=== PATIENT | male | born 1950 | race Caucasian/White ===

== ENCOUNTER → 2016-10-15 | Outpatient (CLI) | payer OTHER ==
[~2016-10-15] MED LIST: ASPEC325 PO; ATV/1 PO; CETI10TA84 PO; CHOL100010 PO; IBUP600T44 PO; MELA1TAB5 PO; MULT-506 PO; PANT40TA PO
== END | disposition home or self-care (01) ==
LOC: C.LAB 09:32
PROVIDERS: ATTEND Internal Medicine Critical Care Medicine
DX: J15.1 Pneumonia due to Pseudomonas (principal); R91.8 Other nonspecific abnormal finding of lung field

== ENCOUNTER → 2017-04-08 | Outpatient (CLI) | payer OTHER ==
--- NOTE | 2017-04-08 09:15 | DIAGNOSTIC IMAGING REPORT ---
CT OF THE CHEST WITHOUT IV CONTRAST CLINICAL HISTORY: Bacterial pneumonia. Pseudomonas pneumonia. COMPARISON STUDY: PET/CT July 04, 2015, chest CT March 21, 2016 and chest radiograph June 04, 2016. CT DOSE: 539.18 mGycm TECHNIQUE: Axial images of the chest were obtained without IV contrast. Images were reviewed in the axial, sagittal, and coronal planes. IV contrast was not administered for this examination. A dose lowering technique was utilized adhering to the principles of ALARA. FINDINGS: No enlarged axillary, mediastinal or hilar lymph nodes are present. The size of the heart is normal. There is no pericardial effusion. Central airways are patent. Right lower lobe airspace opacity has essentially resolved when compared to exam of March 21, 2016. There is residual bronchiectasis and scarring at this site. There is no consolidation to suggest pneumonia. Minimal subpleural opacities favor atelectasis. No pneumothorax or pleural effusion is present. Bony thorax and upper abdomen are on remarkable. There are few small calcified antoni hepatis lymph nodes. IMPRESSION: 1. No acute intrathoracic findings. 2. Resolution of right lower lobe airspace opacity with residual bronchiectasis and scarring at this site. Electronically signed by: Casimiro Rivas M.D. 04/08/2017 9:14 AM Dictated Date/Time: 04/08/2017 9:03 AM
== END | disposition home or self-care (01) ==
LOC: C.CTS 08:52
PROVIDERS: ATTEND Internal Medicine Critical Care Medicine
DX: J15.1 Pneumonia due to Pseudomonas (principal)

== ENCOUNTER 2024-03-08 10:23 | Inpatient (IN) ==
--- OUTSIDE RECORDS SUMMARY | 2024-03-08 10:27 | External Medical Summary | Summary of Care ---
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) 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) Procedures MS LEUCOVORIN CALCIUM INJECTION MS FLUOROURACIL INJECTION MS INJ., ZIRABEV, 10 MG Vu Navarrete MD [address] [place] [address] Anc Hem/Onc [address] [address] Referral ID Status Reason Start Date Expiration Date V isits Requested Visits Authorized [id number] Authorized 12/25/2023 06/30/2099 [id number] Encounter Details Date Type Department Care Team (Latest Contact Info) Description 02/07/2024 8:30 AM EDT Immunization/ Injection Hematology/Oncology Treatment, [address] [phone] Lina, Chair 11 Hem Onc [address] [place] [address] Encounter for antineoplastic chemotherapy*; 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); 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); 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 100 Tab 09/18/2018 Active Ibuprofen 200 MG Capsule Take 1 Capsule by mouth every 4 hours as needed for Pain. Active amoxicillin (AMOXIL) 500 MG Capsule Prior to dental procedures 12/14/2019 Active B-12 1000 MCG Oral Tablet Take by mouth 1 Tablet daily . 11/08/2021 Active Cetirizine HCl 10 MG Oral Tablet (ZyrTEC) Take 1 Tablet by mouth in the morning. Active home oxygen/equipment IN GAS .MEDSUPPLY 03/29/2022 Active Ventolin HFA 108 (90 Base) MCG/ACT Inhalation Aerosol SolutionIndicati ons:Idiopathic pulmonary fibrosis (HCC),LATIF (dyspnea on exertion) Inhale 2 Puffs by mouth every 4 hours as needed for Wheezing. 18 g 05/22/2023 Active Azelastine HCl 0.1 % Nasal Solution (Astelin) Administer 1 Stevinson into nostril in the morning and 1 Stevinson before bedtime. 30 mL 12 07/08/2023 Active Budesonide 0.5 MG/2ML Inhalation Suspension (Pulmicort) As directed in nasal saline rinse twice a day 120 mL 12 07/08/2023 Active Ondansetron HCl 8 MG Oral TabletIndication s:Malignant neoplasm of splenic flexure (HCC) Take 1 Tablet by mouth every 8 hours as needed for Nausea. 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 Start 02/26/2023 and stop flonase. 17 mL 02/26/2023 02/12/2024 Discontinued (Medication List Clean Up) [place] Saline Nasal Nasal GelIndications:N keo congestion,Dry nose Administer into nostril 3 times a day. 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 10/31 Interstitial pulmonary disease 11/10/2021 Idiopathic pulmonary fibrosis 05/08/2021 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) 05/08/2021 Aortic root enlargement 12/04/2020 Mild aortic stenosis 11/09/2020 Recurrent dislocation of hip joint prosthesis History of colon cancer 08/25/2019 Malignant neoplasm of splenic flexure of colon 0 12/01/2018 Cancer Staging:Clinical: Unsigned Pathologic stage from 12/31/2018:Stage IIIC(pT3, pN2b, cM0) - Signed by Vu Navarrete MD on 12/31/2018 Mild diastolic dysfunction 10/27/2018 Gastroesophageal reflux disease without esophagi tis 10/24/2018 DAILEY (nonalcoholic steatohepatitis) 03/14/2017 Bronchiectasis, uncomplicated 03/14/2017 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 Overview: path shows short segment Barretts , bxs from stomach neg for H Pylori and neg for gastritis repeat EGD in 1 year Hip joint replacement status 04/11/2009 Hereditary and idiopathic peripheral neuropathy 04/11/2009 documented as of this encounter (statuses as of 03/08/2024) Resolved Problems Problem Noted Date Diagnosed Date Resolved Date Trapezius muscle spasm 04/05/202305/22 Dislocation of hip, right, c losed, subsequent encounter 04/05/2023 02/12/2024 Dehydration 06/06/2022 02/12/2024 Chemotherapy-induced neutropenia 04/29/2019 05/08/2021 Achilles tendinitis of left lower extremity 03/18/2018 10/24/2018 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 02/14/2010 03/14/2017 Reflux esophagitis 04/11/2009 9 History of colonic polyps 05/20/2008 Overview: 3 mm adenoma at 50 cm, repeat years ICD-10 update of inactive term Special screening for malign ant neoplasms, colon 02/18/2003 09/08/2008 Overview: Resolved per Screening Diagnosis Protocol #6 BENIGN NEOPLASM LG BOWEL 02/18/2003 Elevated LFTs 09/12/2017 Overview: fatty infiltration documented as of this encounter (statuses as of 03/08/2024) Immunizations Name Administration Dates Next Due COVID-19 mRNA, LNP-s, No Pre serve, 2-Dose Series (Moderna) 02/22/2021,08/15/2020,07/18/2020 HepA Inact/HepB Recomb>=18yrs old 09/18/2018,,05/15/2017 Pneumococcal Conjugate Vacc, 13 Valent (Prevnar) 08/12/2015 Pneumococcal Polysaccharide PPV23 (Pneumovax) 09/10/2016,04/07/2008 Season Influenza, Quad, PF, Adjuvanted, 65+ Yrs, IM (FLUAD) 03/21/2020 Seasonal Influenza, PF, 6 M & above, IM , (FluLaval or Fluzone) 03/18/2018 Seasonal Influenza, Quadriva lent Hd (Fluzone Hd) 04/16/2023,03/13/2022,03/23/2021 Seasonal Influenza, Quadriva lent, No Preserve, IM 03/14/2017 Seasonal Influenza, Trivalen t, (IIV3), with Preserv, (Fluzone) 03/23/2021,03/23/2015,06/16/2013 Seasonal Influenza, Trivalen t, Adjuvanted, 65+ YRS, PF, (Fluad) 04/29/2019 TD - Tetanus/Diptheria (ADULT) 12/01/2018 TD, Preservative Free 12/01/2018 TDAP, Age 7 and older, IM (Adacel) 04/07/2008 Varicella Zoster Vaccine (Adult) 06/16/2013 Zoster Vaccine Recombinant (Shingrix) 06/13/2018 ,03/18/2018 05/18/2018 documented as of this encounter Social History Tobacco Use Types Packs/Day Years Used Date Smoking Tobacco: Never Smokeless Tobacco: Never Alcohol Use Standard Drinks/Week Comments Yes 1.7 (1 standard drink = 0.6 oz p ure alcohol) occasional PHQ-2 Answer Date Recorded PHQ Adult Total Score 0 05/22/2023 Hunger Vital Sign Answer Date Recorded Worried About Running Out of Food in the Last Ye ar Never true 01/04/2020 Ran Out of Food in the Last Year Never true 01/04/2020 Utilities Answer Date Recorded Do you have trouble paying y our heating, water, or electric bill? (Adult - for ages 18 years and over) Not on file 12/17/2023 Is your family able to pay t he heat, water, or electric bill? (Household - for ages 0-17 years) Not on file 12/17/2023 Does your family have access to good internet? (Household - for ages 0-17 years) Not on file 12/17/2023 Social Connections Answer Date Recorded How often do you feel lonely or isolated from those around you? (Adult - for ages 18 years and over) Not on file 12/17/2023 Sex and Gender Information Value Date Recorded Sex Assigned at Male 09/18/2018 7:58 AM EDT Gender Identity Male 09/18/2018 7:58 AM EDT Sexual Orientation Straight 09/18/2018 7: 58 AM EDT Job Start Date Occupation Industry Not on file Not on file Not on file documented as of this encounter Functional Status Functional Status Response Date of Assess ment Are you deaf or do you have serious difficulty h earing? No 11/20/2018 Are you blind or do you have serious difficulty seeing, even when wearing glasses? No 11/20/2018 Do you have serious difficul ty walking or climbing stairs? (5 years old or older) No 11/20/2018 Do you have difficulty dress ing or bathing? (5 years old or older) No 11/20/2018 Because of a physical, menta l, or emotional condition, do you have difficulty doing errands alone such as visiting a doctor s office or shopping? (15 years old or older) No 11/21/19 19 Cognitive Status Response Date of Assessm ent Because of a physical, menta l, or emotional condition, do you have serious difficulty concentrating, remembering, or making decisions? (5 years old or older) No 11/20/2018 documented as of this encounter Nursing Notes * Agnieszka Vinson RN - 02/07/2024 9:24 AM EDT Patient ambulatory to chair 7 Patient states mild nausea and mild fatigue with treatment, no other symptoms. Safety and Risk for Injury Patient will remain free from injury. Ensure appropriate safety devices are available. Provide and maintain safe environment. Patient instructed on use of heat and massage functions where applicable. Patient shown how to operate the heat function of the chair and to alert nursing staff if the chair feels too warm. Patient instructed on the risk of potential best while using the heat function. Presents for VAD flush. Tolerated procedure without difficulty. Advised pt to call if redness, swelling, tenderness, or drainage occurs at VAD site, verbalized understanding and has contact info. Goals: patient will remain free of injury Possible barriers to meeting goals: Stability of the patient: Moderately stable - low risk of patient condition declining or worsening Summary regarding today's goals: Met: patient remained free of injury Pt discharged in good condition, tolerated procedure well. documented in this encounter Plan of Treatment Upcoming Encounters Date Type Department Care Team (Late st Contact Info) Description 03/10/2024 11:50 AM EDT Laboratory Laboratory [facility] [place] [address] [place], [place] [address] Lina, Lab Scenery [address] [facility] [place], [place] [address] 03/11/2024 1:15 PM EDT Hem/Onc Treatment Hematology/Oncology Treatment, [place] [address] [facility], [place] [address] Lina, Chair 6 Hem Onc Scenery [address] [place] [address] 03/17/2024 12:00 PM EDT Laboratory Laboratory [facility] [place] [address] [place], [place] [address] Lina, Lab Scenery [address] [facility] [place], [place] [address] 03/18/2024 12:15 PM EDT Hem/Onc Treatment Hematology/Oncology Treatment, [place] [address] [facility], [place] [phone] Lina, Chair 8 Hem Onc Scenery [address] [place], [place] [address] 03/23/2024 8:45 AM EDT Imaging Radiology [address], [place] [address] [facility] [address] 03/31/2024 12:00 PM EDT Laboratory Laboratory [facility] L[place] [address] [place] [address] Lina, Lab Scenery [address] [facility] [place], [place] [address] 04/01/2024 11:15 AM EDT Office Visit Hematology/Oncology [facility] [place] [address] [place], [place] [phone] Vu Navarrete MD [address] [place], [place] [address] 04/01/2024 11:45 AM EDT Hem/Onc Treatment [facility]cology Treatment, [place] [address] [facility] [address] 10/13/2024 3:20 PM EDT Office Visit General Internal Medicine [facility] [address] [place] [address] Brayan Lopez MD [address] [facility] [place] [id number] Scheduled Procedures Name Priority Associated Diagnoses Date/Ti me COLONOSCOPY FLEXIBLE PROXIMAL DIAGNOSTIC Recall Personal history of colonic polyps ESOPHAGOGASTRODUODENOSCOPY ( EGD), FLEXIBLE, TRANSORAL, DIAGNOSTIC Recall Poe's esophagus with esophagitis Health Maintenance Due Date Last Done Comments Cologuard 1994 Sigmoidoscopy 1994 Fecal Occult Blood Test 02/02/2012 02/01/2011 Adult Wellness Visit 10/15/2017 10/15/2016 COVID-19 Vaccine ( season) 2024 02/22/2021, 08/15/2020, 07/18/2020 Influenza Vaccine (FLU shot) (#1) 2024 04/16/2023, 03/13/2022, 03/23/2021, Additional history exists Depression Screening 05/22/2024 05/22/2023 Poe's Esophagus Surveilance 04/04/2026 04/04/2023, 02/24/2020, 02/24/2020, Additional history exists Colonoscopy 07/11/2026 07/11/2023, 07/01, 11/10/2019, Additional history exists Colorectal Cancer Screening 07/11/2026 Lipid Panel 05/27/2028 05/27/2023, 05/0 03/2022, 03/24/2018, Additional history exists DTap/Tdap Vaccines (4 - Td or Tdap) 12/01/2028 12/01/2018, 12/01/2018, 04/07/2008 Pneumococcal Vaccine: 65+ Years Completed 09/10/2016, 08/12/2015, 04/07/2008 Zoster Vaccines Completed 06/13/2018, 03/01, 06/16/2013 Hepatitis B Vaccine Completed 09/18/2018, 09/12/2017, 05/15/2017 RETIRED - COLONOSCOPY-EVERY 5 YRS AGES 18-100 Discontinued 07/11/2023, 07/11/2023, 11/10/2019, Additional history exists HPV (Gardasil) Vaccine Aged Out No lo nger eligible based on patient's age to complete this topic MENINGOCOCCAL (MENACTRA/MENVEO) Aged Out No longer eligible based on patient's age to complete this topic documented as of this encounter Medical Devices Implanted Type Area Software Engineer Backend Device Identifier Shelf Expiration Date Model / Serial / Lot Port Implant W/8f Poly Cath - [id number] Implanted:Qty : 1 on 11/22/2021 by Prudencio Delarosa MD at OR [facility] BARD : PERIPHERAL VASCULAR [id number] 07/31/2022 [id number] / / [id number] Lens Li61ao 13.00mm 18.00 - [id number] - [id number] Implanted:Qty : 1 on 03/12/2023 by Champ Gonzalez MD at OR [facility] Left: Eye [employer] 11/29/2027 [id number] / [id number] / [id number] Lens Li61ao 13.00mm 17.00 - [id number] - [id number] Implanted:Qty : 1 on 03/26/2023 by Champ Gonzalez MD at OR [facility] Right: Eye [employer] 11/29/2027 [id number] / [id number] / [id number] documented as of this encounter Visit Diagnoses Diagnosis Encounter for antineoplastic chemotherapy- Primary 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) Secondary malignant neoplasm of liver 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 Given 02/07/2024 8:47 AM EDT 500 Units sodium chloride 0.9 % flush central line 10 mL 10 mL, IV Push, PRN Other, IV Flush, Starting on Sat02/07/24 at 0846, Until Sat02/07/24 at 1327, For 24 hours, Do not flush if lock, PICC, or central line not in place; IV infusing or unable to flush. Given 02/07/2024 8:47 AM EDT 10 mL documented in this encounter Advance Directives * Full Code (Latest Code Status on File) Date Activated Date Inactivated Comments 03/26/2023 8:37 AM 03/26/2023 2:51 PM This order r eflects the patients wishes and were consensually agreed upon. Question Answer Comments Discussion of Advance Directives occurred with: Patient Does the patient have a Living Will? No Does the patient have Health Care Power of Attor abdirizak? No * Full Code Date Activated Date Inactivated Comments 03/12/2023 2:01 PM 03/12/2023 8:16 PM This order r eflects the patients wishes and were consensually agreed upon. Question Answer Comments Discussion of Advance Directives occurred with: Patient Does the patient have a Living Will? No Does the patient have Health Care Power of Attor abdirizak? No * Full Code Date Activated Date Inactivated Comments 11/20/2018 10:18 AM 11/24/2018 4:53 PM Question Answer Comments Discussion of Advance Directives occurred with: Not Discussed Does the patient have a Living Will? No Does the patient have Health Care Power of Attor abdirizak? No * Full Code Date Activated Date Inactivated Comments 11/20/2018 5:37 AM 11/20/2018 10:18 AM Question Answer Comments Discussion of Advance Directives occurred with: Not Discussed Does the patient have a Living Will? No Does the patient have Health Care Power of Attor abdirizak? No Care Teams Preparatory Technician Relationship Specialty Start Date End Date Brayan Lopez MD [facility] [address] P[facility] - General Internal Medicine 11/06/12 documented as of this encounter
--- OUTSIDE RECORDS SUMMARY | 2024-03-08 10:28 | External Medical Summary | Summary of Care ---
Author Name Unknown Organization [facility] Address [address] [place] [address] Phone [phone] Care Team Providers Care Silk Blocker Name Role Phone Brayan Lopez MD Primary Care Provider + Reason for Visit * Reason Onset Date Comments Test Results 03/04/2024 Encounter Details Date Type Department Care Team (Late st Contact Info) Description 03/04/2024 Telephone General Internal Medicine [facility] [address] [place] [address] Brayan Lopez MD 200 [place] [address] Test Results Allergies Active Allergy Reactions Criticality Noted Date Comments Morphine Sulfate Itching 05/20/2008 documented as of this encounter (statuses as of 03/04/2024) Medications Medication Sig Dispensed Refills Start Date End Date Status VITAMIN D 1000 UNIT PO TABS 2 tablets daily Active hydrocortisone 2.5 % cream As needed 08/10/2016 Active acetaminophen (TYLENOL) 500 MG TabletIndications: Achilles tendinitis of left lower extremity Take 1 [...] HFA 108 (90 Base) MCG/ACT Inhalation Aerosol SolutionIndication s:Idiopathic pulmonary fibrosis (HCC),LATIF (dyspnea on exertion) Inhale 2 Puffs by mouth every 4 hours as needed for Wheezing. 18 g 05/22/2023 Active Azelastine HCl 0.1 % Nasal Solution (Astelin) Administer 1 [place] into nostril in the morning and 1 [place] before bedtime. 30 mL 12 07/08/2023 Active Budesonide 0.5 MG/2ML Inhalation Suspension (Pulmicort) As directed in nasal saline rinse twice a day 120 mL 12 07/08/2023 Active Ondansetron HCl 8 MG Oral TabletIndications: Malignant neoplasm of splenic flexure (HCC) Take 1 Tablet by mouth every 8 hours as needed for Nausea. 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 30 Tablet 02/07/2024 Active Melatonin 1 MG Oral Tablet ChewableIndication s:Chronic insomnia Take by mouth. 02/12/2024 Ac tive Benzonatate 100 MG Oral Capsule (Tessalon Perles)Indications :Acute cough Take 1 Capsule by mouth 3 times a day as needed for Cough. Do not cut, crush, or chew. 50 Capsule 1 03/04/2024 Active Amoxicillin-Pot Clavulanate 875-125 MG Oral Tablet (Augmentin)Indicat ions:Acute cough Take 1 Tablet by mouth in the morning and 1 Tablet before bedtime. Do all this for 7 days. 14 Tablet 03/04/2024 03/11/2024 Active Azithromycin 250 MG Oral Tablet (Zithromax)Indicat ions:Bacterial pneumonia Take 2 tabs by mouth on the first day, then 1 tab daily on days two through five 6 Tablet 03/04/2024 03/09/2024 Active Hospital, Clinic, or Other Facility Administered Medication Ordered Dose Route Frequency Start Date End Date Status Fluorouracil (5-Fu) 5,500 mg in NSS 230 mL infusion 5500 mg IV CONTINUOUS 03/03/2024 03/05/2024 Active documented as of this encounter (statuses as of 03/04/2024) Active Problems Problem Noted Date Diagnosed Date [...] as of this encounter (statuses as of 03/04/2024) Resolved Problems Problem Noted Date Diagnosed Date [...] as of this encounter (statuses as of 03/04/2024) Immunizations Name Administration Dates Next Due COVID-19 [...] No 11/20/2018 documented as of this encounter Miscellaneous Notes * Telephone Encounter - Stephanie Oneal LPN - 03/04/2024 12:10 PM EDT I called and made the patient aware of the message. He v/u and will comply. * Telephone Encounter - Stephanie Oneal LPN - 03/04/2024 12:10 PM EDT ----- Message from Brayan Lopez MD sent at 03/04/2024 11:43 AM EDT ----- Possible pneumonia. Add aizthromycin to current abx. Recheck cxr 4 weeks documented in this encounter Plan of Treatment Upcoming Encounters Date Type Department Care Team (Late st Contact Info) Description 03/10/2024 11:50 AM EDT Laboratory Laboratory [place] [address] [place] [phone] [place], Lab [facility] [address] [place] [address] 03/11/2024 1:15 PM EDT Hem/Onc Treatment Hematology/Oncology Treatment, [place] [address] [facility] [place] [address] Lina, Chair 6 Hem Onc [facility] [address] [place] [address] 03/17/2024 12:00 PM EDT Laboratory Laboratory [place] [address] [place] [phone] [place], Lab [place] [address] [place] [address] [place] [address] 03/18/2024 12:00 PM EDT Hem/Onc Treatment Hematology/Oncology Treatment, [place] 200 [facility] [place] [phone] Lina, Chair 1 Hem Onc [facility] [address] [place] [address] [place] [address] 03/23/2024 8:45 AM EDT Imaging Radiology [address], [place] [facility] [address] 03/31/2024 12:00 PM EDT Laboratory Laboratory [facility] [place] [address] [place] [address] [phone] Lina Lab [facility] [address] [place] [address] [address] 04/01/2024 11:15 AM EDT Office Visit Hematology/Oncology [facility] [place] [address] [place] [address] [phone] Vu Navarrete MD 200 [facility] [place] [address] 04/01/2024 11:45 AM EDT Hem/Onc Treatment Hematology/Oncology Treatment, [place] 200 [facility] [place] [phone] 10/13/2024 3:20 PM EDT Office Visit General Internal Medicine [facility] [place] [address] [place] [place] [address] Brayan Lopez MD 200 [facility] [place] [address] Scheduled Procedures Name Priority Associated Diagnoses Date/Ti me COLONOSCOPY FLEXIBLE PROXIMAL DIAGNOSTIC Recall Personal history of colonic polyps ESOPHAGOGASTRODUODENOSCOPY ( EGD), FLEXIBLE, TRANSORAL, DIAGNOSTIC Recall Poe's esophagus with esophagitis Health Maintenance Due Date Last Done Comments Cologuard 1994 Sigmoidoscopy 1994 Fecal Occult Blood Test 02/02/2012 02/01/2011 Adult Wellness Visit 10/15/2017 10/15/2016 COVID-19 Vaccine (4 - 2022- season) 2024 02/22/2021, 08/15/2020, 07/18/2020 Influenza Vaccine [...] this encounter Medical Devices Implanted Type Area Lead Sharepoint Developer Device Identifier Shelf Expiration Date Model / Serial / Lot Port Implant W/8f Poly Cath - [id number] Implanted:Qty : 1 on 11/22/2021 by Prudencio Delarosa MD at OR [facility] BARD : PERIPHERAL VASCULAR [id number] 07/31/2022 [id number] / / [id number] Lens Li61ao 13.00mm 18.00 - [id number] - [id number] Implanted:Qty : 1 on 03/12/2023 by Champ Gonzalez MD at OR [facility] Left: Eye [employer]OM[employer] 11/29/2027 [id number] / [id number] / [id number] Lens Li61ao 13.00mm 17.00 - [id number] - [id number] Implanted:Qty : 1 on 03/26/2023 by Champ Gonzalez MD at OR [facility] Right: Eye [employer]CH [employer] LOMB 11/29/2027 [id number] / [id number] / [id number] documented as of this encounter Additional Health Concerns Infection Onset Date Last Indicated Resolved Time Respiratory Rule-Out 03/04/2024 03/04/2024 documented as of this encounter Advance Directives * Full Code [...] Power of Attor abdirizak? No Care Teams Silk Blocker Relationship Specialty Start Date End Date Brayan Lopez MD 200 [place] [address] PCP - General Internal Medicine 11/06/12 documented as of this encounter
--- OUTSIDE RECORDS SUMMARY | 2024-03-08 10:28 | External Medical Summary | Summary of Care ---
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) Procedures ME LEUCOVORIN CALCIUM INJECTION ME FLUOROURACIL INJECTION ME INJ., ZIRABEV, 10 MG Vu Navarrete MD 200 [place] [address] Anc Hem/Onc [address] [address] Referral ID Status Reason Start Date Expiration Date V isits Requested Visits Authorized [id number] Authorized 12/25/2023 06/30/2099 [id number] Encounter Details Date Type Department Care Team (Latest Contact Info) Description 02/21/2024 11:30 AM EDT Immunization/ Injection Hematology/Oncology Treatment, [address] [address] Lina Chair 7 Hem On[address] [place] [address] Encounter for antineoplastic chemotherapy*; 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); 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); 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); 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); Encounter for adjustment and management of vascular access device Allergies Active Allergy Reactions Criticality Noted Date Comments Morphine Sulfate Itching 05/20/2008 documented as of this encounter (statuses as of 03/05/2024) Medications Medication Sig Dispensed Refills Start Date End Date Status VITAMIN D 1000 UNIT PO TABS 2 tablets daily Active hydrocortisone 2.5 % cream As needed 08/10/2016 Active acetaminophen (TYLENOL) 500 MG TabletIndications:A chilles tendinitis of left lower extremity Take 1 [...] HFA 108 (90 Base) MCG/ACT Inhalation Aerosol SolutionIndications :Idiopathic pulmonary fibrosis (HCC),LATIF (dyspnea on exertion) Inhale 2 Puffs by mouth every 4 hours as needed for Wheezing. 18 g 05/22/2023 Active Azelastine HCl 0.1 % Nasal Solution (Astelin) Administer 1 [place] into nostril in the morning and 1 [place] before bedtime. 30 mL 12 07/08/2023 Active Budesonide 0.5 MG/2ML Inhalation Suspension (Pulmicort) As directed in nasal saline rinse twice a day 120 mL 12 07/08/2023 Active Ondansetron HCl 8 MG Oral TabletIndications:M alignant neoplasm of splenic flexure (HCC) Take 1 Tablet by mouth every 8 hours as needed for Nausea. 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 30 Tablet 02/07/2024 Active Melatonin 1 MG Oral Tablet ChewableIndications :Chronic insomnia Take by mouth. 02/12/2024 Act carrie documented as of this encounter (statuses as of 03/05/2024) Active Problems Problem Noted Date Diagnosed Date [...] as of this encounter (statuses as of 03/05/2024) Resolved Problems Problem Noted Date Diagnosed Date [...] as of this encounter (statuses as of 03/05/2024) Immunizations Name Administration Dates Next Due COVID-19 [...] as of this encounter Nursing Notes * Nadine Dan RN - 02/21/2024 2:56 PM EDT Chair 9, pump disconnect. 5FU elastomeric pump is visibly deflated/empty;clamped/disconnected from VAD. VAD flushed with 10 ml NSS and Heparin 5 ml (100 units/ml). Loza needle removed intact. documented in this encounter Plan of Treatment Upcoming Encounters Date Type Department Care Team (Late st Contact Info) Description 03/10/2024 11:50 AM EDT Laboratory Laboratory [place] [address] [place] [address] [phone] [place] 200 [address]y [address] [facility] [place] [address] 03/11/2024 1:15 PM EDT Hem/Onc Treatment Hematology/Oncology Treatment, [place] [address] [place] [phone] Lina, Chair 6 Hem Onc [place] [address] [place] [address] [address] 03/17/2024 12:00 PM EDT Laboratory Laboratory [place] [address] [place] [address] [place] [phone] Lina Lab [place] [address] [place] [address] [address] 03/18/2024 12:15 PM EDT Hem/Onc Treatment Hematology/Oncology Treatment, [place] 200 [facility], [place] [phone] [place], Chair 8 Hem Onc [place] [address] [place] [place] [address] 03/23/2024 8:45 AM EDT Imaging Radiology [address], [place] [address] [place] [address] 03/31/2024 12:00 PM EDT Laboratory Laboratory [facility] [address] [place] [phone] [place], Lab [place] [address] [place] [address] 04/01/2024 11:15 AM EDT Office Visit Hematology/Oncology [facility] [place] [address] [place] [address] [place] [phone] Vu Navarrete MD 200 [facility] [place] [address] 04/01/2024 11:45 AM EDT [facility] [address] [facility] [place] [phone] 10/13/2024 3:20 PM EDT Office Visit General Internal Medicine [facility] [address] [place] [address] Brayan Lopez MD 200 [facility] [place] [address] Scheduled Procedures Name Priority Associated Diagnoses Date/Ti [...] Cancer Screening 07/11/2026 Lipid Panel 05/27/2028 05/27/2023, 03/2022, 03/24/2018, Additional history exists DTap/Tdap Vaccines [...] this encounter Medical Devices Implanted Type Area Forestry Hunter Device Identifier Shelf Expiration Date Model / Serial / Lot Port Implant W/8f Poly Cath - [id number] Implanted:Qty : 1 on 11/22/2021 by Prudencio Delarosa MD at OR [facility] BARD : PERIPHERAL VASCULAR [id number] 07/31/2022 [id number] / / [id number] Lens Li61ao 13.00mm 18.00 - [id number] - [id number] Implanted:Qty : 1 on 03/12/2023 by Champ Gonzalez MD at OR [facility] Left: Eye [employer]USCH [employer] LOMB 11/29/2027 [id number] / [id number] / [id number] Lens Li61ao 13.00mm 17.00 - [id number] - [id number] Implanted:Qty : 1 on 03/26/2023 by Champ Gonzalez MD at OR [facility] Right: Eye BAUSCH [employer] LOMB 11/29/2027 [id number] / [id number] / [id number] documented as of this encounter Visit Diagnoses Diagnosis Encounter for antineoplastic chemotherapy- Primary 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) Secondary malignant neoplasm of liver 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 Given 02/21/2024 11:33 AM EDT 500 Units sodium chloride 0.9 % flush central line 10 mL 10 mL, IV Push, PRN Other, IV Flush, Starting on Sat02/21/24 at 1128, Until Sat02/21/24 at 1858, For 24 hours, Do not flush if lock, PICC, or central line not in place; IV infusing or unable to flush. Given 02/21/2024 11:32 AM EDT 20 mL documented in this encounter Advance Directives [...] Power of Attor abdirizak? No Care Teams Stone Setter Relationship Specialty Start Date End Date Brayan Lopez MD 200 [place] [address] PCP - General Internal Medicine 11/06/12 documented as of this encounter
--- OUTSIDE RECORDS SUMMARY | 2024-03-08 10:28 | External Medical Summary | Summary of Care ---
Author Name Unknown Organization [facility] Address [address] [place] [address] Phone [phone] Care Team Providers Care Experimental Rocketsled Mechanic Name Role Phone Brayan Lopez MD Primary Care Provider + Reason for Visit * Reason Onset Date Comments Advice 03/06/2024 Encounter Details Date Type Department Care Team (Late st Contact Info) Description 03/06/2024 Telephone General Internal Medicine [facility] [address] [place] [address] Brayan Lopez MD 200 [place] [address] Advice Allergies Active Allergy Reactions Criticality Noted Date Comments Morphine Sulfate Itching 05/20/2008 documented as of this encounter (statuses as of 03/06/2024) Medications Medication Sig Dispensed Refills Start Date [...] 0.1 % Nasal Solution (Astelin) Administer 1 [place] into nostril in the morning and 1 [place] before bedtime. 30 mL 12 07/08/2023 Active Budesonide 0.5 MG/2ML Inhalation Suspension (Pulmicort) As directed in nasal saline rinse twice a day 120 mL 07/08/2023 Active Ondansetron HCl 8 MG Oral [...] through five 6 Tablet 03/04/2024 03/09/2024 Active documented as of this encounter (statuses as of 03/06/2024) Active Problems Problem Noted Date Diagnosed Date [...] as of this encounter (statuses as of 03/06/2024) Resolved Problems Problem Noted Date Diagnosed Date [...] as of this encounter (statuses as of 03/06/2024) Immunizations Name Administration Dates Next Due COVID-19 [...] encounter Miscellaneous Notes * Telephone Encounter - Gracy España LPN - 03/06/2024 4:39 PM EDT Spoke with patient making him aware of below. Patient verbalized understanding. * Telephone Encounter - Ashley Hardy CRNP - 03/06/2024 3:12 PM EDT If he is not improving by tomorrow I would recommend ER -- there is not much else I could add in anadditional office visit * Telephone Encounter - Salome Zamudio LPN - 03/06/2024 12:38 PM EDT Patient's calling in with concerns that patient isn't improving despite the Zpak and Augmentin. Fever last night - doesn't recall the reading Productive cough of yellow/white sputum hasn't improved or worsened. SOB at rest and with exertion. SP O2 96% on 2lpm via nasal canula. Patient did say to his that he feels better overall when he wears his O2. Color in his face has improved since wearing his O2 on. Chest discomfort when he coughs hard. Using the Albuterol PRN inhaler, no improvement after using. Denies palpitations, tachycardia, dizziness, syncope, lightheadedness, blood in sputum, wheezing, resp distress. Advised patient wear his O2 continuous if needed and seek medical care sooner than appt scheduled if his symptoms are worsening. Appt scheduled tomorrow at with Ashley Hardy at 1040am. documented in this encounter Plan of Treatment Upcoming Encounters Date Type Department Care Team (Late st Contact Info) Description 03/07/2024 10:40 AM EDT Office Visit Family Practice [facility] [address] [place] [address] Ashley Hardy CRNP [address] [place] [address] 03/10/2024 11:50 AM EDT Laboratory Laboratory [facility] [place] [address] [place] [phone] L[place], Lab [place] [address] [facility] [place] [address] 03/11/2024 1:15 PM EDT Hem/Onc Treatment [facility] [place] [facility] [phone] [place], Chair 6 Hem Onc [place] [address] [place] [address] 03/17/2024 12:00 PM EDT Laboratory Laboratory [facility] [place] [address] [place] [address] [place], Lab [place] [address] [facility] [place] [address] 03/18/2024 12:15 PM EDT Hem/Onc Treatment Hematology[facility]Oncology Treatment, [place] [facility] [address] Lina, Chair 8 Hem Onc [place] [address] [place] [address] 03/23/2024 8:45 AM EDT Imaging Radiology [facility] [address] [place] [address] 03/31/2024 12:00 PM EDT Laboratory Laboratory [facility] [place] [address] [place] [address] L[place], Lab [place] [address] [facility] [place] [address] 04/01/2024 11:15 AM EDT Office Visit Hematology/Oncology [facility] 200 [facility] [place] [phone] Vu Navarrete MD 200 [facility] [place] [address] 04/01/2024 11:45 AM EDT Hem/Onc Treatment Hematology/Oncology Treatment, [place] [facility] [phone] 10/13/2024 3:20 PM EDT Office Visit General Internal Medicine [address] [place] [address] Brayan Lopez MD 200 [facility] [place] [address] Scheduled Procedures Name Priority Associated Diagnoses Date/Ti [...] this encounter Medical Devices Implanted Type Area Boatbuilder Apprentice Wood Device Identifier Shelf Expiration Date Model / Serial / Lot Port Implant W/8f Poly Cath - [id number] Implanted:Qty : 1 on 11/22/2021 by Prudencio Delarosa MD at OR [facility] BARD : PERIPHERAL VASCULAR [id number] 07/31/2022 [id number] / / [id number] Lens Li61ao 13.00mm 18.00 - [id number] - [id number] Implanted:Qty : 1 on 03/12/2023 by Champ Gonzalez MD at OR [facility] Left: Eye [employer]USCH [employer] LOMB 11/29/2027 [id number] / [id number] / [id number] Lens Li61ao 13.00mm 17.00 - [id number] - [id number] Implanted:Qty : 1 on 03/26/2023 by Champ Gonzalez MD at OR [facility] Right: Eye BAUSCH & LOMB 11/29/2027 [id number] / [id number] / [id number] documented as of this encounter Advance Directives [...] Power of Attor abdirizak? No Care Teams Experimental Rocketsled Mechanic Relationship Specialty Start Date End Date Brayan Lopez MD 200 [place] [address] PCP - General Internal Medicine 11/06/12 documented as of this encounter
--- OUTSIDE RECORDS SUMMARY | 2024-03-08 10:28 | External Medical Summary | Summary of Care ---
Author Name Unknown Organization [facility] Address [address] [place] [address] Phone [phone] Care Team Providers Care Harbor Pilot Name Role Phone Brayan Lopez MD Primary Care Provider + Reason for Visit * Reason Onset Date Comments Test Results 03/05/2024 Encounter Details Date Type Department Care Team (Late st Contact Info) Description 03/05/2024 Telephone General Internal Medicine [facility] [address] [place] [address] Brayan Lopez MD 200 [place] [address] Test Results Allergies Active Allergy Reactions Criticality [...] 0.1 % Nasal Solution (Astelin) Administer 1 [place] into nostril in the morning and 1 [place] before bedtime. 30 mL 12 07/08/2023 Active [...] encounter Miscellaneous Notes * Telephone Encounter - Estrellita Berry CMA - 03/05/2024 4:13 PM EDT MyG sent * Telephone Encounter - Estrellita Berry CMA - 03/05/2024 4:13 PM EDT ----- Message from Brayan Lopez MD sent at 03/04/2024 6:24 PM EDT ----- Swab negative for virus, how is he feeling? documented in this encounter Plan of Treatment Upcoming Encounters Date Type Department Care Team (Late st Contact Info) Description 03/10/2024 11:50 AM EDT Laboratory Laboratory [facility] [place] [address] [place] [phone] Lina Lab Marky [address] [place] [address] 03/11/2024 1:15 PM EDT Hem/Onc Treatment Hematology/Oncology Treatment, [place] [address] [place] [phone] Lina, Chair 6 Hem Onc Scenery [address] [place] [address] 03/17/2024 12:00 PM EDT Laboratory Laboratory [facility] Lina [place] [address] [place] [phone] Lina, Lab Scenery [address] [facility] [place] [address] 03/18/2024 12:15 PM EDT Hem/Onc Treatment Hematology/Oncology Treatment, [place] [address] [facility] [place] [phone] Lina, Chair 8 Hem Onc [place] [address] [place] [place] [address] 03/23/2024 8:45 AM EDT Imaging Radiology [address], [place] 132 [facility] [place] [address] 03/31/2024 12:00 PM EDT Laboratory Laboratory [facility] [place] [address] [address] [phone] [place], Lab [place] [address] [place] [address] 04/01/2024 11:15 AM EDT Office Visit Hematology/Oncology [facility] [place] [address] [phone] Vu Navarrete MD [address] [place] [address] [place] [address] 04/01/2024 11:45 AM EDT [facility] [phone] 10/13/2024 3:20 PM EDT Office Visit General Internal Medicine [facility] [place] [address] [place] [address] [address] Brayan Lopez MD 200 [facility] [place], [place] [address] Scheduled Procedures Name Priority Associated Diagnoses Date/Ti [...] this encounter Medical Devices Implanted Type Area Eviscerator Device Identifier Shelf Expiration Date Model / Serial / Lot Port Implant W/8f Poly Cath - [id number] Implanted:Qty : 1 on 11/22/2021 by Prudencio Delarosa MD at OR [facility] BARD : PERIPHERAL VASCULAR [id number] 07/31/2022 [id number] / / [id number] Lens Li61ao 13.00mm 18.00 - [id number] - [id number] Implanted:Qty : 1 on 03/12/2023 by Champ Gonzalez MD at OR [facility] Left: Eye [employer] 11/29/2027 [id number] / [id number] / [id number] Lens Li61ao 13.00mm 17.00 - [id number] - [id number] Implanted:Qty : 1 on 03/26/2023 by Champ Gonzalez MD at OR [facility] Right: Eye [employer]OMB 11/29/2027 [id number] / [id number] / [id number] documented as of this encounter Advance Directives [...] Power of Attor abdirizak? No Care Teams Harbor Pilot Relationship Specialty Start Date End Date Brayan Lopez MD 200 [facility] [place] [address] PCP - General Internal Medicine 11/06/12 documented as of this encounter
--- OUTSIDE RECORDS SUMMARY | 2024-03-08 10:28 | External Medical Summary | Summary of Care ---
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) Procedures PA LEUCOVORIN CALCIUM INJECTION PA FLUOROURACIL INJECTION PA INJ., ZIRABEV, 10 MG Vu Navarrete MD 200 [place] [address] Anc Hem/Onc [address] [address] Referral ID Status Reason Start Date Expiration Date V isits Requested Visits Authorized [id number] Authorized 12/25/2023 06/30/2099 999 999 Encounter Details Date Type Department Care Team (Latest Contact Info) Description 02/19/2024 11:45 AM EDT Hem/Onc Treatment Hematology/Oncolog y Treatment, [address] [phone] Lina, Chair 3 Hem On[address] [place] [address] (work) Encounter for antineoplastic chemotherapy*; Malignant neoplasm metastatic [...] 0.1 % Nasal Solution (Astelin) Administer 1 [place] into nostril in the morning and 1 [place] before bedtime. 30 mL 12 07/08/2023 Active [...] Nursing Notes * Nadine Dan RN - 02/19/2024 2:09 PM EDT Pt completed treatment without issues. VAD connected to 5FU home infusion pump. Goals: Pt will remain free from injury. Possible barriers to meeting goals: ambulation with IV pole Stability of the patient: Moderately stable - low risk of patient condition declining or worsening Summary regarding today's goals: Met: Pt remained free from injury during treatment today. Discharged in stable condition. * Nadine Dan RN - 02/19/2024 11:56 AM EDT Chair 11 Chemotherapy/Immunotherapy agents: 5FU, LEUCOVORIN, and ZIRABEV Consent for chemotherapy drug treatment complete, dated, and signed? yes, date - 12/23/23 Treatment lab parameters met? Yes Has treatment weight changed > than 10%? No Treatment preauthorized? Yes VITALS Filed Vitals: Urine protein: NEGATIVE Patient education completed for treatment? Yes Blood transfusion consent signed and complete? NA Return appointment scheduled? Yes Patient had provider visit today? Yes - Ok to release order and treat per provider VAD accessed; NSS infusing. Safety and Risk for Injury Patient will remain free from injury. Ensure appropriate safety devices are available. Provide and maintain safe environment. Functional Status: Functional status at today's visit: Restricted in physically strenuous activity but ambulatory and able to carry out work on a light orsedentary nature, e.g. light house work, office work The drug name, dose, infusion volume, rate and route of administration, expiration date and time, appearance and physical integrity of the drug and rate set on the pump and sequencing of drug administration (as applicable) were verified by me and second sign-in RN. Patient was assessed for symptoms or adverse side effects during treatment. Patient Education: Patient instructed on use of heat and massage functions where applicable. Patient shown how to operate the heat function of the chair and to alert nursing staff if the chair feels too warm. Patient instructed on the risk of potential best while using the heat function. documented in this encounter Plan of Treatment Upcoming Encounters Date Type Department Care Team (Late st Contact Info) Description 03/10/2024 11:50 AM EDT Laboratory Laboratory [facility] [place] [address] [place] [phone] Lina, Lab Scenery [address] [place] [address] 03/11/2024 1:15 PM EDT Hem/Onc Treatment Hematology/Oncology Treatment, [place] 200 [facility] [place] [address] Lina, Chair 6 Hem Onc Scenery [address] [address] 03/17/2024 12:00 PM EDT Laboratory Laboratory [facility] [place] [address] [place] [address] Lina, Lab Scenery [address] [place] [address] 03/18/2024 12:15 PM EDT Hem/Onc Treatment Hematology/Oncology Treatment, [place] 200 [facility] [place] [address] Lina, Chair 8 Hem Onc Scenery [address] [place] [address] 03/23/2024 8:45 AM EDT Imaging Radiology [facility] 1st [facility], [place] 132 [facility] [place] [address] 03/31/2024 12:00 PM EDT Laboratory Laboratory [facility] [place] 200 [facility] [place] [phone] [place] [facility] 200 [facility] [place] [address] 04/01/2024 11:15 AM EDT Office Visit Hematology/Oncology [facility] [place] [address] [place] [phone] Vu Navarrete MD 200 [facility] [place] [address] 04/01/2024 11:45 AM EDT Hem/Onc Treatment Hematology/Oncology Treatment, [place] [address] [facility] [address] [place] [phone] 10/13/2024 3:20 PM EDT Office Visit General Internal Medicine [facility] Lina [address] [place] [address] Brayan Lopez MD 200 [facility] [place] [address] Scheduled Procedures Name Priority Associated Diagnoses Date/Ti [...] this encounter Medical Devices Implanted Type Area Air Tool Operator Device Identifier Shelf Expiration Date Model / Serial / Lot Port Implant W/8f Poly Cath - [id number] Implanted:Qty : 1 on 11/22/2021 by Prudencio Delarosa MD at OR [facility] BARD : PERIPHERAL VASCULAR [id number] 07/31/2022 [id number] / / [id number] Lens Li61ao 13.00mm 18.00 - [id number] - [id number] Implanted:Qty : 1 on 03/12/2023 by Champ Gonzalez MD at OR [facility] Left: Eye [employer]CH [employer] LOMB 11/29/2027 [id number] / [id number] / [id number] Lens Li61ao 13.00mm 17.00 - [id number] - [id number] Implanted:Qty : 1 on 03/26/2023 by Champ Gonzalez MD at OR [facility] Right: Eye BAUSCH [employer] LOMB 11/29/2027 [id number] / [id number] / [id number] documented as of this encounter Visit Diagnoses [...] MAR Action Action Date Dose Rate Site bevaCIZumab-bvzr (Zirabev) 500 mg in NSS 100 mL infusion 500 mg (rounded from 512.5 mg = 5 mg/kg 102.5 kg Treatment plan Recorded weight), IV Piggyback, ONCE, 1 dose, On Sat02/19/24 at 1215, Administer over 30 Minutes Start Infusion 02/19/2024 12:16 PM EDT 500 mg 210 mL/hr Fluorouracil (5-Fu) 5,500 mg for Home Infusion 5,500 mg (rounded from 5,592 mg = 2,400 mg/m2 2.33 m2 Treatment Plan BSA from Recorded weight), Intravenous, Administer over 46 Hours, Home Infusion Pharmacy to specify base solution and volume., ONCE, 1 dose, On Sat02/19/24 at 1015 Start Infusion 02/19/2024 1:35 PM EDT 5,500 mg 5 mL/hr leucovorin calcium 950 mg in D5W 250 mL INFUSION 950 mg (rounded from 932 mg = 400 mg/m2 2.33 m2 Treatment Plan BSA from Recorded weight), IV Piggyback, ONCE, 1 dose, On Sat02/19/24 at 1215, Administer over 30 Minutes Start Infusion 02/19/2024 12:55 PM EDT 950 mg 510 mL/hr NSS infusion Intravenous, at 50 mL/hr, PRN, Starting on Sat02/19/24 at 0830, Until Sat02/19/24 at 1813, Maintenance line Start Infusion 02/19/2024 11:58 AM EDT 50 mL/hr ondansetron (Zofran) tab 8 mg 8 mg, Oral, ONCE, On Sat02/19/24 at 1215, For 1 dose, Give 30 minutes prior to chemotherapy. Given 02/19/2024 11:55 AM EDT 8 mg documented in this encounter Advance Directives * [...] Power of Attor abdirizak? No Care Teams Health Occupations Teacher Relationship Specialty Start Date End Date Brayan Lopez MD 200 [place] [address] PCP - General Internal Medicine 11/06/12 documented as of this encounter
--- OUTSIDE RECORDS SUMMARY | 2024-03-08 10:28 | External Medical Summary | Summary of Care ---
Author Name Unknown Organization [facility] Address [address] [place] [address] Phone [phone] Care Team Providers Care Fish Tender Name Role Phone Brayan Lopez MD Primary [...] ZIRABEV, 10 MG Vu Navarrete MD 200 [place] [address] Anc Hem/Onc [address] [address] Referral ID Status Reason Start Date Expiration Date V isits Requested Visits Authorized [id number] Authorized 12/25/2023 06/30/2099 999 999 Encounter Details Date Type Department Care Team (Latest Contact Info) Description 02/19/2024 11:45 AM EDT Hem/Onc Treatment Hematology/Oncolog y Treatment, [address] [address] Lina, Chair 3 Hem Onc [address] [place] [address] (work) Encounter for antineoplastic chemotherapy*; Malignant neoplasm [...] 0.1 % Nasal Solution (Astelin) Administer 1 [place] into nostril in the morning and 1 [place] before bedtime. 30 mL 12 07/08/2023 Active [...] Description 03/10/2024 11:50 AM EDT Laboratory Laboratory [facility] [place] [address] [place] [phone] Lina, Lab Scenery [address] [place] [address] 03/11/2024 1:15 PM EDT Hem/Onc Treatment Hematology/Oncology Treatment, [place] 200 [facility] [place] [phone] Lina, Chair 6 Hem Onc Scenery [address] [place] [address] 03/17/2024 12:00 PM EDT Laboratory Laboratory [facility] [place] [address] [place] [address] Lina, Lab Scenery [address] [place] [address] 03/18/2024 12:15 PM EDT Hem/Onc Treatment Hematology/Oncology Treatment, [place] 200 [facility] [place] [address] Lina, Chair 8 Hem Onc Scenery [address] [place] [address] 03/23/2024 8:45 AM EDT Imaging Radiology [facility] 1st [facility] [place] 132 [facility] [place] [address] 03/31/2024 12:00 PM EDT Laboratory Laboratory [facility] [place] 200 [facility] [place] [phone] [place] [facility] 200 [facility] [place] [address] 04/01/2024 11:15 AM EDT Office Visit [facility]ematology[facility]Oncology [facility] [place] [address] [place] [phone] Vu Navarrete MD 200 [facility] [place] [address] 04/01/2024 11:45 AM EDT Hem/Onc Treatment Hematology/Oncology Treatment, [place] [address] [facility] [address] [place] [phone] 10/13/2024 3:20 PM EDT Office Visit General Internal Medicine [facility] Lina [address] [place] [address] Brayan Lopez MD 200 [facility] [place] [address] Scheduled Procedures Name Priority Associated Diagnoses Date/Ti [...] this encounter Medical Devices Implanted Type Area Transit Bus Operator Device Identifier Shelf Expiration Date Model / Serial / Lot Port Implant W/8f Poly Cath - [id number] Implanted:Qty : 1 on 11/22/2021 by Prudencio Delarosa MD at OR [facility] BARD : PERIPHERAL VASCULAR [id number] 07/31/2022 [id number] / / [id number] Lens Li61ao 13.00mm 18.00 - [id number] - [id number] Implanted:Qty : 1 on 03/12/2023 by Champ Gonzalez MD at OR [facility] Left: Eye [employer]OM[employer] 11/29/2027 [id number] / [id number] / [id number] Lens Li61ao 13.00mm 17.00 - [id number] - [id number] Implanted:Qty : 1 on 03/26/2023 by Champ Gonzalez MD at OR [facility] Right: Eye BAUSCH & LOMB 11/29/2027 [id number] / [id number] / [id number] documented as of this encounter Visit Diagnoses [...] Power of Attor abdirizak? No Care Teams Fish Tender Relationship Specialty Start Date End Date Brayan Lopez MD 200 [place] [address] PCP - General Internal Medicine 11/06/12 documented as of this encounter
--- OUTSIDE RECORDS SUMMARY | 2024-03-08 10:28 | External Medical Summary | Summary of Care ---
Author Name Unknown Organization [facility] Address [address] [place] [address] Phone [phone] Care Team Providers Care Field Trainer Name Role Phone Brayan Lopez MD Primary Care Provider + Reason for Visit * Reason Comments Cough Fever Encounter Details Date Type Department Care Team (Late st Contact Info) Description 03/04/2024 11:00 AM EDT Office Visit General Internal Medicine [facility] [address] [facility] [place] [address] Brayan Lopez MD [address] [place] [address] Acute cough*; Lung infection; UIP (usual interstitial pneumonitis) ([facility]); Bacterial pneumonia Allergies Active Allergy Reactions Criticality Noted Date Comments Morphine Sulfate Itching 05/20/2008 documented as of this encounter (statuses as of 03/04/2024) Medications Medication Sig Dispensed Refills Start Date End Date Status VITAMIN D 1000 UNIT PO TABS 2 tablets daily Active hydrocortisone 2.5 % cream As needed 08/10/2016 Active acetaminophen (TYLENOL) 500 MG TabletIndications :Achilles tendinitis of left lower extremity Take 1 [...] HFA 108 (90 Base) MCG/ACT Inhalation Aerosol SolutionIndicatio ns:Idiopathic pulmonary fibrosis (HCC),ABRAMS (dyspnea on exertion) Inhale 2 Puffs by mouth every 4 hours as needed for Wheezing. 18 g 05/22/2023 Active Azelastine HCl 0.1 % Nasal Solution (Astelin) Administer 1 Ida into nostril in the morning and 1 Ida before bedtime. 30 mL 12 07/08/2023 Active Budesonide 0.5 MG/2ML Inhalation Suspension (Pulmicort) As directed in nasal saline rinse twice a day 120 mL 12 07/08/2023 Active Ondansetron HCl 8 MG Oral TabletIndications :Malignant neoplasm of splenic flexure (HCC) Take 1 Tablet by mouth every 8 hours as needed for Nausea. 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 30 Tablet 02/07/2024 Active Melatonin 1 MG Oral Tablet ChewableIndicatio ns:Chronic insomnia Take by mouth. 02/12/2024 Active Benzonatate 100 MG Oral Capsule (Tessalon Perlelsy)Indication s:Acute cough Take 1 Capsule by mouth 3 times a day as needed for Cough. Do not cut, crush, or chew. 50 Capsule 1 03/04/2024 Active Amoxicillin-Pot Clavulanate 875-125 MG Oral Tablet (Augmentin)Indica tions:Acute cough Take 1 Tablet by mouth in the morning and 1 Tablet before bedtime. Do all this for 7 days. 14 Tablet 03/04/2024 4 Active Azithromycin 250 MG Oral Tablet (Zithromax)Indica tions:Bacterial pneumonia Take 2 tabs by mouth on the first day, then 1 tab daily on days two through five 6 Tablet 03/04/2024 Active Nintedanib Esylate 150 MG Oral Capsule (Ofev) 1 Capsule. 07/09/2023 Discontinued Hospital, Clinic, or Other Facility Administered Medication [...] on file documented as of this encounter Last Filed Vital Signs Vital Sign Reading Time Taken Comments Blood Pressure 122/76 03/04/2024 10:57 AM EDT Pulse 77 03/04/2024 10:57 AM EDT Temperature 36.9 C (98.5 F) 03/04/2024 10:57 AM E DT Respiratory Rate 18 03/04/2024 10:57 AM EDT Oxygen Saturation 92% 03/04/2024 10:57 AM EDT Inhaled Oxygen Concentration - - Weight 98.6 kg (217 lb 6.4 oz) 03/04/2024 10:57 AM EDT Height 190.5 cm (6' 3") 03/04/2024 10:57 AM EDT Body Mass Index 27.17 03/04/2024 10:57 AM EDT documented in this encounter Functional Status Functional Status Response [...] No 11/20/2018 documented as of this encounter Progress Notes * Brayan Lopez MD - 03/04/2024 11:10 AM EDT Chief Complaint Patient presents with Cough Fever SUBJECTIVE: Luis Weaver is a 73 year old male with PMH as below who presents for acute. 2-3 days worsening cough. Sputum with yellow/white +abrams. Also fever in night >101. No sick contacts. No wheezing. Non/v/d. 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 100 Tab 0 Ibuprofen 200 MG Capsule Take 1 Capsule by mouth every 4 hours as needed for Pain. amoxicillin (AMOXIL) 500 MG Capsule Prior to dental procedures B-12 1000 MCG Oral Tablet Take by mouth 1 Tablet daily . Cetirizine HCl 10 MG Oral Tablet (ZyrTEC) Take 1 Tablet by mouth in the morning. home oxygen/equipment [employer] HFA 108 (90 Base) MCG/ACT Inhalation Aerosol Solution Inhale 2 Puffs by mouth every 4 hours as needed for Wheezing. 18 g 0 Azelastine HCl 0.1 % Nasal Solution (Astelin) Administer 1 Ida into nostril in the morning and 1 Ida before bedtime. 30 mL 12 Budesonide 0.5 MG/2ML Inhalation Suspension (Pulmicort) As directed in nasal saline rinse twice a day 120 mL 12 Ondansetron HCl 8 MG Oral Tablet Take 1 Tablet by mouth every 8 hours as needed for Nausea. 30 Tablet 3 Pantoprazole Sodium 40 MG Oral Tablet Delayed Release (Protonix) TAKE 1 TABLET BY MOUTH 1 HOUR BEFORE THE FIRST MEAL OF THE DAY 90 Tablet 1 Acyclovir 400 MG Oral Tablet (Zovirax) TAKE 1 TABLET BY MOUTH TWICE DAILY 60 Tablet 5 LORazepam 1 MG Oral Tablet (Ativan) Take 1 Tablet by mouth at bedtime as needed for Sleep. 30 Tablet 0 Melatonin 1 MG Oral Tablet Chewable Take by mouth. Benzonatate 100 MG Oral Capsule (Tessalon Perles) Take 1 Capsule by mouth 3 times a day as needed for Cough. Do not cut, crush, or chew. 50 Capsule 1 Amoxicillin-Pot Clavulanate 875-125 MG Oral Tablet (Augmentin) Take 1 Tablet by mouth in the morning and 1 Tablet before bedtime. Do all this for 7 days. 14 Tablet 0 Current Facility-Administered Medications Medication Dose Route Frequency Provider Last Rate Last Admin Fluorouracil (5-Fu) 5,500 mg in NSS 230 mL infusion 5,500 mg Intravenous Continuous Review of patient's allergies indicates: Allergen Reactions Morphine Sulfate Itching Health Maintenance Due Topic Date Due Adult Wellness Visit 10/15/2017 Influenza Vaccine (FLU shot) (1) 03/01/2024 COVID-19 Vaccine ( season) 2024 ROS: CONSTITUTIONAL: +fatigue, fever PULMONARY: No rales CARDIOVASCULAR: No chest pain, No orthopnea, No paroxysmal nocturnal dyspnea, No edema, No palpitations, and No syncope ALL OTHER SYSTEMS NEGATIVE I reviewed social, PMH, PSH, and family history and updated where needed. 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 Employer: [employer] Comment: [employer] Tobacco Use Smoking status: Never Smokeless tobacco: Never Vaping Use Vaping status: Never Used Substance and Sexual Activity Alcohol use: Yes Alcohol/week: 1.7 standard drinks of alcohol Types: 2 12 oz of beer per week Comment: occasional Drug use: No Sexual activity: Yes Partners: Female Other Topics Concern Service No Blood Transfusions No Caffeine Concern No Occupational Exposure No Hobby Hazards No Sleep Concern No Stress Concern No Weight Concern No Special Diet No Back Care Yes Exercise Yes Bike Helmet No Seat Belt Yes Self-Exams Yes Social History Narrative Born in [place], [place], worked in [place] for three years, 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 (Adult - for ages 18 years and over): Not on file Housing Stability: Not on file Past Medical History: Diagnosis Date Aortic root enlargement (HCC) 12/04/2020 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 path shows short segment Barretts , bxs from stomach neg for H Pylori and neg for gastritis repeat EGD in 1 year Angel's palsy Benign neoplasm of colon adenoma Elevated LFTs fatty infiltration GERD (gastroesophageal reflux disease) 10/24/2018 IDIO PERIPH NEURPTHY NOS 04/11/2009 Malignant neoplasm of splenic flexure (HCC) 12/01/2018 Mild aortic stenosis 11/09/2020 Mild diastolic dysfunction 10/27/2018 Personal history of colonic polyps 05/20/08 3 mm adenoma at 50 cm, repeat 5 years Reflux esophagitis 04/11/2009 Superficial phlebitis UIP (usual interstitial pneumonitis) (HCC) 05/08/2021 Varicella without complication child [facility] Past Surgical History: Procedure Laterality Date COLONOSCOPY W/ BIOPSY (RECTUM) 05/20/2008 adenomatous polyp--repeat 5 years COLONOSCOPY, DIAGNOSTIC (RECTUM) 07/03/2013 COLONOSCOPY FLEXIBLE PROXIMAL DIAGNOSTIC performed by Nataliya Chavez MD at ENDOSCOPY [facility] COLONOSCOPY, DIAGNOSTIC (RECTUM) 10/20/2018 adenocarcinoma, adenomatous polyps/COLONOSCOPY FLEXIBLE PROXIMAL DIAGNOSTIC performed by Nataliya Chavez MD at ENDOSCOPY [facility] COLONOSCOPY, DIAGNOSTIC (RECTUM) N/A 11/10/2019 COLONOSCOPY FLEXIBLE PROXIMAL DIAGNOSTIC performed by Jigar Blue MD at ENDOSCOPY [facility] COLONOSCOPY, DIAGNOSTIC (RECTUM) N/A 07/11/2023 hemorrhoids/patent end-to-side colo-colonic anastomosis/recall 3 years/Colonoscopy/[place] COLONOSCOPY, GI REFERRAL OP 08/29/2000 wnl, repeat 5 years COLONOSCOPY, REMOVE LESION 1996 adenoma EGD, FLEXIBLE, DIAGNOSTIC 11/19/2012 path shows short segment Barretts , bxs from stomach neg for H Pylori and neg for gastritis repeat EGD in 1 year EGD, FLEXIBLE, DIAGNOSTIC 12/10/2013 Barretts, mild gastritis, repeat 3 yrs/ESOPHAGOGASTRODUODENOSCOPY (EGD), FLEXIBLE, TRANSORAL, DIAGNOSTIC performed by Eric Siegel MD at ENDOSCOPY [facility] EGD, FLEXIBLE, DIAGNOSTIC 12/06/2016 Barretts, repeat 3 yrs/ESOPHAGOGASTRODUODENOSCOPY (EGD), FLEXIBLE, TRANSORAL, DIAGNOSTIC performed by Eric Siegel MD at ENDOSCOPY [facility] EGD, FLEXIBLE, DIAGNOSTIC 02/24/2020 Poe's esophagitis, repeat 3 yrs / ESOPHAGOGASTRODUODENOSCOPY (EGD), FLEXIBLE, TRANSORAL, DIAGNOSTIC performed by Chu Owen MD at ENDOSCOPY [facility] EGD, FLEXIBLE, DIAGNOSTIC N/A 04/04/2023 esophageal plaques/biopsies show Poe's esophagitis, nayla/repeat 3 years/EGD/[place] FLUORO GUIDED NEEDLE PLACEMENT Right 11/22/2021 FLUOROSCOPIC GUIDANCE FOR NEEDLE PLACEMENT performed by Prudencio Delarosa MD at OR [facility] INSER TUNN ACC DEV;5 YRS/OLDER Right 11/22/2021 INSERT TUNNELED CENTRAL VENOUS ACCESS WITH SUBQ PORT performed by Prudencio Delarosa MD at OR [facility] IR ABLATION RADIOFREQUENCY ENDOVENOUS FIRST VEIN 03/08/2010 s/p LEFT radiofrequency ablation of GSV and 10 LLE stab phlebectomies/Dr. Torrez KNEE ARTHROSCOPY, DIAGNOSTIC Right Knee Scope,Diagnostic LAPAROSCOPIC COLECTOMY PARTIAL WITH ANASTOMOSIS N/A 11/20/2018 LAPAROSCOPIC PARTIAL COLECTOMY WITH ANASTOMOSIS performed by Jigar Blue MD at [place] [facility] PROCEDURE - GENERAL PROCEDURE - GENERAL 12/26/2020 excision of venous access by Dr Marc Byrd PT HX TOTAL COLECTOMY OR COLON CA REMOVE CATARACT, INSERT LENS PROSTH Left 03/12/2023 LEFT EXTRACAPSULAR CATARACT REMOVAL WITH INTRAOCULAR LENS performed by Champ Gonzalez MD at OR [facility] REMOVE CATARACT, INSERT LENS PROSTH Right 03/26/2023 RIGHT EXTRACAPSULAR CATARACT REMOVAL WITH INTRAOCULAR LENS performed by Champ Gonzalez MD at OR [facility] REMOVE TONSILS & ADENOIDS, AGE 12+ Tonsillectomy/Adenoids,11+ Y/O TOTAL HIP REPLACEMENT & PROSTHESIS Right 05/2005 right, Sae Villarandria TOTAL HIP REPLACEMENT EDU. Left 08/30/2015 Adelso Family History Problem Relation Name Age of Onset Heart Disorder Mother CAD, dementia ,RA age 82 Other (varicose veins) Mother Cancer Father lung age 70 No Past Hx Sister No Past Hx Sister No Past Hx Sister Other (Other) Brother 56 fatty liver OBJECTIVE: PHYSICAL EXAM: BP 122/76 | Pulse 77 | Temp 36.9 C (98.5 F) (Tympanic) | Resp 18 | Ht 1.905 m (6' 3") | Wt 98.6kg (217 lb 6.4 oz) | SpO2 92% | BMI 27.17 kg/m | BSA 2.28 m General: alert, healthy, and no distress Head: Normocephalic, No masses, lesions, or abnormalities Eye Exam: conjunctiva are pink and non-injected, sclera clear Heart: regular rate & rhythm, no murmur, no gallops, PMI non-displaced, S-1 normal, and S-2 normal Lungs: normal respiratory rate and rhythm, expiratory wheezes bilaterally Psych: normal affect, no flight of ideas or tangential thought, good eye contact, no pressured speech I reviewed last gfr ASSESSMENT: (R05.1) Acute cough (primary encounter diagnosis) (J18.9) Lung infection (J84.112) UIP (usual interstitial pneumonitis) ([facility]) PLAN: Acute cough (Primary) - RESPIRATORY PATHOGEN PANEL, PCR; Future; Expected date: 03/04/2024 - XR CHEST 2 VIEWS - Benzonatate 100 MG Oral Capsule (Tessalon Perles); Take 1 Capsule by mouth 3 times a day as needed for Cough. Do not cut, crush, or chew. - Amoxicillin-Pot Clavulanate 875-125 MG Oral Tablet (Augmentin); Take 1 Tablet by mouth in the morning and 1 Tablet before bedtime. Do all this for 7 days. Start albuterol, he has at home Concern infection, start abx as above, t/c adding azithromycin pending image, swab Fluids, rest Check panel given co-morbidities Lung infection As above UIP (usual interstitial pneumonitis) ([facility]) - RESPIRATORY PATHOGEN PANEL, PCR; Future; Expected date: 03/04/2024 Follow-up: Return if symptoms worsen or fail to improve. | Check-out note: Cxr today Brayan Lopez MD documented in this encounter Nursing Notes * Stephanie Oneal LPN - 03/04/2024 10:56 AM EDT Patient presents today for a fever, fatigue, productive cough, weakness and sob for the past 3 days. He was been taking tylenol to help but it hasn't been working for him. documented in this encounter Miscellaneous Notes * Addendum Note - Brayan Lopez MD - 03/04/2024 11:43 AM EDTAddended by: BRAYAN LOPEZ on: 03/04/2024 11:43 AM Modules accepted: Orders documented in this encounter Plan of Treatment Upcoming Encounters Date Type Department Care Team (Late st Contact Info) Description 03/10/2024 11:50 AM EDT Laboratory Laboratory [facility] [place] [address] [place] [phone] Lina, Lab Scenery [address] [facility] [place] [address] 03/11/2024 1:15 PM EDT Hem/Onc Treatment Hematology/Oncology Treatment, [place] [address] [facility] [address] Lina, Chair 6 Hem Onc Scenery [address] [place] [address] 03/17/2024 12:00 PM EDT Laboratory Laboratory [facility] [place] [address] [place] [address] Lina, Lab Scenery [address] [facility] [place] [address] 03/18/2024 12:00 PM EDT Hem/Onc Treatment Hematology/Oncology Treatment, [place] [address] [facility] [phone] Lina, Chair 1 Hem Onc Scenery [address] [place] [address] 03/23/2024 8:45 AM EDT Imaging Radiology [facility] [address] [facility], [place] [address] [facility] [place] [address] 03/31/2024 12:00 PM EDT Laboratory Laboratory [facility] [place] [address] [place] [address] Lina, Lab Scenery [address] [facility] [place] [address] 04/01/2024 11:15 AM EDT Office Visit Hematology/Oncology [facility] [address] [facility] [place] [phone] Vu Navarrete MD [address] [facility] [place] [address] 04/01/2024 11:45 AM EDT Hem/Onc Treatment Hematology/Oncology Treatment, [place] [address] [place] [phone] 10/13/2024 3:20 PM EDT Office Visit General Internal Medicine [facility] [address] [facility] [place] [address] Brayan Lopez MD [address] [place] [address] Scheduled Orders Name Type Priority Associated Diagnoses Orde r Schedule RESPIRATORY PATHOGEN PANEL, PCR Lab Routine Acute cough UIP (usual interstitial pneumonitis) (HCC) Expected: 03/04/2024 (Approximate), Expires: 03/04/2025 XR CHEST 2 VIEWS Medical Imaging Routine Bacterial pneumonia Expected: 04/03/2024, Expires: 04/03/2025 Scheduled Procedures Name Priority Associated Diagnoses Date/Ti [...] this encounter Medical Devices Implanted Type Area Continuous Improvement Specialist Device Identifier Shelf Expiration Date Model / Serial / Lot Port Implant W/8f Poly Cath - [id number] Implanted:Qty : 1 on 11/22/2021 by Prudencio Delarosa MD at OR [facility] BARD : PERIPHERAL VASCULAR [id number] 07/31/2022 [id number] / / [id number] Lens Li61ao 13.00mm 18.00 - [id number] - [id number] Implanted:Qty : 1 on 03/12/2023 by Champ Gonzalez MD at OR [facility] Left: Eye [employer] 11/29/2027 [id number] / [id number] / [id number] Lens Li61ao 13.00mm 17.00 - [id number] - [id number] Implanted:Qty : 1 on 03/26/2023 by Champ Gonzalez MD at OR [facility] Right: Eye [employer] 11/29/2027 [id number] / [id number] / [id number] documented as of this encounter Procedures Procedure Name Priority Date/Time Associated Diagnosis Comments XR CHEST 2 VIEWS STAT 03/04/2024 11:2 3 AM EDT Acute cough documented in this encounter Results * XR CHEST 2 VIEWS (03/04/2024 11:23 AM EDT) Anatomical Region Laterality Modality Chest Computed Radiogr aphy 03/04/2024 11:4 0 AM EDT Impressions 03/04/2024 11:37 AM EDT IMPRESSION: Pulmonary fibrosis. CT chest increased right perihilar and left lower lung density may represent superimposed infection or progression of chronic lung disease. This exam was submitted to the radiology customer service officer worklist and the ordering provider will be notified that the final report is available in EPIC. Narrative 03/04/2024 11:37 AM EDT EXAM: EXAM: XR CHEST 2 VIEWS DATE TIME: 03/04/2024 - 03/04/2024 11:23 am HISTORY: 73 y/o M cough COMPARISON: Dated 12/03/2023 FINDINGS: Right chest wall MediPort tip terminates within the SVC. Fibrotic changes in the bilateral lung wang are again noted. Increased right perihilar and left lower lung density may represent superimposed infection or progression of chronic lung disease. No pleural effusion or pneumothorax. Bilateral pulmonary nodules are better delineated on prior CT of the chest. Procedure Note Naomi Bowens MD - 03/04/2024 EXAM: EXAM: XR CHEST 2 VIEWS DATE TIME: 03/04/2024 - 03/04/2024 11:23 am HISTORY: 73 y/o M cough COMPARISON: Dated 12/03/2023 FINDINGS: Right chest wall MediPort tip terminates within the SVC. Fibrotic changesin the bilateral lung wang are again noted. Increased right perihilarand left lower lung density may represent superimposed infection orprogression of chronic lung disease. No pleural effusion or pneumothorax.Bilateral pulmonary nodules are better delineated on prior CT of thechest. IMPRESSION IMPRESSION: Pulmonary fibrosis. CT chest increased right perihilar and left lowerlung density may represent superimposed infection or progression ofchronic lung disease. This exam was submitted to the radiology customer service officer worklist and theordering provider will be notified that the final report is available inEPIC. 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 No Care Teams Field Trainer Relationship Specialty Start Date End Date Brayan Lopez MD [address] [place] [address] [place] [address] PCP - General Internal Medicine 11/06/12 documented as of this encounter
--- OUTSIDE RECORDS SUMMARY | 2024-03-08 10:28 | External Medical Summary | Summary of Care ---
Author Name Unknown Organization [facility] Address [address] [place] [address] Phone [phone] Care Team Providers Care Security Systems Installer Name Role Phone Brayan Lopez MD Primary Care Provider + Reason for Visit * Reason Onset Date Comments Appointment Canceled 03/04/2024 Encounter Details Date Type Department Care Team (Late st Contact Info) Description 03/04/2024 Telephone Hematology/Oncology [facility] [address] [place] [phone] Vu Navarrete MD [address] [place] [address] Appointment Canceled Allergies Active Allergy Reactions Criticality Noted Date [...] 0.1 % Nasal Solution (Astelin) Administer 1 [place] into nostril in the morning and 1 [place] before bedtime. 30 mL 12 07/08/2023 Active [...] 01/30/2024 Active LORazepam 1 MG Oral Tablet (Ativan)Indicati ons:Other insomnia Take 1 Tablet by mouth at bedtime as needed for Sleep. 30 Tablet 02/07/2024 Active Melatonin 1 MG Oral Tablet ChewableIndicati ons:Chronic insomnia Take by mouth. 02/12/2024 Active Nintedanib Esylate 150 MG Oral Capsule [...] encounter Miscellaneous Notes * Telephone Encounter - Viktoriya Smith OSA - 03/04/2024 11:48 AM EDT Noted on tx note * Addendum Note - Tiarra Ac RN - 03/04/2024 11:17 AM EDTAddended by: TIARRA AC on: 03/04/2024 11:17 AM Modules accepted: Orders * Telephone Encounter - Tiarra Ac RN - 03/04/2024 11:15 AM EDT [place] updated. Scheduling: appts for labs 03/17 and treatment 03/18 and labs 03/31 and treatment 04/01 will each need to be pushed back a week- unsure if you want to do that now vs make a note to do that when the patient comes in next week * Addendum Note - Tiarra Ac RN - 03/04/2024 11:03 AM EDTAddended by: TIARRA AC on: 03/04/2024 11:03 AM Modules accepted: Orders * Telephone Encounter - Torie Peres OSA - 03/04/2024 10:49 AM EDT Pt stopped into the office to cancel his treatment appt today at 200pm due to being sick (he was onhis way to see his PCP). He wanted to reschedule for next week, which was rescheduled with labs theday prior. documented in this encounter Plan of Treatment Upcoming Encounters Date Type Department Care Team (Late st Contact Info) Description 03/10/2024 11:50 AM EDT Laboratory Laboratory [place] [address] [place] [place] [phone] Lina, Lab Scenery [address] [place], [place] [address] 03/11/2024 1:15 PM EDT Hem/Onc Treatment Hematology/Oncology Treatment, [place] 200 [facility], [place] [phone] Lina, Chair 6 Hem Onc Scenery [address] [place], [place] [address] 03/17/2024 12:00 PM EDT Laboratory Laboratory [facility] [place] [address] [place], [place] [phone] Lina, Lab Scenery [address] [place], [place] [address] 03/18/2024 12:00 PM EDT Hem/Onc Treatment Hematology/Oncology Treatment, [place] 200 [facility], [place] [phone] Lina, Chair 1 Hem Onc Scenery [address] [place] [address] 03/23/2024 8:45 AM EDT Imaging Radiology [address], [address] [address] 03/31/2024 12:00 PM EDT Laboratory Laboratory [facility] [place] [address] [place] [phone] Lina, Lab Scenery [address] [facility] [place], [place] [address] 04/01/2024 11:15 AM EDT Office Visit Hematology/Oncology [place] [address] [place] [phone] Vu Navarrete MD [address] [place], [place] [address] 04/01/2024 11:45 AM EDT Hem/Onc Treatment Hematology/Oncology Treatment, [place] 200 [facility] [place] [address] 10/13/2024 3:20 PM EDT Office Visit General Internal Medicine [facility] 200 [facility] [place] [address] Brayan Lopez MD 200 [facility] [place] [address] Scheduled Procedures Name Priority Associated Diagnoses Date/Ti [...] this encounter Medical Devices Implanted Type Area Work Force Advisor Device Identifier Shelf Expiration Date Model / Serial / Lot Port Implant W/8f Poly Cath - [id number] Implanted:Qty : 1 on 11/22/2021 by Prudencio Delarosa MD at OR [facility] BARD : PERIPHERAL VASCULAR [id number] 07/31/2022 [id number] / / [id number] Lens Li61ao 13.00mm 18.00 - [id number] - [id number] Implanted:Qty : 1 on 03/12/2023 by Champ Gonzalez MD at OR [facility] Left: Eye [employer]CH [employer] LOMB 11/29/2027 [id number] / [id number] / [id number] Lens Li61ao 13.00mm 17.00 - [id number] - [id number] Implanted:Qty : 1 on 03/26/2023 by Champ Gonzalez MD at OR [facility] Right: Eye BAUSCH [employer] LOMB 11/29/2027 [id number] / [id number] / [id number] documented as of this encounter Additional Health [...] Power of Attor abdirizak? No Care Teams Security Systems Installer Relationship Specialty Start Date End Date Brayan Lopez MD [address] [place] [address] PCP - General Internal Medicine 11/06/12 documented as of this encounter
--- OUTSIDE RECORDS SUMMARY | 2024-03-08 10:28 | External Medical Summary | Summary of Care ---
Author Name Unknown Organization [facility] Address [address] [place] [address] Phone [phone] Care Team Providers Care Kiln Placer Name Role Phone Brayan Lopez MD Primary Care Provider + Reason for Visit * Reason Comments Cough Fever Encounter Details Date Type Department Care Team (Late st Contact Info) Description 03/04/2024 11:00 AM EDT Office Visit General Internal Medicine [facility] 200 [facility] [place] [address] Brayan Lopez MD [address] [place] [address] Acute cough*; Lung infection; UIP (usual interstitial pneumonitis) ([facility]); Bacterial pneumonia Allergies Active Allergy Reactions Criticality [...] 0.1 % Nasal Solution (Astelin) Administer 1 [employer] into nostril in the morning and 1 [employer] before bedtime. 30 mL 12 07/08/2023 Active [...] in the morning. home oxygen/equipment IN [place] .RetidocSUMightyText Ventolin HFA 108 (90 Base) MCG/ACT Inhalation Aerosol Solution Inhale 2 Puffs by mouth every 4 hours as needed for Wheezing. 18 g 0 Azelastine HCl 0.1 % Nasal Solution (Astelin) Administer 1 [employer] into nostril in the morning and 1 [employer] before bedtime. 30 mL 12 Budesonide 0.5 [...] Self-Exams Yes Social History Narrative Born in [place], [place], worked in [place] for three years, here for 30+ years [...] performed by Nataliya Chavez MD at ENDOSCOPY [facility] COLONOSCOPY, DIAGNOSTIC (RECTUM) 10/20/2018 adenocarcinoma, adenomatous polyps/COLONOSCOPY FLEXIBLE PROXIMAL DIAGNOSTIC performed by Nataliya Chavez MD at ENDOSCOPY [facility] COLONOSCOPY, DIAGNOSTIC (RECTUM) N/A 11/10/2019 COLONOSCOPY FLEXIBLE PROXIMAL DIAGNOSTIC performed by Jigar Blue MD at ENDOSCOPY [facility] COLONOSCOPY, DIAGNOSTIC (RECTUM) N/A 07/11/2023 hemorrhoids/patent end-to-side [...] performed by Eric Siegel MD at ENDOSCOPY [facility] EGD, FLEXIBLE, DIAGNOSTIC 12/06/2016 Barretts, repeat 3 yrs/ESOPHAGOGASTRODUODENOSCOPY (EGD), FLEXIBLE, TRANSORAL, DIAGNOSTIC performed by Eric Siegel MD at ENDOSCOPY [facility] EGD, FLEXIBLE, DIAGNOSTIC 02/24/2020 Poe's esophagitis, repeat 3 yrs / ESOPHAGOGASTRODUODENOSCOPY (EGD), FLEXIBLE, TRANSORAL, DIAGNOSTIC performed by Chu Owen MD at ENDOSCOPY [facility] EGD, FLEXIBLE, DIAGNOSTIC N/A 04/04/2023 esophageal plaques/biopsies show Poe's esophagitis, nayla/repeat 3 years/EGD/MN FLUORO GUIDED NEEDLE PLACEMENT Right 11/22/2021 FLUOROSCOPIC GUIDANCE FOR NEEDLE PLACEMENT performed by Prudencio Delarosa MD at OR [facility] INSER TUNN ACC DEV;5 YRS/OLDER Right 11/22/2021 INSERT TUNNELED CENTRAL VENOUS ACCESS WITH SUBQ PORT performed by Prudencio Delarosa MD at OR [facility] IR ABLATION RADIOFREQUENCY ENDOVENOUS FIRST VEIN 03/08/2010 s/p LEFT radiofrequency ablation of GSV and 10 LLE stab phlebectomies/Dr. Torrez KNEE ARTHROSCOPY, DIAGNOSTIC Right Knee Scope,Diagnostic LAPAROSCOPIC COLECTOMY PARTIAL WITH ANASTOMOSIS N/A 11/20/2018 LAPAROSCOPIC PARTIAL COLECTOMY WITH ANASTOMOSIS performed by Jigar Blue MD at [place] [facility] PROCEDURE - GENERAL PROCEDURE - GENERAL 12/26/2020 excision of venous access by Dr Marc Byrd PT HX TOTAL COLECTOMY OR COLON CA REMOVE CATARACT, INSERT LENS PROSTH Left 03/12/2023 LEFT EXTRACAPSULAR CATARACT REMOVAL WITH INTRAOCULAR LENS performed by Cahmp Gonzalez MD at OR [facility] REMOVE CATARACT, INSERT LENS PROSTH Right 03/26/2023 RIGHT EXTRACAPSULAR CATARACT REMOVAL WITH INTRAOCULAR LENS performed by Champ Gonzalez MD at OR [facility] REMOVE TONSILS & ADENOIDS, AGE 12+ [...] Lung infection (J84.112) UIP (usual interstitial pneumonitis) ([facility]) PLAN: Acute cough (Primary) - RESPIRATORY PATHOGEN [...] infection As above UIP (usual interstitial pneumonitis) ([facility]) - RESPIRATORY PATHOGEN PANEL, PCR; Future; Expected [...] Description 03/10/2024 11:50 AM EDT Laboratory Laboratory [facility] [place] [address] [place] [phone] Lina, Lab Scenery [address] [facility] [place] [address] 03/11/2024 1:15 PM EDT Hem/Onc Treatment Hematology[facility]cology [facility], [place] [facility] [address] Lina, Chair 6 Hem Onc Scenery [address] [place] [address] 03/17/2024 12:00 PM EDT Laboratory Laboratory [facility] [place] [address] [place] [address] Lina, Lab Scenery [address] [facility] [place] [address] 03/18/2024 12:15 PM EDT Hem/Onc Treatment Hematology/Oncology Treatment, [place] [address] [facility] [address] Lina, Chair 8 Hem Onc Scenery [address] [place] [address] 03/23/2024 8:45 AM EDT Imaging Radiology [facility] 1st [facility], [place] 132 [facility] [place] [id number] 03/31/2024 12:00 PM EDT Laboratory Laboratory [facility] [place] [address] [place] [address] Lina, Lab Scenery [address] [facility] [place] [address] 04/01/2024 11:15 AM EDT Office Visit Hematology/Oncology [facility] 200 [facility] [place] [phone] Vu Navarrete MD 200 [facility] [place] [address] 04/01/2024 11:45 AM EDT Hem/Onc Treatment Hematology/Oncology Treatment, [place] 200 [facility] [address] 10/13/2024 3:20 PM EDT Office Visit General Internal Medicine [address] [place] [address] Brayan Lopez MD 200 [facility] [place] [address] Scheduled Orders Name Type Priority Associated Diagnoses Orde r Schedule XR CHEST 2 VIEWS Medical Imaging Routine [...] Cancer Screening 07/11/2026 Lipid Panel 05/27/2028 05/27/2023, 050 03/2022, 03/24/2018, Additional history exists DTap/Tdap Vaccines [...] this encounter Medical Devices Implanted Type Area Loan Interviewer Mortgage Device Identifier Shelf Expiration Date Model / Serial / Lot Port Implant W/8f Poly Cath - [id number] Implanted:Qty : 1 on 11/22/2021 by Prudencio Delarosa MD at OR [facility] BARD : PERIPHERAL VASCULAR [id number] 07/31/2022 [id number] / / [id number] Lens Li61ao 13.00mm 18.00 - [id number] - [id number] Implanted:Qty : 1 on 03/12/2023 by Champ Gonzalez MD at OR [facility] Left: Eye [employer]OMB 11/29/2027 [id number] / [id number] / [id number] Lens Li61ao 13.00mm 17.00 - [id number] - [id number] Implanted:Qty : 1 on 03/26/2023 by Champ Gonzalez MD at OR [facility] Right: Eye BAUSCH [employer] LOMB 11/29/2027 [id number] / [id number] / [id number] documented as of this encounter Procedures Procedure Name Priority Date/Time Associated Diagnosis Comments RESPIRATORY PATHOGEN PANEL, PCR Routine 03/04/2024 11:41 AM EDT Acute cough UIP (usual interstitial pneumonitis) ([facility]) XR CHEST 2 VIEWS STAT 03/04/2024 11:2 3 AM EDT Acute cough documented in this encounter Results * RESPIRATORY PATHOGEN PANEL, PCR (03/04/2024 11:41 AM EDT) Adenovirus by PCR Negative Negative 024 5:47 PM EDT LABORATORY [facility] Coronavirus 229E by PCR Negative Negative 03/04/2024 5:47 PM EDT LAB[facility]ORY [facility] Coronavirus HKU1 by PCR Negative Negative 03/04/2024 5:47 PM EDT [facility]ORY [facility] Coronavirus NL63 by PCR Negative Negative 03/04/2024 5:47 PM EDT [facility]ORY [facility] Coronavirus OC43 by PCR Negative Negative 03/04/2024 5:47 PM EDT [facility] Coronavirus SARS-CoV-2 by PCR Negative Negative 03/04/2024 5:47 PM EDT LAB[facility]ORY [facility] Human Metapneumovirus by PCR Negative Negative 03/04/2024 5:47 PM EDT [facility]ORY [facility] Rhinovirus/Enterovi shavonne by PCR Negative Negative 03/04/2024 5:47 PM EDT LAB[facility]ORY [facility] Influenza A Virus by PCR Negative Negative 03/04/2024 5:47 PM EDT LAB[facility]ORY [facility] Influenza B Virus by PCR Negative Negative 03/04/2024 5:47 PM EDT LAB[facility]ORY [facility] Parainfluenza Virus 1 by PCR Negative Negative 03/04/2024 5:47 PM EDT [facility] Parainfluenza Virus 2 by PCR Negative Negative 03/04/2024 5:47 PM EDT LAB[facility]ORY [facility] Parainfluenza Virus 3 by PCR Negative Negative 03/04/2024 5:47 PM EDT [facility] Parainfluenza Virus 4 by PCR Negative Negative 03/04/2024 5:47 PM EDT [facility]ORY [facility] Respiratory Syncytial Virus by PCR Negative Negative 03/04/2024 5:47 PM EDT [facility] Bordetella pertussis by PCR Negative Negative 03/04/2024 5:47 PM EDT [facility]ORY [facility] Chlamydia pneumoniae by PCR Negative Negative 03/04/2024 5:47 PM EDT [facility] Mycoplasma pneumoniae by PCR Negative Negative 03/04/2024 5:47 PM EDT [facility] Bordetella parapertussis by PCR Negative Negative 03/04/2024 5:47 PM EDT [facility]ORY [facility] Comment: The primers that detect Rhinovirus may cross react with some Enterorviruses. The validation of bronchial specimens, tracheal aspirates, and throats for this assay was developed and performance characteristics determined by [employer]. The validation of alternate specimen types has not been cleared or approved by the U.S. Food and Drug Administration (FDA). It has been determined that such clearance or approval is not necessary. Upper Respiratory Nasopharyngeal swab / Unknown Non-blood Collection / Unknown 03/04/2024 11:41 AM EDT 03/04/2024 11:45 AM EDT Brayan Lopez MD LAB MICRO - GENE RAL ORDERABLES Performing Organization Address City/State/RUST Co de Phone Number LAB[facility]ATORY [facility] [address] [place] [address] * XR CHEST 2 VIEWS (03/04/2024 11:23 AM EDT) Anatomical Region Laterality Modality Chest Computed Radiogr aphy 03/04/2024 11:4 0 AM EDT Impressions 03/04/2024 11:37 AM EDT IMPRESSION: Pulmonary fibrosis. CT chest increased right perihilar and left lower lung density may represent superimposed infection or progression of chronic lung disease. This exam was submitted to the radiology telecommunications officer worklist and the ordering provider will [...] This exam was submitted to the radiology telecommunications officer worklist and theordering provider will be notified that the final report is available inEPIC. 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 No Care Teams Kiln Placer Relationship Specialty Start Date End Date Brayan Lopez MD [address] [place] [address] PCP - General Internal Medicine 11/06/12 documented as of this encounter
--- OUTSIDE RECORDS SUMMARY | 2024-03-08 10:28 | External Medical Summary | Summary of Care ---
Author Name Unknown Organization [facility] Address [address] [place] [address] Phone [phone] Care Team Providers Care Investor Relations Associate Name Role Phone Brayan Lopez MD Primary [...] of splenic flexure of colon (HCC) Procedures RI LEUCOVORIN CALCIUM INJECTION RI FLUOROURACIL INJECTION RI INJ., ZIRABEV, 10 MG Vu Navarrete MD [address] [place] [address] Anc Hem/Onc [address] [address] Referral ID Status Reason Start Date Expiration Date V isits Requested Visits Authorized [id number] Authorized 12/25/2023 06/30/[phone] Encounter Details Date Type Department Care Team (Latest Contact Info) Description 02/19/2024 11:45 AM EDT Hem/Onc Treatment Hematology/Oncolog y Treatment, [address] [address] Lina, Chair 3 Hem On[address] [place] [address] (work) Encounter for antineoplastic chemotherapy*; Malignant neoplasm [...] 0.1 % Nasal Solution (Astelin) Administer 1 [place] into nostril in the morning and 1 [place] before bedtime. 30 mL 12 07/08/2023 Active [...] Description 03/10/2024 11:50 AM EDT Laboratory Laboratory [facility] [place] [address] [place] [address] Lina, Lab Scenery [address] [place] [address] 03/11/2024 1:15 PM EDT Hem/Onc Treatment Hematology/Oncology Treatment, [place] 200 [facility] [place] [address] Lina, Chair 6 Hem Onc Scenery [address] [place] [address] 03/17/2024 12:00 PM EDT Laboratory Laboratory [facility] [place] [address] [place] [address] Lina, Lab Scenery [address] [place] [address] 03/18/2024 12:15 PM EDT Hem/Onc Treatment Hematology/Oncology Treatment, [place] 200 [facility] [place] [address] Lina, Chair 8 Hem Onc Scenery [address] [place] [address] 03/23/2024 8:45 AM EDT Imaging Radiology [facility] 1st [facility], [place] [address] [facility] [place] [address] 03/31/2024 12:00 PM EDT Laboratory Laboratory [facility] [place] 200 [facility] [place] [phone] [place] [facility] 200 [facility] [place] [address] 04/01/2024 11:15 AM EDT Office Visit Hematology/Oncology [facility] [address] [place] [phone] Vu Navarrete MD 200 [facility] [place] [address] 04/01/2024 11:45 AM EDT Hem/Onc Treatment Hematology/Oncology Treatment, [place] [address] [facility] [address] [place] [phone] 10/13/2024 3:20 PM EDT Office Visit General Internal Medicine [facility] Lina [address] [place] [address] Brayan Lopez MD 200 [facility] [place] [address] Scheduled Procedures Name Priority Associated Diagnoses Date/Ti [...] this encounter Medical Devices Implanted Type Area Gang Sawyer Device Identifier Shelf Expiration Date Model / Serial / Lot Port Implant W/8f Poly Cath - [id number] Implanted:Qty : 1 on 11/22/2021 by Prudencio Delarosa MD at OR [facility] BARD : PERIPHERAL VASCULAR [id number] 07/31/2022 [id number] / / [id number] Lens Li61ao 13.00mm 18.00 - [id number] - [id number] Implanted:Qty : 1 on 03/12/2023 by Champ Gonzalez MD at OR [facility] Left: Eye [employer]CH [employer] LOMB 11/29/2027 [id number] / [id number] / [id number] Lens Li61ao 13.00mm 17.00 - [id number] - [id number] Implanted:Qty : 1 on 03/26/2023 by Champ Gonzlaez MD at OR [facility] Right: Eye BAUSCH & LOMB 11/29/2027 [id number] / [id number] / [id number] documented as of this encounter Visit Diagnoses [...] Power of Attor abdirizak? No Care Teams Investor Relations Associate Relationship Specialty Start Date End Date Brayan Lopez MD 200 [place] [address] PCP - General Internal Medicine 11/06/12 documented as of this encounter
--- OUTSIDE RECORDS SUMMARY | 2024-03-08 10:28 | External Medical Summary | Summary of Care ---
Author Name Unknown Organization [facility] Address [address] [place] [address] Phone [phone] Care Team Providers Care Director Group Sales Name Role Phone Brayan Lopez MD Primary [...] of splenic flexure of colon (HCC) Procedures [place] LEUCOVORIN CALCIUM INJECTION [place] FLUOROURACIL INJECTION [place] INJ., ZIRABEV, 10 MG Vu Navarrete MD [address] [place] [address] Anc Hem/Onc [address] [address] Referral ID Status Reason Start Date Expiration Date V isits Requested Visits Authorized [id number] Authorized 12/25/2023 06/30/[phone] Encounter Details Date Type Department Care Team (Latest Contact Info) Description 02/19/2024 11:45 AM EDT Hem/Onc Treatment Hematology/Oncolog y Treatment, [address] [address] Lina, Chair 3 Hem On[address] [place] [address] (work) Encounter for antineoplastic chemotherapy*; Malignant neoplasm [...] 0.1 % Nasal Solution (Astelin) Administer 1 [place] into nostril in the morning and 1 [place] before bedtime. 30 mL 12 07/08/2023 Active [...] Description 03/10/2024 11:50 AM EDT Laboratory Laboratory [facility] [place] [address] [place] [address] Lina, Lab Scenery [address] [place] [address] 03/11/2024 1:15 PM EDT Hem/Onc Treatment Hematology/Oncology Treatment, [place] 200 [facility] [place] [address] Lina, Chair 6 Hem Onc Scen[place] [address] [place] [address] 03/17/2024 12:00 PM EDT Laboratory Laboratory [facility] [place] [address] [place] [address] Lina, Lab Scenery [address] [place] [address] 03/18/2024 12:15 PM EDT Hem/Onc Treatment Hematology/Oncology Treatment, [place] 200 [facility] [place] [address] Lina, Chair 8 Hem Onc Scenery [address] [place] [address] 03/23/2024 8:45 AM EDT Imaging Radiology [facility] [address] [facility], [place] 132 [facility] [place] [address] 03/31/2024 12:00 PM EDT Laboratory Laboratory [facility] [place] 200 [facility] [place] [phone] [place] [facility] 200 [facility] [place] [address] 04/01/2024 11:15 AM EDT Office Visit [facility]ematology[facility] [place] [address] [place] [phone] Vu Navarrete MD 200 [facility] [place] [address] 04/01/2024 11:45 AM EDT Hem/Onc Treatment Hematology/Oncology Treatment, [place] [address] [facility] [address] [place] [phone] 10/13/2024 3:20 PM EDT Office Visit General Internal Medicine [facility] Lina [address] [place] [address] Brayan Lopez MD 200 [facility] [place] [address] Scheduled Procedures Name Priority Associated Diagnoses Date/Ti [...] this encounter Medical Devices Implanted Type Area Leaf Blender Device Identifier Shelf Expiration Date Model / Serial / Lot Port Implant W/8f Poly Cath - [id number] Implanted:Qty : 1 on 11/22/2021 by Prudencio Delarosa MD at OR [facility] BARD : PERIPHERAL VASCULAR [id number] 07/31/2022 [id number] / / [id number] Lens Li61ao 13.00mm 18.00 - [id number] - [id number] Implanted:Qty : 1 on 03/12/2023 by Champ Gonzalez MD at OR [facility] Left: Eye [employer]OM[employer] 11/29/2027 [id number] / [id number] / [id number] Lens Li61ao 13.00mm 17.00 - [id number] - [id number] Implanted:Qty : 1 on 03/26/2023 by Champ Gonzalez MD at OR [facility] Right: Eye [employer] LOMB 11/29/2027 [id number] / [id number] / [id number] documented as of this encounter Visit Diagnoses [...] Power of Attor abdirizak? No Care Teams Director Group Sales Relationship Specialty Start Date End Date Brayan Lopez MD [address] [place] [address] PCP - General Internal Medicine 11/06/12 documented as of this encounter
--- OUTSIDE RECORDS SUMMARY | 2024-03-08 10:28 | External Medical Summary | Summary of Care ---
Author Name Unknown Organization [facility] Address [address] [place] [address] Phone [phone] Care Team Providers Care Fitness Attendant Name Role Phone Brayan Lopez MD Primary [...] of splenic flexure of colon (HCC) Procedures [place] LEUCOVORIN CALCIUM INJECTION [place] FLUOROURACIL INJECTION [place] INJ., ZIRABEV, 10 MG Vu Navarrete MD [address] [place] [address] Anc Hem/Onc [address] [address] Referral ID Status Reason Start Date Expiration Date V isits Requested Visits Authorized [id number] Authorized 12/25/2023 06/30/[phone] Encounter Details Date Type Department Care Team (Latest Contact Info) Description 02/19/2024 11:45 AM EDT Hem/Onc Treatment Hematology/Oncolog y Treatment, [address] [address] Lina, Chair 3 Hem Onc [address] [place] [address] (work) Encounter for antineoplastic chemotherapy*; Malignant neoplasm [...] 0.1 % Nasal Solution (Astelin) Administer 1 [place] into nostril in the morning and 1 [place] before bedtime. 30 mL 12 07/08/2023 Active [...] Description 03/10/2024 11:50 AM EDT Laboratory Laboratory [facility] [place] [address] [place] [address] Lina, Lab Scenery [address] [place] [address] 03/11/2024 1:15 PM EDT Hem/Onc Treatment Hematology/Oncology Treatment, [place] 200 [facility] [place] [address] Lina, Chair 6 Hem Onc Scenery [address] [place] [address] 03/17/2024 12:00 PM EDT Laboratory Laboratory [facility] [place] [address] [place] [address] Lina, Lab Scenery [address] [place] [address] 03/18/2024 12:15 PM EDT Hem/Onc Treatment Hematology/Oncology Treatment, [place] 200 [facility] [place] [address] Lina, Chair 8 Hem Onc Scenery [address] [place] [address] 03/23/2024 8:45 AM EDT Imaging Radiology [facility] 1st [facility], [place] 132 [facility] [place] [address] 03/31/2024 12:00 PM EDT Laboratory Laboratory [facility] [place] 200 [facility] [place] [phone] [place] [facility] 200 [facility] [place] [address] 04/01/2024 11:15 AM EDT [facility] [address] [place] [phone] Vu Navarrete MD 200 [facility] [place] [address] 04/01/2024 11:45 AM EDT Hem/Onc Treatment Hematology/Oncology Treatment, [place] [address] [facility] [address] [place] [phone] 10/13/2024 3:20 PM EDT Office Visit General Internal Medicine [facility] Lina [address] [place] [address] Brayan Lopez MD 200 [facility] [place] [address] Scheduled Procedures Name Priority Associated Diagnoses Date/Ti [...] this encounter Medical Devices Implanted Type Area Truck Driver Salesperson Device Identifier Shelf Expiration Date Model / Serial / Lot Port Implant W/8f Poly Cath - [id number] Implanted:Qty : 1 on 11/22/2021 by Prudencio Delarosa MD at OR [facility] BARD : PERIPHERAL VASCULAR [id number] 07/31/2022 [id number] / / [id number] Lens Li61ao 13.00mm 18.00 - [id number] - [id number] Implanted:Qty : 1 on 03/12/2023 by Champ Gonzalez MD at OR [facility] Left: Eye [employer]OM[employer] 11/29/2027 [id number] / [id number] / [id number] Lens Li61ao 13.00mm 17.00 - [id number] - [id number] Implanted:Qty : 1 on 03/26/2023 by Champ Gonzalez MD at OR [facility] Right: Eye [employer]OMB 11/29/2027 [id number] / [id number] / [id number] documented as of this encounter Visit Diagnoses [...] Power of Attor abdirizak? No Care Teams Fitness Attendant Relationship Specialty Start Date End Date Brayan Lopez MD [address] [place] [address] PCP - General Internal Medicine 11/06/12 documented as of this encounter
--- OUTSIDE RECORDS SUMMARY | 2024-03-08 10:29 | External Medical Summary | Summary of Care ---
Author Name Unknown Organization [facility] Address [address] [place] [address] Phone [phone] Care Team Providers Care Milk Tester Name Role Phone Brayan Lopez MD Primary Care Provider + Encounter Details Date Type Department Care Team (Late st Contact Info) Description 03/03/2024 Orders Only [facility] [address] [place] [address] Vu Navarrete MD [address] [place] [address] Allergies Active Allergy Reactions Criticality Noted Date Comments Morphine Sulfate Itching 05/20/2008 documented as of this encounter (statuses as of 03/03/2024) Medications Medication Sig Dispensed Refills Start Date [...] 0.1 % Nasal Solution (Astelin) Administer 1 [place] into nostril in the morning and 1 [place] before bedtime. 30 mL 12 07/08/2023 Active [...] insomnia Take by mouth. 02/12/2024 [facility] Other Facility Administered Medication Ordered Dose Route Frequency Start Date End Date Status Fluorouracil (5-Fu) 5,500 mg in NSS 230 mL infusion 5500 mg IV CONTINUOUS 03/03/2024 03/05/2024 Active documented as of this encounter (statuses as of 03/03/2024) Active Problems Problem Noted Date Diagnosed Date [...] as of this encounter (statuses as of 03/03/2024) Resolved Problems Problem Noted Date Diagnosed Date [...] as of this encounter (statuses as of 03/03/2024) Immunizations Name Administration Dates Next Due COVID-19 [...] No 11/20/2018 documented as of this encounter Plan of Treatment Upcoming Encounters Date Type Department Care Team (Latest Contact Info) Description 03/04/2024 2:00 PM EDT Hem/Onc Treatment Hematology/Oncolog y Treatment, [place] [address] [place] [address] Lina, Chair 10 Hem Onc Scenery [address] [place] [address] Encounter for antineoplastic chemotherapy*; 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); 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); 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); 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) 03/17/2024 12:00 PM EDT Laboratory Laboratory [facility] [place] [address] [place] [address] [place] Sc[address]ery [address] [place] [address] 03/18/2024 12:00 PM EDT Hem/Onc Treatment Hematology/Oncolog y Treatment, [place] [facility] [phone] Lina, Chair 1 Hem Onc [facility] [address] [place] [address] 03/23/2024 8:45 AM EDT Imaging Radiology [address], [place] [address] [place] [address] 03/31/2024 12:00 PM EDT Laboratory Laboratory [facility] [place] [address] [place] [address] [place] [address] [place] [address] 04/01/2024 11:15 AM EDT Office Visit Hematology/Oncolog y [facility] [place] [address] [place] [address] Vu Navarrete MD [address] [place] [address] 04/01/2024 11:45 AM EDT Hem/Onc Treatment Hematology/Oncolog y Treatment, [place] 200 [facility] [place] [phone] 10/13/2024 3:20 PM EDT Office Visit General Internal Medicine [facility] [place] [address] [place] [address] Brayan Lopez MD [address] [place] [address] Scheduled Procedures Name Priority Associated Diagnoses Date/Ti [...] this encounter Medical Devices Implanted Type Area Wire Taper Device Identifier Shelf Expiration Date Model / Serial / Lot Port Implant W/8f Poly Cath - [id number] Implanted:Qty : 1 on 11/22/2021 by Prudencio Delarosa MD at OR [facility] BARD : PERIPHERAL VASCULAR [id number] 07/31/2022 [id number] / / [id number] Lens Li61ao 13.00mm 18.00 - [id number] - [id number] Implanted:Qty : 1 on 03/12/2023 by Champ Gonzalez MD at OR [facility] Left: Eye BAUSCH [employer] LOMB 11/29/2027 [id number] / [id number] / [id number] Lens Li61ao 13.00mm 17.00 - [id number] - [id number] Implanted:Qty : 1 on 03/26/2023 by Champ Gonzalez MD at OR [facility] Right: Eye BAUSCH [employer] LOMB 11/29/2027 [id number] / [id number] / [id number] documented as of this encounter Advance Directives [...] Power of Attor abdirizak? No Care Teams Milk Tester Relationship Specialty Start Date End Date Brayan Lopez MD 200 [place] [address] PCP - General Internal Medicine 11/06/12 documented as of this encounter
--- OUTSIDE RECORDS SUMMARY | 2024-03-08 10:29 | External Medical Summary | Summary of Care ---
Author Name Unknown Organization [facility] Address [address] [place] [address] Phone [phone] Care Team Providers Care Real Estate Recruiter Name Role Phone Brayan Lopez MD Primary Care Provider + Reason for Visit * Reason Onset Date Comments Appointment Canceled 03/04/2024 Encounter Details Date Type Department Care Team (Late st Contact Info) Description 03/04/2024 Telephone Hematology/Oncology [facility] 200 [place] [phone] Vu Navarrete MD 200 [place] [address] Appointment Canceled Allergies Active Allergy Reactions Criticality [...] 0.1 % Nasal Solution (Astelin) Administer 1 [place] into nostril in the morning and 1 [place] before bedtime. 30 mL 12 07/08/2023 Active [...] as of this encounter Miscellaneous Notes * Addendum Note - Tiarra Ac RN [...] Description 03/10/2024 11:50 AM EDT Laboratory Laboratory [facility] [place] [address] [place] [phone] Lina Lab [facility] [address] [place], [place] [address] 03/11/2024 1:15 PM EDT Hem/Onc Treatment Hematology/Oncology [address], [address] [phone] Lina, Chair 6 Hem Onc [facility] [address] [place] [address] 03/17/2024 12:00 PM EDT Laboratory Laboratory [facility] [place] [address] [place] [address] Lina Lab Sc[address] [place], [place] [address] 03/18/2024 12:00 PM EDT Hem/Onc Treatment Hematology/Oncology Treatment, [place] [facility] [phone] Lina, Chair 1 Hem Onc [place]enery [address] [place] [address] 03/23/2024 8:45 AM EDT Imaging Radiology [facility] 1st [facility], [place] [address] [place] [address] 03/31/2024 12:00 PM EDT Laboratory Laboratory [facility] [place] [address] [place] [phone] [place] [address] 04/01/2024 11:15 AM EDT Office Visit Hematology/Oncology [facility] [place] 200 [facility] [place] [phone] Vu Navarrete MD 200 [facility] [place] [address] 04/01/2024 11:45 AM EDT Hem/Onc Treatment Hematology/Oncology Treatment, [place] 200 [facility] [place] [phone] 10/13/2024 3:20 PM EDT Office Visit General Internal Medicine [facility] [place] 200 [facility] [place] [address] Brayan Lopez MD 200 [facility] [place] [address] Scheduled Procedures Name Priority Associated Diagnoses Date/Ti [...] Cancer Screening 07/11/2026 Lipid Panel 05/27/2028 05/27/2023, 0503/2022, 03/24/2018, Additional history exists DTap/Tdap Vaccines (4 [...] this encounter Medical Devices Implanted Type Area District Plant Engineer Device Identifier Shelf Expiration Date Model / Serial / Lot Port Implant W/8f Poly Cath - [id number] Implanted:Qty : 1 on 11/22/2021 by Prudencio Delarosa MD at OR [facility] BARD : PERIPHERAL VASCULAR [id number] 07/31/2022 [id number] / / [id number] Lens Li61ao 13.00mm 18.00 - [id number] - [id number] Implanted:Qty : 1 on 03/12/2023 by Champ Gonzalez MD at OR [facility] Left: Eye [employer]OMB 11/29/2027 [id number] / [id number] / [id number] Lens Li61ao 13.00mm 17.00 - [id number] - [id number] Implanted:Qty : 1 on 03/26/2023 by Champ Gonzalez MD at [facility] Right: Eye BAUSCH [employer] LOMB 11/29/2027 [id number] / [id number] / [id number] documented as of this encounter Advance Directives [...] patient have Health Care Power of Attor abdriizak? No * Full Code Date Activated Date Inactivated Comments 11/20/2018 5:37 AM 11/20/2018 10:18 AM Question Answer Comments Discussion of Advance Directives occurred with: Not Discussed Does the patient have a Living Will? No Does the patient have Health Care Power of Attor abdirizak? No Care Teams Real Estate Recruiter Relationship Specialty Start Date End Date Brayan Lopez MD 200 [place] [address] PCP - General Internal Medicine 11/06/12 documented as of this encounter
--- OUTSIDE RECORDS SUMMARY | 2024-03-08 10:29 | External Medical Summary | Summary of Care ---
Author Name Unknown Organization [facility] Address [address] [place] [address] Phone [phone] Care Team Providers Care Hadoop Developer Name Role Phone Brayan Lopez MD Primary Care Provider + Reason for Visit * Reason Comments Chemotherapy Zirabev, leucovorin, 5fu. 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) 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) Procedures VT LEUCOVORIN CALCIUM INJECTION VT FLUOROURACIL INJECTION VT INJ., ZIRABEV, 10 MG Vu Navarrete MD [address] [place] [address] Anc Hem/Onc [address] [address] Referral ID Status Reason Start Date Expiration Date V isits Requested Visits Authorized [id number] Authorized 12/25/2023 06/30/2099 [id number] Encounter Details Date Type Department Care Team (Latest Contact Info) Description 01/08/2024 9:00 AM EDT Hem/Onc Treatment Hematology/Oncolog y Treatment, [address] [phone] Lina, Chair 2 Hem Onc [address] [place] [address] Encounter for antineoplastic chemotherapy*; 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); 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); 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 Active home oxygen/equipmen t IN GAS .MEDSUPPLY 03/29/2022 Active Ventolin HFA 108 (90 Base) MCG/ACT Inhalation Aerosol SolutionIndicat ions:Idiopathic pulmonary fibrosis (HCC),LATIF (dyspnea on exertion) Inhale 2 Puffs by mouth every 4 hours as needed for Wheezing. 18 g 05/22/2023 Active Azelastine HCl 0.1 % Nasal Solution (Astelin) Administer 1 [place] into nostril in the morning and 1 [place] before bedtime. 30 mL 12 07/08/2023 Active Budesonide 0.5 MG/2ML Inhalation Suspension (Pulmicort) As directed in nasal saline rinse twice a day 120 mL 12 07/08/2023 Active Ondansetron HCl 8 MG Oral TabletIndicatio ns:Malignant neoplasm of splenic flexure (HCC),Peritonea l metastases,Live r metastases Take by mouth 1 Tablet every 8 hours as needed for Nausea. 30 Tablet 3 12/08/2021 4 Discontinued(Ref ill) Triamcinolone Acetonide 55 MCG/ACT Nasal Aerosol (Nasacort Allergy 24HR)Indication s:Nasal congestion,Dry nose Administer 2 Sprays into each nostril in the morning. Start 02/26/2023 and stop flonase. 17 mL 02/26/2023 4 Discontinued(Med ication List Clean Up) [place] Saline Nasal Nasal GelIndications: Nasal congestion,Dry nose Administer into nostril 3 times a day. 1 g 02/26/2023 4 Discontinued(Med ication List Clean Up) Pantoprazole Sodium 40 MG Oral Tablet Delayed Release (Protonix) One pill by mouth once a day 1 hour before the first meal of the day-pt may since aug 23 90 Tablet 2 05/16/2023 4 Discontinued documented as of this encounter (statuses as of 02/26/2024) Active Problems Problem Noted Date Diagnosed Date [...] as of this encounter (statuses as of 02/26/2024) Resolved Problems Problem Noted Date Diagnosed Date [...] as of this encounter (statuses as of 02/26/2024) Immunizations Name Administration Dates Next Due COVID-19 [...] lent, No Preserve, IM 03/14/2017 Seasonal Influenza, Split, I IV3, With Preserve, Inj 03/23/2021,03/23/2015,06/16/2013 Seasonal Influenza, Trivalen t, Adjuvanted, 65+ yrs 04/29/2019 TD - Tetanus/Diptheria (ADULT) 12/01/2018 TD, [...] Sign Reading Time Taken Comments Blood Pressure 138/78 01/08/2024 8:50 AM EDT Pulse 81 01/08/2024 8:50 AM EDT Temperature 36.1 C (97 F) 01/08/2024 8:50 AM EDT Respiratory Rate 18 01/08/2024 8:50 AM EDT Oxygen Saturation 93% 01/08/2024 8:50 AM EDT Inhaled Oxygen Concentration - - Weight 100.2 kg (221 lb) 01/08/2024 8:50 AM EDT Height - - Body Mass Index 27.62 12/31/2023 1:24 PM EDT documented in this encounter Functional Status [...] as of this encounter Nursing Notes * Queenie Varma RN - 01/08/2024 11:04 AM EDT Goals: Patient will remain free from injury. Possible barriers to meeting goals: Fall risk d/t ambulation with IV pole. Stability of the patient: Moderately stable - low risk of patient condition declining or worsening Summary regarding today's goals: Met: Patient remained free of injury. Patient was connected to home infusion 5fu elasto meric pump, all clamps were opened to ensure adequate medication administration. Patient tolerated infusion well. Discharged in stable condition. * Queenie Varma RN - 01/08/2024 9:08 AM EDT Chair 12. Patient arrived for C1D1 zirabev/leuco/5fu. Patient was re-oriented to infusion room and infusion process, patient verbalized understanding. VAD accessed. Chemotherapy/Immunotherapy agents: 5FU, LEUCOVORIN, and ZIRABEV Consent for chemotherapy drug treatment complete, dated, and signed? yes, date - 12/24/23 Treatment lab parameters met? Yes Has treatment weight changed > than 10%? No Treatment preauthorized? Yes VITALS Filed Vitals: 01/08/24 0850 BP: 138/78 Pulse: 81 Resp: 18 Temp: 36.1 C (97 F) TempSrc: Tympanic SpO2: 93% Weight: 100.2 kg (221 lb) Urine protein: NEGATIVE Patient education completed for treatment? Yes Blood transfusion consent signed and complete? NA Return appointment scheduled? Yes Patient had provider visit today? No - If no provider visit must complete Pretreatment Assessment Functional Status: Functional status at today's visit: [...] symptoms or adverse side effects during treatment. PRE-TREATMENT ASSESSMENT: NEURO: fatigue:patient states he has been very tired. CV/RESP: denies symptoms GI/: denies symptoms OTHER: denies any additional symptoms PAIN: 0 Safety and Risk for Injury Patient will remain free from injury. Ensure appropriate safety devices are available. Provide and maintain safe environment. documented in this encounter Plan of Treatment Upcoming Encounters Date Type Department Care Team (Late st Contact Info) Description 03/03/2024 12:00 PM EDT Laboratory [facility] [address] [place] [phone] Lina Lab [address] [place] [address] 03/04/2024 2:00 PM EDT Hem/Onc Treatment Hematology/Oncology Treatment, [place] 200 [facility], [place] [phone] Lina, Chair 10 Hem Onc [address] [place] [address] 03/17/2024 12:00 PM EDT Laboratory Laboratory [facility] Lina [place] [address] [place] [address] Lina, Lab [address] [facility] [place], [place] [address] 03/18/2024 12:00 PM EDT Hem/Onc Treatment Hematology/Oncology Treatment, [place] [address] [facility], [place] [phone] Lina, Chair 1 Hem Onc [address] [place] [address] 03/23/2024 8:45 AM EDT Imaging Radiology [address], [place] [facility] [address] 03/31/2024 12:00 PM EDT Laboratory Laboratory [facility] [place] [address] [place] [phone] Lina, Lab [address] [facility] [place] [address] 04/01/2024 11:15 AM EDT Office Visit Hematology/Oncology [facility] [place] [address] [place] [address] Vu Navarrete MD [address] [place], [place] [address] 04/01/2024 11:45 AM EDT Hem/Onc Treatment Hematology/Oncology Treatment, [place] 200 [facility] [place] [address] 10/13/2024 3:20 PM EDT Office Visit General Internal Medicine [facility] Lina [place] [address] [place] [address] Brayan Lopez MD 200 [place] [address] Scheduled Procedures Name Priority Associated Diagnoses Date/Ti me COLONOSCOPY FLEXIBLE PROXIMAL DIAGNOSTIC Recall Personal history of colonic polyps ESOPHAGOGASTRODUODENOSCOPY ( EGD), FLEXIBLE, TRANSORAL, DIAGNOSTIC Recall Poe's esophagus with esophagitis Health Maintenance Due Date Last Done Comments Cologuard 1994 Sigmoidoscopy 1994 Fecal Occult Blood Test 02/02/2012 02/01/2011 Adult Wellness Visit 10/15/2017 10/15/2016 COVID-19 Vaccine ( season) 2023 02/22/2021, 08/15/2020, 07/18/2020 Influenza Vaccine (FLU shot) [...] this encounter Medical Devices Implanted Type Area Hydrography Teacher Device Identifier Shelf Expiration Date Model / Serial / Lot Port Implant W/8f Poly Cath - [id number] Implanted:Qty : 1 on 11/22/2021 by Prudencio Delarosa MD at OR [facility] BARD : PERIPHERAL VASCULAR [id number] 07/31/2022 [id number] / / [id number] Lens Li61ao 13.00mm 18.00 - [id number] - [id number] Implanted:Qty : 1 on 03/12/2023 by Champ Gonzalez MD at OR [facility] Left: Eye [employer] 11/29/2027 [id number] / [id number] / [id number] Lens Li61ao 13.00mm 17.00 - [id number] - [id number] Implanted:Qty : 1 on 03/26/2023 by Champ Gonzalez MD at OR [facility] Right: Eye [employer]OM[employer] 11/29/2027 [id number] / [id number] / [id number] documented as of this encounter Visit Diagnoses [...] weight), IV Piggyback, ONCE, 1 dose, On Sat01/08/24 at 0930, Administer over 30 Minutes Start Infusion 01/08/2024 9:45 AM EDT 500 mg 210 mL/hr Fluorouracil (5-Fu) 5,600 mg for Home Infusion 5,600 mg (rounded from 5,592 mg = 2,400 mg/m2 2.33 m2 Treatment Plan BSA from Recorded weight), Intravenous, Administer over 46 Hours, Home Infusion Pharmacy to specify base solution and volume., ONCE, 1 dose, On Sat01/08/24 at 1015 Start Infusion 01/08/2024 10:55 AM EDT 5,600 mg 5 mL/hr leucovorin calcium 950 mg in D5W 250 mL INFUSION 950 mg (rounded from 932 mg = 400 mg/m2 2.33 m2 Treatment Plan BSA from Recorded weight), IV Piggyback, ONCE, 1 dose, On Sat01/08/24 at 0930, Administer over 30 Minutes Start Infusion 01/08/2024 10:20 AM EDT 950 mg 510 mL/hr NSS infusion Intravenous, at 50 mL/hr, PRN, Starting on Sat01/08/24 at 0830, Until Sat01/08/24 at 1507, Maintenance line Start Infusion 01/08/2024 9:03 AM EDT 50 mL/hr ondansetron (Zofran) tab 8 mg 8 mg, Oral, ONCE, On Sat01/08/24 at 0930, For 1 dose, Give 30 minutes prior to chemotherapy. Given 01/08/2024 9:03 AM EDT 8 mg documented in this encounter Advance Directives * Full Code (Latest Code Status on File) Date Activated Date Inactivated Comments 03/26/2023 8:37 AM 03/26/2023 2:51 PM This order reflects the patients wishes and were consensually agreed [...] Power of Attor abdirizak? No Care Teams Hadoop Developer Relationship Specialty Start Date End Date Brayan Lopez MD 200 [place] [address] PCP - General Internal Medicine 11/06/12 documented as of this encounter
--- OUTSIDE RECORDS SUMMARY | 2024-03-08 10:29 | External Medical Summary | Summary of Care ---
Author Name Unknown Organization [facility] Address [address] [place] [address] Phone [phone] Care Team Providers Care Civil Litigation Attorney Name Role Phone Brayan Lopez MD Primary Care Provider + Reason for Visit * Reason Onset Date Comments Appointment Canceled 03/04/2024 Encounter Details Date Type Department Care Team (Late st Contact Info) Description 03/04/2024 Telephone Hematology/Oncology [facility] [address] [place] [phone] Vu Navarrete MD [address] [place] [address] Appointment Canceled Allergies Active Allergy Reactions Criticality [...] 0.1 % Nasal Solution (Astelin) Administer 1 [place] into nostril in the morning and 1 [place] before bedtime. 30 mL 12 07/08/2023 Active [...] Description 03/10/2024 11:50 AM EDT Laboratory Laboratory [facility] [place] [address] [place] [phone] Lina Lab [facility] [address] [place], [place] [address] 03/11/2024 1:15 PM EDT Hem/Onc Treatment Hematology/[address], [address] [phone] Lina, Chair 6 Hem Onc [facility] [address] [place] [address] 03/17/2024 12:00 PM EDT Laboratory Laboratory [facility] [place] [address] [place] [phone] Lina Lab [address] [place], [place] [address] 03/18/2024 12:00 PM EDT Hem/Onc Treatment [facility], [place] [facility] [phone] Lina, Chair 1 Hem Onc [place] [place] [address] 03/23/2024 8:45 AM EDT Imaging Radiology [facility] 1st [facility], [place] [address] [place] [address] 03/31/2024 12:00 PM EDT Laboratory Laboratory [facility] [place] [address] [place] [phone] [place] [address] 04/01/2024 11:15 AM EDT Office Visit Hematology/Oncology [facility] [place] 200 [facility] [place] [phone] Vu Navarrete MD 200 [facility] [place] [address] 04/01/2024 11:45 AM EDT Hem/Onc Treatment Hematology/Oncology Treatment, [place] 200 [facility] [place] [phone] 10/13/2024 3:20 PM EDT Office Visit General Internal Medicine [facility] [place] 200 [facility] [place] [address] Brayan Lopez MD 200 [facility] [place] [address] Scheduled Procedures Name Priority Associated Diagnoses Date/Ti [...] this encounter Medical Devices Implanted Type Area Varnish Remover Device Identifier Shelf Expiration Date Model / Serial / Lot Port Implant W/8f Poly Cath - [id number] Implanted:Qty : 1 on 11/22/2021 by Prudencio Delarosa MD at OR [facility] BARD : PERIPHERAL VASCULAR [id number] 07/31/2022 [id number] / / [id number] Lens Li61ao 13.00mm 18.00 - [id number] - [id number] Implanted:Qty : 1 on 03/12/2023 by Champ Gonzalez MD at OR [facility] Left: Eye [employer] 11/29/2027 [id number] / [id number] / [id number] Lens Li61ao 13.00mm 17.00 - [id number] - [id number] Implanted:Qty : 1 on 03/26/2023 by Champ Gonzalez MD at [facility] Right: Eye [employer]OM[employer] 11/29/2027 [id number] / [id number] / [id number] documented as of this encounter Advance Directives [...] Power of Attor abdirizak? No Care Teams Civil Litigation Attorney Relationship Specialty Start Date End Date Brayan Lopez MD 200 [facility] [address] PCP - General Internal Medicine 11/06/12 documented as of this encounter
--- OUTSIDE RECORDS SUMMARY | 2024-03-08 10:29 | External Medical Summary | Summary of Care ---
Author Name Unknown Organization [facility] Address [address] [place] [address] Phone [phone] Care Team Providers Care Cotton Grower Name Role Phone Brayan Lopez MD Primary Care Provider + Reason for Visit * Reason Onset Date Comments Appointment Canceled 03/04/2024 Encounter Details Date Type Department Care Team (Late st Contact Info) Description 03/04/2024 Telephone Hematology/Oncology [facility] [address] [place] [phone] Vu Navarrete MD [address] [place] [address] Appointment Canceled Allergies Active Allergy Reactions Criticality [...] 0.1 % Nasal Solution (Astelin) Administer 1 [place] into nostril in the morning and 1 [place] before bedtime. 30 mL 12 07/08/2023 Active [...] insomnia Take by mouth. 02/12/2024 Act carrie Nintedanib Esylate 150 MG Oral Capsule (Ofev) 1 Capsule. 07/09/2023 Active Hospital, Clinic, or Other Facility Administered [...] encounter Miscellaneous Notes * Telephone Encounter - Torie Peres OSA [...] AM EDT Office Visit General Internal Medicine [facility] [place] [address] [place] [address] Brayan Lopez MD [address] [place] [address] Arrived 03/10/2024 11:50 AM EDT Laboratory Laboratory [facility] [place] [address] [place] [phone] Lina, Lab [facility] [address] [place] [address] 03/11/2024 1:15 PM EDT Hem/Onc Treatment Hematology/Oncology Treatment, [place] [address] [facility], [place] [address] Lina, Chair 6 Hem Onc [facility] [address] [place] [address] 03/17/2024 12:00 PM EDT Laboratory Laboratory [facility] [place] [address] [place] [address] Lina, Lab [facility] [address] [facility] [place], [place] [address] 03/18/2024 12:00 PM EDT Hem/Onc Treatment Hematology/Oncology Treatment, [place] 200 [facility] [place] [address] Lina, Chair 1 Hem Onc [facility] [address] [place] [address] 03/23/2024 8:45 AM EDT Imaging Radiology [facility] 1st [facility] [address] [place] [address] 03/31/2024 12:00 PM EDT Laboratory Laboratory [facility] [place] [address] [place] [phone] [address] [place] [address] 04/01/2024 11:15 AM EDT Office Visit Hematology/Oncology [facility] [place] 200 [facility] [place] [address] Vu Navarrete MD 200 [facility] [place] [address] 04/01/2024 11:45 AM EDT Hem[facility] 200 [facility] [place] [phone] 10/13/2024 3:20 PM EDT Office Visit General Internal Medicine [facility] [address] [facility] [place] [address] Brayan Lopez MD 200 [facility] [place] [address] Scheduled Procedures Name Priority Associated Diagnoses Date/Ti [...] this encounter Medical Devices Implanted Type Area Oliving Machine Operator Device Identifier Shelf Expiration Date Model / Serial / Lot Port Implant W/8f Poly Cath - [id number] Implanted:Qty : 1 on 11/22/2021 by Prudencio Delarosa MD at OR [facility] BARD : PERIPHERAL VASCULAR [id number] 07/31/2022 [id number] / / [id number] Lens Li61ao 13.00mm 18.00 - [id number] - [id number] Implanted:Qty : 1 on 03/12/2023 by Champ Gonzalez MD at OR [facility] Left: Eye [employer] 11/29/2027 [id number] / [id number] / [id number] Lens Li61ao 13.00mm 17.00 - [id number] - [id number] Implanted:Qty : 1 on 03/26/2023 by Champ Gonzalez MD at [facility] Right: Eye [employer] 11/29/2027 [id number] / [id number] / [id number] documented as of this encounter Advance Directives [...] Power of Attor abdirizak? No Care Teams Cotton Grower Relationship Specialty Start Date End Date Brayan Lopez MD 200 [facility] [address] PCP - General Internal Medicine 11/06/12 documented as of this encounter
--- OUTSIDE RECORDS SUMMARY | 2024-03-08 10:29 | External Medical Summary ---
Author Name Unknown Address Unknown Organization K09[facility] [place] [address] Laboratory Report Ordering Provider Test Date Status BRADEN KING 03/03/2024 11:00:09 Final Observation Date Value Abnormality Reference (Units ) Status RBC, Urine 03/03/2024 11:00:09 0-2 0-2 (/HPF) Final WBC, Urine 03/03/2024 11:00:09 0-2 0-2 (/HPF) Final Bacteria [#/area] in Urine sediment by Microscopy high power field 03/03/2024 11:00:09 0-25 0-25 (/HPF) Final Hyaline casts, Urine 03/03/2024 11:00:09 1-4 Abnormal None (/LPF) Final Performing Location [facility] [place] [address]
--- OUTSIDE RECORDS SUMMARY | 2024-03-08 10:29 | External Medical Summary | Summary of Care ---
Author Name Unknown Organization [facility] Address [address] [place] [address] Phone [phone] Care Team Providers Care Hot Mill Operator Name Role Phone Brayan Lopez MD Primary Care Provider + Reason for Visit * Reason Onset Date Comments Appointment Canceled 03/04/2024 Encounter Details Date Type Department Care Team (Late st Contact Info) Description 03/04/2024 Telephone Hematology/Oncology [facility] [address] [place] [phone] Vu Navarrete MD [address] [place] [address] Appointment Canceled Allergies Active Allergy Reactions Criticality [...] 0.1 % Nasal Solution (Astelin) Administer 1 [place] into nostril in the morning and [address] [place] before bedtime. 30 mL 12 07/08/2023 Active [...] IIIC(pT3, pN2b, cM0) - Signed by Vu Navarreet MD on 12/31/2018 Mild diastolic dysfunction 10/27/2018 [...] encounter Miscellaneous Notes * Addendum Note - Zain Ac RN - 03/04/2024 11:17 AM EDTAddended by: ZAIN AC on: 03/04/2024 11:17 AM Modules accepted: Orders * Telephone Encounter - Zain Ac RN - 03/04/2024 11:15 AM EDT [place] updated. Scheduling: appts for labs 03/17 and treatment 03/18 and labs 03/31 and treatment 04/01 will each need to be pushed back a week- unsure if you want to do that now vs make a note to do that when the patient comes in next week * Addendum Note - Zain Ac RN - 03/04/2024 11:03 AM EDTAddended by: ZAIN AC on: 03/04/2024 11:03 AM Modules accepted: [...] Team (Late st Contact Info) Description 03/04/2024 11:20 AM EDT Imaging Radiology [facility] [place] [address] [place] [address] Arrived 03/10/2024 11:50 AM EDT Laboratory Laboratory [facility] [place] [address] [place] [address] [id number] [place] [address] Marky Lai [facility] [place] [address] 03/11/2024 1:15 PM EDT Hem/Onc Treatment Hematology/Oncology Treatment, [place] 200 [facility], [place] [phone] Lina, Chair 6 Hem Onc Scenery [address] [place] [address] 03/17/2024 12:00 PM EDT Laboratory [facility] [place] [address] [place] [address] Lina, Lab Scenery [address] [facility] [place], [place] [address] 03/18/2024 12:00 PM EDT Hem/Onc Treatment Hematology/Oncology Treatment, [place] 200 [facility], [place] [address] Lina, Chair 1 Hem Onc Scenery [address] [place] [address] 03/23/2024 8:45 AM EDT Imaging Radiology [address], [place] [facility] [address] 03/31/2024 12:00 PM EDT Laboratory Laboratory [facility] [place] [address] [place] [phone] Lina, Lab Scenery [address] [facility] [place] [address] 04/01/2024 11:15 AM EDT Office Visit Hematology/Oncology [facility] [place] [address] [place], [place] [phone] Vu Navarrete MD [address] [place] [address] 04/01/2024 11:45 AM EDT Hem/Onc Treatment Hematology/Oncology Treatment, [place] 200 [facility] [place] [phone] 10/13/2024 3:20 PM EDT Office Visit General Internal Medicine [place], [place] 200 [facility] [place], [place] [address] Brayan Lopez MD 200 [facility] [place], [place] [address] Scheduled Procedures Name Priority Associated Diagnoses Date/Ti me COLONOSCOPY FLEXIBLE PROXIMAL DIAGNOSTIC Recall Personal history of colonic polyps ESOPHAGOGASTRODUODENOSCOPY ( EGD), FLEXIBLE, TRANSORAL, DIAGNOSTIC Recall Poe's esophagus with esophagitis Health Maintenance Due Date Last Done Comments Cologuard 1994 Sigmoidoscopy 1994 Fecal Occult Blood Test 02/02/2012 02/01/2011 Adult Wellness Visit 10/15/2017 10/15/2016 COVID-19 Vaccine (2022- season) 2024 02/22/2021, 08/15/2020, 07/18/2020 Influenza Vaccine [...] this encounter Medical Devices Implanted Type Area Loading Manager Device Identifier Shelf Expiration Date Model / Serial / Lot Port Implant W/8f Poly Cath - [id number] Implanted:Qty : 1 on 11/22/2021 by Prudencio Delarosa MD at OR [facility] BARD : PERIPHERAL VASCULAR [id number] 07/31/2022 [id number] / / [id number] Lens Li61ao 13.00mm 18.00 - [id number] - [id number] Implanted:Qty : 1 on 03/12/2023 by Champ Gonzalez MD at OR [facility] Left: Eye [employer] 11/29/2027 [id number] / [id number] / [id number] Lens Li61ao 13.00mm 17.00 - [id number] - [id number] Implanted:Qty : 1 on 03/26/2023 by Champ Gonzalez MD at OR [facility] Right: Eye [employer]OMB 11/29/2027 [id number] / [id number] / [id number] documented as of this encounter Advance Directives [...] patient have Health Care Power of Attor badirizak? No * Full Code Date Activated Date [...] Power of Attor abdirizak? No Care Teams Hot Mill Operator Relationship Specialty Start Date End Date Brayan Lopez MD 200 [place] [address] PCP - General Internal Medicine 11/06/12 documented as of this encounter
--- OUTSIDE RECORDS SUMMARY | 2024-03-08 10:29 | External Medical Summary ---
Author Name Unknown Address Unknown Organization K09:[facility] [address] [place] [address] Laboratory Report Ordering Provider Test Date Status BRADEN KING 03/03/2024 11:00:09 Final Observation Date Value Abnormality Reference (Units ) Status Color of Urine by Auto 03/03/2024 11:00:09 Yellow Light Yellow, Yellow, Dark Yellow Final Clarity, Urine 03/03/2024 11:00:09 Clear Clear Final Glucose [Mass/volume] in Urine by Automated test strip 03/03/2024 11:00:09 Negative Negative (mg/dL) Final Bilirubin.total [Presence] in Urine by Automated test strip 03/03/2024 11:00:09 Small Abnormal Negative Final Ketones [Mass/volume] in Urine by Automated test strip 03/03/2024 11:00:09 Trace Abnormal Negative (mg/dL) Final Specific gravity, Urine 03/03/2024 11:00:09 1.020 1.003-1.030 Final Hemoglobin [Presence] in Urine by Automated test strip 03/03/2024 11:00:09 Negative Negative Final pH, Urine 03/03/2024 11:00:09 5.5 5.0-7.5 (Units) Final Protein [Mass/volume] in Urine by Automated test strip 03/03/2024 11:00:09 30 Abnormal Negative (mg/dL) Final Urobilinogen [Mass/volume] in Urine by Automated test strip 03/03/2024 11:00:09 1.0 0.2, 1.0 (mg/dL) Final Nitrite [Presence] in Urine by Automated test strip 03/03/2024 11:00:09 Negative Negative Final Leukocyte esterase [Presence] in Urine by Automated test strip 03/03/2024 11:00:09 Negative Negative Final Performing Location [facility] [place] [address]
--- OUTSIDE RECORDS SUMMARY | 2024-03-08 10:29 | External Medical Summary ---
Author Name Unknown Address Unknown Organization [facility] [address] [place] [address] Laboratory Report Ordering Provider Test Date Status BRADEN KING 03/03/2024 11:00:09 Final Observation Date Value Abnormality Reference (Units ) Status BUN 03/03/2024 11:00:09 30 Above high normal 6-20 (mg/dL) Final Creatinine 03/03/2024 11:00:09 1.2 0.6-1.2 (mg/dL) Final Glomerular filtration rate/1.73 sq M.predicted [Volume Rate/Area] in Serum, Plasma or Blood by Creatinine-based formula (CKD-EPI) 03/03/2024 11:00:09 63 >=60 (mL/min) Final eGFR is calculated based on the CKD-EPI 2020 equation. Sodium 03/03/2024 11:00:09 138 135-146 (m mol/L) Final Potassium 03/03/2024 11:00:09 4.6 3.5-5.1 (m mol/L) Final Cl 03/03/2024 11:00:09 100 98-107 (mm ol/L) Final CO2 03/03/2024 11:00:09 25 22-32 (mmo l/L) Final Anion gap 03/03/2024 11:00:09 13 7-15 (mmol /L) Final Glucose 03/03/2024 11:00:09 89 70-120 (mg /dL) Final Albumin 03/03/2024 11:00:09 4.2 3.8-5.0 (g /dL) Final AST (Aspartate aminotransferase) 03/03/2024 11:00:09 31 10-50 (U/L) Final Alk Phos 03/03/2024 11:00:09 112 35-130 (U/ L) Final Bilirubin, Total 03/03/2024 11:00:09 0.9 <=1 .2 (mg/dL) Final Calcium 03/03/2024 11:00:09 9.4 8.4-10.2 ( mg/dL) Final Protein 03/03/2024 11:00:09 7.8 6.0-8.3 (g /dL) Final ALT (Alanine aminotransferase) 03/03/2024 11:00:09 25 10-50 (U/L) Final Performing Location [facility] [address] [place] [address]
--- OUTSIDE RECORDS SUMMARY | 2024-03-08 10:29 | External Medical Summary ---
Author Name Unknown Address Unknown Organization [facility] [address] Laboratory Report Ordering Provider Test Date Status BRADEN KING 03/03/2024 11:00:09 Final Observation Date Value Abnormality Reference (Units ) Status WBC, Total 03/03/2024 11:00:09 10.77 4.00-10.8 0 (K/uL) Final RBC 03/03/2024 11:00:09 4.59 4.50-5.25 (M/uL) Final Hemoglobin 03/03/2024 11:00:09 15.1 14.0-16.8 (g/dL) Final HCT 03/03/2024 11:00:09 46.2 40.0-48.4 (%) Final MCV 03/03/2024 11:00:09 100.7 82.0-99.5 (fL) Final MCH 03/03/2024 11:00:09 32.9 27.0-34.0 (pg) Final MCHC 03/03/2024 11:00:09 32.7 32.0-36.0 (g/dL) Final RDW 03/03/2024 11:00:09 16.4 11.5-15.5 (%) Final Platelets 03/03/2024 11:00:09 192 140-400 (K /uL) Final MPV 03/03/2024 11:00:09 9.5 6.6-11.1 ( fL) Final Performing Location [facility] [address]
--- OUTSIDE RECORDS SUMMARY | 2024-03-08 10:29 | External Medical Summary | Summary of Care ---
Author Name Unknown Organization [facility] Address [address] [place] [address] Phone [phone] Care Team Providers Care Registered Mail Clerk Name Role Phone Brayan Lopez MD Primary Care Provider + Reason for Visit * Reason Comments Cough Fever Encounter Details Date Type Department Care Team (Late st Contact Info) Description 03/04/2024 11:00 AM EDT Office Visit General Internal Medicine [facility] 200 [facility] [place] [address] Brayan Lopez MD [address] [place] [address] Acute cough*; Lung infection; UIP (usual interstitial pneumonitis) ([facility]) Allergies Active Allergy Reactions Criticality Noted Date [...] 0.1 % Nasal Solution (Astelin) Administer 1 [place] into nostril in the morning and 1 [place] before bedtime. 30 mL 12 07/08/2023 Active [...] this for 7 days. 14 Tablet 03/04/2024 Active Nintedanib Esylate 150 MG [...] (15 years old or older) No 11/21/19 Cognitive Status Response Date of Assessm ent [...] in the morning. home oxygen/equipment IN [place] .MEDSUPPLY Ventolin HFA 108 (90 Base) MCG/ACT Inhalation Aerosol Solution Inhale 2 Puffs by mouth every 4 hours as needed for Wheezing. 18 g 0 Azelastine HCl 0.1 % Nasal Solution (Astelin) Administer 1 [place] into nostril in the morning and 1 [place] before bedtime. 30 mL 12 Budesonide 0.5 [...] Self-Exams Yes Social History Narrative Born in [place], [place], worked in [place] for three years, here for 30+ years [...] performed by Nataliya Chavez MD at ENDOSCOPY [facility] COLONOSCOPY, DIAGNOSTIC (RECTUM) 10/20/2018 adenocarcinoma, adenomatous polyps/COLONOSCOPY FLEXIBLE PROXIMAL DIAGNOSTIC performed by Nataliya Chavez MD at ENDOSCOPY [facility] COLONOSCOPY, DIAGNOSTIC (RECTUM) N/A 11/10/2019 COLONOSCOPY FLEXIBLE PROXIMAL DIAGNOSTIC performed by Jigar Blue MD at ENDOSCOPY [facility] COLONOSCOPY, DIAGNOSTIC (RECTUM) N/A 07/11/2023 hemorrhoids/patent [...] performed by Eric Siegel MD at ENDOSCOPY [facility] EGD, FLEXIBLE, DIAGNOSTIC 12/06/2016 Barretts, repeat 3 yrs/ESOPHAGOGASTRODUODENOSCOPY (EGD), FLEXIBLE, TRANSORAL, DIAGNOSTIC performed by Eric Siegel MD at ENDOSCOPY [facility] EGD, FLEXIBLE, DIAGNOSTIC 02/24/2020 Poe's esophagitis, repeat 3 yrs / ESOPHAGOGASTRODUODENOSCOPY (EGD), FLEXIBLE, TRANSORAL, DIAGNOSTIC performed by Chu Owen MD at ENDOSCOPY [facility] EGD, FLEXIBLE, DIAGNOSTIC N/A 04/04/2023 esophageal plaques/biopsies show Poe's esophagitis, nayla/repeat 3 years/EGD/[place] FLUORO GUIDED NEEDLE PLACEMENT Right 11/22/2021 FLUOROSCOPIC GUIDANCE FOR NEEDLE PLACEMENT performed by Prudencio Delarosa MD at OR [facility] INSER TUNN ACC DEV;5 YRS/OLDER Right 11/22/2021 INSERT TUNNELED CENTRAL VENOUS ACCESS WITH SUBQ PORT performed by Prudencio Delarosa MD at OR [facility] IR ABLATION RADIOFREQUENCY ENDOVENOUS FIRST VEIN 03/08/2010 s/p LEFT radiofrequency ablation of GSV and 10 LLE stab phlebectomies/Dr. Torrez KNEE ARTHROSCOPY, DIAGNOSTIC Right Knee Scope,Diagnostic LAPAROSCOPIC COLECTOMY PARTIAL WITH ANASTOMOSIS N/A 11/20/2018 LAPAROSCOPIC PARTIAL COLECTOMY WITH ANASTOMOSIS performed by Jigar Blue MD [place] [facility] PROCEDURE - GENERAL PROCEDURE - GENERAL 12/26/2020 excision of venous access by Dr Marc Byrd PT HX TOTAL COLECTOMY OR COLON CA REMOVE CATARACT, INSERT LENS PROSTH Left 03/12/2023 LEFT EXTRACAPSULAR CATARACT REMOVAL WITH INTRAOCULAR LENS performed by Champ Gonzalez MD at OR [facility] REMOVE CATARACT, INSERT LENS PROSTH Right 03/26/2023 RIGHT EXTRACAPSULAR CATARACT REMOVAL WITH INTRAOCULAR LENS performed by Champ Gonzalez MD at OR [facility] REMOVE TONSILS & ADENOIDS, AGE 12+ Tonsillectomy/Adenoids,12+ Y/O TOTAL HIP REPLACEMENT & PROSTHESIS Right 05/2005 right, Sae Covarrubiaspat TOTAL HIP REPLACEMENT EDU. Left 08/30/2015 Adelso [...] Lung infection (J84.112) UIP (usual interstitial pneumonitis) (HCC) PLAN: Acute cough (Primary) - RESPIRATORY PATHOGEN [...] infection As above UIP (usual interstitial pneumonitis) ([facility]) - RESPIRATORY PATHOGEN PANEL, PCR; [...] working for him. documented in this encounter Plan of Treatment Upcoming Encounters Date Type Department Care Team (Late st Contact Info) Description 03/10/2024 11:50 AM EDT Laboratory Laboratory [facility] [place] [address] [place] [phone] [place], Lab [facility] [address] [facility] [place] [address] 03/11/2024 1:15 PM EDT Hem/Onc Treatment Hematology/Oncology Treatment, [place] 200 [facility], [place] [phone] Lina, Chair 6 Hem Onc Scenery [address] [place] [address] 03/17/2024 12:00 PM EDT Laboratory Laboratory [facility] Lina [place] [address] [place] [address] Lina, Lab Scenery [address] [facility] [place], [place] [address] 03/18/2024 12:00 PM EDT Hem/Onc Treatment Hematology/Oncology Treatment, [place] 200 [facility], [place] [address] Lina, Chair 1 Hem Onc Scenery [address] [place] [address] 03/23/2024 8:45 AM EDT Imaging Radiology [address], [place] 132 [facility] [place] [address] 03/31/2024 12:00 PM EDT Laboratory Laboratory [facility] [place] [address] [place] [address] Lina, Lab Scenery [address] [facility] [place] [address] 04/01/2024 11:15 AM EDT Office Visit Hematology/Oncology [facility] [place] [address] [place] [address] Vu Navarrete MD [address] [place] [address] 04/01/2024 11:45 AM EDT Hem/Onc Treatment Hematology[facility], [place] [address] [facility] [phone] 10/13/2024 3:20 PM EDT Office Visit General Internal Medicine [facility] [place] 200 [facility] [place] [address] Brayan Lopez MD 200 [facility] [place] [address] Scheduled Orders Name Type Priority Associated Diagnoses Orde r Schedule RESPIRATORY PATHOGEN PANEL, PCR Lab Routine Acute cough UIP (usual interstitial pneumonitis) (HCC) Expected: 03/04/2024 (Approximate), Expires: 03/04/2025 Scheduled Procedures Name Priority Associated Diagnoses Date/Ti [...] this encounter Medical Devices Implanted Type Area Neurosurgical Nurse Device Identifier Shelf Expiration Date Model / Serial / Lot Port Implant W/8f Poly Cath - [id number] Implanted:Qty : 1 on 11/22/2021 by Prudencio Delarosa MD at OR [facility] BARD : PERIPHERAL VASCULAR [id number] 07/31/2022 [id number] / / [id number] Lens Li61ao 13.00mm 18.00 - [id number] - [id number] Implanted:Qty : 1 on 03/12/2023 by Champ Gonzalez MD at OR [facility] Left: Eye [employer] 11/29/2027 [id number] / [id number] / [id number] Lens Li61ao 13.00mm 17.00 - [id number] - [id number] Implanted:Qty : 1 on 03/26/2023 by Champ Gonzalez MD at OR [facility] Right: Eye [employer]CH [employer] LOMB 11/29/2027 [id number] / [id number] / [id number] documented as of this encounter Procedures Procedure [...] This exam was submitted to the radiology office administration instructor worklist and the ordering provider will be notified that the final report is available in [facility]. Narrative 03/04/2024 11:37 AM EDT EXAM: EXAM: [...] This exam was submitted to the radiology office administration instructor worklist and theordering provider will be notified that the final [facility] 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 No Care Teams Registered Mail Clerk Relationship Specialty Start Date End Date Brayan Lopez MD [address] [place] [address] PCP - General Internal Medicine 11/06/12 documented as of this encounter
--- OUTSIDE RECORDS SUMMARY | 2024-03-08 10:29 | External Medical Summary ---
Author Name Unknown Address Unknown Organization [facility] [place] [address] Laboratory Report Ordering Provider Test Date Status BRADEN KING 03/03/2024 11:00:09 Final Observation Date Value Abnormality Reference (Units ) Status SYNC LEUKOCYTES IN BLOOD BY AUTOMATED COUNT 03/03/2024 11:00:09 10.77 4.00-10.80 (K/uL) Final Segs 03/03/2024 11:00:09 67.0 40.0-75.0 (%) Final Lymphs % 03/03/2024 11:00:09 13.3 Below low normal 18.0-42.0 (%) Final Monos 03/03/2024 11:00:09 13.5 Above high normal 1.0-11.0 (%) Final Eosinophils 03/03/2024 11:00:09 5.2 0.0-6.0 (%) Final Basos 03/03/2024 11:00:09 1.0 0.0-2.0 (%) Final Absolute Segs 03/03/2024 11:00:09 7.22 1.80-7.70 (K/uL) Final Lymphs, absolute 03/03/2024 11:00:09 1.43 1.00-4.80 (K/ul) Final Monos, Abs 03/03/2024 11:00:09 1.45 Above high normal 0.00-1.10 (K/uL) Final Eos, Abs 03/03/2024 11:00:09 0.56 0.00-0.70 (K/uL) Final Basos, Abs 03/03/2024 11:00:09 0.11 0.00-0.20 (K/uL) Final Performing Location [facility] [place] [address]
--- OUTSIDE RECORDS SUMMARY | 2024-03-08 10:29 | External Medical Summary | Summary of Care ---
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 30 mL 12 07/08/2023 Active [...] Team (Late st Contact Info) Description 03/04/2024 2:00 PM EDT Hem/Onc Treatment Hematology/Oncology Treatment, [place] [address] [place] [address] Lina, Chair 10 Hem Onc [address] [address] 03/17/2024 12:00 PM EDT Laboratory Laboratory [facility] Lina [address] [place] [address] [place], Lab Scenery [address] [place] [address] 03/18/2024 12:00 PM EDT Hem/Onc Treatment Hematology/Oncology Treatment, [place] 200 [facility] [place] [phone] Lina, Chair 1 Hem Onc [facility] [address] [place] [address] 03/23/2024 8:45 AM EDT Imaging Radiology [address], [place] 132 [facility] [place] [address] 03/31/2024 12:00 PM EDT Laboratory Laboratory [facility] [place] [address] [place] [phone] Lina Lab [facility] [address] [place] [address] 04/01/2024 11:15 AM EDT Office Visit Hematology/Oncology [facility] Lina [place] [address] [place] [phone] Vu Navarrete MD 200 [facility] [place] [address] 04/01/2024 11:45 AM EDT Hem/Onc Treatment Hematology/Oncology Treatment, [place] 200 [facility] [place] [address] 10/13/2024 3:20 PM EDT Office Visit General Internal Medicine [facility] Lina [place] [address] [place] [address] [address] Brayan Lopez MD 200 [facility] [place] [address] Pending Results Name Type Priority Associated Diagnoses Date /Time COMPREHENSIVE METABOLIC PANEL Lab Routine 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 BARD : PERIPHERAL VASCULAR [id number] 07/31/2022 [id number] / / [id number] Lens Li61ao 13.00mm 18.00 - [id number] - [id number] Implanted:Qty : 1 on 03/12/2023 by Champ Gonzalez MD at OR [facility] Left: Eye [employer]CH [employer] LOMB 11/29/2027 [id number] / [id number] / [id number] Lens Li61ao 13.00mm 17.00 - [id number] - [id number] Implanted:Qty : 1 on 03/26/2023 by Champ Gonzalez MD at OR [facility] Right: Eye BAUSCH [employer] LOMB 11/29/2027 [id number] / [id number] / [id number] documented as of this encounter Procedures Procedure Name Priority Date/Time Associated Diagnosis Comments DIFFERENTIAL, AUTOMATED STAT 03/03/2024 11:00 AM EDT 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) CBC STAT 03/03/2024 11:00 AM EDT 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) CBC STAT 03/03/2024 11:00 AM EDT 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) documented in this encounter Results * (ABNORMAL) DIFFERENTIAL, AUTOMATED (03/03/2024 11:00 AM EDT) WBC 10.77 4.00 - 10.80 K/uL 03/03/2024 11:09 AM EDT LABORATORY [place] 56-02 Neutrophils % 67.0 40.0 - 75.0 % 03/03/2024 11:09 AM EDT [facility] 56 Lymphocytes % 13.3(L) 18.0 - 42.0 % 03/03/2024 11:09 AM EDT [facility] 56- Monocytes % 13.5(H) 1.0 - 11.0 % 03/03/2024 11:09 AM EDT [facility] 56 Eosinophils % 5.2 0.0 - 6.0 % 03/03/2024 11:09 AM EDT [facility] 56 Basophils % 1.0 0.0 - 2.0 % 03/03/2024 11:09 AM EDT [facility] 56- Absolute Neutrophils 7.22 1.80 - 7.70 K/uL 03/03/2024 11:09 AM EDT [facility] 56- Absolute Lymphocytes 1.43 1.00 - 4.80 K/ul 03/03/2024 11:09 AM EDT [facility] 56 Absolute Monocytes 1.45(H) 0.00 - 1.10 K/uL 03/03/2024 11:09 AM EDT [facility] 56 Absolute Eosinophils 0.56 0.00 - 0.70 K/uL 03/03/2024 11:09 AM EDT [facility] 56-02 Absolute Basophils 0.11 0.00 - 0.20 K/uL 03/03/2024 11:09 AM EDT [facility] 56 Blood Venous blood specimen / Unknown Venipuncture / Unknown 03/03/2024 11:00 AM EDT 03/03/2024 11:00 AM EDT Vu Navarrete MD LAB BLOOD ORDERABLES [facility] 56-[address] [place] [address] * CBC (03/03/2024 11:00 AM EDT) WBC 10.77 4.00 - 10.80 K/uL 03/03/2024 11:09 AM EDT [facility] 56- RBC 4.59 4.50 - 5.25 M/uL 03/03/2024 11:09 AM EDT [address] HGB 15.1 14.0 - 16.8 g/dL 03/03/2024 11:09 AM EDT [address] HCT 46.2 40.0 - 48.4 % 03/03/2024 11:09 AM EDT [address] MCV 100.7 82.0 - 99.5 fL 03/03/2024 11:09 AM EDT [address] MCH 32.9 27.0 - 34.0 pg 03/03/2024 11:09 AM EDT [address] MCHC 32.7 32.0 - 36.0 g/dL 03/03/2024 11:09 AM EDT [address] RDW 16.4 11.5 - 15.5 % 03/03/2024 11:09 AM EDT [address] PLT 192 140 - 400 K/uL 03/03/2024 11:09 AM EDT [address] MPV 9.5 6.6 - 11.1 fL 03/03/2024 11:09 AM EDT [address] Blood Venous blood specimen / Unknown Venipuncture / Unknown 03/03/2024 11:00 AM EDT 03/03/2024 11:00 AM EDT Vu Navarrete MD LAB BLOOD ORDERABLES Performing Organization Address City/State/[facility] Co de Phone Number [place] [address] [address] [place] [address] documented in this encounter Visit Diagnoses Diagnosis 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 No Care Teams Reinforcing Iron And Rebar Workers Relationship Specialty Start Date End Date Brayan Lopez MD 200 [place] [address] PCP - General Internal Medicine 11/06/12 documented as of this encounter
--- OUTSIDE RECORDS SUMMARY | 2024-03-08 10:29 | External Medical Summary ---
Author Name Unknown Address Unknown Organization K01:[facility] [place] [address] [facility] [place] [address] Laboratory Report Ordering Provider Test Date Status CHARISSA LEVI 03/04/2024 11:41:24 Final Observation Date Value Abnormality Reference (Units ) Status Adenovirus DNA [Presence] in Nasopharynx by SABINE with non-probe detection 03/04/2024 11:41:24 Negative Negative Final Human coronavirus 229E RNA [Presence] in Nasopharynx by SABINE with non-probe detection 03/04/2024 11:41:24 Negative Negative Final Human coronavirus HKU1 RNA [Presence] in Nasopharynx by SABINE with non-probe detection 03/04/2024 11:41:24 Negative Negative Final Human coronavirus NL63 RNA [Presence] in Nasopharynx by SABINE with non-probe detection 03/04/2024 11:41:24 Negative Negative Final Human coronavirus OC43 RNA [Presence] in Nasopharynx by SABINE with non-probe detection 03/04/2024 11:41:24 Negative Negative Final SARS-CoV-2 (COVID-19) RNA [Presence] in Nasopharynx by SABINE with non-probe detection 03/04/2024 11:41:24 Negative Negative Final Human metapneumovirus RNA [Presence] in Nasopharynx by SABINE with non-probe detection 03/04/2024 11:41:24 Negative Negative Final Rhinovirus+Enterovirus RNA [Presence] in Nasopharynx by SABINE with non-probe detection 03/04/2024 11:41:24 Negative Negative Final Influenza virus A RNA [Presence] in Nasopharynx by SABINE with non-probe detection 03/04/2024 11:41:24 Negative Negative Final Influenza virus B RNA [Presence] in Nasopharynx by SABINE with non-probe detection 03/04/2024 11:41:24 Negative Negative Final Parainfluenza virus 1 RNA [Presence] in Nasopharynx by SABINE with non-probe detection 03/04/2024 11:41:24 Negative Negative Final Parainfluenza virus 2 RNA [Presence] in Nasopharynx by SABINE with non-probe detection 03/04/2024 11:41:24 Negative Negative Final Parainfluenza virus 3 RNA [Presence] in Nasopharynx by SABINE with non-probe detection 03/04/2024 11:41:24 Negative Negative Final Parainfluenza virus 4 RNA [Presence] in Nasopharynx by SABINE with non-probe detection 03/04/2024 11:41:24 Negative Negative Final Respiratory syncytial virus RNA [Presence] in Nasopharynx by SABINE with non-probe detection 03/04/2024 11:41:24 Negative Negative Final Bordetella pertussis.pertussis toxin promoter region [Presence] in Nasopharynx by SABINE with non-probe detection 03/04/2024 11:41:24 Negative Negative Final Chlamydophila pneumoniae DNA [Presence] in Nasopharynx by SABINE with non-probe detection 03/04/2024 11:41:24 Negative Negative Final Mycoplasma pneumoniae DNA [Presence] in Nasopharynx by SABINE with non-probe detection 03/04/2024 11:41:24 Negative Negative Final Bordetella parapertussis [id number] DNA [Presence] in Nasopharynx by SABINE with non-probe detection 03/04/2024 11:41:24 Negative Negative Final
The primers that detect Rhinovirus may cross react with some Enterorviruses. The validation of bronchial specimens, tracheal aspirates, and throats for this assay was developed and performance characteristics determined by [employer]. The validation of alternate specimen types has not been cleared or approved by the U.S. Food and Drug Administration (FDA). It has been determined that such clearance or approval is not necessary. [facility] Location [facility] - [facility] [address]
--- OUTSIDE RECORDS SUMMARY | 2024-03-08 10:29 | External Medical Summary | Summary of Care ---
Author Name Unknown Organization [facility] Address [address] [place] [address] Phone [phone] Care Team Providers Care Medical Accounting Clerk Name Role Phone Brayan Lopez MD Primary Care Provider + Reason for Visit * Reason Onset Date Comments Advice 03/04/2024 Encounter Details Date Type Department Care Team (Late st Contact Info) Description 03/04/2024 Telephone General Internal Medicine [facility] 200 [facility] [place] [address] Brayan Lopez MD 200 [place] [address] Advice Allergies Active Allergy Reactions Criticality Noted [...] 0.1 % Nasal Solution (Astelin) Administer 1 [place] into nostril in the morning and 1 [place] before bedtime. 30 mL 12 07/08/2023 Active [...] encounter Miscellaneous Notes * Telephone Encounter - Katrin Almaguer LPN - 03/04/2024 10:16 AM EDT Pt's spouse Dylan is calling back and reports that he pt did take a home COVID test and it was negative. Appt was scheduled today at 1100. * Telephone Encounter - Keerthi Bertrand LPN - 03/04/2024 9:14 AM EDT calling with concerns of pt starting Chemo today. Pt developed fever and cough last night. He indicates temp is down this morning. Cough is productive with yellow mucus. He feels weak. He is taking tylenol. No home covid test taken. She will have pt take a covid test and call back with results. 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); 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); 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); 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) 03/17/2024 12:00 PM EDT Laboratory Laboratory [facility] Lina [place] [address] [place] [address] Lina Lab [place] [address] Marky Lai [facility] [place] [address] 03/18/2024 12:00 PM EDT Hem/Onc Treatment Hematology/Oncolog y Treatment, [address] [place] [address] Lina, Chair 1 Hem Onc [facility] [address] [place] [address] 03/23/2024 8:45 AM EDT Imaging Radiology [address], [place] 132 [facility] [place] [address] 03/31/2024 12:00 PM EDT Laboratory Laboratory [facility] [place] [address] [place] [place] [phone] [place], Lab [facility] [address] [place] [address] 04/01/2024 11:15 AM EDT Office Visit Hematology/Oncolog y [facility] [place] [address] [place] [phone] Vu Navarrete MD 200 [facility] [place] [address] 04/01/2024 11:45 AM EDT Hem/Onc Treatment Hematology/Oncolog y Treatment, [place] [address] [place] [phone] 10/13/2024 3:20 PM EDT Office Visit General Internal Medicine [facility] [place] [address] [place] [address] Brayan Lopez MD [address] [place] [address] Scheduled Procedures Name Priority Associated Diagnoses Date/Ti ak COLONOSCOPY FLEXIBLE PROXIMAL DIAGNOSTIC Recall Personal history [...] this encounter Medical Devices Implanted Type Area Hosiery Looper Device Identifier Shelf Expiration Date Model / Serial / Lot Port Implant W/8f Poly Cath - [id number] Implanted:Qty : 1 on 11/22/2021 by Prudencio Delarosa MD at OR [facility] BARD : PERIPHERAL VASCULAR [id number] 07/31/2022 [id number] / / [id number] Lens Li61ao 13.00mm 18.00 - [id number] - [id number] Implanted:Qty : 1 on 03/12/2023 by Champ Gonzalez MD at OR [facility] Left: Eye [employer] LOMB 11/29/2027 [id number] / [id number] / [id number] Lens Li61ao 13.00mm 17.00 - [id number] - [id number] Implanted:Qty : 1 on 03/26/2023 by Champ Gonzalez MD at OR [facility] Right: Eye BAUSCH & LOMB 11/29/2027 [id number] / [id number] / [id number] documented as of this encounter Advance Directives [...] Power of Attor abdirizak? No Care Teams Medical Accounting Clerk Relationship Specialty Start Date End Date Brayan Lopez MD 200 [place] [address] PCP - General Internal Medicine 11/06/12 documented as of this encounter
--- OUTSIDE RECORDS SUMMARY | 2024-03-08 10:29 | External Medical Summary | Summary of Care ---
Author Name Unknown Organization [facility] Address [address] [place] [address] Phone [phone] Care Team Providers Care Landscape Horticulture Instructor Name Role Phone Brayan Lopez MD Primary Care Provider + Reason for Visit * Reason Comments Cough Fever Encounter Details Date Type Department Care Team (Late st Contact Info) Description 03/04/2024 11:00 AM EDT Office Visit General Internal Medicine [facility] 200 [place] [address] Brayan Lopez MD 200 [place] [address] Acute cough*; Lung infection; UIP (usual interstitial pneumonitis) ([facility]) Allergies Active Allergy Reactions Criticality Noted Date [...] 0.1 % Nasal Solution (Astelin) Administer 1 [place] into nostril in the morning and 1 [place] before bedtime. 30 mL 12 07/08/2023 Active [...] 0.1 % Nasal Solution (Astelin) Administer 1 [place] into nostril in the morning and 1 [place] before bedtime. 30 mL 12 Budesonide 0.5 [...] Self-Exams Yes Social History Narrative Born in [place], [place], [place] in [place] for [place], here for 30+ years [...] by Nataliya Chavez MD at ENDOSCOPY [facility] COLONOSCOPY, DIAGNOSTIC (RECTUM) 10/20/2018 adenocarcinoma, adenomatous polyps/COLONOSCOPY FLEXIBLE PROXIMAL DIAGNOSTIC performed by Nataliya Chavez MD at ENDOSCOPY [facility] COLONOSCOPY, DIAGNOSTIC (RECTUM) N/A 11/10/2019 COLONOSCOPY FLEXIBLE PROXIMAL DIAGNOSTIC performed by Jigar Blue MD at ENDOSCOPY [facility] COLONOSCOPY, DIAGNOSTIC (RECTUM) N/A 07/11/2023 hemorrhoids/patent [...] performed by Eric Siegel MD at ENDOSCOPY [facility] EGD, FLEXIBLE, DIAGNOSTIC 12/06/2016 Barretts, repeat 3 yrs/ESOPHAGOGASTRODUODENOSCOPY (EGD), FLEXIBLE, TRANSORAL, DIAGNOSTIC performed by Eric Siegel MD at ENDOSCOPY [facility] EGD, FLEXIBLE, DIAGNOSTIC 02/24/2020 Poe's esophagitis, repeat 3 yrs / ESOPHAGOGASTRODUODENOSCOPY (EGD), FLEXIBLE, TRANSORAL, DIAGNOSTIC performed by Chu Owen MD at ENDOSCOPY [facility] EGD, FLEXIBLE, DIAGNOSTIC N/A 04/04/2023 esophageal plaques/biopsies show Poe's esophagitis, nayla/repeat 3 years/EGD/MN FLUORO GUIDED NEEDLE PLACEMENT Right 11/22/2021 FLUOROSCOPIC GUIDANCE FOR NEEDLE PLACEMENT performed by Prudencio Delarosa MD at OR [facility] INSER TUNN ACC DEV;5 YRS/OLDER Right 11/22/2021 INSERT TUNNELED CENTRAL VENOUS ACCESS WITH SUBQ PORT performed by Prudencio Delarosa MD at OR [facility] IR ABLATION RADIOFREQUENCY ENDOVENOUS FIRST VEIN 03/08/2010 s/p LEFT radiofrequency ablation of GSV and 10 LLE stab phlebectomies/Dr. Torrez KNEE ARTHROSCOPY, DIAGNOSTIC Right Knee Scope,Diagnostic LAPAROSCOPIC COLECTOMY PARTIAL WITH ANASTOMOSIS N/A 11/20/2018 LAPAROSCOPIC PARTIAL COLECTOMY WITH ANASTOMOSIS performed by Jigar Blue MD [place] [facility] PROCEDURE - GENERAL PROCEDURE - GENERAL 12/26/2020 excision of venous access by Dr Marc Byrd PT HX TOTAL COLECTOMY OR COLON CA REMOVE CATARACT, INSERT LENS PROSTH Left 03/12/2023 LEFT EXTRACAPSULAR CATARACT REMOVAL WITH INTRAOCULAR LENS performed by Champ Gonzalez MD at OR [facility] REMOVE CATARACT, INSERT LENS PROSTH Right 03/26/2023 RIGHT EXTRACAPSULAR CATARACT REMOVAL WITH INTRAOCULAR LENS performed by Champ Gonzalez MD at OR [facility] REMOVE TONSILS & ADENOIDS, AGE 12+ Tonsillectomy/Adenoids,12+ [...] above UIP (usual interstitial pneumonitis) ([facility]) - RESPIRATORY PATHOGEN PANEL, PCR; Future; [...] Description 03/10/2024 11:50 AM EDT Laboratory Laboratory [facility] [place] [address] [place] [address] [place], Lab [facility] [address] [facility] [place] [address] 03/11/2024 1:15 PM EDT Hem/Onc Treatment Hematology/Oncology Treatment, [place] 200 [facility], [place] [phone] Lina, Chair 6 Hem Onc [address] [place] [address] 03/17/2024 12:00 PM EDT Laboratory Laboratory [facility] Lina [place] [address] [place] [address] [place], Lab Scenery [address] [facility] [place], [place] [address] 03/18/2024 12:00 PM EDT Hem/Onc Treatment Hematology/Oncology Treatment, [place] 200 [facility], [place] [address] Lina, Chair 1 Hem Onc Scenery [address] [place] [address] 03/23/2024 8:45 AM EDT Imaging Radiology [address], [place] 132 [facility] [place] [address] 03/31/2024 12:00 PM EDT Laboratory Laboratory [facility] [place] [address] [place] [phone] [place], Lab Scenery [address] [facility] [place] [address] 04/01/2024 11:15 AM EDT Office Visit Hematology/Oncology [facility] [place]ina [place] [address] [place] [address] Vu Navarrete MD [address] [place] [address] 04/01/2024 11:45 AM EDT Hem/Onc Treatment Hematology/Oncology Treatment, [place] [facility] [phone] 10/13/2024 3:20 PM EDT Office Visit General Internal Medicine [facility] [place] 200 [facility] [place] [address] Brayan Lopez MD 200 [facility] [place] [address] Pending Results Name Type Priority Associated Diagnoses Date /Time XR CHEST 2 VIEWS Medical Imaging STAT Acute cough 03/04/2024 11:23 AM EDT Scheduled Orders Name Type Priority Associated Diagnoses [...] this encounter Medical Devices Implanted Type Area Corporate Treasury Analyst Device Identifier Shelf Expiration Date Model / Serial / Lot Port Implant W/8f Poly Cath - [id number] Implanted:Qty : 1 on 11/22/2021 by Prudencio Delarosa MD at OR [facility] BARD : PERIPHERAL VASCULAR [id number] 07/31/2022 [id number] / / [id number] Lens Li61ao 13.00mm 18.00 - [id number] - [id number] Implanted:Qty : 1 on 03/12/2023 by Champ Gonzalez MD at OR [facility] Left: Eye BAUSCH & LOMB 11/29/2027 [id number] / [id number] / [id number] Lens Li61ao 13.00mm 17.00 - [id number] - [id number] Implanted:Qty : 1 on 03/26/2023 by Champ Gonzalez MD at OR [facility] Right: Eye BAUSCH & LOMB 11/29/2027 [id number] / [id number] / [id number] documented as of this encounter Visit Diagnoses Diagnosis Acute cough- Primary Lung infection Other diseases of lung, not elsewhere classified 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 No Care Teams Landscape Horticulture Instructor Relationship Specialty Start Date End Date Brayan Lopez MD 200 [place] [address] PCP - General Internal Medicine 11/06/12 documented as of this encounter
--- OUTSIDE RECORDS SUMMARY | 2024-03-08 10:30 | External Medical Summary | Summary of Care ---
Author Name Unknown Organization [facility] Address [address] [place] [address] Phone [phone] Care Team Providers Care Business Advisor Name Role Phone Brayan Lopez MD Primary [...] ZIRABEV, 10 MG Vu Navarrete MD [address] [place] [address] Anc Hem/Onc [address] [address] Referral ID Status Reason Start Date Expiration Date V isits Requested Visits Authorized [id number] Authorized 12/25/2023 06/30/2099 [id number] Encounter Details Date Type Department Care Team (Latest Contact Info) Description 01/10/2024 9:00 AM EDT Immunization/ Injection Hematology/Oncology Treatment, [address] [phone] Nurse, Med 4 Encounter for antineoplastic chemotherapy*; 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 Active Triamcinolone Acetonide 55 MCG/ACT Nasal Aerosol (Nasacort Allergy 24HR)Indication s:Nasal congestion,Dry nose Administer 2 Sprays into each nostril in the morning. Start 02/26/2023 and stop flonase. 17 mL 02/26/2023 Active Additional Information Patient not taking.Reported on 11/19/2023 [place] Saline Nasal Nasal GelIndications: Nasal congestion,Dry nose Administer into nostril 3 times a day. 1 g 02/26/2023 Active home oxygen/equipmen t IN GAS .MEDSUPPLY 03/29/2022 Active Ventolin HFA 108 (90 Base) MCG/ACT Inhalation Aerosol SolutionIndicat ions:Idiopathic pulmonary fibrosis (HCC),LATIF (dyspnea on exertion) Inhale 2 Puffs by mouth every 4 hours as needed for Wheezing. 18 g 05/22/2023 Active Azelastine HCl 0.1 % Nasal Solution (Astelin) Administer 1 [place] into nostril in the morning and 1 [place] before bedtime. 30 mL 12 07/08/2023 Active Budesonide 0.5 MG/2ML Inhalation Suspension (Pulmicort) As directed in nasal saline rinse twice a day 120 mL 12 07/08/2023 Active Ondansetron HCl 8 MG Oral TabletIndicatio ns:Malignant neoplasm of splenic flexure (HCC),Peritonea l metastases,Live r metastases Take by mouth 1 Tablet every 8 hours as needed for Nausea. 30 Tablet 3 12/08/2021 01/10/20 24 Discontinued(Ref ill) Pantoprazole Sodium 40 MG Oral Tablet Delayed Release (Protonix) One pill by mouth once a day 1 hour before the first meal of the day-pt may since aug 23 90 Tablet 2 05/16/2023 01/21/20 24 Discontinued documented as of this encounter (statuses as of 02/08/2024) Active Problems Problem Noted Date Diagnosed Date Metastasis to liver 12/25/2023 Malignant neoplasm metastatic to both lungs 11/30 Encounter for antineoplastic chemotherapy 2023 Hypoxia 04/05/2023 History of bowel resection 04/05/2023 Dislocation of hip, right, closed, subsequent en counter 04/05/2023 Dehydration 06/06/2022 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 10/31 Interstitial [...] Gastroesophageal reflux disease without esophagi tis 10/24/2018 ADILEY (nonalcoholic steatohepatitis) 03/14/2017 Bronchiectasis, uncomplicated 03/14/2017 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 Overview: path shows short segment Barretts , bxs from stomach neg for H Pylori and neg for gastritis repeat EGD in 1 year Hip joint replacement status 04/11/2009 Hereditary and idiopathic peripheral neuropathy 04/11/2009 documented as of this encounter (statuses as of 02/08/2024) Resolved Problems Problem Noted Date Diagnosed Date Resolved Date Trapezius muscle spasm 04/05/202305/22 Chemotherapy-induced neutropenia 04/29/2019 05/08/2021 Achilles tendinitis of [...] as of this encounter (statuses as of 02/08/2024) Immunizations Name Administration Dates Next Due COVID-19 [...] of this encounter Nursing Notes * Nadine Dan, RN - 01/10/2024 9:07 AM EDT Chair 9, pump disconnect. Elastomeric pump is visibly empty/deflated; clamped/disconnected from VAD. Pt reports mild nausea and [place] since treatment on 01/08/24; pt requesting zofran refill (TE sent). Pt otherwise has no acute concerns to report. VAD flushed with 10 ml NSS and Heparin 5 ml (100 units/ml). Loza needle removed intact. Pt discharged in stable condition. documented in this encounter Plan of Treatment Upcoming Encounters Date Type Department Care Team (Late st Contact Info) Description 02/12/2024 10:20 AM EDT Office Visit General Internal Medicine [facility] [place] [address] [place] [address] [address] Brayan Lopez MD 200 [facility] [place] [address] 02/18/2024 9:30 AM EDT Laboratory Laboratory [facility] [place] [address] [place] [place] [phone] [place] [facility] [address] [place] [address] [address] 02/19/2024 11:15 AM EDT Office Visit Hematology/Oncology [facility] [place] [address] [place] [address] [phone] Vu Navarrete MD [facility] [place] [address] 02/19/2024 11:45 AM EDT Hem/Onc Treatment [place]ematology/Oncology [place], [place] [address] [place] [phone] [place], Chair 3 Hem Onc Scenery [address] [facility] [address] Scheduled Procedures Name Priority Associated Diagnoses Date/Ti [...] 05/27/2023, 05/0 03/2022, 03/24/2018, Additional history exists DTaP,Tdap,and Td Vaccines (4 - Td or Tdap) 12/01/2028 [...] this encounter Medical Devices Implanted Type Area Customs And Immigration Officer Device Identifier Shelf Expiration Date Model / Serial / Lot Port Implant W/8f Poly Cath - [id number] Implanted:Qty : 1 on 11/22/2021 by Prudencio Delarosa MD at OR [facility] BARD : PERIPHERAL VASCULAR [id number] 07/31/2022 [id number] / / [id number] Lens Li61ao 13.00mm 18.00 - [id number] - [id number] Implanted:Qty : 1 on 03/12/2023 by Champ Gonzalez MD at OR [facility] Left: Eye [employer] 11/29/2027 [id number] / [id number] / [id number] Lens Li61ao 13.00mm 17.00 - [id number] - [id number] Implanted:Qty : 1 on 03/26/2023 by Champ Gonzalez MD at OR [facility] Right: Eye [employer]OM[employer] 11/29/2027 [id number] / [id number] / [id number] documented as of this encounter Visit Diagnoses [...] Lock, PRN Other, IV Flush, Starting on Sat01/10/24 at 0854, Until Sat01/10/24 at 1310, For 24 hours, Do not flush if lock, PICC, or central line not in place; IV infusing or unable to flush. Given 01/10/2024 8:57 AM EDT 500 Units sodium chloride 0.9 % flush central line 10 mL 10 mL, IV Push, PRN Other, IV Flush, Starting on Sat01/10/24 at 0854, Until Sat01/10/24 at 1310, For 24 hours, Do not flush if lock, PICC, or central line not in place; IV infusing or unable to flush. Given 01/10/2024 8:57 AM EDT 20 mL documented in this [...] Power of Attor abdirizak? No Care Teams Business Advisor Relationship Specialty Start Date End Date Brayan Lopez MD 200 [place] [address] PCP - General Internal Medicine 11/06/12 documented as of this encounter
--- OUTSIDE RECORDS SUMMARY | 2024-03-08 10:30 | External Medical Summary ---
Author Name Unknown Address Unknown Organization K09:[facility] [place] [address] Laboratory Report Ordering Provider Test Date Status BRADEN KING 02/18/2024 09:09:16 Final Observation Date Value Abnormality Reference (Units ) Status WBC, Total 02/18/2024 09:09:16 9.48 4.00-10.8 0 (K/uL) Final RBC 02/18/2024 09:09:16 4.59 4.50-5.25 (M/uL) Final Hemoglobin 02/18/2024 09:09:16 15.1 14.0-16.8 (g/dL) Final HCT 02/18/2024 09:09:16 45.7 40.0-48.4 (%) Final MCV 02/18/2024 09:09:16 99.6 82.0-99.5 (fL) Final MCH 02/18/2024 09:09:16 32.9 27.0-34.0 (pg) Final MCHC 02/18/2024 09:09:16 33.0 32.0-36.0 (g/dL) Final RDW 02/18/2024 09:09:16 16.0 11.5-15.5 (%) Final Platelets 02/18/2024 09:09:16 177 140-400 (K /uL) Final MPV 02/18/2024 09:09:16 9.6 6.6-11.1 ( fL) Final Performing Location [facility] [place] [address]
--- OUTSIDE RECORDS SUMMARY | 2024-03-08 10:30 | External Medical Summary ---
Author Name Unknown Address Unknown Organization K01[facility] [address] [place] [address] Laboratory Report Ordering Provider Test Date Status CHARISSA LEVI 02/18/2024 09:09:16 Final Observation Date Value Abnormality Reference (Units ) Status Vitamin B12 02/18/2024 09:09:16 [phone] (pg/mL) Final Performing Location [facility] - [address] [place] [address]
--- OUTSIDE RECORDS SUMMARY | 2024-03-08 10:30 | External Medical Summary | Summary of Care ---
Author Name Unknown Organization [facility] Address [address] [place] [address] Phone [phone] Care Team Providers Care Supermarket Manager Name Role Phone Brayan Lopez MD Primary Care Provider + Reason for Visit * Reason Onset Date Comments Med Request 02/07/2024 Encounter Details Date Type Department Care Team (Late st Contact Info) Description 02/07/2024 Telephone General Internal Medicine [facility] 200 [facility] [place] [address] Brayan Lopez MD [address] [place] [address] Med Request Allergies Active Allergy Reactions Criticality Noted Date Comments Morphine Sulfate Itching 05/20/2008 documented as of this encounter (statuses as of 02/07/2024) Medications Medication Sig Dispensed Refills Start Date [...] Acetonide 55 MCG/ACT Nasal Aerosol (Nasacort Allergy 24HR)Indications:Na lizzeth congestion,Dry nose Administer 2 Sprays into each nostril in the morning. Start 02/26/2023 and stop flonase. 17 mL 02/26/2023 Active Additional Information Patient not taking.Reported on 11/19/2023 [place] Saline Nasal Nasal GelIndications:Nasa l congestion,Dry nose Administer into nostril 3 times a day. 1 g 02/26/2023 Active home oxygen/equipment IN GAS .MEDSUPPLY 03/29/2022 Active Ventolin HFA 108 (90 Base) MCG/ACT Inhalation Aerosol SolutionIndications :Idiopathic pulmonary fibrosis (HCC),LATIF (dyspnea on exertion) Inhale 2 Puffs by mouth every 4 hours as needed for Wheezing. 18 g 05/22/2023 Active Azelastine HCl 0.1 % Nasal Solution (Astelin) Administer 1 [place] into nostril in the morning and 1 [place] before bedtime. 30 mL 12 07/08/2023 Active [...] needed for Sleep. 30 Tablet 02/07/2024 Active documented as of this encounter (statuses as of 02/07/2024) Active Problems Problem Noted Date Diagnosed Date [...] as of this encounter (statuses as of 02/07/2024) Resolved Problems Problem Noted Date Diagnosed Date [...] as of this encounter (statuses as of 02/07/2024) Immunizations Name Administration Dates Next Due COVID-19 [...] encounter Miscellaneous Notes * Telephone Encounter - Arlet Berry MED ASSIST - 02/07/2024 4:44 PM EDT Left detailed message on self identifying voice mail. * Telephone Encounter - Brayan Lopez MD - 02/07/2024 4:39 PM EDT Please call Les Leif sent Please watch for over sedation Keep 02/12/24 visit to discuss further I have reviewed the patients controlled substance dispensing history in the Prescription Drug Monitoring Program in compliance with the [facility] regulations before prescribing a controlled substance. Last Tox Screen Results: No results found. However, due to the size of the patient record, not all encounters were searched.Please check Results Review for a complete set of results. * Telephone Encounter - Nellie Glez LPN - 02/07/2024 4:22 PM EDT Copied from patient's spouse chart Dr Kwong, would you please prescribe some Lorazepam 1 mg for Les. He has been taking mine as he finds they help him sleep. He only takes it at night. He has just finished his third chemo treatment. Please call to Morgan Rudolph. Thank you. Dylan documented in this encounter Plan of Treatment Upcoming Encounters Date Type Department Care Team (Late st Contact Info) Description 02/12/2024 10:20 AM EDT Office Visit General Internal Medicine [facility] [place] [address] [place] [address] Brayan Lopez MD [address] [place] [address] 02/18/2024 9:30 AM EDT Laboratory Laboratory [place] [address] [place] [phone] [place] [facility] [address] [place] [address] 02/19/2024 11:15 AM EDT Office Visit Hematology/[place] [phone] Vu Navarrete MD [address] [place] [address] 02/19/2024 11:45 AM EDT Hem/Onc Treatment Hematology/Oncology Treatment, [place] [address] [place] [phone] [place], Chair 3 Hem Onc Scenery [address] [place], [place] [address] Scheduled Procedures Name Priority Associated Diagnoses Date/Ti [...] 05/27/2028 05/27/2023, 0503/2022, 03/24/2018, Additional history exists DTaP,Tdap,and Td Vaccines [...] this encounter Medical Devices Implanted Type Area Marketing Services Rep Device Identifier Shelf Expiration Date Model / Serial / Lot Port Implant W/8f Poly Cath - [id number] Implanted:Qty : 1 on 11/22/2021 by Prudencio Delarosa MD at OR [facility] BARD : PERIPHERAL VASCULAR [id number] 07/31/2022 [id number] / / [id number] Lens Li61ao 13.00mm 18.00 - [id number] - [id number] Implanted:Qty : 1 on 03/12/2023 by Champ Gonzalez MD at OR [facility] Left: Eye [employer] 11/29/2027 [id number] / [id number] / [id number] Lens Li61ao 13.00mm 17.00 - [id number] - [id number] Implanted:Qty : 1 on 03/26/2023 by Champ Gonzalez MD at OR [facility] Right: Eye [employer]OMB 11/29/2027 [id number] / [id number] / [id number] documented as of this encounter Visit Diagnoses Diagnosis Other insomnia- Primary documented in this encounter Advance Directives * [...] Power of Attor abdirizak? No Care Teams Supermarket Manager Relationship Specialty Start Date End Date Brayan Lopez MD [address] [place] [address] PCP - General Internal Medicine 11/06/12 documented as of this encounter
--- OUTSIDE RECORDS SUMMARY | 2024-03-08 10:30 | External Medical Summary | Summary of Care ---
Author Name Unknown Organization [facility] Address [address] [place] [address] Phone [phone] Care Team Providers Care Survival Equipment Repairer Name Role Phone Brayan Lopez MD Primary Care Provider + Reason for Visit * Reason Comments Follow Up Patient reports he w ent back on chemo appx a month ago. Was asked to come in for his usual follow up appt. 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 18 g 05/22/2023 Active Azelastine HCl 0.1 % Nasal Solution (Astelin) Administer 1 [place] into nostril in the morning and 1 [place] before bedtime. 30 mL 12 07/08/2023 Active [...] ons:Chronic insomnia Take by mouth. 02/12/2024 Active Triamcinolone Acetonide 55 MCG/ACT Nasal Aerosol (Nasacort Allergy 24HR)Indications :Nasal congestion,Dry nose Administer 2 Sprays into each nostril in the morning. Start 02/26/2023 and stop flonase. 17 mL 02/26/2023 02/12/2024 Discontinued (Medication List Clean Up) [place] Saline Nasal Nasal GelIndications:N keo congestion,Dry nose Administer into nostril 3 times a day. 1 g 02/26/2023 02/12/2024 Discontinued (Medication List Clean Up) documented as of this encounter (statuses as of 02/12/2024) Active Problems Problem Noted Date Diagnosed Date [...] as of this encounter (statuses as of 02/12/2024) Resolved Problems Problem Noted Date Diagnosed Date [...] as of this encounter (statuses as of 02/12/2024) Immunizations Name Administration Dates Next Due COVID-19 [...] Sign Reading Time Taken Comments Blood Pressure 124/74 02/12/2024 10:12 AM EDT Pulse 72 02/12/2024 10:12 AM EDT Temperature 35.6 C (96 F) 02/12/2024 10:12 AM EDT Respiratory Rate 18 02/12/2024 10:12 AM EDT Oxygen Saturation 95% 02/12/2024 10:12 AM EDT Inhaled Oxygen Concentration - - Weight 99.6 kg (219 lb 8 oz) 02/12/2024 10:12 AM EDT Height - - Body Mass Index 27.44 12/31/2023 1:24 PM EDT documented in this [...] Progress Notes * Brayan Lopez MD - 02/12/2024 10:28 AM EDT Chief Complaint Patient presents with Follow Up Patient reports he went back on chemo appx a month ago. Was asked to come in for his usual follow up appt. SUBJECTIVE: Luis Weaver is a 73 year old male with PMH as below who presents for follow up colon cancer with mets to lungs, uip, no cp, pressure, abrams stable, follows with pulm. Sadly, last CT scan this summer showed progression of cancer, back on chemo, makes him tired. Some trouble sleeping at times, ativan helps, takes rarely, 2 mg melatonin causes headache in am. Hips doing ok Patient Active Problem List Diagnosis Hip joint [...] 0.1 % Nasal Solution (Astelin) Administer 1 [place] into nostril in the morning and 1 [place] before bedtime. 30 mL 12 Budesonide 0.5 [...] MG Oral Tablet Chewable Take by mouth. No current facility-administered medications for this visit. Review of patient's allergies indicates: Allergen Reactions Morphine Sulfate Itching Health Maintenance Due Topic Date Due Adult Wellness Visit 10/15/2017 COVID-19 Vaccine ( season) 2023 ROS: CONSTITUTIONAL: No fevers, sweats, or chills EYE: No recent significant change in vision, No eye pain, redness, discharge, and No diplopia EARS: No ear pain, No drainage, No tinnitus or vertigo, and No recent change in hearing PULMONARY: No recent change in breathing CARDIOVASCULAR: No chest pain, No shortness of breath, No dyspnea on exertion, No orthopnea, No paroxysmal nocturnal dyspnea, No edema, No palpitations, and No syncope GASTROINTESTINAL: No abdominal pain, No change in bowel habits, No significant heartburn, No significant change in appetite, No nausea, vomiting, diarrhea, or constipation, No hematemesis, No blood in stools or black tarry stools, No abdominal bloating or early satiety, and No dysphagia ALL OTHER SYSTEMS NEGATIVE I reviewed social, [...] Self-Exams Yes Social History Narrative Born in [place], [place], worked in [place] for three years, here for 30+ years [...] performed by Nataliya Chavez MD at ENDOSCOPY [facility] COLONOSCOPY, DIAGNOSTIC (RECTUM) 10/20/2018 adenocarcinoma, adenomatous polyps/COLONOSCOPY FLEXIBLE PROXIMAL DIAGNOSTIC performed by Nataliya Chavez MD at ENDOSCOPY [facility] COLONOSCOPY, DIAGNOSTIC (RECTUM) N/A 11/10/2019 COLONOSCOPY FLEXIBLE PROXIMAL DIAGNOSTIC performed by Jigar Blue MD at ENDOSCOPY [facility] COLONOSCOPY, DIAGNOSTIC (RECTUM) N/A 07/11/2023 hemorrhoids/patent [...] performed by Eric Siegel MD at ENDOSCOPY [facility] EGD, FLEXIBLE, DIAGNOSTIC 12/06/2016 Barretts, repeat 3 yrs/ESOPHAGOGASTRODUODENOSCOPY (EGD), FLEXIBLE, TRANSORAL, DIAGNOSTIC performed by Eric Siegel MD at ENDOSCOPY [facility] EGD, FLEXIBLE, DIAGNOSTIC 02/24/2020 Poe's esophagitis, repeat 3 yrs / ESOPHAGOGASTRODUODENOSCOPY (EGD), FLEXIBLE, TRANSORAL, DIAGNOSTIC performed by Chu Owen MD at ENDOSCOPY [facility] EGD, FLEXIBLE, DIAGNOSTIC N/A 04/04/2023 esophageal plaques/biopsies show Poe's esophagitis, nayla/repeat 3 years/EGD/[place] FLUORO GUIDED NEEDLE PLACEMENT Right 11/22/2021 FLUOROSCOPIC GUIDANCE FOR NEEDLE PLACEMENT performed by Prudencio Delarosa MD at OR [facility] INSER TUNN ACC DEV;5 YRS/OLDER Right 11/22/2021 INSERT TUNNELED CENTRAL VENOUS ACCESS WITH SUBQ PORT performed by Prudencio Delarosa MD at OR [facility] IR ABLATION RADIOFREQUENCY ENDOVENOUS FIRST VEIN 03/08/2010 s/p LEFT radiofrequency ablation of GSV and 10 LLE stab phlebectomies/Dr. Torrez KNEE ARTHROSCOPY, DIAGNOSTIC Right Knee Scope,Diagnostic LAPAROSCOPIC COLECTOMY PARTIAL WITH ANASTOMOSIS N/A 11/20/2018 LAPAROSCOPIC PARTIAL COLECTOMY WITH ANASTOMOSIS performed by Jigar Blue MD at OR [facility] PROCEDURE - GENERAL PROCEDURE - GENERAL 12/26/2020 excision of venous access by Dr Marc Byrd PT HX TOTAL COLECTOMY OR COLON CA REMOVE CATARACT, INSERT LENS PROSTH Left 03/12/2023 LEFT EXTRACAPSULAR CATARACT REMOVAL WITH INTRAOCULAR LENS performed by Champ Gonzalez MD at OR [facility] REMOVE CATARACT, INSERT LENS PROSTH Right 03/26/2023 RIGHT EXTRACAPSULAR CATARACT REMOVAL WITH INTRAOCULAR LENS performed by Champ Gonzalez MD at OR [facility] REMOVE TONSILS & ADENOIDS, AGE 12+ [...] 56 fatty liver OBJECTIVE: PHYSICAL EXAM: BP 124/74 | Pulse 72 | Temp 35.6 C (96 F) (Tympanic) | Resp 18 | Wt 99.6 kg (219 lb 8 oz) | SpO2 95% | BMI 27.44 kg/m | BSA 2.3 m General: alert, healthy, and no distress Head: Normocephalic, No masses, lesions, tenderness or abnormalities Eye Exam: conjunctiva are pink and non-injected, sclera clear Ears: External ears normal, Canals clear, TM's Normal Heart: regular rate & rhythm, no murmur, no gallops, PMI non-displaced, S-1 normal, and S-2 normal Lungs: normal respiratory rate and rhythm, dry velcro sounds bases Psych: normal affect, no flight of ideas or tangential thought, good eye contact, no pressured speech 01/27/24 pulm: (1) UIP (usual interstitial pneumonitis): Plan: Unfortunately, the patient has progressive metastatic colon cancer and is not able to tolerate Ofev. I recommended discontinuing Ofev completely at this time and simply following his pulmonary functions over time. (2) Metastatic colon cancer to liver: Plan: He appears to have progressive pulmonary metastatic disease on his latest CT scan. CT imaging is being followed by his oncologist. Patient currently undergoing active chemotherapy. Medications: Discontinued nintedanib (Ofev) Discontinued Reason: Completed Med Course 150 mg PO DAILY J84.112 - Idiopathic pulmonary fibrosis, J84.9 - Interstitial pulmonary disease, unspecified Orders: Orders RT spirometry- outpatient only 6 Months J84.112 - Idiopathic pulmonary fibrosis 12/24/23 oncology: reviewed with him and his regarding the recent follow-up CT scan of chest, abdomen, disease progression noted in the lungs, CEA level has gone up to around 15 range. Talked about resuming the same chemotherapy that can be considered, earlier tumor was KRAS and NRASnegative so we could consider for monoclonal antibody treatment. After discussion, we decided to proceed with 5-Fluorouracil, leucovorin Bevacizumab as he was on earlier every 2 weekly and he is in agreement for that. Planning start treatment next week. Once we start on treatment, will see him in about 6 weeks' time. 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 Brayan Lopez MD documented in this encounter Nursing Notes * Bianka Torre, MED ASSIST - 02/12/2024 10:15 AM EDT Chief Complaint Patient presents with Follow Up Patient reports he went back on chemo appx a month ago. Was asked to come in for his usual follow up appt. documented in this encounter Plan of Treatment Upcoming Encounters Date Type Department Care Team (Late st Contact Info) Description 02/18/2024 9:30 AM EDT Laboratory Laboratory [address] [place] [phone] [facility] [address] [place] [address] 02/19/2024 11:15 AM EDT Office Visit Hematology/Oncology [facility] [address] [place] [phone] Vu Navarrete MD [address] [place] [address] [place] [address] 02/19/2024 11:45 AM EDT Hem/Onc Treatment Hematology/Oncology Treatment, [place] [facility] [phone] Lina, Chair 3 Hem Onc [address] [place] [address] 10/13/2024 3:20 PM EDT Office Visit General Internal Medicine [place] [address] [place] [address] Brayan Lopez MD [address] [facility] [place] [address] Scheduled Orders Name Type Priority Associated Diagnoses Orde r Schedule VITAMIN B12 Lab Routine Encounter for long-term (current) use of medications Expected: 02/12/2024 (Approximate), Expires: 02/11/2025 25-HYDROXY VITAMIN D Lab Routine Encounter for long-term (current) use of medications Expected: 02/12/2024 (Approximate), Expires: 02/11/2025 Scheduled Procedures Name Priority Associated Diagnoses Date/Ti [...] Cancer Screening 07/11/2026 Lipid Panel 05/27/2028 05/27/2023, 05/03/2022, 03/24/2018, Additional history exists DTaP,Tdap,and Td Vaccines [...] encounter Medical Devices Implanted Type Area Marketing Effectiveness Manager Device Identifier Shelf Expiration Date Model / Serial / Lot Port Implant W/8f Poly Cath - [id number] Implanted:Qty : 1 on 11/22/2021 by Prudencio Delarosa MD at OR [facility] : PERIPHERAL VASCULAR [id number] 07/31/2022 [id number] / / [id number] Lens Li61ao 13.00mm 18.00 - [id number] - [id number] Implanted:Qty : 1 on 03/12/2023 by Champ Gonzalez MD at OR [facility] Left: Eye [employer] 11/29/2027 [id number] / [id number] / [id number] Lens Li61ao 13.00mm 17.00 - [id number] - [id number] Implanted:Qty : 1 on 03/26/2023 by Champ Gonzalez MD at OR [facility] Right: Eye [employer] 11/29/2027 [id number] / [id number] / [id number] documented as of this encounter Visit Diagnoses Diagnosis UIP (usual interstitial pneumonitis) (HCC)- Primary Postinflammatory pulmonary fibrosis Aortic root enlargement (HCC) Other specified disorders of arteries and arterioles Bronchiectasis, uncomplicated (HCC) 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 No Care Teams Survival Equipment Repairer Relationship Specialty Start Date End Date Brayan Lopez MD [address] [place] [address] PCP - General Internal Medicine 11/06/12 documented as of this encounter"
--- OUTSIDE RECORDS SUMMARY | 2024-03-08 10:30 | External Medical Summary ---
Author Name Unknown Address Unknown Organization K09:[facility] [place] [address] Laboratory Report Ordering Provider Test Date Status BRADEN KING 02/18/2024 09:09:16 Final Observation Date Value Abnormality Reference (Units ) Status SYNC LEUKOCYTES IN BLOOD BY AUTOMATED COUNT 02/18/2024 09:09:16 9.48 4.00-10.80 (K/uL) Final Segs 02/18/2024 09:09:16 71.0 40.0-75.0 (%) Final Lymphs % 02/18/2024 09:09:16 12.2 Below low normal 18.0-42.0 (%) Final Monos 02/18/2024 09:09:16 11.5 Above high normal 1.0-11.0 (%) Final Eosinophils 02/18/2024 09:09:16 4.5 0.0-6.0 (%) Final Basos 02/18/2024 09:09:16 0.8 0.0-2.0 (%) Final Absolute Segs 02/18/2024 09:09:16 6.72 1.80-7.70 (K/uL) Final Lymphs, absolute 02/18/2024 09:09:16 1.16 1.00-4.80 (K/ul) Final Monos, Abs 02/18/2024 09:09:16 1.09 0.00-1.10 (K/uL) Final Eos, Abs 02/18/2024 09:09:16 0.43 0.00-0.70 (K/uL) Final Basos, Abs 02/18/2024 09:09:16 0.08 0.00-0.20 (K/uL) Final Performing Location [facility] [address]
--- OUTSIDE RECORDS SUMMARY | 2024-03-08 10:30 | External Medical Summary ---
Author Name Unknown Address Unknown Organization K09:[facility] [place] [address] Laboratory Report Ordering Provider Test Date Status BRADEN KING 02/18/2024 09:09:16 Final Observation Date Value Abnormality Reference (Units ) Status RBC, Urine 02/18/2024 09:09:16 3-5 Abnormal 0-2 (/HPF) Final WBC, Urine 02/18/2024 09:09:16 0-2 0-2 (/HPF) Final Bacteria [#/area] in Urine sediment by Microscopy high power field 02/18/2024 09:09:16 0-25 0-25 (/HPF) Final Performing Location [facility] [place] [address]
--- OUTSIDE RECORDS SUMMARY | 2024-03-08 10:30 | External Medical Summary | Summary of Care ---
Author Name Unknown Organization [facility] Address [address] [place] [address] Phone [phone] Care Team Providers Care Ingot Header Name Role Phone Brayan Lopez MD Primary [...] ZIRABEV, 10 MG Vu Navarrete MD [address] [place] [address] Anc Hem/Onc [address] [phone] Referral ID Status Reason Start Date Expiration Date V isits Requested Visits Authorized [id number] Authorized 12/25/2023 06/30/2099 [id number] Encounter Details Date Type Department Care Team (Latest Contact Info) Description 02/19/2024 11:45 AM EDT Hem/Onc Treatment Hematology/Oncolog y Treatment, [address] [phone] Lina, Chair 3 Hem Onc [address] [place] [address] (work) Encounter for antineoplastic chemotherapy*; 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 30 mL 12 07/08/2023 Active [...] as of this encounter (statuses as of 02/19/2024) Active Problems Problem Noted Date Diagnosed Date [...] as of this encounter (statuses as of 02/19/2024) Resolved Problems Problem Noted Date Diagnosed Date [...] as of this encounter (statuses as of 02/19/2024) Immunizations Name Administration Dates Next Due COVID-19 [...] Care Team (Late st Contact Info) Description 02/21/2024 11:30 AM EDT Immunization/Injectio n Hematology[facility]Oncology Treatment, [place] [address] [facility] [phone] Lina, Chair 7 Hem Onc Scenery 200 [facility] [place] [address] 03/03/2024 12:00 PM EDT Laboratory Laboratory [facility] [place] [address] [place] [phone] Lina, Lab Scenery [address] [facility] [place] [address] 03/04/2024 2:00 PM EDT Hem/Onc Treatment Hematology/Oncology Treatment, [place] [address] [facility] [phone] Lina, Chair 10 Hem Onc Scenery [address] [place] [address] 03/17/2024 12:00 PM EDT Laboratory Laboratory [facility] [place] [address] [place] [address] Lina, Lab Scenery [address] [facility] [place] [address] 03/18/2024 12:00 PM EDT Hem/Onc Treatment Hematology/Oncology Treatment, [place] 200 [facility] [place] [phone] Lina, Chair 1 Hem Onc Scenery [address] [place] [address] 03/23/2024 8:45 AM EDT Imaging Radiology [facility] [facility], [place] [address] [place] [address] 03/31/2024 12:00 PM EDT Laboratory Laboratory [facility] Lina [place] [address] [place] [phone] [facility] [place] [address] 04/01/2024 11:15 AM EDT Office [facility] [place] [address] [place] [phone] Vu Navarrete MD 200 [facility] [place] [address] 04/01/2024 11:45 AM EDT Hem/Onc Treatment Hematology/Oncology Treatment, [place] [address] [place] [phone] 10/13/2024 3:20 PM EDT Office Visit General Internal Medicine [facility] Lina [place] [address] [place] [address] Brayan Lopez MD 200 [facility] [place] [address] Scheduled Procedures Name Priority Associated Diagnoses Date/Ti va COLONOSCOPY FLEXIBLE PROXIMAL DIAGNOSTIC Recall Personal history [...] this encounter Medical Devices Implanted Type Area Technical Training Manager Device Identifier Shelf Expiration Date Model / Serial / Lot Port Implant W/8f Poly Cath - [id number] Implanted:Qty : 1 on 11/22/2021 by Prudencio Delarosa MD at OR [facility]ARD : PERIPHERAL VASCULAR [id number] 07/31/2022 [id number] / / [id number] Lens Li61ao 13.00mm 18.00 - [id number] - [id number] Implanted:Qty : 1 on 03/12/2023 by Champ Gonzalez MD at OR [facility] Left: Eye [employer] 11/29/2027 [id number] / [id number] / [id number] Lens Li61ao 13.00mm 17.00 - [id number] - [id number] Implanted:Qty : 1 on 03/26/2023 by Champ Gonzalez MD at [facility] Right: Eye [employer]OM[employer] 11/29/2027 [id number] / [id number] / [id number] documented as of this encounter Visit Diagnoses Diagnosis Encounter for antineoplastic chemotherapy- Primary 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) Secondary malignant neoplasm of liver 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) Malignant neoplasm of splenic flexure documented in this encounter Administered Medications Active Administered Medications - up to 3 most recent administrations Medication Order MAR Action Action Date Dose Rate Site diphenhydrAMINE (Benadryl) inj 50 mg 50 mg, IV Push, ONCE PRN Other, Hypersensitivity Reaction, Starting on Sat02/19/24 at 1138, Until Sat02/20/24 at 1137, For 24 hours EPINEPHrine 1 MG/ML inj 0.3 mg 0.3 mg, Intramuscular, ONCE PRN Other, Hypersensitivity Reaction or Anaphylaxis, Starting on Sat02/19/24 at 1138, Until Sat02/20/24 at 1137, For 24 hours Hydrocortisone Sod Suc (PF) (Solu-Cortef) inj 100 mg 100 mg, IV Push, ONCE PRN Other, Hypersensitivity Reaction, Starting on Sat02/19/24 at 1138, Until Sat02/20/24 at 1137, For 24 hours LORAzepam (Ativan) tab 0.5 mg 0.5 mg, Oral, ONCE PRN Anxiety, Nausea, Starting on Sat02/19/24 at 0830, Until Discontinued NSS infusion Intravenous, at 50 mL/hr, PRN, Starting on Sat02/19/24 at 0830, Until Discontinued, Maintenance line Start Infusion 02/19/2024 11:58 AM EDT 50 mL/hr oxygen GAS Inhalation, OXYGEN, First dose on Sat02/19/24 at 1600, Until Discontinued, Device/Managed by: Low Flow Device, Goal SPO2 (%): 91-95, Starting Device: Nasal Cannula, Initial Flow Rate (LPM): 2, Lowest Support: Nasal Cannula: Flow 0-6 LPM. Titrate up/down by 1 LPM., Higher Support: Non-Rebreather (NRB) Mask: Minimum of 10 LPM. Titrate to maintain bag inflation., Titration Interval: Q2 minutes and as needed., Notify Provider: For sudden DECREASE in resting SPO2 to less than 85% and when escalating delivery device., Wean patient off Oxygen when the oxygen saturation is greater than or equal to 93% Inactive Administered Medications - up to 3 [...] 12:55 PM EDT 950 mg 510 mL/hr ondansetron (Zofran) tab 8 mg 8 [...] Power of Attor abdirizak? No Care Teams Ingot Header Relationship Specialty Start Date End Date Brayan Lopez MD 200 [facility] [place] [address] PCP - General Internal Medicine 11/06/12 documented as of this encounter
--- OUTSIDE RECORDS SUMMARY | 2024-03-08 10:30 | External Medical Summary | Summary of Care ---
Author Name Unknown Organization [facility] Address [address] [place] [address] Phone [phone] Care Team Providers Care [employer] Supervisor Name Role Phone Brayan Lopez MD Primary [...] of splenic flexure of colon (HCC) Procedures MT LEUCOVORIN CALCIUM INJECTION MT FLUOROURACIL INJECTION MT INJ., ZIRABEV, 10 MG Vu Navarrete MD [address] [place] [address] Anc Hem/Onc [address] [address] Referral ID Status Reason Start Date Expiration Date V isits Requested Visits Authorized [id number] Authorized 12/25/2023 06/30/[phone] Encounter Details Date Type Department Care Team (Latest Contact Info) Description 02/07/2024 8:30 AM EDT Immunization/ Injection Hematology/Oncology Treatment, [address] [address] [place], Chair 11 Hem [place] [address] [place] [address] Encounter for antineoplastic chemotherapy*; Malignant neoplasm metastatic [...] Additional Information Patient not taking.Reported on 11/19/2023 [facility] Saline Nasal Nasal GelIndications:Nasa l congestion,Dry nose [...] 0.1 % Nasal Solution (Astelin) Administer 1 [place] into nostril in the morning and 1 [place] before bedtime. 30 mL 12 07/08/2023 Active [...] TWICE DAILY 60 Tablet 5 01/30/2024 Active documented as of this encounter (statuses [...] AM EDT Office Visit General Internal Medicine [place] [address] [facility] [place] [address] Brayan Lopez MD 200 [facility] [place] [address] 02/18/2024 9:30 AM EDT Laboratory Laboratory [facility] [place] [address] [place], [place] [address] [place], Lab Scenery [address] [place], [place] [address] 02/19/2024 11:15 AM EDT Office Visit Hematology/Oncology [facility] [place] [address] [place] [phone] Vu Navarrete MD [address] [place], [place] [address] 02/19/2024 11:45 AM EDT Hem[facility] [address] [place], [place] [phone] Lina, Chair 3 Hem Onc [facility] [address] [place] [address] Scheduled Procedures Name Priority Associated Diagnoses Date/Ti [...] this encounter Medical Devices Implanted Type Area Commercial Drafter Device Identifier Shelf Expiration Date Model / Serial / Lot Port Implant W/8f Poly Cath - [id number] Implanted:Qty : 1 on 11/22/2021 by Prudencio Delarosa MD at OR [facility] BARD : PERIPHERAL VASCULAR [id number] 07/31/2022 [id number] / / [id number] Lens Li61ao 13.00mm 18.00 - [id number] - [id number] Implanted:Qty : 1 on 03/12/2023 by Champ Gonzalez MD at OR [facility] Left: Eye [employer] 11/29/2027 [id number] / [id number] / [id number] Lens Li61ao 13.00mm 17.00 - [id number] - [id number] Implanted:Qty : 1 on 03/26/2023 by Champ Gonzalez MD at OR [facility] Right: Eye [employer] LOMB 11/29/2027 [id number] / [id number] / [id number] documented as of this encounter Visit Diagnoses [...] Flush, Starting on Sat02/07/24 at 0846, Until 02/08/24 at 0845, For 24 hours, Do not flush if lock, PICC, or central line not in place; IV infusing or unable to flush. Given 02/07/2024 8:47 AM EDT 500 Units sodium chloride 0.9 % flush central line 10 mL 10 mL, IV Push, PRN Other, IV Flush, Starting on Sat02/07/24 at 0846, Until 02/08/24 at 0845, For 24 hours, Do not flush if [...] Power of Attor abdirizak? No Care Teams [employer] Supervisor Relationship Specialty Start Date End Date Brayan Lopez MD 200 [place] [address] PCP - General Internal Medicine 11/06/12 documented as of this encounter
--- OUTSIDE RECORDS SUMMARY | 2024-03-08 10:30 | External Medical Summary | Summary of Care ---
Author Name Unknown Organization [facility] Address [address] [place] [address] Phone [phone] Care Team Providers Care System Auditor Name Role Phone Brayan Lopez MD Primary Care Provider + Reason for Visit * Reason Comments Follow Up Patient reports he w ent back on chemo appx a month ago. Was asked to come in for his usual follow up appt. Encounter Details Date Type Department Care Team (Latest Contact Info) Description 02/12/2024 10:20 AM EDT Office Visit General Internal Medicine [facility] [address] [place] [address] Brayan Lopez MD [address] [place] [address] UIP (usual interstitial pneumonitis) (HCC)*; Aortic root [...] 0.1 % Nasal Solution (Astelin) Administer 1 [place] into nostril in the morning and 1 [place] before bedtime. 30 mL 12 07/08/2023 Active [...] 02/26/2023 02/12/2024 Discontinued (Medication List Clean Up) [place] Saline Nasal Nasal GelIndications:N keo congestion,Dry nose [...] 0.1 % Nasal Solution (Astelin) Administer 1 [place] into nostril in the morning and 1 [place] before bedtime. 30 mL 12 Budesonide 0.5 [...] Self-Exams Yes Social History Narrative Born in [place], [place], worked in [place] for three years, [...] performed by Nataliya Chavez MD at ENDOSCOPY [facility] COLONOSCOPY, DIAGNOSTIC (RECTUM) 10/20/2018 adenocarcinoma, adenomatous polyps/COLONOSCOPY FLEXIBLE PROXIMAL DIAGNOSTIC performed by Nataliya Chavez MD at ENDOSCOPY [facility] COLONOSCOPY, DIAGNOSTIC (RECTUM) N/A 11/10/2019 COLONOSCOPY FLEXIBLE PROXIMAL DIAGNOSTIC performed by Jigar Blue MD at ENDOSCOPY [facility] COLONOSCOPY, DIAGNOSTIC (RECTUM) N/A 07/11/2023 hemorrhoids/patent [...] performed by Eric Siegel MD at ENDOSCOPY [facility] EGD, FLEXIBLE, DIAGNOSTIC 12/06/2016 Bar[place]ts, repeat 3 yrs/ESOPHAGOGASTRODUODENOSCOPY (EGD), FLEXIBLE, TRANSORAL, DIAGNOSTIC performed by Eric Siegel MD at ENDOSCOPY [facility] EGD, FLEXIBLE, DIAGNOSTIC 02/24/2020 Poe's esophagitis, repeat 3 yrs / ESOPHAGOGASTRODUODENOSCOPY (EGD), FLEXIBLE, TRANSORAL, DIAGNOSTIC performed by Chu Owen MD at ENDOSCOPY [facility] EGD, FLEXIBLE, DIAGNOSTIC N/A 04/04/2023 esophageal plaques/biopsies show Poe's esophagitis, nayla/repeat 3 years/EGD/MN FLUORO GUIDED NEEDLE PLACEMENT Right 11/22/2021 FLUOROSCOPIC GUIDANCE FOR NEEDLE PLACEMENT performed by Prudencio Delarosa MD at OR [facility] INSER TUNN ACC DEV;5 YRS/OLDER Right 11/22/2021 INSERT TUNNELED CENTRAL VENOUS ACCESS WITH SUBQ PORT performed by Prudencio Delarosa MD at OR [facility] IR ABLATION RADIOFREQUENCY ENDOVENOUS FIRST VEIN 03/08/2010 s/p LEFT radiofrequency ablation of GSV and 10 LLE stab phlebectomies/Dr. Torrez KNEE ARTHROSCOPY, DIAGNOSTIC Right Knee Scope,Diagnostic LAPAROSCOPIC COLECTOMY PARTIAL WITH ANASTOMOSIS N/A 11/20/2018 LAPAROSCOPIC PARTIAL COLECTOMY WITH ANASTOMOSIS performed by Jigar Blue MD at [place] [facility] PROCEDURE - GENERAL PROCEDURE - GENERAL 12/26/2020 excision of venous access by Dr Marc Byrd PT HX TOTAL COLECTOMY OR COLON CA REMOVE CATARACT, INSERT LENS PROSTH Left 03/12/2023 LEFT EXTRACAPSULAR CATARACT REMOVAL WITH INTRAOCULAR LENS performed by Champ Gonzalez MD at OR [facility] REMOVE CATARACT, INSERT LENS PROSTH Right 03/26/2023 RIGHT EXTRACAPSULAR CATARACT REMOVAL WITH INTRAOCULAR LENS performed by Champ Gonzalez MD at OR [facility] REMOVE TONSILS & ADENOIDS, AGE 12+ Tonsillectomy/Adenoids,12+ [...] Description 02/18/2024 9:30 AM EDT Laboratory Laboratory [address] [place] [phone] [place] Lab [address] [place] [address] 02/19/2024 11:15 AM EDT Office Visit Hematology/Oncology [facility] [address] [place] [phone] Vu Navarrete MD [address] [place] [address] [place] [address] 02/19/2024 11:45 AM EDT Hem/Onc Treatment Hematology[facility]cology [facility], [place] [facility] [phone] [place], Chair 3 Hem Onc [address] [place] [address] 10/13/2024 3:20 PM EDT Office Visit General Internal Medicine [place] [address] [place] [address] Brayan Lopez MD [address] [place] [facility] [place] [address] Scheduled Orders Name Type Priority Associated Diagnoses [...] this encounter Medical Devices Implanted Type Area Carpet Renovator Device Identifier Shelf Expiration Date Model / Serial / Lot Port Implant W/8f Poly Cath - [id number] Implanted:Qty : 1 on 11/22/2021 by Prudencio Delarosa MD at OR [facility] BARD : PERIPHERAL VASCULAR [id number] 07/31/2022 [id number] / / [id number] Lens Li61ao 13.00mm 18.00 - [id number] - [id number] Implanted:Qty : 1 on 03/12/2023 by Champ Gonzalez MD at OR [facility] Left: Eye [employer]OMB 11/29/2027 [id number] / [id number] / [id number] Lens Li61ao 13.00mm 17.00 - [id number] - [id number] Implanted:Qty : 1 on 03/26/2023 by Champ Gonzalez MD at OR [facility] Right: Eye BAUSCH [employer] LOMB 11/29/2027 [id number] / [id number] / [id number] documented as of this encounter Visit Diagnoses [...] Power of Attor abdirizak? No Care Teams System Auditor Relationship Specialty Start Date End Date Brayan Lopez MD [address] [place] [address] PCP - General Internal Medicine 11/06/12 documented as of this encounter"
--- OUTSIDE RECORDS SUMMARY | 2024-03-08 10:30 | External Medical Summary | Summary of Care ---
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 30 mL 12 07/08/2023 Active [...] as of this encounter (statuses as of 02/18/2024) Active Problems Problem Noted Date Diagnosed Date [...] as of this encounter (statuses as of 02/18/2024) Resolved Problems Problem Noted Date Diagnosed Date [...] as of this encounter (statuses as of 02/18/2024) Immunizations Name Administration Dates Next Due COVID-19 [...] Care Team (Late st Contact Info) Description 02/19/2024 11:15 AM EDT Office Visit Hematology/[place] [address] [place] [address] Vu Navarrete MD [address] [place] [address] 02/19/2024 11:45 AM EDT Hem/Onc Treatment Hematology/Oncology Treatment[address] [place] [address] [place], Chair 3 Hem Onc [address] [place] [address] 10/13/2024 3:20 PM EDT Office Visit General Internal Medicine [facility] [place] [address] [place] [address] Brayan Lopez MD 200 [facility] [place] [address] Pending Results Name Type Priority Associated Diagnoses Date /Time COMPREHENSIVE METABOLIC PANEL Lab Routine 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) 02/18/2024 9:09 AM EDT URINALYSIS, REFLEX TO MICROSCOPIC Lab STAT 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) 02/18/2024 9:09 AM EDT VITAMIN B12 Lab Routine Encounter for long-term (current) use of medications 02/18/2024 9:09 AM EDT 25-HYDROXY VITAMIN D Lab Routine Encounter for long-term (current) use of medications 02/18/2024 9:09 AM EDT Scheduled Procedures Name Priority Associated [...] this encounter Medical Devices Implanted Type Area Director Of Social Media Marketing Device Identifier Shelf Expiration Date Model / Serial / Lot Port Implant W/8f Poly Cath - [id number] Implanted:Qty : 1 on 11/22/2021 by Prudencio Delarosa MD at OR [facility] BARD : PERIPHERAL VASCULAR [id number] 07/31/2022 [id number] / / [id number] Lens Li61ao 13.00mm 18.00 - [id number] - [id number] Implanted:Qty : 1 on 03/12/2023 by Champ Gonzalez MD at OR [facility] Left: Eye [employer]CH [employer] LOMB 11/29/2027 [id number] / [id number] / [id number] Lens Li61ao 13.00mm 17.00 - [id number] - [id number] Implanted:Qty : 1 on 03/26/2023 by Champ Gonzalez MD at OR [facility] Right: Eye [employer]USCH [employer] LOMB 11/29/2027 [id number] / [id number] / [id number] documented as of this encounter Procedures Procedure Name Priority Date/Time Associated Diagnosis Comments DIFFERENTIAL, AUTOMATED STAT 02/18/2024 9:09 AM EDT 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) CBC STAT 02/18/2024 9:09 AM EDT 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) CBC STAT 02/18/2024 9:09 AM EDT 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) documented in this encounter Results * (ABNORMAL) DIFFERENTIAL, AUTOMATED (02/18/2024 9:09 AM EDT) WBC 9.48 4.00 - 10.80 K/uL 02/18/2024 9:24 AM EDT [facility] [place] 56-02 Neutrophils % 71.0 40.0 - 75.0 % 02/18/2024 9:24 AM EDT [facility] [place] 56-02 Lymphocytes % 12.2(L) 18.0 - 42.0 % 02/18/2024 9:24 AM EDT [facility] [place] 56-02 Monocytes % 11.5(H) 1.0 - 11.0 % 02/18/2024 9:24 AM EDT [facility] [place] 56-02 Eosinophils % 4.5 0.0 - 6.0 % 02/18/2024 9:24 AM EDT [facility] [place] 56-02 Basophils % 0.8 0.0 - 2.0 % 02/18/2024 9:24 AM EDT [facility] [place] 56-02 Absolute Neutrophils 6.72 1.80 - 7.70 K/uL 02/18/2024 9:24 AM EDT [facility] [place] 56-02 Absolute Lymphocytes 1.16 1.00 - 4.80 K/ul 02/18/2024 9:24 AM EDT [facility] [place] 56-02 Absolute Monocytes 1.09 0.00 - 1.10 K/uL 02/18/2024 9:24 AM EDT [facility] 56-02 Absolute Eosinophils 0.43 0.00 - 0.70 K/uL 02/18/2024 9:24 AM EDT [facility] [place] 56-02 Absolute Basophils 0.08 0.00 - 0.20 K/uL 02/18/2024 9:24 AM EDT [facility] 56 Blood Venous blood specimen / Unknown Venipuncture / Unknown 02/18/2024 9:09 AM EDT 02/18/2024 9:09 AM EDT Vu Navarrete MD LAB BLOOD ORDERABLES [address] [place], [place] [id number] * CBC (02/18/2024 9:09 AM EDT) WBC 9.48 4.00 - 10.80 K/uL 02/18/2024 9:24 [address] EDT [address] RBC 4.59 4.50 - 5.25 M/uL 02/18/2024 9:24 AM EDT [address] HGB 15.1 14.0 - 16.8 g/dL 02/18/2024 9:24 AM EDT [address] HCT 45.7 40.0 - 48.4 % 02/18/2024 9:24 AM EDT [address] MCV 99.6 82.0 - 99.5 fL 02/18/2024 9:24 AM EDT [address] MCH 32.9 27.0 - 34.0 pg 02/18/2024 9:24 AM EDT [address] MCHC 33.0 32.0 - 36.0 g/dL 02/18/2024 9:24 AM EDT [address] RDW 16.0 11.5 - 15.5 % 02/18/2024 9:24 AM EDT [address] PLT 177 140 - 400 K/uL 02/18/2024 9:24 AM EDT [address] MPV 9.6 6.6 - 11.1 fL 02/18/2024 9:24 AM EDT [facility] 56 Blood Venous blood specimen / Unknown Venipuncture / Unknown 02/18/2024 9:09 AM EDT 02/18/2024 9:09 AM EDT Vu Navarrete MD LAB BLOOD ORDERABLES [facility] 56-02 [address] [facility] [address] documented in this encounter Visit Diagnoses Diagnosis 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 No Care Teams Podiatric Medicine Doctor Relationship Specialty Start Date End Date [facility]rayna Lopez MD 200 [facility] [address] PCP - General Internal Medicine 11/06/12 documented as of this encounter
--- OUTSIDE RECORDS SUMMARY | 2024-03-08 10:30 | External Medical Summary ---
Author Name Unknown Address Unknown Organization K01:[facility] - [address] [place] [address] Laboratory Report Ordering Provider Test Date Status CHARISSA LEVI 02/18/2024 09:09:16 Final Deficient: <20 ng/mL
Ins ufficient: 20-29 ng/mL
Recommended/Optimum:30-50 ng/mL

Vitamin D intoxication is rare. If suspicious of Vitamin D toxicity, evaluation of serum Calcium and PTH is recommended. Observation Date Value Abnormality Reference (Units ) Status 25-OH Vitamin D total 02/18/2024 09:09:16 39 >19 (ng/mL) Final Performing Location [facility] - [address] [place] [address]
--- OUTSIDE RECORDS SUMMARY | 2024-03-08 10:30 | External Medical Summary ---
Author Name Unknown Address Unknown Organization [facility] [address] [place] [address] Laboratory Report Ordering Provider Test Date Status BRADEN KING 02/18/2024 09:09:16 Final Observation Date Value Abnormality Reference (Units ) Status CEA 02/18/2024 09:09:16 17.3 Above high normal <= 5.2 (ng/mL) Final Performing Location [facility] - [address] [place] [address]
--- OUTSIDE RECORDS SUMMARY | 2024-03-08 10:30 | External Medical Summary | Summary of Care ---
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) Procedures CT CHEST/ABDOMEN/PELVIS WITH IV CONTRAST WITH ORAL CONTRAST Vu Navarrete MD [address] [place] [id number] Referral ID Status Reason Start Date Expiration Date V isits Requested Visits Authorized [id number] Pending Review 02/19/[phone] Reason for Visit * Reason Comments Follow Up Treatment Encounter Details Date Type Department Care Team (Late st Contact Info) Description 02/19/2024 11:15 AM EDT Office Visit Hematology/Oncology [place] [address] [place] [phone] Vu Navarrete MD [address] [place] [id number] Malignant neoplasm of splenic flexure (HCC)*; 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 30 mL 12 07/08/2023 Active [...] ChewableIndications :Chronic insomnia Take by mouth. 02/12/2024 [facility] Other Facility Administered Medication Ordered Dose Route Frequency Start Date End Date Status Fluorouracil (5-Fu) 5,500 mg in NSS 230 mL infusion 5500 mg IV CONTINUOUS 02/18/2024 02/20/2024 Active documented as of this encounter (statuses [...] Sign Reading Time Taken Comments Blood Pressure 147/79 02/19/2024 10:59 AM EDT Pulse 83 02/19/2024 10:59 AM EDT Temperature 36.1 C (97 F) 02/19/2024 10:59 AM EDT Respiratory Rate - - Oxygen Saturation 92% 02/19/2024 10:59 AM EDT Inhaled Oxygen Concentration - - Weight 98.5 kg (217 lb 3.2 oz) 02/19/2024 10:59 AM EDT Height - - Body Mass Index 27.15 12/31/2023 1:24 PM EDT documented in this [...] as of this encounter Progress Notes * Vu Navarrete MD - 02/19/2024 11:15 AM EDT Hematology/Oncology Outpatient Clinic note Nandini Negro [address] [place] [address] Name: Luis Weaver Date: 06/11/2022 CHIEF COMPLAINT: Luis Weaver is a 73 year old male here today for f/u visit today. 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 He has underlying interstitial lung disease. Cancer Staging T3 N2 b, M0 stage IIIC at the time of diagnosis in 10/2018. TREATMENT HISTORY: Transverse and descending colectomy (11/20/[address] Blue) He completed adjuvant modified FOLFOX x 12 on 07/14/2019 CURRENT TREATMENT: 12/24/2023 --> --> would like to start 5-Fluorouracil, leucovorin and the bevacizumab every 2 weekly ( disease progression noted in the lungs). - FOLFIRI and Avastin combination.(12/11/2021 - ) -01/09/2022 --> decided discontinue 5-Fluorouracil bolus because of low ANC. - 05/09/2022 --> decided discontinue irinotecan as he has worsening I LD, required steroid x2, oxygen treatment briefly. -on 5-Fluorouracil, leucovorin and Avastin every 3 weekly 07/18/2022 --> decided to change 5-Fluorouracil, leucovorin Avastin every 3 weekly.( before that he was on every 2 weekly) Currently he is on treatment hold, last treatment was received on 01/20/2023. DIAGNOSTIC WORKUP: He had a colonoscopy about 5 years back, because of Family history of colon cancer (maternal grandmother had a colon cancer diagnosis), recommended to have follow-up colonoscopy in 5 years. He did not have any lower GI symptoms, no blood in the stool, no obstructive symptoms, no iron deficiency. Routine Colonoscopy (10/20/2018) - Malignant tumor involving the splenic flexure, biopsy done (adenocarcinoma moderate differentiated in a background of high-grade dysplastic tubular adenoma). - two 1 to 2 mm polyp in the transverse colon removed. (Tubular adenoma) - Diverticulosis in the sigmoid and descending colon noted. Blood workup done on 10/20/2018: - WBC 6800, H&H of 15.4/40.8, Platelet count of 167,000. - Ferritin level --> 92.5. - BUN/creatinine: 16/1.0, normal liver function test other than slightly elevated ALT of 64. - CEA level --> 5.6 (10/20/2018). CT scan of the chest, abdomen and pelvis (10/22/2018) -Chest: 1. Right lower lobe bronchiectasis, posterior right lower lobe honeycombing and subpleural reticular densities are again noted. Few tiny pulmonary nodules, stable since outside chest CT dated 04/08/2017. 2. No enlarged thoracic lymph nodes. 3. Stable ectatic ascending aorta measuring up to 3.9 x 3.9 cm. - Abdomen/pelvis: 1. Focal colonic wall thickening at the splenic flexure, likely corresponding to known colonic malignancy. Multiple small adjacent pericolonic lymph nodes with the largest measuring 0.5 cm, indeterminate. No enlarged retroperitoneal lymph nodes or findings to suggest distant metastases. Transverse and dissenting colectomy (11/20/[address] blue) - Moderate differentiated invasive colonic adenocarcinoma extending into the serosal fat, lymphovascular invasion noted. Perineural invasion noted. - Negative margin - 01/20 lymph node positive for metastatic disease. - Greatest dimension 2.7 cm. - MSI stable. - BRAF negative. - KRAS negative Codons 12, 13, 59, 61, 117 and 146. - NRAS --> Negative. OTHER IMPORTANT HISTORY: -osteoarthritis, he had bilateral hip replacement surgery, has some multiple joint pain related underlying osteoarthritis, takes NSAID for the symptomatic treatment. -bronchiectasis involving the right lower lobe. - interstitial lung disease. Interval History: 07/19/2021 8.8 (H) 11/06/2021 28.0 (H) 01/08/2022 36.8 (H) 02/13/2022 17.2 (H) PET CT scan( 11/08/2021) 1. New, compared to the May 2021 CT scan, but appearing similar to the October 30, 2021 CT scan, hypermetabolic hepatic and perihepatic metastasis as described. 2. Chronic interstitial lung disease, greatest in the lung bases, right greater than left in addition to other degenerative and senescent changes noted on CT as above. Core needle biopsy of the extrahepatic in the peritoneal mass (11/22/2021: --> Metastatic adenocarcinoma of colonic origin. NGS checkup -TMB low, MSI stable -no actionable mutation -KRAS, and NRAS --> negative CT scan of chest, abdomen pelvis (03/07/2022, after 6 cycles of FOLFIRI and Avastin chemotherapy): -previously noted peritoneal nodule has gone down from 4.1 x 2.4 cm --> 2.5 x 1 cm. -fatty changes noted in the liver - Stable chronic changes of the lung parenchyma without significant interval change from previous -no intra-abdominal lymphadenopathy. CT C/A/P 06/05/22: IMPRESSION IMPRESSION Resolved peritoneal implants. No evidence of new disease in the chest, abdomen or pelvis. HISTORY OF PRESENT ILLNESS: He has come to the clinic for the follow-up, he came to clinic by himself . Earlier he was off the chemotherapy treatment between January 20 -November 2023 Now he is on 5-Fluorouracil, leucovorin and Bevacizumab every 2 weekly since 01/08/2024. Overall he has tolerated well, no new side effects other than some increasing tiredness, denies anybleeding from the sites, he has underlying interstitial lung disease, has low oxygenation, he has oxygen on p.r.n. basis at home, no nausea or vomiting but some diarrhea present, he takes Imodium forthe symptomatic treatment, no blood in the stool. No fever. Does come the frequent sinus symptoms. Coughing with yellowish expectorant, no chest pain. No abdominal pain. About 7 to 8 lb weight loss noted, current weight around 217 lb. Past Medical History: Diagnosis Date Aortic root [...] performed by Nataliya Chavez MD at ENDOSCOPY [facility] COLONOSCOPY, DIAGNOSTIC (RECTUM) 10/20/2018 adenocarcinoma, adenomatous polyps/COLONOSCOPY FLEXIBLE PROXIMAL DIAGNOSTIC performed by Nataliya Chavze MD at ENDOSCOPY [facility] COLONOSCOPY, DIAGNOSTIC (RECTUM) N/A 11/10/2019 COLONOSCOPY FLEXIBLE PROXIMAL DIAGNOSTIC performed by Jigar Blue MD at ENDOSCOPY [facility] COLONOSCOPY, DIAGNOSTIC (RECTUM) N/A 07/11/2023 hemorrhoids/patent [...] performed by Eric Siegel MD at ENDOSCOPY [facility] EGD, FLEXIBLE, DIAGNOSTIC 12/06/2016 Barretts, repeat 3 yrs/ESOPHAGOGASTRODUODENOSCOPY (EGD), FLEXIBLE, TRANSORAL, DIAGNOSTIC performed by Eric Siegel MD at ENDOSCOPY [facility] EGD, FLEXIBLE, DIAGNOSTIC 02/24/2020 Poe's esophagitis, repeat 3 yrs / ESOPHAGOGASTRODUODENOSCOPY (EGD), FLEXIBLE, TRANSORAL, DIAGNOSTIC performed by Chu Owen MD at ENDOSCOPY [facility] EGD, FLEXIBLE, DIAGNOSTIC N/A 04/04/2023 esophageal plaques/biopsies show Poe's esophagitis, nayla/repeat 3 years/EGD/[place] FLUORO GUIDED NEEDLE PLACEMENT Right 11/22/2021 FLUOROSCOPIC GUIDANCE FOR NEEDLE PLACEMENT performed by Prudencio Delarosa MD at OR [facility] INSER TUNN ACC DEV;5 YRS/OLDER Right 11/22/2021 INSERT TUNNELED CENTRAL VENOUS ACCESS WITH SUBQ PORT performed by Prudencio Delarosa MD at OR [facility] IR ABLATION RADIOFREQUENCY ENDOVENOUS FIRST VEIN 03/08/2010 s/p LEFT radiofrequency ablation of GSV and 10 LLE stab phlebectomies/Dr. Torrez KNEE ARTHROSCOPY, DIAGNOSTIC Right Knee Scope,Diagnostic LAPAROSCOPIC COLECTOMY PARTIAL WITH ANASTOMOSIS N/A 11/20/2018 LAPAROSCOPIC PARTIAL COLECTOMY WITH ANASTOMOSIS performed by Jigar Blue MD at OR [facility] PROCEDURE - GENERAL PROCEDURE - GENERAL 12/26/2020 excision of venous access by Dr Marc Byrd PT HX TOTAL COLECTOMY OR COLON CA REMOVE CATARACT, INSERT LENS PROSTH Left 03/12/2023 LEFT EXTRACAPSULAR CATARACT REMOVAL WITH INTRAOCULAR LENS performed by Champ Gonzalez MD at OR [facility] REMOVE CATARACT, INSERT LENS PROSTH Right 03/26/2023 RIGHT EXTRACAPSULAR CATARACT REMOVAL WITH INTRAOCULAR LENS performed by Champ Gonzalez MD at OR [facility] REMOVE TONSILS & ADENOIDS, AGE 12+ Tonsillectomy/Adenoids,11+ Y/O TOTAL HIP REPLACEMENT & PROSTHESIS Right 05/2005 right, Sae Feliz TOTAL HIP REPLACEMENT EDU. Left 08/30/2015 [place] Social History Tobacco Use Smoking status: Never Smokeless tobacco: Never Vaping Use Vaping Use: Never used Substance and Sexual Activity Alcohol use: Yes Alcohol/week: 1.7 standard drinks Types: 2 12 oz of beer per week Comment: occasional Drug use: No Sexual activity: Yes Partners: Female Review of patient's allergies indicates: Allergen Reactions Morphine Sulfate Itching Current Outpatient Medications Medication Sig Dispense Refill [...] 0.1 % Nasal Solution (Astelin) Administer 1 [place] into nostril in the morning and 1 [place] before bedtime. 30 mL 12 Budesonide 0.5 [...] MG Oral Tablet Chewable Take by mouth. Current Facility-Administered Medications Medication Dose Route Frequency Provider Last Rate Last Admin Fluorouracil (5-Fu) 5,500 mg in NSS 230 mL infusion 5,500 mg Intravenous Continuous Facility-Administered Medications Ordered in Other Visits Medication Dose Route Frequency Provider Last Rate Last Admin Fluorouracil (5-Fu) 5,500 mg for Home Infusion 2,400 mg/m2 (Treatment Plan Recorded) Intravenous Once Vu Navarrete MD PHYSICAL EXAM: There were no vitals taken for this visit. ECOG: Performance Status 1 = 80-90% Symptoms but nearly ambulatory General Appearance: No acute distress HEENT: Normal - No oral or pharyngeal masses, ulceration or thrush noted Lymph Nodes: Normal - No palpable lymph nodes in the neck or supraclavicular areas Lungs/Thorax: +crackles in right lung base Heart: Normal - Regular rate and rhythm, normal S1, S2, no appreciable murmurs Pulses/Extremities: Normal - 2+ throughout and symmetrical, no edema Abdomen: Normal - Soft, nontender, bowel sounds present, no appreciable hepatosplenomegaly, no palpable masses Neurologic: Normal - Grossly intact LABS: Blood workup done on 01/22/2023: -WBC 8100, H&H of 15/45, Platelet count 163457 -BUN/Creat: 26/1.2, Calcium 9.9, normal liver function test -urinalysis --> no blood, no protein -CEA level --> 10.9 (12/11/2022). Blood workup done on 12/19/2023: - WBC 9800, H&H of 14.9/44.7, platelet count 221,000 - BUN/Creat:20/1.1, calcium 9.7, normal LFT - CEA level -15.5 Blood workup done on 02/18/2024: - WBC 9400, H&H of 15/45.7, platelet count of 177,000 - BUN/Creat:21/1.2, normal LFT. Calcium 10.0. - Urinalysis -->no protein. Nitrite and esterase negative. - Vitamin B-12 --> 839. - Vitamin D --> 39. CT scan of the chest, abdomen pelvis done on 06/05/2022: - Resolved peritoneal implants. No evidence of new disease in the chest, abdomen or pelvis CT chest, abdomen pelvis (09/10/2022) -finding consistent with pulmonary fibrosis, no lung nodules, no enlarged lymph nodes, -no findings suggestive of metastatic disease noted in the abdomen or pelvis CT scan of the sinuses (11/30/2022): 1. Mild mucosal thickening of the left ethmoid air cells and inferior left maxillary sinus. 2. Nasal septum is mildly deviated to the right. CT scan of the chest, abdomen pelvis on 01/14/2023: Postoperative colonic changes look stable. No tumor regrowth or metastatic disease is appreciated in the chest, abdomen, or pelvis. Severe pulmonary fibrosis, UIP pattern, CT scan of the chest, abdomen and pelvis (05/20/2023). 1. Redemonstration of pulmonary fibrosis. 2. No new lung nodules. 3. No convincing CT evidence of metastatic disease in the abdomen or pelvis. CT scan of the chests, lenders done on 09/16/2023: Chest: 1. Findings consistent with pulmonary fibrosis are again noted. 2. An enlarged centrally necrotic prevascular lymph node, increased in size since the prior exam asmeasured above, likely metastatic. 3. Additional mildly enlarged mediastinal and hilar lymph nodes are stable in size. 4. Multiple new pulmonary nodules bilaterally measuring up to 1.0 cm, concerning for metastases. Abdomen/pelvis: 1. No findings to suggest metastatic disease in the abdomen. Limited evaluation of the pelvis secondary to streak artifacts from patient's bilateral hip arthroplasty hardware. CT chest, abdomen and pelvis done on 12/03/2023: - Enlarging mediastinal lymph node and multiple enlarging bilateral pulmonary metastasis. -no evidence of metastatic noted in the abdomen and pelvis. 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 Now restarted with 5-Fluorouracil, leucovorin and Bevacizumab combination every 2 weekly in early December 2023. Overall tolerated well. I reviewed his blood workup done yesterday, overall stable blood workup no worsening anemia, stableblood counts and stable kidney liver function test. Urinalysis shows no proteinuria. No blood pressure issues. Will check CEA level today. Will continue 5-Fluorouracil, leucovorin Bevacizumab every 2 weekly as we planned I am planning for follow-up CT scan of the chest, abdomen and pelvis in last week of March then will see him back in the clinic. No new port problem. Dr. Vu Navarrete Hem/Onc (This note was completed using the dictation program Fluency Direct. As such, there may be misspellings word substitutions, or other variations that should not change the essence of the clinical content of this encounter note. If there is need for further clarification, please direct questions to the provider listed above.) \ documented in this encounter Nursing Notes * Heidi Dotson, MED ASSIST - 02/19/2024 11:00 AM EDT Patient identifed by name and birthdate Do you have any concerns about pain management for today's visit? Yes. Patient instructed to discuss pain concerns with provider during the visit today Living Will or Advance Directive for Health Care as noted on the problem list. [facility] is a way you can talk to your provider on line through e-mail. Would you like to sign up? I can activate it for you? ALREADY ACTIVE Filed Vitals: 02/19/24 1059 BP: 147/79 Pulse: 83 Temp: 36.1 C (97 F) TempSrc: Tympanic SpO2: 92% Weight: 98.5 kg (217 lb 3.2 oz) Patient was instructed to not get up on the exam table/exam chair until directed and assisted by their provider; patient is to remain seated in the chair/ wheelchair/ exam table/ exam chair for fall prevention and safety reasons. Patient is aware to have assistance to step down off exam table/exam chair with personnel. Patient voiced full comprehension of instructions. 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); 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) 10/13/2024 3:20 PM EDT Office Visit General Internal Medicine [facility] [place] [address] [place] [id number] Brayan Lopez MD [address] [facility] [place] [phone] Pending Results Name Type Priority Associated Diagnoses Date /Time CEA Lab Routine Malignant neoplasm of splenic flexure (HCC) 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) 02/18/2024 9:09 AM EDT Scheduled Orders Name Type Priority Associated Diagnoses Orde r Schedule CEA Lab Routine Malignant neoplasm of splenic flexure (HCC) 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) Expected: 02/19/2024, Expires: 02/18/2025 CT CHEST/ABDOMEN/PELVIS WITH IV CONTRAST WITH ORAL CONTRAST Medical Imaging Routine Malignant neoplasm of splenic flexure (HCC) 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 BARD : PERIPHERAL VASCULAR [id number] 07/31/2022 [id number] / / [id number] Lens Li61ao 13.00mm 18.00 - [id number] - [id number] Implanted:Qty : 1 on 03/12/2023 by Champ Gonzalez MD at OR [facility] Left: Eye [employer] 11/29/2027 [id number] / [id number] / [id number] Lens Li61ao 13.00mm 17.00 - [id number] - [id number] Implanted:Qty : 1 on 03/26/2023 by Champ Gonzalez MD at OR [facility] Right: Eye [employer] 11/29/2027 [id number] / [id number] / [id number] documented as of this encounter Visit Diagnoses Diagnosis Malignant neoplasm of splenic flexure (HCC)- Primary Malignant neoplasm of splenic flexure 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) Secondary malignant neoplasm of liver 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 No Care Teams Geological Engineer Relationship Specialty Start Date End Date Brayan Lopez MD [address] [place] [address] PCP - General Internal Medicine 11/06/12 documented as of this encounter
--- OUTSIDE RECORDS SUMMARY | 2024-03-08 10:30 | External Medical Summary ---
Author Name Unknown Address Unknown Organization K09:[facility] [address] [place] [address] Laboratory Report Ordering Provider Test Date Status BRADEN KING 02/18/2024 09:09:16 Final Observation Date Value Abnormality Reference (Units ) Status BUN 02/18/2024 09:09:16 21 Above high normal 6-20 (mg/dL) Final Creatinine 02/18/2024 09:09:16 1.2 0.6-1.2 (mg/dL) Final Glomerular filtration rate/1.73 sq M.predicted [Volume Rate/Area] in Serum, Plasma or Blood by Creatinine-based formula (CKD-EPI) 02/18/2024 09:09:16 65 >=60 (mL/min) Final eGFR is calculated based on the CKD-EPI 2020 equation. Sodium 02/18/2024 09:09:16 139 135-146 (m mol/L) Final Potassium 02/18/2024 09:09:16 4.4 3.5-5.1 (m mol/L) Final Cl 02/18/2024 09:09:16 101 98-107 (mm ol/L) Final CO2 02/18/2024 09:09:16 26 22-32 (mmo l/L) Final Anion gap 02/18/2024 09:09:16 12 7-15 (mmol /L) Final Glucose 02/18/2024 09:09:16 111 70-120 (mg /dL) Final Albumin 02/18/2024 09:09:16 4.2 3.8-5.0 (g /dL) Final AST (Aspartate aminotransferase) 02/18/2024 09:09:16 25 10-50 (U/L) Fin al Alk Phos 02/18/2024 09:09:16 93 35-130 (U/ L) Final Bilirubin, Total 02/18/2024 09:09:16 0.9 <=1 .2 (mg/dL) Final Calcium 02/18/2024 09:09:16 10.0 8.4-10.2 ( mg/dL) Final Protein 02/18/2024 09:09:16 8.6 Above high normal 6. 0-8.3 (g/dL) Final ALT (Alanine aminotransferase) 02/18/2024 09:09:16 9 Below low normal 10-50 (U/L) Final Performing Location [facility] [address] [place] [address]
--- OUTSIDE RECORDS SUMMARY | 2024-03-08 10:30 | External Medical Summary | Summary of Care ---
Author Name Unknown Organization [facility] Address [address] [place] [address] Phone [phone] Care Team Providers Care Block Hand Name Role Phone Brayan Lopez MD Primary [...] of splenic flexure of colon (HCC) Procedures AR LEUCOVORIN CALCIUM INJECTION AR FLUOROURACIL INJECTION AR INJ., ZIRABEV, 10 MG Vu Navarrete MD 200 [place] [address] Anc Hem/Onc [address] [address] Referral ID Status Reason Start Date Expiration Date V isits Requested Visits Authorized [id number] Authorized 12/25/2023 06/30/2099 999 999 Encounter Details Date Type Department Care Team (Latest Contact Info) Description 02/21/2024 11:30 AM EDT Immunization/ Injection Hematology/Oncology Treatment, [address] [address] Lina Chair 7 Hem On[address] [place] [address] Encounter for antineoplastic chemotherapy*; 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 30 mL 12 07/08/2023 Active [...] as of this encounter (statuses as of 02/21/2024) Active Problems Problem Noted Date Diagnosed Date [...] as of this encounter (statuses as of 02/21/2024) Resolved Problems Problem Noted Date Diagnosed Date [...] as of this encounter (statuses as of 02/21/2024) Immunizations Name Administration Dates Next Due COVID-19 [...] Description 03/03/2024 12:00 PM EDT Laboratory [facility] [place] [address] [place] [phone] [place] [address] [address] [place], [place] [address] 03/04/2024 2:00 PM EDT Hem/Onc Treatment Hematology/Oncology Treatment, [place] 200 [facility] [place] [address] Lina, Chair 10 Hem Onc [facility] [address] [place] [address] 03/17/2024 12:00 PM EDT Laboratory Laboratory [place] [address] [place] [address] Lina Lab [facility] [address] [facility] [place] [address] 03/18/2024 12:00 PM EDT Hem/Onc Treatment Hematology/Oncology Treatment, [place] [facility] [phone] Lina, Chair 1 Hem Onc [facility] [address] [place] [address] 03/23/2024 8:45 AM EDT Imaging Radiology [address], [place] [address] [place] [address] 03/31/2024 12:00 PM EDT Laboratory Laboratory [facility] [place] [address] [place] [address] [phone] [place] Lab [facility] [address] [facility] [place] [address] 04/01/2024 11:15 AM EDT Office Visit Hematology/Oncology [facility] [place] [address] [place] [phone] Vu Navarrete MD 200 [facility] [place] [address] 04/01/2024 11:45 AM EDT Hem/Onc Treatment [facility] Treatment, [place] 200 [facility] [phone] 10/13/2024 3:20 PM EDT Office Visit General Internal Medicine [facility] [address] [place] [address] Brayan Lopez MD 200 [facility] [place] [address] Scheduled Procedures Name Priority Associated Diagnoses Date/Ti [...] this encounter Medical Devices Implanted Type Area Loop Tacker Device Identifier Shelf Expiration Date Model / Serial / Lot Port Implant W/8f Poly Cath - [id number] Implanted:Qty : 1 on 11/22/2021 by Prudencio Delarosa MD at OR [facility] BARD : PERIPHERAL VASCULAR [id number] 07/31/2022 [id number] / / [id number] Lens Li61ao 13.00mm 18.00 - [id number] - [id number] Implanted:Qty : 1 on 03/12/2023 by Champ Gonzalez MD at OR [facility] Left: Eye [employer] 11/29/2027 [id number] / [id number] / [id number] Lens Li61ao 13.00mm 17.00 - [id number] - [id number] Implanted:Qty : 1 on 03/26/2023 by Champ Gonzalez MD at OR [facility] Right: Eye [employer]OM[employer] 11/29/2027 [id number] / [id number] / [id number] documented as of this encounter Visit Diagnoses [...] device documented in this encounter Administered Medications Active Administered Medications - up to 3 most recent administrations Medication Order MAR Action Action Date Dose Rate Site hEParin 100 UNIT/ML Lock Flush inj 500 Units 500 Units (5 mL), IV Lock, PRN Other, IV Flush, Starting on Sat02/21/24 at 1128, Until 02/22/24 at 1127, For 24 hours, Do not flush if lock, PICC, or central line not in place; IV infusing or unable to flush. Given 02/21/2024 11:33 AM EDT 500 Units sodium chloride 0.9 % flush central line 10 mL 10 mL, IV Push, PRN Other, IV Flush, Starting on Sat02/21/24 at 1128, Until 02/22/24 at 1127, For 24 hours, Do not flush if [...] patient have Health Care Power of Attor abdirziak? No Care Teams Block Hand Relationship Specialty Start Date End Date Brayan Lopez MD 200 [place] [address] PCP - General Internal Medicine 11/06/12 documented as of this encounter
--- OUTSIDE RECORDS SUMMARY | 2024-03-08 10:31 | External Medical Summary | Summary of Care ---
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) 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) Procedures DE LEUCOVORIN CALCIUM INJECTION DE FLUOROURACIL INJECTION DE INJ., ZIRABEV, 10 MG Vu Navarrete MD 200 [place] [address] Anc Hem/Onc [address] [address] Referral ID Status Reason Start Date Expiration Date V isits Requested Visits Authorized [id number] Authorized 12/25/2023 06/30/2099 999 999 Encounter Details Date Type Department Care Team (Latest Contact Info) Description 01/22/2024 9:15 AM EDT Hem/Onc Treatment Hematology/Oncolog y Treatment, [address] [address] Lina Chair 8 Hem On[address] [place] [address] (work) Encounter for antineoplastic chemotherapy*; 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); 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); 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 30 mL 12 07/08/2023 Active [...] THE DAY 90 Tablet 1 01/21/2024 Active documented as of this encounter (statuses as of 02/06/2024) Active Problems Problem Noted Date Diagnosed Date [...] as of this encounter (statuses as of 02/06/2024) Resolved Problems Problem Noted Date Diagnosed Date [...] as of this encounter (statuses as of 02/06/2024) Immunizations Name Administration Dates Next Due COVID-19 [...] Sign Reading Time Taken Comments Blood Pressure 125/79 01/22/2024 9:29 AM EDT Pulse 70 01/22/2024 9:29 AM EDT Temperature 36.8 C (98.2 F) 01/22/2024 9:29 AM ED T Respiratory Rate 16 01/22/2024 9:29 AM EDT Oxygen Saturation 93% 01/22/2024 9:29 AM EDT Inhaled Oxygen Concentration - - Weight 100.3 kg (221 lb 3.2 oz) 01/22/2024 9:29 AM EDT Height - - Body Mass Index 27.65 12/31/2023 1:24 PM EDT documented in this [...] as of this encounter Progress Notes * Fran Kim RN - 01/22/2024 11:48 AM EDT Pt infusion completed without issues. Pt denies any issues. Pt VAD checked for blood return and flushed with NSS. Pump connected and all clamps removed prior to patient leaving. Pt ambulated from treatment room in stable condition. Goals: Pt will remain free from injury. Possible barriers to meeting goals: IV Chemotherapy Stability of the patient: Moderately stable - low risk of patient condition declining or worsening Summary regarding today's goals: Met: Pt remained free from injury. documented in this encounter Nursing Notes * Fran Kim RN - 01/22/2024 11:43 AM EDT Chair 1. VAD accessed without issues, positive for blood return. Fluids infusing per orders. Pretreatment given per orders. Safety and Risk for Injury Patient will [...] potential best while using the heat function. Chemotherapy/Immunotherapy agents: 5FU/Leuco/Zirabev Consent for chemotherapy drug treatment complete, dated, and signed? yes, date - 12/24/23 Treatment lab parameters met? Yes Has treatment weight changed > than 10%? No Treatment preauthorized? Yes VITALS Filed Vitals: 01/22/24 0929 BP: 125/79 Pulse: 70 Resp: 16 Temp: 36.8 C (98.2 F) SpO2: 93% Weight: 100.3 kg (221 lb 3.2 oz) Urine protein: NEGATIVE Patient education completed for [...] potential best while using the heat function. PRE-TREATMENT ASSESSMENT: NEURO: headaches: Intermittent, advised patient that it may be Zofran, he can try using Compazine or usinglow dose Tylenol to help and fatigue:mild to moderate intermittent. CV/RESP: denies symptoms GI/: denies symptoms OTHER: Cough- persistent with yellow phlegm per patient. Denies fevers. States this has been occurring fora "a while." PAIN: 0 documented in this encounter Plan of Treatment Upcoming Encounters Date Type Department Care Team (Late st Contact Info) Description 02/07/2024 8:30 AM EDT [facility] 200 [facility], [place] [phone] [place], Chair 11 Hem Onc [address] [place], [place] [address] 02/12/2024 10:20 AM EDT Office Visit General Internal Medicine [facility] [address] [place], [place] [address] Brayan Lopez MD 200 [facility] [place], [place] [address] 02/18/2024 9:30 AM EDT Laboratory Laboratory [facility] 200 [facility] [place] [phone] Lina, Lab [address] [place], [place] [address] 02/19/2024 11:15 AM EDT Office Visit Hematology/Oncology [facility] 200 [facility] [place], [place] [phone] Vu Navarrete MD 200 [facility] [place], [place] [address] 02/19/2024 11:45 AM EDT Hem[facility]c [facility] 200 [facility], [place] [phone] Lina, Chair 3 Hem Onc [address] [place], [place] [address] Scheduled Procedures Name Priority Associated Diagnoses Date/Ti [...] 05/27/2028 05/27/2023, 03/2022, 03/24/2018, Additional history exists DTaP,Tdap,and Td [...] this encounter Medical Devices Implanted Type Area Personal Service Workers Device Identifier Shelf Expiration Date Model / Serial / Lot Port Implant W/8f Poly Cath - [id number] Implanted:Qty : 1 on 11/22/2021 by Prudencio Delarosa MD at OR [facility] BARD : PERIPHERAL VASCULAR [id number] 07/31/2022 [id number] / / [id number] Lens Li61ao 13.00mm 18.00 - [id number] - [id number] Implanted:Qty : 1 on 03/12/2023 by Champ Gonzalez MD at OR [facility] Left: Eye [employer] 11/29/2027 [id number] / [id number] / [id number] Lens Li61ao 13.00mm 17.00 - [id number] - [id number] Implanted:Qty : 1 on 03/26/2023 by Champ Gonzalez MD at OR [facility] Right: Eye [employer]OM[employer] 11/29/2027 [id number] / [id number] / [id number] documented as of this encounter Visit Diagnoses [...] weight), IV Piggyback, ONCE, 1 dose, On Sat01/22/24 at 1000, Administer over 30 Minutes Start Infusion 01/22/2024 9:42 AM EDT 500 mg 210 mL/hr Fluorouracil (5-Fu) 5,600 mg for Home Infusion 5,600 mg (rounded from 5,592 mg = 2,400 mg/m2 2.33 m2 Treatment Plan BSA from Recorded weight), Intravenous, Administer over 46 Hours, Home Infusion Pharmacy to specify base solution and volume., ONCE, 1 dose, On Sat01/22/24 at 1015 Start Infusion 01/22/2024 11:37 AM EDT 5,600 mg 5 mL/hr leucovorin calcium 950 mg in D5W 250 mL INFUSION 950 mg (rounded from 932 mg = 400 mg/m2 2.33 m2 Treatment Plan BSA from Recorded weight), IV Piggyback, ONCE, 1 dose, On Sat01/22/24 at 1000, Administer over 30 Minutes Start Infusion 01/22/2024 10:20 AM EDT 950 mg 510 mL/hr NSS infusion Intravenous, at 50 mL/hr, PRN, Starting on Sat01/22/24 at 0830, Until Sat01/22/24 at 1549, Maintenance line Start Infusion 01/22/2024 9:40 AM EDT 50 mL/hr ondansetron (Zofran) tab 8 mg 8 mg, Oral, ONCE, On Sat01/22/24 at 1000, For 1 dose, Give 30 minutes prior to chemotherapy. Given 01/22/2024 9:37 AM EDT 8 mg documented in this [...] Power of Attor abdirizak? No Care Teams Student Development Dean Relationship Specialty Start Date End Date Brayan Lopez MD [address] [place] [address] PCP - General Internal Medicine 11/06/12 documented as of this encounter
--- OUTSIDE RECORDS SUMMARY | 2024-03-08 10:31 | External Medical Summary | Summary of Care ---
Author Name Unknown Organization [facility] Address [address] [place] [address] Phone [phone] Care Team Providers Care Dining Server Name Role Phone Brayan Lopez MD Primary [...] of splenic flexure of colon (HCC) Procedures [place] LEUCOVORIN CALCIUM INJECTION [place] FLUOROURACIL INJECTION TN INJ., ZIRABEV, 10 MG Vu Navarrete MD 200 [place] [address] Anc Hem/Onc [address] [address] Referral ID Status Reason Start Date Expiration Date V isits Requested Visits Authorized [id number] Authorized 12/25/2023 06/30/[phone] Encounter Details Date Type Department Care Team (Latest Contact Info) Description 01/22/2024 9:15 AM EDT Hem/Onc Treatment Hematology/Oncolog y Treatment, [address] [address] Lina Chair 8 Hem On[address] [place] [address] (work) Encounter for antineoplastic chemotherapy*; Malignant neoplasm [...] Additional Information Patient not taking.Reported on 11/19/2023 [place] Saline Nasal Nasal GelIndications:Nasa l congestion,Dry nose [...] 0.1 % Nasal Solution (Astelin) Administer 1 [place] into nostril in the morning and 1 [place] before bedtime. 30 mL 12 07/08/2023 Active [...] 02/07/2024 8:30 AM EDT [facility] 200 [facility], [place] [phone] Park, Chair 11 Hem Onc [address] [place], [place] [address] 02/12/2024 10:20 AM EDT Office Visit General Internal Medicine [facility] [address] [place], [place] [address] Brayan Lopez MD 200 [facility] [place], [place] [address] 02/18/2024 9:30 AM EDT Laboratory Laboratory [facility] 200 [facility] [place] [phone] Lina, Lab [address] [place], [place] [address] 02/19/2024 11:15 AM EDT Office Visit Hematology/Oncology [facility] 200 [facility] [place], [place] [phone] Vu Navarrete MD 200 [facility] [place], [place] [address] 02/19/2024 11:45 AM EDT Hem[facility]Onc [facility] 200 [facility], [place] [phone] Lina, Chair 3 Hem Onc [address] [place], [place] [address] Scheduled Procedures Name Priority Associated Diagnoses Date/Ti [...] this encounter Medical Devices Implanted Type Area Powertrain Design Engineer Device Identifier Shelf Expiration Date Model / Serial / Lot Port Implant W/8f Poly Cath - [id number] Implanted:Qty : 1 on 11/22/2021 by Prudencio Delarosa MD at OR [facility] BARD : PERIPHERAL VASCULAR [id number] 07/31/2022 [id number] / / [id number] Lens Li61ao 13.00mm 18.00 - [id number] - [id number] Implanted:Qty : 1 on 03/12/2023 by Champ Gonzalez MD at OR [facility] Left: Eye [employer]OM[employer] 11/29/2027 [id number] / [id number] / [id number] Lens Li61ao 13.00mm 17.00 - [id number] - [id number] Implanted:Qty : 1 on 03/26/2023 by Champ Gonzalez MD at OR [facility] Right: Eye [employer]OMB 11/29/2027 [id number] / [id number] / [id number] documented as of this encounter Visit Diagnoses [...] Power of Attor abdirizak? No Care Teams Dining Server Relationship Specialty Start Date End Date Brayan Lopez MD [address] [place] [address] PCP - General Internal Medicine 11/06/12 documented as of this encounter
--- OUTSIDE RECORDS SUMMARY | 2024-03-08 10:31 | External Medical Summary | Summary of Care ---
Author Name Unknown Organization [facility] Address [address] [place] [address] Phone [phone] Care Team Providers Care Disease Intervention Specialist Name Role Phone Brayan Lopez MD Primary [...] of splenic flexure of colon (HCC) Procedures ID LEUCOVORIN CALCIUM INJECTION ID FLUOROURACIL INJECTION ID INJ., ZIRABEV, 10 MG Vu Navarrete MD 200 [place] [address] Anc Hem/Onc [address] [address] Referral ID Status Reason Start Date Expiration Date V isits Requested Visits Authorized [id number] Authorized 12/25/2023 06/30/2099 999 999 Encounter Details Date Type Department Care Team (Latest Contact Info) Description 01/22/2024 9:15 AM EDT Hem/Onc Treatment Hematology/Oncolog y Treatment, [address] [phone] Lina Chair 8 Hem Onc [address] [place] [address] (work) Encounter for antineoplastic chemotherapy*; Malignant neoplasm [...] Additional Information Patient not taking.Reported on 11/19/2023 [place] Saline Nasal Nasal GelIndications:Nasa l congestion,Dry nose [...] 0.1 % Nasal Solution (Astelin) Administer 1 [place] into nostril in the morning and 1 [place] before bedtime. 30 mL 12 07/08/2023 Active [...] 02/07/2024 8:30 AM EDT [facility] 200 [facility], [place] [phone] Park, Chair 11 Hem Onc [address] [place], [place] [address] 02/12/2024 10:20 AM EDT Office Visit General Internal Medicine [facility] [address] [place], [place] [address] Brayan Lopez MD 200 [facility] [place], [place] [address] 02/18/2024 9:30 AM EDT Laboratory Laboratory [facility] 200 [facility] [place] [phone] Lina, Lab [address] [place], [place] [address] 02/19/2024 11:15 AM EDT Office Visit Hematology/Oncology [facility] 200 [facility] [place], [place] [phone] Vu Navarrete MD 200 [facility] [place], [place] [address] 02/19/2024 11:45 AM EDT Hem[facility]Onc [facility] 200 [facility], [place] [phone] Lina, Chair 3 Hem Onc [address] [place], [place] [address] Scheduled Procedures Name Priority Associated Diagnoses Date/Ti [...] this encounter Medical Devices Implanted Type Area Senior Director Of [employer] Device Identifier Shelf Expiration Date Model / Serial / Lot Port Implant W/8f Poly Cath - [id number] Implanted:Qty : 1 on 11/22/2021 by Prudencio Delarosa MD at OR [facility] BARD : PERIPHERAL VASCULAR [id number] 07/31/2022 [id number] / / [id number] Lens Li61ao 13.00mm 18.00 - [id number] - [id number] Implanted:Qty : 1 on 03/12/2023 by Champ Gonzalez MD at OR [facility] Left: Eye [employer] 11/29/2027 [id number] / [id number] / [id number] Lens Li61ao 13.00mm 17.00 - [id number] - [id number] Implanted:Qty : 1 on 03/26/2023 by Champ Gonzalez MD at OR [facility] Right: Eye [employer]OM[employer] 11/29/2027 [id number] / [id number] / [id number] documented as of this encounter Visit Diagnoses [...] Power of Attor abdirizak? No Care Teams Disease Intervention Specialist Relationship Specialty Start Date End Date Brayan Lopez MD [address] [place] [address] PCP - General Internal Medicine 11/06/12 documented as of this encounter
--- OUTSIDE RECORDS SUMMARY | 2024-03-08 10:31 | External Medical Summary | Summary of Care ---
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) 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) Procedures SD LEUCOVORIN CALCIUM INJECTION SD FLUOROURACIL INJECTION SD INJ., ZIRABEV, 10 MG Vu Navarrete MD [address] [place] [address] Anc Hem/Onc [address] [address] Referral ID Status Reason Start Date Expiration Date V isits Requested Visits Authorized [id number] Authorized 12/25/2023 06/30/2099 999 999 Encounter Details Date Type Department Care Team (Latest Contact Info) Description 02/05/2024 9:00 AM EDT Hem/Onc Treatment Hematology/Oncolog y Treatment, [address] [phone] Lina, Chair 2 [address] [place] [place] [address] Encounter for antineoplastic chemotherapy*; Malignant neoplasm metastatic [...] Additional Information Patient not taking.Reported on 11/19/2023 [place] Saline Nasal Nasal GelIndications:Nasa l congestion,Dry nose [...] 0.1 % Nasal Solution (Astelin) Administer 1 [place] into nostril in the morning and 1 [place] before bedtime. 30 mL 12 07/08/2023 Active [...] Sign Reading Time Taken Comments Blood Pressure 119/64 02/05/2024 8:50 AM EDT Pulse 84 02/05/2024 8:50 AM EDT Temperature 36.9 C (98.4 F) 02/05/2024 8:50 AM ED T Respiratory Rate 18 02/05/2024 8:50 AM EDT Oxygen Saturation 92% 02/05/2024 8:50 AM EDT Inhaled Oxygen Concentration - - Weight 100.2 kg (221 lb) 02/05/2024 8:50 AM EDT Height - - Body [...] Nursing Notes * Queenie Varma RN - 02/05/2024 10:26 AM EDT Goals: Patient will remain free from injury. Possible barriers to meeting goals: Fall risk d/t ambulation with IV pole. Stability of the patient: Moderately stable - low risk of patient condition declining or worsening Summary regarding today's goals: Met: Patient remained free of injury. Patient was connected to home infusion 5fu pump (ball), all clamps were opened to ensure adequate medication administration. Patient tolerated infusion well. Discharged in stable condition. * Queenie Varma RN - 02/05/2024 9:13 AM EDT Chair 3. Patient arrived for zirabev/leucovorin/5fu with no acute coomplaints. VAD accessed. Chemotherapy/Immunotherapy agents: zirabev/leucovorin/5fu Consent for chemotherapy drug treatment complete, dated, and signed? yes, date - 12/24/23 Treatment lab parameters met? Yes Has treatment weight changed > than 10%? No Treatment preauthorized? Yes VITALS Filed Vitals: 02/05/24 0850 BP: 119/64 Pulse: 84 Resp: 18 Temp: 36.9 C (98.4 F) TempSrc: Tympanic SpO2: 92% Weight: 100.2 kg (221 lb) Urine protein: [...] using the heat function. PRE-TREATMENT ASSESSMENT: NEURO: fatigue:patient states does have some fatigue and feels like he wants to sleep more often. CV/RESP: denies symptoms GI/: nausea: patient had some nausea after last treatment. OTHER: denies any additional symptoms PAIN: 0 Safety and Risk for Injury Patient will remain free from injury. Ensure appropriate safety devices are available. Provide and maintain safe environment. documented in this encounter Plan of Treatment Upcoming Encounters Date Type Department Care Team (Late st Contact Info) Description 02/12/2024 10:20 AM EDT Office Visit General Internal Medicine [facility] [place] [address] [place] [address] Brayan Lopez MD 200 [place] [address] 02/18/2024 9:30 AM EDT Laboratory Laboratory [facility] [address] [facility], [place] [phone] Lina, Lab [facility] 200 [facility] [place] [address] 02/19/2024 11:15 AM EDT Office Visit Hematology/Oncology [facility] [address] [place], [place] [phone] Vu Navarrete MD 200 [place] [address] 02/19/2024 11:45 AM EDT Hem/Onc Treatment Hematology/Oncology [facility] [address] [facility] [place] [phone] Lina, Chair 3 Hem Onc [address] [place] [address] Scheduled Procedures Name Priority Associated Diagnoses Date/Ti [...] this encounter Medical Devices Implanted Type Area Manager Secondary Device Identifier Shelf Expiration Date Model / Serial / Lot Port Implant W/8f Poly Cath - [id number] Implanted:Qty : 1 on 11/22/2021 by Prudencio Delarosa MD at OR [facility] BARD : PERIPHERAL VASCULAR [id number] 07/31/2022 [id number] / / [id number] Lens Li61ao 13.00mm 18.00 - [id number] - [id number] Implanted:Qty : 1 on 03/12/2023 by Champ Gonzalez MD at OR [facility] Left: Eye [employer]OM[employer] 11/29/2027 [id number] / [id number] / [id number] Lens Li61ao 13.00mm 17.00 - [id number] - [id number] Implanted:Qty : 1 on 03/26/2023 by Champ Gonzalez MD at OR [facility] Right: Eye [employer] LOMB 11/29/2027 [id number] / [id number] / [id number] documented as of this encounter Visit Diagnoses [...] weight), IV Piggyback, ONCE, 1 dose, On Sat02/05/24 at 0930, Administer over 30 Minutes Start Infusion 02/05/2024 9:10 AM EDT 500 mg 210 mL/hr Fluorouracil (5-Fu) 5,500 mg for Home Infusion 5,500 mg (rounded from 5,592 mg = 2,400 mg/m2 2.33 m2 Treatment Plan BSA from Recorded weight), Intravenous, Administer over 46 Hours, Home Infusion Pharmacy to specify base solution and volume., ONCE, 1 dose, On Sat02/05/24 at 1015 Start Infusion 02/05/2024 10:22 AM EDT 5,500 mg 5 mL/hr leucovorin calcium 950 mg in D5W 250 mL INFUSION 950 mg (rounded from 932 mg = 400 mg/m2 2.33 m2 Treatment Plan BSA from Recorded weight), IV Piggyback, ONCE, 1 dose, On Sat02/05/24 at 0930, Administer over 30 Minutes Start Infusion 02/05/2024 9:44 AM EDT 950 mg 510 mL/hr NSS infusion Intravenous, at 50 mL/hr, PRN, Starting on Sat02/05/24 at 0830, Until Sat02/05/24 at 1428, Maintenance line Start Infusion 02/05/2024 9:07 AM EDT 50 mL/hr ondansetron (Zofran) tab 8 mg 8 mg, Oral, ONCE, On Sat02/05/24 at 0930, For 1 dose, Give 30 minutes prior to chemotherapy. Given 02/05/2024 9:07 AM EDT 8 mg documented in this [...] Power of Attor abdirizak? No Care Teams Manager Life Relationship Specialty Start Date End Date Brayan Lopez MD [address] [place] [address] PCP - General Internal Medicine 11/06/12 documented as of this encounter
--- OUTSIDE RECORDS SUMMARY | 2024-03-08 10:31 | External Medical Summary | Summary of Care ---
Author Name Unknown Organization [facility] Address [address] [place] [address] Phone [phone] Care Team Providers Care Sample Clerk Name Role Phone Brayan Lopez MD [...] of splenic flexure of colon (HCC) Procedures CO LEUCOVORIN CALCIUM INJECTION CO FLUOROURACIL INJECTION CO INJ., ZIRABEV, 10 MG Vu Navarrete MD 200 [place] [address] Anc Hem/Onc [address] [address] Referral ID Status Reason Start Date Expiration Date V isits Requested Visits Authorized [id number] Authorized 12/25/2023 06/30/2099 999 999 Encounter Details Date Type Department Care Team (Latest Contact Info) Description 01/08/2024 9:00 AM EDT Hem/Onc Treatment Hematology/Oncolog y Treatment, [address] [phone] Lina, Chair 2 Hem On[address] [place] [address] Encounter for antineoplastic chemotherapy*; 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); 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); 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 30 mL 12 07/08/2023 Active [...] before the first meal of the day-pt dec since aug 23 90 Tablet 2 05/16/2023 01/21/20 24 Discontinued documented as of this encounter (statuses as of 02/04/2024) Active Problems Problem Noted Date Diagnosed Date [...] as of this encounter (statuses as of 02/04/2024) Resolved Problems Problem Noted Date Diagnosed Date [...] as of this encounter (statuses as of 02/04/2024) Immunizations Name Administration Dates Next Due COVID-19 [...] Department Care Team (Latest Contact Info) Description 02/04/2024 9:50 AM EDT Laboratory Laboratory [facility] [place] [address] [place] [phone] [place] [address] [place] [address] 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) 02/05/2024 9:00 AM EDT Hem/Onc Treatment Hematology/Oncology Treatment, [place] [address] [facility] [place] [phone] Lina, Chair 2 Hem Onc [facility] 200 [facility] [place], [place] [address] 02/12/2024 10:20 AM EDT Office Visit General Internal Medicine [facility] [place] [address] [place], [place] [address] Brayan Lopez MD [address] [place] [address] 02/18/2024 9:30 AM EDT Laboratory Laboratory [facility] [place] [address] [place] [phone] Lina, Lab [facility] [address] [facility] [address] [place], [place] [address] 02/19/2024 11:15 AM EDT Office Visit Hematology/Oncology [facility] [place] [address] [place], [place] [phone] Vu Navarrete MD [address] [place], [place] [address] 02/19/2024 11:45 AM EDT Hem[facility] 200 [facility], [place] [phone] Lina, Chair 3 Hem Onc [address] [place], [place] [address] Scheduled Procedures Name Priority Associated Diagnoses Date/Ti me COLONOSCOPY FLEXIBLE PROXIMAL DIAGNOSTIC Recall Personal history of colonic polyps ESOPHAGOGASTRODUODENOSCOPY ( EGD), FLEXIBLE, TRANSORAL, DIAGNOSTIC Recall Poe's esophagus with esophagitis Health Maintenance Due Date Last Done Comments Cologuard 1994 Sigmoidoscopy 1994 Fecal Occult Blood Test 02/02/2012 02/01/2011 COVID-19 Vaccine ( season) 2023 02/22/2021, 08/15/2020, [...] this encounter Medical Devices Implanted Type Area Psychology Lecturer Device Identifier Shelf Expiration Date Model / Serial / Lot Port Implant W/8f Poly Cath - [id number] Implanted:Qty : 1 on 11/22/2021 by Prudencio Delarosa MD at OR [facility] BARD : PERIPHERAL VASCULAR [id number] 07/31/2022 [id number] / / [id number] Lens Li61ao 13.00mm 18.00 - [id number] - [id number] Implanted:Qty : 1 on 03/12/2023 by Champ Gonzalez MD at OR [facility] Left: Eye [employer]OMB 11/29/2027 [id number] / [id number] / [id number] Lens Li61ao 13.00mm 17.00 - [id number] - [id number] Implanted:Qty : 1 on 03/26/2023 by Champ Gonzalez MD at [facility] Right: Eye [employer] LOMB 11/29/2027 [id number] / [id number] / [id number] documented as of this encounter Visit Diagnoses Diagnosis Encounter for antineoplastic chemotherapy- Primary 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) Secondary malignant neoplasm of liver 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 No Care Teams Sample Clerk Relationship Specialty Start Date End Date Brayan Lopez MD [address] [place] [address], [place] [address] PCP - General Internal Medicine 11/06/12 documented as of this encounter
--- OUTSIDE RECORDS SUMMARY | 2024-03-08 10:31 | External Medical Summary | Summary of Care ---
Author Name Unknown Organization [facility] Address [address] [place] [address] Phone [phone] Care Team Providers Care Shafting Worker Name Role Phone Brayan Lopez MD Primary Care Provider + Reason for Visit * Reason Comments Outpatient Testing Encounter Details Date Type Department Care Team (Late st Contact Info) Description 02/04/2024 9:50 AM EDT Laboratory Laboratory [facility] [address] [place] [phone] [place], Lab [address] [place] [address] 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) [...] Additional Information Patient not taking.Reported on 11/19/2023 [place] Saline Nasal Nasal GelIndications:Nasa l congestion,Dry nose [...] 0.1 % Nasal Solution (Astelin) Administer 1 [place] into nostril in the morning and 1 [place] before bedtime. 30 mL 12 07/08/2023 Active [...] Care Team (Late st Contact Info) Description 02/05/2024 9:00 AM EDT Hem/Onc Treatment Hematology/Oncology Treatment, [place] [address] [place] [phone] Lina, Chair 2 Hem Onc [facility] [address] [place] [address] 02/12/2024 10:20 AM EDT Office Visit General Internal Medicine [facility] [address] [place] [address] Brayan Lopez MD [facility] [address] 02/18/2024 9:30 AM EDT Laboratory Laboratory [facility] [place] [address] [place], [place] [phone] Lina, Lab [facility] [address] [facility] [place] [address] 02/19/2024 11:15 AM EDT Office Visit Hematology/Oncology [facility] [place] [address] [place], [place] [phone] Vu Navarrete MD [address] [facility] [place], [place] [address] 02/19/2024 11:45 AM EDT Hem[facility] [address] [place] [phone] Lina, Chair [address] [facility] [address] [place] [address] Pending Results Name Type Priority Associated Diagnoses Date /Time COMPREHENSIVE METABOLIC PANEL Lab Routine 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) 02/04/2024 8:40 AM EDT URINALYSIS, REFLEX TO MICROSCOPIC Lab STAT 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) 02/04/2024 8:41 AM EDT MICROSCOPIC EXAM, URINE Lab STAT 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) 02/04/2024 8:41 AM EDT Scheduled Procedures Name Priority Associated Diagnoses Date/Ti me COLONOSCOPY FLEXIBLE PROXIMAL DIAGNOSTIC Recall Personal history of colonic polyps ESOPHAGOGASTRODUODENOSCOPY ( EGD), FLEXIBLE, TRANSORAL, DIAGNOSTIC Recall Poe's esophagus with esophagitis Health Maintenance Due Date Last Done Comments Cologuard 1994 Sigmoidoscopy 1994 Fecal Occult Blood Test 02/02/2012 02/01/2011 COVID-19 Vaccine ( - 2022- season) 2023 02/22/2021, 08/15/2020, 07/18/2020 Influenza Vaccine [...] this encounter Medical Devices Implanted Type Area Popcorn Vendor Device Identifier Shelf Expiration Date Model / Serial / Lot Port Implant W/8f Poly Cath - [id number] Implanted:Qty : 1 on 11/22/2021 by Prudencio Delarosa MD at OR [facility] BARD : PERIPHERAL VASCULAR [id number] 07/31/2022 [id number] / / [id number] Lens Li61ao 13.00mm 18.00 - [id number] - [id number] Implanted:Qty : 1 on 03/12/2023 by Champ Gonzalez MD at OR [facility] Left: Eye [employer]OMB 11/29/2027 [id number] / [id number] / [id number] Lens Li61ao 13.00mm 17.00 - [id number] - [id number] Implanted:Qty : 1 on 03/26/2023 by Champ Gonzalez MD at OR [facility] Right: Eye [employer] LOMB 11/29/2027 [id number] / [id number] / [id number] documented as of this encounter Procedures Procedure Name Priority Date/Time Associated Diagnosis Comments DIFFERENTIAL, AUTOMATED STAT 02/04/2024 8:40 AM EDT 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) CBC STAT 02/04/2024 8:40 AM EDT 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) CBC STAT 02/04/2024 8:40 AM EDT 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) documented in this encounter Results * (ABNORMAL) DIFFERENTIAL, AUTOMATED (02/04/2024 8:40 AM EDT) WBC 11.86(H) 4.00 - 10.80 K/uL 02/04/2024 8:53 AM EDT LABORATORY [place] 56-02 Neutrophils % 77.3(H) 40.0 - 75.0 % 02/04/2024 8:53 AM EDT LABORATORY [facility] 56-02 Lymphocytes % 9.5(L) 18.0 - 42.0 % 02/04/2024 8:53 AM EDT LABORATORY [place] 56-02 Monocytes % 8.9 1.0 - 11.0 % 02/04/2024 8:53 AM EDT LABORATORY [facility] 56-02 Eosinophils % 3.7 0.0 - 6.0 % 02/04/2024 8:53 AM EDT LAB[facility]ATORY [place] 56-02 Basophils % 0.6 0.0 - 2.0 % 02/04/2024 8:53 AM EDT [facility] 56-02 Absolute Neutrophils 9.17(H) 1.80 - 7.70 K/uL 02/04/2024 8:53 AM EDT [facility] Absolute Lymphocytes 1.13 1.00 - 4.80 K/ul 02/04/2024 8:53 AM EDT [facility] Absolute Monocytes 1.05 0.00 - 1.10 K/uL 02/04/2024 8:53 AM EDT [facility] 56 Absolute Eosinophils 0.44 0.00 - 0.70 K/uL 02/04/2024 8:53 AM EDT [facility] 56 Absolute Basophils 0.07 0.00 - 0.20 K/uL 02/04/2024 8:53 AM EDT [facility] Blood Venous blood specimen / Unknown Venipuncture / Unknown 02/04/2024 8:40 AM EDT 02/04/2024 8:40 AM EDT Vu Navarrete MD LAB BLOOD ORDERABLES [facility] [address] [place] [address] * (ABNORMAL) CBC (02/04/2024 8:40 AM EDT) WBC 11.86(H) 4.00 - 10.80 K/uL 02/04/2024 8:53 AM EDT [facility] RBC 4.52 4.50 - 5.25 M/uL 02/04/2024 8:53 AM EDT [facility] HGB 14.7 14.0 - 16.8 g/dL 02/04/2024 8:53 AM EDT [facility] HCT 44.6 40.0 - 48.4 % 02/04/2024 8:53 AM EDT [facility] MCV 98.7 82.0 - 99.5 fL 02/04/2024 8:53 AM EDT [facility] MCH 32.5 27.0 - 34.0 pg 02/04/2024 8:53 AM EDT [facility] MCHC 33.0 32.0 - 36.0 g/dL 02/04/2024 8:53 AM EDT [facility] 56 RDW 15.4 11.5 - 15.5 % 02/04/2024 8:53 AM EDT [facility] 56 PLT 179 140 - 400 K/uL 02/04/2024 8:53 AM EDT [facility] 56 MPV 9.5 6.6 - 11.1 fL 02/04/2024 8:53 AM EDT [facility] 56 Blood Venous blood specimen / Unknown Venipuncture / Unknown 02/04/2024 8:40 AM EDT 02/04/2024 8:40 AM EDT Vu Navarrete MD LAB BLOOD ORDERABLES [facility] [address] [place] [address] documented in this encounter Visit Diagnoses Diagnosis [...] patient have Health Care Power of Attor abdiriazk? No Care Teams Shafting Worker Relationship Specialty Start Date End Date Brayan Lopez MD [address] [place] [address] PCP - General Internal Medicine 11/06/12 documented as of this encounter
--- OUTSIDE RECORDS SUMMARY | 2024-03-08 10:31 | External Medical Summary | Summary of Care ---
Author Name Unknown Organization [facility] Address [address] [place] [address] Phone [phone] Care Team Providers Care Hot Billet Shear Operator Name Role Phone Brayan Lopez MD [...] of splenic flexure of colon (HCC) Procedures MA LEUCOVORIN CALCIUM INJECTION MA FLUOROURACIL INJECTION MA INJ., ZIRABEV, 10 MG Vu Navarrete MD [address] [place] [address] Anc Hem/Onc [address] [address] Referral ID Status Reason Start Date Expiration Date V isits Requested Visits Authorized [id number] Authorized 12/25/2023 06/30/2099 999 999 Encounter Details Date Type Department Care Team (Latest Contact Info) Description 01/22/2024 9:15 AM EDT Hem/Onc Treatment Hematology/Oncolog y Treatment, [address] [address] Lina Chair 8 Hem On[address] [place] [address] (work) Encounter for antineoplastic chemotherapy*; Malignant neoplasm [...] Additional Information Patient not taking.Reported on 11/19/2023 [place] Saline Nasal Nasal GelIndications:Nasa l congestion,Dry nose [...] 0.1 % Nasal Solution (Astelin) Administer 1 [place] into nostril in the morning and 1 [place] before bedtime. 30 mL 12 07/08/2023 Active [...] 02/07/2024 8:30 AM EDT [facility] 200 [facility], [place] [phone] [place], Chair 11 Hem Onc [address] [place], [place] [address] 02/12/2024 10:20 AM EDT Office Visit General Internal Medicine [facility] [address] [place], [place] [address] Brayan Lopez MD 200 [facility] [place], [place] [address] 02/18/2024 9:30 AM EDT Laboratory Laboratory [facility] 200 [facility] [place] [phone] Lina, Lab [address] [place], [place] [address] 02/19/2024 11:15 AM EDT Office Visit Hematology/Oncology [facility] 200 [facility] [place], [place] [phone] Vu Navarrete MD 200 [facility] [place], [place] [address] 02/19/2024 11:45 AM EDT Hem/Onc [facility] 200 [facility], [place] [phone] Lina, Chair 3 Hem Onc [address] [place], [place] [address] Scheduled Procedures Name Priority Associated Diagnoses Date/Ti [...] this encounter Medical Devices Implanted Type Area Terrazzo Layer Helper Device Identifier Shelf Expiration Date Model / Serial / Lot Port Implant W/8f Poly Cath - [id number] Implanted:Qty : 1 on 11/22/2021 by Prudencio Delarosa MD at OR [facility] BARD : PERIPHERAL VASCULAR [id number] 07/31/2022 [id number] / / [id number] Lens Li61ao 13.00mm 18.00 - [id number] - [id number] Implanted:Qty : 1 on 03/12/2023 by Champ Gonzalez MD at OR [facility] Left: Eye [employer]OMB 11/29/2027 [id number] / [id number] / [id number] Lens Li61ao 13.00mm 17.00 - [id number] - [id number] Implanted:Qty : 1 on 03/26/2023 by Champ Gonzalez MD at OR [facility] Right: Eye [employer] LOMB 11/29/2027 [id number] / [id number] / [id number] documented as of this encounter Visit Diagnoses [...] of Attor abdirizak? No Care Teams Hot Billet Shear Operator Relationship Specialty Start Date End Date Brayan Lopez MD [address] [place] [address] PCP - General Internal Medicine 11/06/12 documented as of this encounter
--- OUTSIDE RECORDS SUMMARY | 2024-03-08 10:31 | External Medical Summary | Summary of Care ---
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) 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) Procedures [place] LEUCOVORIN CALCIUM INJECTION [place] FLUOROURACIL INJECTION [place] INJ., ZIRABEV, 10 MG Vu Navarrete MD 200 [place] [address] Anc Hem/Onc [address] [address] Referral ID Status Reason Start Date Expiration Date V isits Requested Visits Authorized [id number] Authorized 12/25/2023 06/30/2099 999 999 Encounter Details Date Type Department Care Team (Latest Contact Info) Description 01/24/2024 9:30 AM EDT Immunization/ Injection Hematology/Oncology Treatment, [address] [phone] Lina, Chair 3 Hem Onc [address] [place] [address] Encounter for antineoplastic chemotherapy*; Malignant neoplasm metastatic [...] Additional Information Patient not taking.Reported on 11/19/2023 [place] Saline Nasal Nasal GelIndications:Nasa l congestion,Dry nose [...] 0.1 % Nasal Solution (Astelin) Administer 1 [place] into nostril in the morning and 1 [place] before bedtime. 30 mL 12 07/08/2023 Active [...] THE DAY 90 Tablet 1 01/21/2024 Active Hospital, Clinic, or Other Facility Administered Medication Ordered Dose Route Frequency Start Date End Date Status Fluorouracil (5-Fu) 5,600 mg in NSS 230 mL infusion 5600 mg IV CONTINUOUS 01/21/2024 01/23/2024 Discontinued documented as of this encounter (statuses [...] Nursing Notes * Agnieszka Vinson RN - 01/24/2024 9:49 AM EDT Patient ambulatory to chair 6 Patient denies any complaints except feeling "a little tired today" Safety and Risk for Injury Patient will [...] potential best while using the heat function. Goals: patient will remain free of injury Possible barriers to meeting goals: Stability of the patient: Moderately stable - low risk of patient condition declining or worsening Summary regarding today's goals: Met: patient remained free of injury Presents for VAD flush. Tolerated procedure without difficulty. Flushes easily, positive blood return. Advised pt to call if redness, swelling, tenderness, or drainage occurs at VAD site, verbalized understanding and has contact info. To return documented in this encounter Plan of Treatment Upcoming Encounters Date Type Department Care Team (Late st Contact Info) Description 02/07/2024 8:30 AM EDT Immunization/Injectio n Hematology/Oncology Treatment, [place] [address] [place] [phone] Park, Chair 11 Hem Onc Scenery [address] [place] [address] 02/12/2024 10:20 AM EDT Office Visit General Internal Medicine [facility] [address] [place] [address] Brayan Lopez MD 200 [facility] [place], [place] [address] 02/18/2024 9:30 AM EDT Laboratory Laboratory [facility] [place] 200 [facility] [place] [phone] Robinson, Lab [facility] 200 [facility] [place], [place] [address] 02/19/2024 11:15 AM EDT Office Visit Hematology/Oncology [facility] [place] 200 [facility] [place], [place] [phone] Vu Navarrete MD 200 [facility] [place], [place] [address] 02/19/2024 11:45 AM EDT Hem[facility] [address] [place] [phone] Lina, Chair 3 Hem On[address] [place], [place] [address] Scheduled Procedures Name Priority Associated Diagnoses Date/Ti [...] this encounter Medical Devices Implanted Type Area Inspector Scales Device Identifier Shelf Expiration Date Model / Serial / Lot Port Implant W/8f Poly Cath - [id number] Implanted:Qty : 1 on 11/22/2021 by Prudencio Delarosa MD at OR [facility] BARD : PERIPHERAL VASCULAR [id number] 07/31/2022 [id number] / / [id number] Lens Li61ao 13.00mm 18.00 - [id number] - [id number] Implanted:Qty : 1 on 03/12/2023 by Champ Gonzalez MD at OR [facility] Left: Eye [employer] LOMB 11/29/2027 [id number] / [id number] / [id number] Lens Li61ao 13.00mm 17.00 - [id number] - [id number] Implanted:Qty : 1 on 03/26/2023 by Champ Gonzalez MD at OR [facility] Right: Eye BAUSCH [employer] LOMB 11/29/2027 [id number] / [id number] / [id number] documented as of this encounter Visit Diagnoses [...] Lock, PRN Other, IV Flush, Starting on Sat01/24/24 at 0933, Until Sat01/24/24 at 1355, For 24 hours, Do not flush if lock, PICC, or central line not in place; IV infusing or unable to flush. Given 01/24/2024 9:43 AM EDT 500 Units sodium chloride 0.9 % flush central line 10 mL 10 mL, IV Push, PRN Other, IV Flush, Starting on Sat01/24/24 at 0933, Until Sat01/24/24 at 1355, For 24 hours, Do not flush if lock, PICC, or central line not in place; IV infusing or unable to flush. Given 01/24/2024 9:37 AM EDT 10 mL documented in this [...] Power of Attor abdirizak? No Care Teams Tourist Information Assistant Relationship Specialty Start Date End Date Brayan Lopez MD 200 [place] [address] PCP - General Internal Medicine 11/06/12 documented as of this encounter
--- OUTSIDE RECORDS SUMMARY | 2024-03-08 10:31 | External Medical Summary | Summary of Care ---
Author Name Unknown Organization [facility] Address [address] [place] [address] Phone [phone] Care Team Providers Care Electric Freight Car Operator Name Role Phone Brayan Lopez MD [...] of splenic flexure of colon (HCC) Procedures [place] LEUCOVORIN CALCIUM INJECTION [place] FLUOROURACIL INJECTION [place] INJ., ZIRABEV, 10 MG Vu Navarrete MD 200 [place] [address] Anc Hem/Onc [address] [phone] Referral ID Status Reason Start Date Expiration Date V isits Requested Visits Authorized [id number] Authorized 12/25/2023 06/30/[phone] Encounter Details Date Type Department Care Team (Latest Contact Info) Description 01/08/2024 9:00 AM EDT Hem/Onc Treatment Hematology/Oncolog y Treatment, [address] [phone] Lina, Chair 2 Hem On[address] [place] [address] Encounter for antineoplastic chemotherapy*; Malignant neoplasm metastatic [...] Additional Information Patient not taking.Reported on 11/19/2023 [place] Saline Nasal Nasal GelIndications: Nasal congestion,Dry nose [...] 0.1 % Nasal Solution (Astelin) Administer 1 [place] into nostril in the morning and 1 [place] before bedtime. 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) 02/05/2024 9:00 AM EDT Hem/Onc Treatment Hematology/Oncology Treatment, [place] [address] [facility] [place] [phone] Lina, Chair 2 Hem Onc [facility] 200 [facility] [place], [place] [address] 02/12/2024 10:20 AM EDT Office Visit General Internal Medicine [facility] [place] [address] [place], [place] [address] Brayan Lopez MD [address] [place] [address] 02/18/2024 9:30 AM EDT Laboratory Laboratory [facility] [place] [address] [place] [phone] Lina, Lab [facility] [address] [facility] [address] [place], [place] [address] 02/19/2024 11:15 AM EDT Office Visit Hematology/Oncology [facility] [place] [address] [place], [place] [phone] Vu Navarrete MD [address] [place], [place] [address] 02/19/2024 11:45 AM EDT Hem[facility] 200 [facility], [place] [phone] Lina, Chair 3 Hem Onc [address] [place], [place] [address] Scheduled Procedures Name Priority Associated Diagnoses Date/Ti [...] this encounter Medical Devices Implanted Type Area Cell Lead Device Identifier Shelf Expiration Date Model / Serial / Lot Port Implant W/8f Poly Cath - [id number] Implanted:Qty : 1 on 11/22/2021 by Prudencio Delarosa MD at OR [facility] BARD : PERIPHERAL VASCULAR [id number] 07/31/2022 [id number] / / [id number] Lens Li61ao 13.00mm 18.00 - [id number] - [id number] Implanted:Qty : 1 on 03/12/2023 by Champ Gonzalez MD at OR [facility] Left: Eye BAUSCH [employer] LOMB 11/29/2027 [id number] / [id number] / [id number] Lens Li61ao 13.00mm 17.00 - [id number] - [id number] Implanted:Qty : 1 on 03/26/2023 by Champ Gonzalez MD at [facility] Right: Eye BAUSCH [employer] LOMB 11/29/2027 [id number] / [id number] / [id number] documented as of this encounter Visit Diagnoses [...] Power of Attor abdirizak? No Care Teams Electric Freight Car Operator Relationship Specialty Start Date End Date Brayan Lopez MD [address] [place] [address], [place] [address] PCP - General Internal Medicine 11/06/12 documented as of this encounter
--- OUTSIDE RECORDS SUMMARY | 2024-03-08 10:31 | External Medical Summary | Summary of Care ---
Author Name Unknown Organization [facility] Address [address] [place] [address] Phone [phone] Care Team Providers Care Pit Operator Name Role Phone Brayan Lopez MD [...] of splenic flexure of colon (HCC) Procedures [place] LEUCOVORIN CALCIUM INJECTION [place] FLUOROURACIL INJECTION [place] INJ., ZIRABEV, 10 MG Vu Navarrete MD 200 [place] [address] Anc Hem/Onc [address] [phone] Referral ID Status Reason Start Date Expiration Date V isits Requested Visits Authorized [id number] Authorized 12/25/2023 06/30/[phone] Encounter Details Date Type Department Care Team (Latest Contact Info) Description 02/05/2024 9:00 AM EDT Hem/Onc Treatment Hematology/Oncolog y Treatment, [address] [phone] Lina, Chair 2 Hem On[address] [place] [address] Encounter for antineoplastic chemotherapy*; 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); 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); 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 30 mL 12 07/08/2023 Active [...] as of this encounter (statuses as of 02/05/2024) Active Problems Problem Noted Date Diagnosed Date [...] as of this encounter (statuses as of 02/05/2024) Resolved Problems Problem Noted Date Diagnosed Date [...] as of this encounter (statuses as of 02/05/2024) Immunizations Name Administration Dates Next Due COVID-19 [...] Care Team (Late st Contact Info) Description 02/06/2024 8:30 AM EDT Immunization/Injectio n Hematology/Oncology Treatment, [place] [address] [place] [address] Park, Chair 8 Hem Onc Scenery [address] [place] [address] 02/12/2024 10:20 AM EDT Office Visit General Internal Medicine [facility] [place] [address] [place], [place] [address] Brayan Lopez MD [address] [place] [address] 02/18/2024 9:30 AM EDT Laboratory Laboratory [facility] [place] [address] [place], [place] [phone] Lina, Lab [facility] 200 [facility] [place], [place] [address] 02/19/2024 11:15 AM EDT Office Visit Hematology/Oncology [facility] [address] [place] [phone] Vu Navarrete MD [address] [place] [address] 02/19/2024 11:45 AM EDT Hem[facility] [address] [place] [phone] Park, Chair 3 Hem Onc [facility] 200 [facility] [place] [place] [address] Scheduled Procedures Name Priority Associated Diagnoses Date/Ti [...] this encounter Medical Devices Implanted Type Area Agency Sales Representative Device Identifier Shelf Expiration Date Model / Serial / Lot Port Implant W/8f Poly Cath - [id number] Implanted:Qty : 1 on 11/22/2021 by Prudencio Delarosa MD at OR [facility] BARD : PERIPHERAL VASCULAR [id number] 07/31/2022 [id number] / / [id number] Lens Li61ao 13.00mm 18.00 - [id number] - [id number] Implanted:Qty : 1 on 03/12/2023 by Champ Gonzalez MD at OR [facility] Left: Eye BAUSCH [employer] LOMB 11/29/2027 [id number] / [id number] / [id number] Lens Li61ao 13.00mm 17.00 - [id number] - [id number] Implanted:Qty : 1 on 03/26/2023 by Champ Gonzalez MD at [facility] Right: Eye BAUSCH & LOMB 11/29/2027 [id number] / [id number] / [id number] documented as of this encounter Visit Diagnoses [...] ONCE PRN Other, Hypersensitivity Reaction, Starting on Sat02/05/24 at 0857, Until Sat02/06/24 at 0856, For 24 hours EPINEPHrine 1 MG/ML inj 0.3 mg 0.3 mg, Intramuscular, ONCE PRN Other, Hypersensitivity Reaction or Anaphylaxis, Starting on Sat02/05/24 at 0857, Until Sat02/06/24 at 0856, For 24 hours Hydrocortisone Sod Suc (PF) (Solu-Cortef) inj 100 mg 100 mg, IV Push, ONCE PRN Other, Hypersensitivity Reaction, Starting on Sat02/05/24 at 0857, Until Sat02/06/24 at 0856, For 24 hours LORAzepam (Ativan) tab 0.5 mg 0.5 mg, Oral, ONCE PRN Anxiety, Nausea, Starting on Sat02/05/24 at 0830, Until Discontinued NSS infusion Intravenous, at 50 mL/hr, PRN, Starting on Sat02/05/24 at 0830, Until Discontinued, Maintenance line Start Infusion 02/05/2024 9:07 AM EDT 50 mL/hr oxygen GAS Inhalation, OXYGEN, First dose on Sat02/05/24 at 0930, Until Discontinued, Device/Managed by: Low Flow Device, [...] 9:44 AM EDT 950 mg 510 mL/hr ondansetron (Zofran) [...] Power of Attor abdirizak? No Care Teams Pit Operator Relationship Specialty Start Date End Date Brayan Lopez MD 200 [place] [address] PCP - General Internal Medicine 11/06/12 documented as of this encounter
--- OUTSIDE RECORDS SUMMARY | 2024-03-08 10:32 | External Medical Summary | Summary of Care ---
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 30 mL 12 07/08/2023 Active [...] as of this encounter (statuses as of 01/30/2024) Active Problems Problem Noted Date Diagnosed Date [...] as of this encounter (statuses as of 01/30/2024) Resolved Problems Problem Noted Date Diagnosed Date [...] as of this encounter (statuses as of 01/30/2024) Immunizations Name Administration Dates Next Due COVID-19 [...] encounter Miscellaneous Notes * Telephone Encounter - Vu Navarrete MD - 01/30/2024 10:14 AM EDT E-prescribed Vu Navarrete MD Hem/Onc * Telephone Encounter - Loan Lee LPN - 01/30/2024 8:41 AM EDTPending Prescriptions: Disp Refills Acyclovir 400 MG Oral Tablet [Pharmacy Med*60 Tab*5 Sig: TAKE 1 TABLET BY MOUTH TWICE DAILY * Telephone Encounter - Loan Lee LPN - 01/30/2024 8:33 AM EDT Prescription request for Acyclovir 400 mg tablets pended below. Patient last seen on 12/24/2023 documented in this encounter Plan of Treatment Upcoming Encounters Date Type Department Care Team (Late st Contact Info) Description 02/04/2024 9:50 AM EDT Laboratory Laboratory [facility] [place] [address] [address] [place] [phone] [facility] [place] [address] 02/05/2024 9:00 AM EDT Hem/Onc Treatment Hematology/Oncology Treatment, [place] [facility] [phone] Lina, Chair 2 Hem Onc [place] [address] [address] [place] [address] 02/12/2024 10:20 AM EDT Office Visit General Internal Medicine [facility] [place] [address] [place] [place] [address] Brayan Lopez MD 200 [facility] [place] [address] 02/18/2024 9:30 AM EDT Laboratory Laboratory [place] [address] [place], [place] [phone] Lina, Lab [address] 200 [facility] [address] [place], [place] [address] 02/19/2024 11:15 AM EDT Office Visit Hematology/Oncology [facility] [place] [address] [place] [phone] uV Navarrete MD [address] [place], [place] [address] 02/19/2024 11:45 AM EDT Hem[facility] [address] [place] [phone] Lina, Chair 3 Hem Onc [facility] 200 [facility] [place] [address] Scheduled Procedures Name Priority Associated Diagnoses Date/Ti me COLONOSCOPY FLEXIBLE PROXIMAL DIAGNOSTIC Recall Personal history of colonic polyps ESOPHAGOGASTRODUODENOSCOPY ( EGD), FLEXIBLE, TRANSORAL, DIAGNOSTIC Recall Ope's esophagus with esophagitis Health Maintenance Due Date [...] this encounter Medical Devices Implanted Type Area Cartographic Designer Device Identifier Shelf Expiration Date Model / Serial / Lot Port Implant W/8f Poly Cath - [id number] Implanted:Qty : 1 on 11/22/2021 by Prudencio Delarosa MD at OR [facility] BARD : PERIPHERAL VASCULAR [id number] 07/31/2022 [id number] / / [id number] Lens Li61ao 13.00mm 18.00 - [id number] - [id number] Implanted:Qty : 1 on 03/12/2023 by Champ Gonzalez MD at OR [facility] Left: Eye BAUSCH & LOMB 11/29/2027 [id number] / [id number] / [id number] Lens Li61ao 13.00mm 17.00 - [id number] - [id number] Implanted:Qty : 1 on 03/26/2023 by Champ Gonzalez MD at OR [facility] [facility] Right: Eye BAUSCH & LOMB 11/29/2027 [id number] / [id number] / [id number] documented as of this encounter Visit Diagnoses Diagnosis History of colon cancer Personal history of malignant neoplasm of large intestine 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 No Care Teams Bleacher Pulp Relationship Specialty Start Date End Date Brayan Lopez MD 200 [place] [address] PCP - General Internal Medicine 11/06/12 documented as of this encounter
--- OUTSIDE RECORDS SUMMARY | 2024-03-08 10:32 | External Medical Summary ---
Author Name Unknown Address Unknown Organization [facility] [place] [address] Laboratory Report Ordering Provider Test Date Status BRADEN KING 02/04/2024 08:41:35 Final Observation Date Value Abnormality Reference (Units ) Status RBC, Urine 02/04/2024 08:41:35 3-5 Abnormal 0-2 (/HPF) Final WBC, Urine 02/04/2024 08:41:35 0-2 0-2 (/HPF) Final Bacteria [#/area] in Urine sediment by Microscopy high power field 02/04/2024 08:41:35 0-25 0-25 (/HPF) Final Performing Location [facility] [place] [address]
--- OUTSIDE RECORDS SUMMARY | 2024-03-08 10:32 | External Medical Summary ---
Author Name Unknown Address Unknown Organization [facility] [address] [place] [address] Laboratory Report Ordering Provider Test Date Status BRADEN KING 02/04/2024 08:40:54 Final Observation Date Value Abnormality Reference (Units ) Status BUN 02/04/2024 08:40:54 18 6-20 (mg/dL) Final Creatinine 02/04/2024 08:40:54 1.1 0.6-1.2 (mg/dL) Final Glomerular filtration rate/1.73 sq M.predicted [Volume Rate/Area] in Serum, Plasma or Blood by Creatinine-based formula (CKD-EPI) 02/04/2024 08:40:54 69 >=60 (mL/min) Final eGFR is calculated based on the CKD-EPI 2020 equation. Sodium 02/04/2024 08:40:54 139 135-146 (m mol/L) Final Potassium 02/04/2024 08:40:54 4.3 3.5-5.1 (m mol/L) Final Cl 02/04/2024 08:40:54 103 98-107 (mm ol/L) Final CO2 02/04/2024 08:40:54 25 22-32 (mmo l/L) Final Anion gap 02/04/2024 08:40:54 11 7-15 (mmol /L) Final Glucose 02/04/2024 08:40:54 93 70-120 (mg /dL) Final Albumin 02/04/2024 08:40:54 3.9 3.8-5.0 (g /dL) Final AST (Aspartate aminotransferase) 02/04/2024 08:40:54 28 10-50 (U/L) Final Alk Phos 02/04/2024 08:40:54 92 35-130 (U/ L) Final Bilirubin, Total 02/04/2024 08:40:54 0.9 <=1 .2 (mg/dL) Final Calcium 02/04/2024 08:40:54 9.4 8.4-10.2 ( mg/dL) Final Protein 02/04/2024 08:40:54 8.0 6.0-8.3 (g /dL) Final ALT (Alanine aminotransferase) 02/04/2024 08:40:54 13 10-50 (U/L) Final Performing Location [facility] [place] [address]
--- OUTSIDE RECORDS SUMMARY | 2024-03-08 10:32 | External Medical Summary ---
Author Name Unknown Address Unknown Organization K09[facility] [place] [address] Laboratory Report Ordering Provider Test Date Status BRADEN KING 02/04/2024 08:40:54 Final Observation Date Value Abnormality Reference (Units ) Status WBC, Total 02/04/2024 08:40:54 11.86 Above high normal 4 .00-10.80 (K/uL) Final RBC 02/04/2024 08:40:54 4.52 4.50-5.25 (M/uL) Final Hemoglobin 02/04/2024 08:40:54 14.7 14.0-16.8 (g/dL) Final HCT 02/04/2024 08:40:54 44.6 40.0-48.4 (%) Final MCV 02/04/2024 08:40:54 98.7 82.0-99.5 (fL) Final MCH 02/04/2024 08:40:54 32.5 27.0-34.0 (pg) Final MCHC 02/04/2024 08:40:54 33.0 32.0-36.0 (g/dL) Final RDW 02/04/2024 08:40:54 15.4 11.5-15.5 (%) Final Platelets 02/04/2024 08:40:54 179 140-400 (K /uL) Final MPV 02/04/2024 08:40:54 9.5 6.6-11.1 ( fL) Final Performing Location [facility] [place] [address]
--- OUTSIDE RECORDS SUMMARY | 2024-03-08 10:32 | External Medical Summary | Summary of Care ---
Author Name Unknown Organization [facility] Address [address] [place] [address] Phone [phone] Care Team Providers Care Java Developer Architect Name Role Phone Brayan Lopez MD Primary [...] of splenic flexure of colon (HCC) Procedures [place] LEUCOVORIN CALCIUM INJECTION W[place] FLUOROURACIL INJECTION W[place] INJ., ZIRABEV, 10 MG Vu Navarrete MD [address] [place] [address] Anc Hem/Onc [address] [address] Referral ID Status Reason Start Date Expiration Date V isits Requested Visits Authorized [id number] Authorized 12/25/2023 06/30/[phone] Encounter Details Date Type Department Care Team (Latest Contact Info) Description 01/08/2024 9:00 AM EDT Hem/Onc Treatment Hematology/Oncolog y Treatment, [address] [phone] Lina, Chair 2 Hem Onc [address] [place] [address] Encounter for antineoplastic chemotherapy*; Malignant neoplasm metastatic [...] Additional Information Patient not taking.Reported on 11/19/2023 [place] Saline Nasal Nasal GelIndications: Nasal congestion,Dry nose [...] 0.1 % Nasal Solution (Astelin) Administer 1 [place] into nostril in the morning and 1 [place] before bedtime. 30 mL 12 07/08/2023 Active [...] 9:50 AM EDT Laboratory [facility] [place] [address] [place] [phone] [place] [address] [place] [address] 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) 02/05/2024 9:00 AM EDT Hem/Onc Treatment Hematology/Oncology Treatment, [place] [address] [facility] [place] [phone] Lina, Chair 2 Hem Onc [facility] 200 [facility] [place], [place] [address] 02/12/2024 10:20 AM EDT Office Visit General Internal Medicine [facility] [place] [address] [place], [place] [address] Brayan Lopez MD [address] [place] [id number] 02/18/2024 9:30 AM EDT Laboratory Laboratory [facility] [place] [address] [place] [phone] Lina, Lab [facility] [address] [facility] [address] [place], [place] [address] 02/19/2024 11:15 AM EDT Office Visit Hematology/Oncology [facility] [place] [address] [place], [place] [phone] Vu Navarrete MD [address] [place], [place] [address] 02/19/2024 11:45 AM EDT [facility] 200 [facility], [place] [phone] Lina, Chair 3 Hem Onc [address] [place], [place] [address] Scheduled Procedures Name Priority Associated Diagnoses Date/Ti [...] this encounter Medical Devices Implanted Type Area Geographic Information Systems Analyst Device Identifier Shelf Expiration Date Model / Serial / Lot Port Implant W/8f Poly Cath - [id number] Implanted:Qty : 1 on 11/22/2021 by Prudencio Delarosa MD at OR [facility] CR BARD : PERIPHERAL VASCULAR [id number] 07/31/2022 [id number] / / [id number] Lens Li61ao 13.00mm 18.00 - [id number] - [id number] Implanted:Qty : 1 on 03/12/2023 by Champ Gonzalez MD at OR [facility] Left: Eye [employer] 11/29/2027 [id number] / [id number] / [id number] Lens Li61ao 13.00mm 17.00 - [id number] - [id number] Implanted:Qty : 1 on 03/26/2023 by Champ Gonzalez MD at [facility] Right: Eye [employer] 11/29/2027 [id number] / [id number] / [id number] documented as of this encounter Visit Diagnoses [...] Power of Attor abdirizak? No Care Teams Java Developer Architect Relationship Specialty Start Date End Date Brayan Lopez MD [address] [place] [address], [place] [address] PCP - General Internal Medicine 11/06/12 documented as of this encounter
--- OUTSIDE RECORDS SUMMARY | 2024-03-08 10:32 | External Medical Summary ---
Author Name Unknown Address Unknown Organization K09[facility] [place] [address] Laboratory Report Ordering Provider Test Date Status BRADEN KING 02/04/2024 08:40:54 Final Observation Date Value Abnormality Reference (Units ) Status SYNC LEUKOCYTES IN BLOOD BY AUTOMATED COUNT 02/04/2024 08:40:54 11.86 Above high normal 4.00-10.80 (K/uL) Final Segs 02/04/2024 08:40:54 77.3 Above high normal 40.0-75.0 (%) Final Lymphs % 02/04/2024 08:40:54 9.5 Below low normal 18.0-42.0 (%) Final Monos 02/04/2024 08:40:54 8.9 1.0-11.0 (%) Final Eosinophils 02/04/2024 08:40:54 3.7 0.0-6.0 (%) Final Basos 02/04/2024 08:40:54 0.6 0.0-2.0 (%) Final Absolute Segs 02/04/2024 08:40:54 9.17 Above high normal 1.80-7.70 (K/uL) Final Lymphs, absolute 02/04/2024 08:40:54 1.13 1.00-4.80 (K/ul) Final Monos, Abs 02/04/2024 08:40:54 1.05 0.00-1.10 (K/uL) Final Eos, Abs 02/04/2024 08:40:54 0.44 0.00-0.70 (K/uL) Final Basos, Abs 02/04/2024 08:40:54 0.07 0.00-0.20 (K/uL) Final Performing Location [facility] [place] [address]
--- OUTSIDE RECORDS SUMMARY | 2024-03-08 10:32 | External Medical Summary | Summary of Care ---
Author Name Unknown Organization [facility] Address [address] [place] [address] Phone [phone] Care Team Providers Care Analytics Architect Name Role Phone Brayan Lopez MD [...] of splenic flexure of colon (HCC) Procedures [place] LEUCOVORIN CALCIUM INJECTION [place] FLUOROURACIL INJECTION [place] INJ., ZIRABEV, 10 MG Vu Navarrete MD [address] [place] [address] Anc Hem/Onc [address] [address] Referral ID Status Reason Start Date Expiration Date V isits Requested Visits Authorized [id number] Authorized 12/25/2023 06/30/[phone] Encounter Details Date Type Department Care Team (Latest Contact Info) Description 01/08/2024 9:00 AM EDT Hem/Onc Treatment Hematology/Oncolog y Treatment, [address] [phone] Lina, Chair 2 Hem Onc [address] [place] [address] Encounter for antineoplastic chemotherapy*; Malignant neoplasm metastatic [...] Additional Information Patient not taking.Reported on 11/19/2023 [place] Saline Nasal Nasal GelIndications: Nasal congestion,Dry nose [...] 0.1 % Nasal Solution (Astelin) Administer 1 [place] into nostril in the morning and 1 [place] before bedtime. 30 mL 12 07/08/2023 Active [...] 9:50 AM EDT Laboratory [facility] [place] [address] [place] [phone] [place] [address] [place] [address] 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) 02/05/2024 9:00 AM EDT Hem/Onc Treatment Hematology/Oncology Treatment, [place] [address] [facility] [place] [phone] Lina, Chair 2 Hem Onc [facility] 200 [facility] [place], [place] [address] 02/12/2024 10:20 AM EDT Office Visit General Internal Medicine [facility] [place] [address] [place], [place] [address] Brayan Lopez MD [address] [place] [id number] 02/18/2024 9:30 AM EDT Laboratory Laboratory [facility] [place] [address] [place] [phone] Lina, Lab [facility] [address] [facility] [address] [place], [place] [address] 02/19/2024 11:15 AM EDT Office Visit Hematology/Oncology [facility] [place] [address] [place], [place] [phone] Vu Navarrete MD [address] [place], [place] [address] 02/19/2024 11:45 AM EDT [facility], [place] [phone] Lina, Chair 3 Hem Onc [address] [place], [place] [address] Scheduled Procedures Name Priority Associated Diagnoses Date/Ti [...] this encounter Medical Devices Implanted Type Area Underwear Hemmer Device Identifier Shelf Expiration Date Model / Serial / Lot Port Implant W/8f Poly Cath - [id number] Implanted:Qty : 1 on 11/22/2021 by Prudencio Delarosa MD at OR [facility] CR BARD : PERIPHERAL VASCULAR [id number] 07/31/2022 [id number] / / [id number] Lens Li61ao 13.00mm 18.00 - [id number] - [id number] Implanted:Qty : 1 on 03/12/2023 by Champ Gonzalez MD at OR [facility] Left: Eye [employer] 11/29/2027 [id number] / [id number] / [id number] Lens Li61ao 13.00mm 17.00 - [id number] - [id number] Implanted:Qty : 1 on 03/26/2023 by Champ Gonzalez MD at [facility] Right: Eye [employer]OM[employer] 11/29/2027 [id number] / [id number] / [id number] documented as of this encounter Visit Diagnoses [...] Power of Attor abdirizak? No Care Teams Analytics Architect Relationship Specialty Start Date End Date Brayan Lopez MD [address] [place] [address], [place] [address] PCP - General Internal Medicine 11/06/12 documented as of this encounter
[2024-03-08 11:08] LABS: Basophils # (auto) 0.06 K/uL (0.00-0.20); Basophils % (auto) 0.6 %; Eosinophils # (auto) 0.28 K/uL (0.00-0.50); Eosinophils % (auto) 2.8 %; Hematocrit (blood only) 40.8 % (42.0-52.0); Hemoglobin 14.1 g/dl (14.0-18.0); Immature Granulocytes # (auto) 0.05 K/uL (0.01-0.20); Immature Granulocytes % (auto) 0.5 %; Lymphocytes # (auto) 0.62 K/uL (1.20-3.40); Lymphocytes % (auto) 6.3 %; Mean Corpuscular Hemoglobin 33.1 pg (25.0-34.0); Mean Corpuscular Hgb Conc 34.6 g/dL (32.0-36.0); Mean Corpuscular Volume 95.8 fL (80.0-100.0); Mean Platelet Volume 9.8 fL (9.4-12.4); Monocytes # (auto) 0.98 K/uL (0.11-0.59); Monocytes % (auto) 9.9 %; Neutrophils # (auto) 7.88 K/uL (1.40-6.50); Neutrophils % (auto) 79.9 %; Platelet Count 211 K/uL (130-400); RDW Coefficient of Variation 15.6 % (11.5-14.5); RDW Standard Deviation 54.4 fL (36.4-46.3); Red Blood Count 4.26 M/uL (4.70-6.10); White Blood Count 9.87 K/ul (4.8-10.8)
--- NOTE | 2024-03-08 11:09 | Emergency Department Note ---
Impression & Plan Acute and chronic respiratory failure, Pneumonia, Metastatic disease, UIP (usual interstitial pneumonitis) ED Provider Note NAME: ANDERS MAYA AGE: 73 SEX: M : 1950 ARRIVES VIA: Walk-In INFORMANT: Patient ED PROVIDER(S): Kiko Verdugo MD CHIEF COMPLAINT: Shortness of breath, referred. 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 Patient reports that he had been on 2 L nasal cannula at home at night and very rarely otherwise but has been using it throughout the day. Patient denies nausea, vomiting, diarrhea. On evaluation the patient is uncomfortable but no acute distress, afebrile with O2 saturation in the 80s on room air improving to the mid 90s on 5 L nasal cannula, heart rate is in the 100s and vital signs are otherwise stable. He appears clinically dry. He has wheeze and rhonchi bilateral mid to lower lung wang with mild increased work of breathing. EKG without overt acute ischemia. Chest x-ray is mixed alveolar opacities better characterized on CT of the chest. CT of the chest was negative for PE but shows numerous bilateral solid pulmonary nodules with pathologic lymphadenopathy that appears stable from November of this year. Chronic interstitial lung disease is redemonstrated with right greater than left prominent honeycombing, traction bronchiectasis and subpleural fibrosis. There is new progressive multisegmental multilobar distribution of bilateral groundglass opacities and interlobular septal thickening which given the patient's symptoms and fever is suspicious for pneumonia. WBC, hemoglobin and platelets within normal limits. There is neutrophil predominance but no left shift. Chemistry without metabolic acidosis. BUNs/creatinine is 28, consistent with patient's clinically dry appearance. Total bilirubin 1.6, nonspecific with LFTs otherwise normal. HS troponin initially 23 with delta 2-hour HS troponin 24, stable and nonspecific. Procalcitonin is not elevated. Lipase is normal. UA is pending. Respiratory BioFire was negative. Given the patient's worsening O2 requirements and symptoms despite outpatient management for pneumonia patient and agree with plan for admission for further management. Blood culture was obtained and treatment was broadened with IV Zosyn, IV doxycycline. MRSA swab is pending. Case discussed with Nandini Hawthorne [facility], with Dr. Ghada Delatorre hospitalist who will evaluate the patient for admission. Further management per admitting team. Triage Nursing notes reviewed and agree them. Prior/external medical records reviewed Vital Signs: reviewed Differential diagnosis: Reactive airway disease, pneumonia, pneumothorax, COPD, CHF, infections, cardiac ischemia, pulmonary embolism, musculoskeletal, gastrointestinal, as well as other pathologies. ER treatment provided: See below. Diagnostics interpreted by me: ECG: Sinus tachycardia, 103 bpm, no ectopy, no overt ST elevation or depression, incomplete right bundle branch block, QTc 424, QRS 92. Cardiac Monitoring: An order for continuous cardiac monitoring was placed and demonstrated Sinus tachycardia, 103 bpm, no ectopy Laboratory studies: See below Imaging studies: See below Consultation(s): Case discussed with Nandini Hawthorne [facility], with Dr. Ghada Delatorre hospitalpipe who will evaluate the patient for admission. 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 Patient reports that he had been on 2 L nasal cannula at home at night and very rarely otherwise but has been using it throughout the day. Patient denies nausea, vomiting, diarrhea. ROS: See above HPI for pertinent positives & negatives. A total of 10 systems reviewed and were otherwise negative. VITALS:See Below PHYSICAL EXAMINATION: GENERAL: Awake, alert, ill-appearing, in no distress HENT: Normocephalic, atraumatic. Oropharynx with dry mucous membranes and otherwise unremarkable. EYES: Normal conjunctiva. Sclera non-icteric. NECK: Supple. No nuchal rigidity. FROM. No JVD. RESPIRATORY: Wheeze and rhonchi bilateral mid to lower lung wang with mild increased work of breathing. CARDIAC: Tachycardic rate, normal rhythm. Extremities warm and well perfused. Pulses equal. ABDOMEN: Soft, non-distended. No tenderness to palpation. No rebound or guarding. No masses. MUSCULOSKELETAL: Chest examination reveals no tenderness. Right upper chest port site c/d/i. The back is symmetrical on inspection without obvious abnormality. There is no CVA tenderness to palpation. No joint edema. LOWER EXTREMITIES: Calves are equal size bilaterally and non-tender. No edema. No discoloration. NEURO: Normal sensorium. No sensory or motor deficits noted. SKIN: No rash or jaundice noted. Kiko Verdugo MD Past Med/Surg History Problem List (Updated 03/08/24 @ 21:00 by Kiko Verdugo MD) Acute and chronic respiratory failure (Acute) Metastatic disease (Acute) Pneumonia (Acute) Metastatic colon cancer to liver Encounter for follow-up surveillance of colon cancer Poe's esophageal ulceration Dislocation of internal right hip prosthesis Pneumonitis Hypoxia Bronchiectasis Cough Liver enzyme elevation Traction bronchiectasis UIP (usual interstitial pneumonitis) (Acute) Chronic bronchiectasis not affecting current episode of care History of Pseudomonas pneumonia Encounter for pre-operative examination Colon tumor Medical History History of Helicobacter pylori infection 10 yr ago. Acid reflux Port-A-Cath in place power. Right chest. Colon carcinoma metastatic to multiple sites pt denies/recent ct scan May 2023 - no signs of colon cancer. Interstitial pulmonary disease, unspecified Colon cancer dx 2018 -- chemo and finished 07/2019 dx 2021 again--chemo finished 12/2022>current port in place DAILEY (nonalcoholic steatohepatitis) pt not sure if official dx. IPF (idiopathic pulmonary fibrosis) follows by [facility] Osteoarthritis GERD (gastroesophageal reflux disease) Surgical History History of vascular access device power port. History of cataract surgery rt/left S/P closed reduction of dislocated total hip prosthesis right History of arthroscopy left knee History of bowel resection History of esophagogastroduodenoscopy (EGD) History of colonoscopy Hx of LASIK History of tonsillectomy H/O bilateral hip replacements Family History Grandmother (Maternal) Family hx of colon cancer Father FHx: lung cancer Other No family history of adverse response to anesthesia Social History Smoking Status: Never smoker Second Hand Exposure: Yes (as a child); Do You Dip or Chew Tobacco: No; Hx Alcohol Use: Yes Alcohol type: beer Hx Substance Use: No Preferred Language: Grenadian Communication Ability: Effective Visual Impairment: No Limitations Hearing Ability: Normal Hat Steamer Required: No Beliefs That Will Affect Care: None Current Living Situation: Spouse Current Living Situation Comment: 2 story house; can live on first floor if needed Other Information That Helps Us Care for You: No Feels Safe at Home: Yes Safety Concerns: Feels Safe At This Time Assistive Devices: Oxygen - Continuous Allergies Allergies Allergy/AdvReac Type Severity Reaction Status Date / Time morphine Allergy Unknown ITCHING Verified 03/08/24 13:10 Home Meds Home Medications Medication Instructions Recorded Confirmed cholecalciferol (vitamin D3) 50 2,000 unit PO QAM 10/24/18 03/08/24 mcg (2,000 unit) capsule (Vitamin D3) melatonin 3 mg tablet 3 mg PO HS PRN Sleep 10/24/18 03/08/24 pantoprazole 40 mg tablet,delayed 40 mg PO QAM 10/24/18 03/08/24 release (Protonix) ibuprofen 200 mg tablet 200 mg PO Q4H PRN osteoarthritits 01/08/19 03/08/24 acetaminophen 500 mg tablet 500 mg PO Q6H PRN Pain 08/12/22 03/08/24 (Tylenol Extra Strength) acyclovir 400 mg tablet 400 mg PO BID PRN cold sore 08/12/22 03/08/24 outbreak amoxicillin 500 mg capsule 2,000 mg PO DIRECTED PRN PRIOR 08/12/22 03/08/24 TO DENTAL APPT. cyanocobalamin (vitamin B-12) 1,000 mcg PO QAM 08/12/22 03/08/24 1,000 mcg tablet (Vitamin B-12) hydrocortisone 2.5 % topical cream 1 applic topical DIRECTED PRN 08/12/22 03/08/24 Skin Irritation lactobacillus combination no.4 3 3,000 mmu cells PO QAM 07/03/23 03/08/24 billion cell capsule (Probiotic) amoxicillin 875 mg-potassium 1 tab PO BID 03/08/24 03/08/24 clavulanate 125 mg tablet azithromycin 250 mg tablet 250 mg PO DIRECTED 03/08/24 03/08/24 benzonatate 100 mg capsule 100 mg PO TID PRN Cough 03/08/24 03/08/24 bevacizumab-bvzr 25 mg/mL 0 mg IV Q14D 03/08/24 03/08/24 intravenous solution (Zirabev) budesonide 0.5 mg/2 mL suspension 0.5 mg irrigation BID 03/08/24 03/08/24 for nebulization fluorouracil 2.5 gram/50 mL 0 g IV Q14D 03/08/24 03/08/24 intravenous solution leucovorin calcium 10 mg/mL 0 mg IV Q14D 03/08/24 03/08/24 injection solution lorazepam 1 mg tablet 1 mg PO HS PRN Sleep 03/08/24 03/08/24 zinc acetate 50 mg (zinc) capsule 50 mg PO DAILY 03/08/24 03/08/24 Previous Rx's Medication Instructions Recorded nebulizers #1 ea 10/20/20 Oxygen Home #2 L 03/29/22 Portable Oxygen #1 ea 03/29/22 Results & Data (ED) Vital Signs Vital Signs - 24 hr 03/08/24 10:24 03/08/24 10:52 03/08/24 10:58 Temperature 36.6 C Temperature Source Temporal Artery Scan Pulse Rate 105 H 102 H Pulse Rhythm Respiratory Rate 18 Blood Pressure 134/82 Blood Pressure Mean 99 Pulse Oximetry 83 L 83 L Oxygen Delivery Method Room Air Room Air Oxygen Flow Rate Sepsis Recent Fever Within 48 Hours Yes Sepsis New/Unexplained Change in Mental Status N/A Sepsis Action Taken by Nursing No Action Required Oxygen Flow Rate - Titration 6 Pulse Oximetry Post Tiitration 98 03/08/24 10:58 03/08/24 11:00 03/08/24 11:30 Temperature Temperature Source Pulse Rate 91 H 90 89 Pulse Rhythm Regular Respiratory Rate 20 20 18 Blood Pressure 139/84 128/80 Blood Pressure Mean 104 96 Pulse Oximetry 98 96 96 Oxygen Delivery Method Nasal Cannula Nasal Cannula Oxygen Flow Rate 6 6 Sepsis Recent Fever Within 48 Hours Sepsis New/Unexplained Change in Mental Status Sepsis Action Taken by Nursing Oxygen Flow Rate - Titration Pulse Oximetry Post Tiitration 03/08/24 12:00 03/08/24 13:06 03/08/24 13:36 Temperature Temperature Source Pulse Rate 88 83 96 H Pulse Rhythm Respiratory Rate 18 18 25 H Blood Pressure 130/82 118/76 130/80 Blood Pressure Mean 96 90 96 Pulse Oximetry 96 94 94 Oxygen Delivery Method Nasal Cannula Nasal Cannula Oxygen Flow Rate 6 6 Sepsis Recent Fever Within 48 Hours Sepsis New/Unexplained Change in Mental Status Sepsis Action Taken by Nursing Oxygen Flow Rate - Titration Pulse Oximetry Post Tiitration 03/08/24 14:00 Temperature Temperature Source Pulse Rate 81 Pulse Rhythm Respiratory Rate 20 Blood Pressure 128/82 Blood Pressure Mean 101 Pulse Oximetry 94 Oxygen Delivery Method Oxygen Flow Rate Sepsis Recent Fever Within 48 Hours Sepsis New/Unexplained Change in Mental Status Sepsis Action Taken by Nursing Oxygen Flow Rate - Titration Pulse Oximetry Post Tiitration Laboratory Data Attestation: I reviewed the patient's lab results. 03/08/24 10:44 03/08/24 10:44 Lab Results 03/08/24 03/08/24 03/08/24 Range/Units 10:44 11:11 12:48 WBC 9.87 (4.8-10.8) K/ul RBC 4.26 L (4.70-6.10) M/uL Hgb 14.1 (14.0-18.0) g/dl Hct 40.8 L (42.0-52.0) % MCV 95.8 (80.0-100.0) fL MCH 33.1 (25.0-34.0) pg MCHC 34.6 (32.0-36.0) g/dL RDW Std Deviation 54.4 H (36.4-46.3) fL RDW Coeff of Dwayne 15.6 H (11.5-14.5) % Plt Count 211 (130-400) K/uL MPV 9.8 (9.4-12.4) fL Immature Gran % (Auto) 0.5 % Neut % (Auto) 79.9 % Lymph % (Auto) 6.3 % Clare % (Auto) 9.9 % Eos % (Auto) 2.8 % Baso % (Auto) 0.6 % Neut # (Auto) 7.88 H (1.40-6.50) K/uL Lymph # (Auto) 0.62 L (1.20-3.40) K/uL Clare # (Auto) 0.98 H (0.11-0.59) K/uL Eos # (Auto) 0.28 (0.00-0.50) K/uL Baso # (Auto) 0.06 (0.00-0.20) K/uL Immature Gran # (Auto) 0.05 (0.01-0.20) K/uL PT 11.5 (9.0-12.0) Seconds INR 1.1 (0.9-1.1) Sodium 135 L (136-145) mmol/L Potassium 3.8 (3.5-5.1) mmol/L Chloride 103 (98-107) mmol/L Carbon Dioxide 25 (21-32) mmol/L Anion Gap 7 (3-11) BUN 26 H (6-23) mg/dl Creatinine 0.93 (0.6-1.4) mg/dl Est Cr Clr Drug Dosing 83.3 ml/min Est GFR ( Amer) 93.4 ml/min Est GFR (Non-Af Amer) 80.6 ml/min BUN/Creatinine Ratio 28.0 H (10-20) Glucose 151 H (70-99(Fasting)) mg/dl Calcium 9.1 (8.6-10.3) mg/dl Magnesium 1.9 (1.7-2.4) mg/dl Total Bilirubin 1.6 H (0.2-1.0) mg/dl AST 27 (13-39) U/L ALT 17 (7-52) U/L Alkaline Phosphatase 107 H (34-104) U/L Troponin I High Sens 23.5 H 24.4 H (0-20) pg/ml Total Protein 7.9 (6.0-8.3) gm/dl Albumin 4.0 (3.4-5.0) gm/dl Globulin 3.9 (2.5-4.0) gm/dl Albumin/Globulin Ratio 1.0 (0.9-2) Lipase 14 (11-82) U/L Procalcitonin 0.04 (0-0.5) ng/ml Adenovirus (PCR) Not Detected (NotDetected) B. pertussis DNA (PCR) Not Detected (NotDetected) B.parapertussis DNA PCR Not Detected (NotDetected) C. pneumoniae DNA (PCR) Not Detected (NotDetected) Coronavirus OC43 (PCR) Not Detected (NotDetected) Coronavirus HKU1 (PCR) Not Detected (NotDetected) Coronavirus 229E (PCR) Not Detected (NotDetected) SARS-CoV-2 (PCR) Not Detected (NotDetected) Coronavirus NL63 (PCR) Not Detected (NotDetected) Human Metapneumovir PCR Not Detected (NotDetected) Influenza Type A (PCR) Not Detected (NotDetected) Influenza Type B (PCR) Not Detected (NotDetected) M. pneumoniae (PCR) Not Detected (NotDetected) Parainfluenza 1 (PCR) Not Detected (NotDetected) Parainfluenza 2 (PCR) Not Detected (NotDetected) Parainfluenza 3 (PCR) Not Detected (NotDetected) Parainfluenza 4 (PCR) Not Detected (NotDetected) RSV (PCR) Not Detected (NotDetected) Entero/Rhino (PCR) Not Detected (NotDetected) Administered Medications Albuterol (Albut/Ipratrop 3mg/0.5mg Neb 3 Ml Vial) 3 ml NEB QIDR [facility]; Protocol Stop: 04/07/24 16:04 Last Admin: 03/08/24 20:03 Dose: 3 ml Documented By: Admin: 03/08/24 16:58 Dose: 3 ml Documented By: ISIDORO Budesonide (Budesonide 0.5 Mg/2 Ml Vial (Pulmicort)) 0.5 mg NEB BIDR [facility] Stop: 04/07/24 18:59 Last Admin: 03/08/24 20:03 Dose: 0.5 mg Documented By: ELEAZAR Doxycycline Hyclate (Doxycycline Hyclate 100 Mg Cap) 100 mg PO BID [facility] Stop: 03/15/24 20:59 Last Admin: 03/08/24 20:48 Dose: 100 mg Documented By: HNChetna Heparin Sodium (Porcine) (Heparin 100 Unit/Ml 5ml Flush) 5 ml FLUSH PRN PRN PRN Reason: Flush Stop: 04/07/24 17:16 Last Admin: 03/08/24 17:25 Dose: 5 ml Documented By: ADA Piperacillin Sod/Tazobactam Sod (Zosyn) 4.5 gm in 100 mls @ 25 mls/hr IV Q8H [facility] Stop: 03/15/24 19:14 Last Admin: 03/08/24 19:09 Dose: 25 mls/hr Documented By: ADA Methylprednisolone 40 mg/ (Syringe) 0.64 mls @ 1.5 mls/min IV Q12H [facility] Stop: 04/07/24 20:59 Last Admin: 03/08/24 20:48 Dose: 1.5 mls/min Documented By: YAIMA Discontinued Medications Albuterol (Albut/Ipratrop 3mg/0.5mg Neb 3 Ml Vial) 3 ml NEB NOW STA; Protocol Stop: 03/08/24 13:37 Last Admin: 03/08/24 14:15 Dose: 3 ml Documented By: PHIL Guaifenesin (Guaifenesin 600 Mg Tabcr) 1,200 mg PO NOW STA Stop: 03/08/24 13:37 Last Admin: 03/08/24 14:15 Dose: 1,200 mg Documented By: PHIL Sodium Chloride (Nss) 500 mls @ 999 mls/hr IV .Q31M ONE Stop: 03/08/24 11:07 Last Infusion: 03/08/24 11:58 Dose: Infused Documented By: Admin: 03/08/24 11:13 Dose: 999 mls/hr Documented By: JAY Piperacillin Sod/Tazobactam Sod (Zosyn) 4.5 gm in 100 mls @ 200 mls/hr IV NOW ONE Stop: 03/08/24 14:05 Last Infusion: 03/08/24 14:41 Dose: Infused Documented By: Admin: 03/08/24 14:15 Dose: 200 mls/hr Documented By: PHIL Sodium Chloride (Nss) 1,000 mls @ 999 mls/hr IV .Q1H1M ONE Stop: 03/08/24 14:36 Last Infusion: 03/08/24 15:20 Dose: Infused Documented By: JUAN DANIEL Admin: 03/08/24 14:16 Dose: 999 mls/hr Documented By: PHIL Doxycycline Hyclate 100 mg/ (Dextrose) 100 mls @ 50 mls/hr IV NOW STA Stop: 03/08/24 15:38 Last Infusion: 03/08/24 16:59 Dose: Infused Documented By: Admin: 03/08/24 14:58 Dose: 50 mls/hr Documented By: JUAN DANIEL Ioversol (Optiray 320 125ml) 119 ml IV ONCE ONE Stop: 03/08/24 12:42 Last Admin: 03/08/24 12:42 Dose: 119 ml Documented By: GABRIEL Methylprednisolone (Methylprednisolone 125 Mg/2 Ml Vial) 125 mg IV NOW STA Stop: 03/08/24 13:37 Last Admin: 03/08/24 14:15 Dose: 125 mg Documented By: PHIL Imaging Data Radiologist's Impression: Chest X-Ray 03/08/24 10:35 XR chest 1V portable HISTORY: 73 years-old Male Chest pain, nonspecific COMPARISON: Chest radiograph 01/12/2019, chest CT 12/03/2023. TECHNIQUE: AP view chest FINDINGS: Cardiac silhouette is mildly enlarged. Right IJ Naqdhd-m-Ndbz catheter. No pneumothorax. Small pleural effusions with pulmonary vascular congestion. Bilateral pulmonary nodules with mixed interstitial and alveolar opacities redemonstrated, similar in appearance to the prior chest CT. IMPRESSION: 1. Cardiomegaly with pulmonary vascular congestion. 2. Mixed interstitial and alveolar opacities with numerous pulmonary nodules are redemonstrated, similar in appearance to the chest CT from 12/03/2023. ACT 112: Negative or not required by law. The above report was generated using voice recognition software. It may contain grammatical, syntax or spelling errors. Electronically signed by: Bertrand Anderson M.D. 03/08/2024 11:49 AM Chest CTA 03/08/24 12:17 CT angio chest PE protocol CT DOSE: 801.52 mGy.cm HISTORY: 73 years-old Male with shortness of breath, lung ca, r/o PE. Acute shortness of breath in a patient with history of lung cancer TECHNIQUE: Multiple CTA images of the chest were obtained after the intravenous administration of 119 ml Optiray. Coronal and sagittal MIPS were obtained from the axial data set and were submitted for review. All measurements were obtained according to NASCET criteria. A dose lowering technique was utilized adhering to the principles of ALARA. COMPARISON: Chest radiograph of same day, CTA chest 12/03/2023 FINDINGS: CTA: Moderate cardiomegaly. No pericardial effusion. Moderate coronary artery calcifications. No thoracic aortic aneurysm or dissection. No pulmonary emboli identified. Segmental and subsegmental branches however are suboptimally evaluated secondary to contrast bolus timing. Right IJ Mxhsnk-i-Bnqn catheter distal tip terminates in the mid SVC. CT CHEST: Heterogeneous thyroid. Pathologically enlarged mediastinal and hilar lymph nodes redemonstrated.r index 1.8 x 2.9 cm AP window lymph node on image 126 previously measured 3.1 x 2.2 cm. 1.5 cm subcarinal lymph node previously measured 1.8 cm. Right hilar lymph node measuring up to 1.6 cm are similar to prior. No pneumothorax or pleural effusion. Chronic interstitial lung disease with traction bronchiectasis, honeycombing and subpleural fibrosis redemonstrated, most pronounced in the right lung. There is new/progressive multisegmental and multilobar distribution of bilateral groundglass densities with areas of intralobular septal thickening. Numerous bilateral solid pulmonary nodules redemonstrated. There is index 9 mm solid nodule within the left upper lobe on image 152 which is stable. 1.1 cm subpleural nodule in the lingula on image 75 is stable. No definite new or enlarging pulmonary nodules identified. Calcifications within the antoni hepatis. No acute upper abdominal abnormality. Fatty infiltration of the liver suggested. Degenerative changes of the shoulders and spine. No acute fracture or destructive bone lesion identified. IMPRESSION: 1. Numerous bilateral solid pulmonary nodules with pathologic lymphadenopathy of the chest appears generally stable compared to the study from 12/03/2023. 2. Chronic interstitial lung disease redemonstrated which includes right greater than left basilar predominant honeycombing, traction bronchiectasis with subpleural fibrosis. 3. There are new/progressive multisegmental multilobar distribution of bilateral groundglass densities with intralobular septal thickening. Findings are suggestive of a nonspecific infectious or inflammatory pneumonitis. 4. No pleural effusion. ACT 112: Negative or not required by law. The above report was generated using voice recognition software. It may contain grammatical, syntax or spelling errors. Electronically signed by: Bertrand Anderson M.D. 03/08/2024 1:07 PM Discharge Plan Visit Data Chief Complaint: Shortness of Breath/Dyspnea Stated Complaint: PNEUMONIA, COUGHING UP BLOOD, SOB ED Provider: Kiko Verdugo Discharge Problem: Acute and chronic respiratory failure, Pneumonia, Metastatic disease, UIP (usual interstitial pneumonitis) Patient Disposition: Admitted As Inpatient Discharge Instructions Interventions: ED Discharge Assessment Last Done: 03/08/24 15:09 Discharge Problem: Acute and chronic respiratory failure Qualifiers: Respiratory failure complication: hypoxia Qualified Code(s): J96.21 - Acute and chronic respiratory failure with hypoxia Pneumonia Qualifiers: Pneumonia type: due to unspecified organism Laterality: bilateral Lung location: lower lobe of lung Qualified Code(s): J18.9 - Pneumonia, unspecified organism Metastatic disease Qualifiers: Area of secondary neoplastic involvement: unspecified site Qualified Code(s): C 79.9 - Secondary malignant neoplasm of unspecified site
[2024-03-08] MEDS: SODIUM CHLORIDE 0.9% 500 ML IV ONE (11:13)
[2024-03-08 11:32] LABS: Bilirubin,Total 1.6 mg/dl (0.2-1.0); Calcium 9.1 mg/dl (8.6-10.3); Creatinine Clr Calc Pharmacy 83.3 ml/min; Est GFR (African American) 93.4 ml/min; Est GFR (Non-African American) 80.6 ml/min; Globulin 3.9 gm/dl (2.5-4.0); Magnesium 1.9 mg/dl (1.7-2.4); Potassium 3.8 mmol/L (3.5-5.1); Total Protein 7.9 gm/dl (6.0-8.3)
[2024-03-08 11:38] LABS: INR 1.1 (0.9-1.1); Prothrombin Time 11.5 Seconds (9.0-12.0); Troponin I High Sensitivity 23.5 pg/ml (0-20)
--- NOTE | 2024-03-08 11:50 | XRay Report ---
XR chest 1V portable HISTORY: 73 years-old Male Chest pain, nonspecific COMPARISON: Chest radiograph 01/12/2019, chest CT 12/03/2023. TECHNIQUE: AP view chest FINDINGS: Cardiac silhouette is mildly enlarged. Right IJ Pvdzmp-r-Rogo catheter. No pneumothorax. Small pleura l effusions with pulmonary vascular congestion. Bilateral pulmonary nodules with mixed interstitial a nd alveolar opacities redemonstrated, similar in appearance to the prior chest CT. IMPRESSION: 1. Cardiomegaly with pulmonary vascular congestion. 2. Mixed interstitial and alveolar opacities with numerous pulmonary nodules are redemonstrated, rhea lar in appearance to the chest CT from 12/03/2023. ACT 112: Negative or not required by law. The above report was generated using voice recognition software. It may contain grammatical, syntax o r spelling errors. Electronically signed by: Bertrand Anderson M.D. 03/08/2024 11:49 AM
[2024-03-08 12:16] LABS: Adenovirus PCR Not Detected (NotDetected); Bordetella parapertussis PCR Not Detected (NotDetected); Bordetella pertussis PCR Not Detected (NotDetected); Chlamydia pneumoniae PCR Not Detected (NotDetected); Coronavirus 229E PCR Not Detected (NotDetected); Coronavirus CoV-2 (COVID19)PCR Not Detected (NotDetected); Coronavirus HKU1 PCR Not Detected (NotDetected); Coronavirus NL63 PCR Not Detected (NotDetected); Coronavirus OC43PCR Not Detected (NotDetected); Human Metapneumovirus PCR Not Detected (NotDetected); Influenza A PCR Not Detected (NotDetected); Influenza B PCR Not Detected (NotDetected); Mycoplasma pneumoniae PCR Not Detected (NotDetected); Parainfluenza Virus 1 PCR Not Detected (NotDetected); Parainfluenza Virus 2 PCR Not Detected (NotDetected); Parainfluenza Virus 3 PCR Not Detected (NotDetected); Parainfluenza Virus 4 PCR Not Detected (NotDetected); Respiratory Syncytial VirusPCR Not Detected (NotDetected); Rhinovirus/Enterovirus PCR Not Detected (NotDetected)
[2024-03-08] MEDS: OPTIRAY 320 125ml IV ONE (12:42)
--- NOTE | 2024-03-08 13:09 | CT Scan Report ---
CT angio chest PE protocol CT DOSE: 801.52 mGy.cm HISTORY: 73 years-old Male with shortness of breath, lung ca, r/o PE. Acute shortness of breath in a patient with history of lung cancer TECHNIQUE: Multiple CTA images of the chest were obtained after the intravenous administration of 119 ml Optiray. Coronal and sagittal MIPS were obtained from the axial data set and were submitted for review. All measurements were obtained according to NASCET criteria. A dose lowering technique was u tilized adhering to the principles of ALARA. COMPARISON: Chest radiograph of same day, CTA chest 12/03/2023 FINDINGS: CTA: Moderate cardiomegaly. No pericardial effusion. Moderate coronary artery calcifications. No thoracic aortic aneurysm or dissection. No pulmonary emboli identified. Segmental and subsegmental branches ho wever are suboptimally evaluated secondary to contrast bolus timing. Right IJ Whhbtb-d-Umhs catheter distal tip terminates in the mid SVC. CT CHEST: Heterogeneous thyroid. Pathologically enlarged mediastinal and hilar lymph nodes redemonstrated.r ind ex 1.8 x 2.9 cm AP window lymph node on image 126 previously measured 3.1 x 2.2 cm. 1.5 cm subcarinal lymph node previously measured 1.8 cm. Right hilar lymph node measuring up to 1.6 cm are similar to prior. No pneumothorax or pleural effusion. Chronic interstitial lung disease with traction bronchiec tasis, honeycombing and subpleural fibrosis redemonstrated, most pronounced in the right lung. There is new/progressive multisegmental and multilobar distribution of bilateral groundglass densities with areas of intralobular septal thickening. Numerous bilateral solid pulmonary nodules redemonstrated. There is index 9 mm solid nodule within the left upper lobe on image 152 which is stable. 1.1 cm subp leural nodule in the lingula on image 75 is stable. No definite new or enlarging pulmonary nodules id entified. Calcifications within the antoni hepatis. No acute upper abdominal abnormality. Fatty infiltration of the liver suggested. Degenerative changes of the shoulders and spine. No acute fracture or destructiv e bone lesion identified. IMPRESSION: 1. Numerous bilateral solid pulmonary nodules with pathologic lymphadenopathy of the chest appears ge nerally stable compared to the study from 12/03/2023. 2. Chronic interstitial lung disease redemonstrated which includes right greater than left basilar pr edominant honeycombing, traction bronchiectasis with subpleural fibrosis. 3. There are new/progressive multisegmental multilobar distribution of bilateral groundglass densitie s with intralobular septal thickening. Findings are suggestive of a nonspecific infectious or inflamm atory pneumonitis. 4. No pleural effusion. ACT 112: Negative or not required by law. The above report was generated using voice recognition software. It may contain grammatical, syntax o r spelling errors. Electronically signed by: Bertrand Anderson M.D. 03/08/2024 1:07 PM
[2024-03-08 13:54] LABS: Appearance Urine Clear (Clear); Bacteria Urine Automated None Seen (None Seen); Bilirubin Urine Negative (Negative); Blood Urine Negative (Negative); Cast Urine Automated 0-2 /lpf (0-2); Color Urine Yellow; Epithelial Cell Urine Auto 0-2 /hpf (0-2); Glucose Urine UA Negative (Negative); Ketones Urine Negative (Negative); Leukocyte Esterase Urine Negative (Negative); Nitrite Urine Negative (Negative); Protein Urine Trace (Negative); RBC Urine Automated 0-2 /hpf (0-2); Specific Gravity Urine > 1.045 (1.000-1.030); Urobilinogen Urine Negative (Negative); WBC Urine Automated 0-5 /hpf (0-5); pH Urine 5.5 (4.5-7.5)
[2024-03-08] MEDS: guaiFENesin 600 MG TABCR PO STA (14:15)
[2024-03-08] MEDS: PIPERACILLIN/TAZOBACTAM 4.5 GM/100 ML BAG IV ONE (14:15)
[2024-03-08] MEDS: methylPREDNISolone 125 MG/2 ML VIAL IV STA (14:15)
[2024-03-08] MEDS: ALBUT/IPRATROP 3MG/0.5MG NEB 3 ML VIAL NEB STA (14:15)
[2024-03-08] MEDS: SODIUM CHLORIDE 0.9% 1,000 ML IV ONE (14:16)
--- NOTE | 2024-03-08 14:26 | History & Physical Report ---
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 Blue, Completed adjuvant modified FOLFOX x 12 cycles, 07/14/2019. Then in October 2021 had recurrent disease involving the liver as well as peritoneal nodule involving the outer surface of the liver. At that time he was treated with FOLFIRI and avastin every 2 weeks, then in December 2021 discontinued 5-FU bolus because of low ANC. In May 2022 decided discontinue irinotecan as he has worsening ILD, required steroid x 2, oxygen treatment briefly. Then in Jul 2022 decided to change 5 FU to leucovorin Avastin to every 3 weeks instead of every 2 weeks. He started current regimen 12/24/23 of 5-FU, leucovorin and bevacizumab every 2 weekly because disease progression was noted in the lungs. Acute Pneumonia, failure of outpatient treatment Acute on Chronic Resp Failure with Hypoxia Suspected worsening of Interstitial pulmonary fibrosis vs flare - follows with Dr. Zavala with pulmonology - will consult for increase in hemoptysis - Admit to med tele - Currently requiring 6 L via NC, wean as tolerated - Was placed on azithromycin x 5 days and augmentin x 7 days on 03/04 by PCP, no improvement ---> will switch to zosyn and doxy IV while here - BCx obtained, follow - Scheduled nebs, flutter, incentive spirometry, mucinex, aspiration precautions - Solumedrol IV given in the ER, will continue solumedrol 40 mg Q12H - Biofire RVP neg, MRSA pending Splenic flexure of the colon adenocarcinoma diagnosed in October 2018 Metastasis to liver, lung - T3 N2 b, M0 stage IIIC at the time of diagnosis in 10/2018. - Started current regimen 12/24/23 of 5-FU, leucovorin and bevacizumab every 2 weekly because disease progression was noted in the lungs. Last cycle was on 02/19/24, was due last Saturday(03/04/24) but missed due to ill sx as above. - Follows with Dr. Vu Navarrete as outpatient - Looked up side effect profile/adverse effects of current therapy and does not appear that pulmonary effects are seen as much with leucovorin or 5-FU. - Bevacizumab does show increased possibility of over 10 %: Respiratory: Cough (26%), dyspnea (26% to 30%), epistaxis (17% to 55%), oropharyngeal pain (16%), pulmonary hemorrhage (4% to 31%), sinusitis (15%) - Takes acyclovir during chemo to reduce oral ulcerations, not daily Mild diastolic dysfunction Mild aortic stenosis - Hx of such, chronic, stable - Check echo -Trop ordered, initial was 24 GERD - Cont pantoprazole daily DVT ppx: teds, scds, no chemical anticoagulation due to hemoptysis per pt report PIV x 2 Diet: Allow regular diet CODE: conditional, ok with CPR, medications, does NOT want intubation Dispo: From home, likely to remain in the hospital x 2 days A total of 75 minutes were spent with greater than 50% of that time face to face with the patient, personally reviewing all current laboratories, imaging studies, past medication reconciliation, outpatient chart review, and discussion with specialists to collaborate care for the patient with attending. Please see attending documentation for corrections and/or additions. History of Present Illness Chief Complaint: Worsening shortness of breath Primary Care Provider: Brayan Lopez MD This is a 73 yo male with a past medical history of splenic flexure of the colon adenocarcinoma diagnosed in October 2018, followed by transcerse and descending colectomy 11/20/[address] Blue, Completed adjuvant modified FOLFOX x 12 cycles, 07/14/2019. Then in October 2021 had recurrent disease involving the liver as well as peritoneal nodule involving the outer surface of the liver. At that time he was treated with FOLFIRI and avastin every 2 weeks, then in December 2021 discontinued 5-FU bolus because of low ANC. In May 2022 decided discontinue irinotecan as he has worsening ILD, required steroid x 2, oxygen treatment briefly. Then in Jul 2022 decided to change 5 FU to levucovin Avastin to every 3 weeks instead of every 2 weeks. He started current regimen 12/24/23 of 5-FU, leucovorin and bevacizumab every 2 weekly because disease progression was noted in the lungs. Other PMHx includes Interstitial pulmonary fibrosis, bronchiectasis for which he follows with Dr. Zavala with pulmonology, as well as mild diastolic dysfunction, mild aortic stenosis, and GERD. Pt was supposed to have his last cycle of chemo last Saturday but missed it due to not feeling well at that time. Pt was seen at PCP office on 03/04/24 for acute worsening cough at that time was 2-3 days, with sputum production, and fever of 101 F. Denies sick contacts, no wheezing at that time. He was started on azithromycin x 5d course and augmentin x 7d course on 03/04/24. He still has worse cough, with sputum production. Last night he started having blood in sputum. He denies blood thinners or aspirin therapy. Pt wears 2 L O2 at all times. He has been using albuterol inhaler more at home, as well as increased albuterol inhaler at home in the past few days. Here he was hypoxic with O2 sats of 83% om 2 L, and is now on 5 L. Allergies Allergy/AdvReac Type Severity Reaction Status Date / Time morphine Allergy Unknown ITCHING Verified 03/08/24 13:10 Home Medications Medication Instructions Recorded Confirmed Type cholecalciferol (vitamin D3) 50 2,000 unit PO QAM 10/24/18 03/08/24 History mcg (2,000 unit) capsule (Vitamin D3) melatonin 3 mg tablet 3 mg PO HS PRN Sleep 10/24/18 03/08/24 History pantoprazole 40 mg tablet,delayed 40 mg PO QAM 10/24/18 03/08/24 History release (Protonix) ibuprofen 200 mg tablet 200 mg PO Q4H PRN osteoarthritits 01/08/19 03/08/24 History nebulizers #1 ea 10/20/20 01/24/24 Rx Oxygen Home #2 L 03/29/22 01/24/24 Rx Portable Oxygen #1 ea 03/29/22 01/24/24 Rx acetaminophen 500 mg tablet 500 mg PO Q6H PRN Pain 08/12/22 03/08/24 History (Tylenol Extra Strength) acyclovir 400 mg tablet 400 mg PO BID PRN cold sore 08/12/22 03/08/24 History outbreak amoxicillin 500 mg capsule 2,000 mg PO DIRECTED PRN PRIOR 08/12/22 03/08/24 History TO DENTAL APPT. cyanocobalamin (vitamin B-12) 1,000 mcg PO QAM 08/12/22 03/08/24 History 1,000 mcg tablet (Vitamin B-12) hydrocortisone 2.5 % topical cream 1 applic topical DIRECTED PRN 08/12/22 03/08/24 History Skin Irritation lactobacillus combination no.4 3 3,000 mmu cells PO QAM 07/03/23 03/08/24 History billion cell capsule (Probiotic) amoxicillin 875 mg-potassium 1 tab PO BID 03/08/24 03/08/24 History clavulanate 125 mg tablet azithromycin 250 mg tablet 250 mg PO DIRECTED 03/08/24 03/08/24 History benzonatate 100 mg capsule 100 mg PO TID PRN Cough 03/08/24 03/08/24 History bevacizumab-bvzr 25 mg/mL 0 mg IV Q14D 03/08/24 03/08/24 History intravenous solution (Zirabev) budesonide 0.5 mg/2 mL suspension 0.5 mg irrigation BID 03/08/24 03/08/24 History for nebulization fluorouracil 2.5 gram/50 mL 0 g IV Q14D 03/08/24 03/08/24 History intravenous solution leucovorin calcium 10 mg/mL 0 mg IV Q14D 03/08/24 03/08/24 History injection solution lorazepam 1 mg tablet 1 mg PO HS PRN Sleep 03/08/24 03/08/24 History zinc acetate 50 mg (zinc) capsule 50 mg PO DAILY 03/08/24 03/08/24 History Past Med/Surg History Problem List (Updated 03/08/24 @ 13:50 by Kiko Verdugo MD) Metastatic disease (Acute) Pneumonia (Acute) Metastatic colon cancer to liver Encounter for follow-up surveillance of colon cancer Poe's esophageal ulceration Dislocation of internal right hip prosthesis Pneumonitis Hypoxia Bronchiectasis Cough Liver enzyme elevation Traction bronchiectasis UIP (usual interstitial pneumonitis) Chronic bronchiectasis not affecting current episode of care History of Pseudomonas pneumonia Encounter for pre-operative examination Colon tumor Medical History (Updated 03/08/24 @ 13:50 by Kiko Verdugo MD) History of Helicobacter pylori infection 10 yr ago. Acid reflux Port-A-Cath in place power. Right chest. Colon carcinoma metastatic to multiple sites pt denies/recent ct scan May 2023 - no signs of colon cancer. Interstitial pulmonary disease, unspecified Colon cancer dx 2019 -- chemo and finished 07/2019 dx 2021 again--chemo finished 12/2022>current port in place DAILEY (nonalcoholic steatohepatitis) pt not sure if official dx. IPF (idiopathic pulmonary fibrosis) follows by [facility] pulmonary Osteoarthritis GERD (gastroesophageal reflux disease) Surgical History History of vascular access device power port. History of cataract surgery rt/left S/P closed reduction of dislocated total hip prosthesis right History of arthroscopy left knee History of bowel resection History of esophagogastroduodenoscopy (EGD) History of colonoscopy Hx of LASIK History of tonsillectomy H/O bilateral hip replacements Family History Grandmother (Maternal) Family hx of colon cancer Father FHx: lung cancer Other No family history of adverse response to anesthesia Social History Smoking Status: Never smoker Second Hand Exposure: Yes (as a child); Do You Dip or Chew Tobacco: No; Hx Alcohol Use: Yes Alcohol type: beer Hx Substance Use: No Preferred Language: [place] Communication Ability: Effective Visual Impairment: No Limitations Hearing Ability: Normal Freight Loader Required: No Beliefs That Will Affect Care: None Current Living Situation: Spouse Feels Safe at Home: Yes Assistive Devices: Other Review of Systems Review of Systems: Constitutional: + nightly fever, + sweats or chills Eyes: No diplopia, no worsening or blurred vision ENT: normal hearing, no trouble swallowing Respiratory: As per HPI, + cough, +sputum, +dyspnea on exertion Cardiovascular: No chest pain, tightness or palpitations Abdomen: No pain, nausea, vomiting, diarrhea or constipation Musculoskeletal: No joint pain, calf pain, swelling Neurologic: No weakness, numbness/tingling, or balance problems Psychiatric: No anxiety or depression Skin: No rash or itch Physical Exam Physical Exam: Please refer to physician addendum for physical exam. Results & Data Results & Data Vital Signs (Past 12 Hours) Vital Signs Temp Pulse Resp BP Pulse Ox O2 Del Method O2 Flow Rate 03/08/24 13:36 96 H 25 H 130/80 94 Nasal Cannula 6 03/08/24 13:06 83 18 118/76 94 03/08/24 12:00 88 18 130/82 96 Nasal Cannula 6 03/08/24 11:30 89 18 128/80 96 Nasal Cannula 6 03/08/24 11:00 90 20 139/84 96 03/08/24 10:58 91 H 20 98 Nasal Cannula 6 03/08/24 10:58 83 L Room Air 03/08/24 10:52 102 H 03/08/24 10:24 36.6 C 105 H 18 134/82 83 L Room Air Laboratory Results 03/08/24 13:51 Aerobic Blood Culture - Pending Blood Anaerobic Blood Culture - Pending 03/08/24 03/08/24 03/08/24 Unknown 12:48 11:11 WBC RBC Hgb Hct MCV MCH MCHC RDW Std Deviation RDW Coeff of Dwayne Plt Count MPV Immature Gran % (Auto) Neut % (Auto) Lymph % (Auto) [place] % (Auto) Eos % (Auto) Baso % (Auto) Neut # (Auto) Lymph # (Auto) [place] # (Auto) Eos # (Auto) Baso # (Auto) Immature Gran # (Auto) PT INR Sodium Potassium Chloride Carbon Dioxide Anion Gap BUN Creatinine Est Cr Clr Drug Dosing Est GFR ( Amer) Est GFR (Non-Af Amer) BUN/Creatinine Ratio Glucose Calcium Magnesium Total Bilirubin AST ALT Alkaline Phosphatase Troponin I High Sens 24.4 H Total Protein Albumin Globulin Albumin/Globulin Ratio Lipase Procalcitonin Urine Color Yellow Urine Appearance Clear Urine pH 5.5 Ur Specific [place] > 1.045 H Urine Protein Trace H Urine Glucose (UA) Negative Urine Ketones Negative Urine Blood Negative Urine Nitrite Negative Urine Bilirubin Negative Urine Urobilinogen Negative Ur Leukocyte Esterase Negative Urine WBC (Auto) 0-5 Urine RBC (Auto) 0-2 U Hyaline Cast (Auto) 0-2 U Epithel Cells (Auto) 0-2 Urine Bacteria (Auto) None Seen Adenovirus (PCR) Not Detected B. pertussis DNA (PCR) Not Detected B.parapertussis DNA PCR Not Detected C. pneumoniae DNA (PCR) Not Detected Coronavirus OC43 (PCR) Not Detected Coronavirus HKU1 (PCR) Not Detected Coronavirus 229E (PCR) Not Detected SARS-CoV-2 (PCR) Not Detected Coronavirus NL63 (PCR) Not Detected Human Metapneumovir PCR Not Detected Influenza Type A (PCR) Not Detected Influenza Type B (PCR) Not Detected M. pneumoniae (PCR) Not Detected Parainfluenza 1 (PCR) Not Detected Parainfluenza 2 (PCR) Not Detected Parainfluenza 3 (PCR) Not Detected Parainfluenza 4 (PCR) Not Detected RSV (PCR) Not Detected Entero/Rhino (PCR) Not Detected 03/08/24 10:44 WBC 9.87 RBC 4.26 L Hgb 14.1 Hct 40.8 L MCV 95.8 MCH 33.1 MCHC 34.6 RDW Std Deviation 54.4 H RDW Coeff of Dwayne 15.6 H Plt Count 211 MPV 9.8 Immature Gran % (Auto) 0.5 Neut % (Auto) 79.9 Lymph % (Auto) 6.3 [place] % (Auto) 9.9 Eos % (Auto) 2.8 Baso % (Auto) 0.6 Neut # (Auto) 7.88 H Lymph # (Auto) 0.62 L [place] # (Auto) 0.98 H Eos # (Auto) 0.28 Baso # (Auto) 0.06 Immature Gran # (Auto) 0.05 PT 11.5 INR 1.1 Sodium 135 L Potassium 3.8 Chloride 103 Carbon Dioxide 25 Anion Gap 7 BUN 26 H Creatinine 0.93 Est Cr Clr Drug Dosing 83.3 Est GFR ( Amer) 93.4 Est GFR (Non-Af Amer) 80.6 BUN/Creatinine Ratio 28.0 H Glucose 151 H Calcium 9.1 Magnesium 1.9 Total Bilirubin 1.6 H AST 27 ALT 17 Alkaline Phosphatase 107 H Troponin I High Sens 23.5 H Total Protein 7.9 Albumin 4.0 Globulin 3.9 Albumin/Globulin Ratio 1.0 Lipase 14 Procalcitonin 0.04 Urine Color Urine Appearance Urine pH Ur Specific [place] Urine Protein Urine Glucose (UA) Urine Ketones Urine Blood Urine Nitrite Urine Bilirubin Urine Urobilinogen Ur Leukocyte Esterase Urine WBC (Auto) Urine RBC (Auto) U Hyaline Cast (Auto) U Epithel Cells (Auto) Urine Bacteria (Auto) Adenovirus (PCR) B. pertussis DNA (PCR) B.parapertussis DNA PCR C. pneumoniae DNA (PCR) Coronavirus OC43 (PCR) Coronavirus HKU1 (PCR) Coronavirus 229E (PCR) SARS-CoV-2 (PCR) Coronavirus NL63 (PCR) Human Metapneumovir PCR Influenza Type A (PCR) Influenza Type B (PCR) M. pneumoniae (PCR) Parainfluenza 1 (PCR) Parainfluenza 2 (PCR) Parainfluenza 3 (PCR) Parainfluenza 4 (PCR) RSV (PCR) Entero/Rhino (PCR) Diagnostic Findings Chest X-Ray 03/08/24 10:35 XR chest 1V portable HISTORY: 73 years-old Male Chest pain, nonspecific COMPARISON: Chest radiograph 01/12/2019, chest CT 12/03/2023. TECHNIQUE: AP view chest FINDINGS: Cardiac silhouette is mildly enlarged. Right IJ Iktqlo-u-Xzix catheter. No pneumothorax. Small pleural effusions with pulmonary vascular congestion. Bilateral pulmonary nodules with mixed interstitial and alveolar opacities redemonstrated, similar in appearance to the prior chest CT. IMPRESSION: 1. Cardiomegaly with pulmonary vascular congestion. 2. Mixed interstitial and alveolar opacities with numerous pulmonary nodules are redemonstrated, similar in appearance to the chest CT from 12/03/2023. ACT 112: Negative or not required by law. The above report was generated using voice recognition software. It may contain grammatical, syntax or spelling errors. Electronically signed by: Bertrand Anderson M.D. 03/08/2024 11:49 AM Chest CTA 03/08/24 12:17 CT angio chest PE protocol CT DOSE: 801.52 mGy.cm HISTORY: 73 years-old Male with shortness of breath, lung ca, r/o PE. Acute shortness of breath in a patient with history of lung cancer TECHNIQUE: Multiple CTA images of the chest were obtained after the intravenous administration of 119 ml Optiray. Coronal and sagittal MIPS were obtained from the axial data set and were submitted for review. All measurements were obtained according to NASCET criteria. A dose lowering technique was utilized adhering to the principles of ALARA. COMPARISON: Chest radiograph of same day, CTA chest 12/03/2023 FINDINGS: CTA: Moderate cardiomegaly. No pericardial effusion. Moderate coronary artery calcifications. No thoracic aortic aneurysm or dissection. No pulmonary emboli identified. Segmental and subsegmental branches however are suboptimally evaluated secondary to contrast bolus timing. Right IJ Scxqlq-t-Axyp catheter distal tip terminates in the mid SVC. CT CHEST: Heterogeneous thyroid. Pathologically enlarged mediastinal and hilar lymph nodes redemonstrated.r index 1.8 x 2.9 cm AP window lymph node on image 126 previously measured 3.1 x 2.2 cm. 1.5 cm subcarinal lymph node previously measured 1.8 cm. Right hilar lymph node measuring up to 1.6 cm are similar to prior. No pneum othorax or pleural effusion. Chronic interstitial lung disease with traction bronchiectasis, honeycombing and subpleural fibrosis redemonstrated, most pronounced in the right lung. There is new/progressive multisegmental and multilobar distribution of bilateral groundglass densities with areas of intralobular septal thickening. Numerous bilateral solid pulmonary nodules redemonstrated. There is index 9 mm solid nodule within the left upper lobe on image 152 which is stable. 1.1 cm subpleural nodule in the lingula on image 75 is stable. No definite new or enlarging pulmonary nodules identified. Calcifications within the antoni hepatis. No acute upper abdominal abnormality. Fatty infiltration of the liver suggested. Degenerative changes of the shoulders and spine. No acute fracture or destructive bone lesion identified. IMPRESSION: 1. Numerous bilateral solid pulmonary nodules with pathologic lymphadenopathy of the chest appears generally stable compared to the study from 12/03/2023. 2. Chronic interstitial lung disease redemonstrated which includes right greater than left basilar predominant honeycombing, traction bronchiectasis with subpleural fibrosis. 3. There are new/progressive multisegmental multilobar distribution of bilateral groundglass densities with intralobular septal thickening. Findings are suggestive of a nonspecific infectious or inflammatory pneumonitis. 4. No pleural effusion. ACT 112: Negative or not required by law. The above report was generated using voice recognition software. It may contain grammatical, syntax or spelling errors. Electronically signed by: Bertrand Anderson M.D. 03/08/2024 1:07 PM Code Status & VTE Plan Code Status CPR is ok, pt does not want ventilation due to hx of lung disease - pt wants to discuss with his ho is present at bedside. Supervising Physician Co-Signing Physician Notes Patient is a 73-year-old male with stage IV lung cancer with metastasis to liver, lung, idiopathic pulmonary fibrosis, GERD, Poe's esophagus and other medical problems presents with history of worsening shortness of breath, cough with hemoptysis and increased supplemental oxygen requirement. Patient was seen by his PCP 5 days ago and was prescribed Augmentin and azithromycin for possible developing pneumonia. Despite taking the antibiotic course, patient continued to have worsening cough, shortness of breath and has been using his rescue inhaler more frequently. Also reports having significant hemoptysis currently. He was hypoxic in 80s while in ED requiring 5 L supplemental oxygen to maintain saturation. Patient denies any chest pain, nausea, vomiting, abdominal pain, diarrhea but admits to have fever. Please review HPI for complete details of presentation. I personally reviewed blood work and imaging studies. Procalcitonin normal. BioFire negative. Mild troponin elevation. CTA showed pneumonitis bilateral pulmonary nodules with lymphadenopathy, chronic interstitial lung disease findings with honeycombing, traction bronchiectasis and subpleural fibrosis. Also findings suggestive of possible pneumonitis. Physical Exam: Vitals signs as noted above General Appearance:Moderately built and nourished, chronic ill-appearing, no apparent distress Head: normocephalic, Atraumatic Eyes: normal inspection, EOMI Neck: supple, Trachea midline Respiratory/Chest: Decreased breath sounds, bilateral rhonchi, scattered wheezes, basal crackles, No accessory muscle use Cardiovascular: S1, S2, No murmur Abdomen/GI:Soft, Non tender, Bowel sounds present Extremities/Musculoskeletal:normal inspection, no edema Neurologic/Psych:AAOX3, grossly no focal neurological deficits Skin: normal color, warm Acute on chronic respiratory failure with hypoxia Likely multifactorial: Worsening pulmonary metastatic disease, interstitial lung disease flare, multifocal pneumonia Hemoptysis Will start on broad-spectrum antibiotics with Zosyn, Doxy Started on IV Solu-Medrol, [facility] Pulmonary hygiene Pulmonology consulted Continue supplemental oxygen to maintain saturations Mild troponin elevation Likely demand ischemia secondary to above Denies any chest pain Will consider resting echo if clinically warranted Monitor Hyperglycemia Check A1c Progressive metastatic colon cancer [facility] Poor prognosis DVT Px: SCDs Re:Hemoptysis
[2024-03-08] MEDS: DOXYCYCLINE HYCLATE 100 MG in DEXTROSE 5% MINI-B 100 ML IV STA (14:58)
[2024-03-08] MEDS ORDERED: ONDANSETRON INJ 2 MG/ML 2 ML VIAL IV PRN (16:05)
[2024-03-08] MEDS: ALBUT/IPRATROP 3MG/0.5MG NEB 3 ML VIAL NEB SCH (16:58)
[2024-03-08] MEDS: HEPARIN 100 UNIT/ML 5ML FLUSH FLUSH PRN (17:25)
[2024-03-08] MEDS: PIPERACILLIN/TAZOBACTAM 4.5 GM/100 ML BAG IV SCH (19:09)
[2024-03-08] MEDS: BUDESONIDE 0.5 MG/2 ML VIAL (PULMICORT) NEB SCH (20:03)
[2024-03-08] MEDS: methylPREDNISolone 40 MG in SYRINGE 0 ML IV SCH (20:48)
[2024-03-08] MEDS: DOXYCYCLINE HYCLATE 100 MG CAP PO SCH (20:48)
--- NOTE | 2024-03-08 21:42 | Electrocardiogram Report ---
Test Reason : Blood Pressure : */* mmHG Vent. Rate : 103 BPM Atrial Rate : 103 BPM P-R Int : 202 ms QRS Dur : 92 ms QT Int : 324 ms P-R-T Axes : 34 8 6 degrees QTcB Int : 424 ms Poor data quality, interpretation may be adversely affected Sinus tachycardia Possible Left atrial enlargement Incomplete right bundle branch block Nonspecific T wave abnormality When compared with ECG of 24-Oct-2018 06:53, Vent. rate has increased by [address] no longer elevated in Anterior leads Nonspecific T wave abnormality now evident in Anterior leads Confirmed by Rob Rangel ([id number]) on 03/08/2024 9:42:43 PM Referred By: REFERRED SELF Confirmed By: Rob Rangel
[2024-03-09 04:06] LABS: Hematocrit (blood only) 38.2 % (42.0-52.0); Hemoglobin 13.3 g/dl (14.0-18.0); Mean Corpuscular Hemoglobin 33.7 pg (25.0-34.0); Mean Corpuscular Hgb Conc 34.8 g/dL (32.0-36.0); Mean Corpuscular Volume 96.7 fL (80.0-100.0); Mean Platelet Volume 10.2 fL (9.4-12.4); Platelet Count 226 K/uL (130-400); RDW Coefficient of Variation 15.4 % (11.5-14.5); RDW Standard Deviation 54.8 fL (36.4-46.3); Red Blood Count 3.95 M/uL (4.70-6.10); White Blood Count 7.21 K/ul (4.8-10.8)
[2024-03-09 04:14] LABS: BUN Creatinine Ratio 26.8 (10-20); Calcium 9.2 mg/dl (8.6-10.3); Creatinine Clr Calc Pharmacy 79.9 ml/min; Est GFR (African American) 88.8 ml/min; Est GFR (Non-African American) 76.6 ml/min; Magnesium 2.2 mg/dl (1.7-2.4); Potassium 4.4 mmol/L (3.5-5.1)
[2024-03-09] MEDS: DEXTROMETHORPHAN POLYMR COMPLX 30 MG/5 ML UDP PO PRN (05:47)
[2024-03-09 07:14] LABS: Estimated Average Glucose 111 mg/dl; Hemoglobin A1C 5.5 % (4.5-5.6)
[2024-03-09] MEDS: CYANOCOBALAMIN (B-12) 500 MCG TABLET PO SCH (07:51)
[2024-03-09] MEDS: PANTOprazole 40 MG TAB PO SCH (07:52)
[2024-03-09] MEDS: CHOLECALCIFEROL 25 MCG (1000 UNITS) TAB PO SCH (07:52)
[2024-03-09] MEDS: BENZONATATE 100 MG CAPSULE PO PRN (07:55)
--- NOTE | 2024-03-09 08:09 | Pulmonary Consultation ---
Date of Consultation March 09, 2024 Assessment & Plan (1) Acute and chronic respiratory failure: Respiratory failure complication: hypoxia Qualified Code(s): J 96.21 - Acute and chronic respiratory failure with hypoxia (2) Metastatic colon cancer to liver: (3) Pneumonia: Laterality: bilateral Lung location: lower lobe of lung P neumonia type: due to unspecified organism Qualified Code(s): J18.9 - Pneumonia, unspecified organism (4) Bronchiectasis: (5) UIP (usual interstitial pneumonitis): Plan CTA chest 03/08/2024 personally reviewed: Patchy groundglass opacities appreciated bilaterally upper and lower lobes Honeycombing appreciated bilaterally more pronounced in the right upper as well as right lower lobe Traction bronchiectasis Multiple pulmonary nodules bilaterally, largest being 11 mm left lower lobe There is mediastinal as well as hilar lymphadenopathy --Abnormal chest CT Multiple groundglass opacities appreciated bilaterally which are new compared to 11/2023 Respiratory bio fire was negative for everything on 03/08/2024 Procalcitonin 0.04, nasal MRSA negative BNP 94 Probability of being infectious etiology is high Noninfectious etiology includes acute flareup of UIP, unlikely. Diffuse alveolar hemorrhage, pulmonary edema -- UIP Following up with Dr. Zavala Unable to tolerate Ofev -- Metastatic colon cancer Completed FOLFOX 2 cycles 07/14/2019 Relapse October 2021 s/p FOLFIRI July 2022 5 FU was changed to leucovorin and Avastin Currently on 5 FU, leucovorin and bevacizumab Bevacizumab is usually not associated with pneumonitis. Patient is not on any other medication which I think could cause pneumonitis --DNI Plan: Continue with antipseudomonal coverage with Zosyn along with atypical coverage with doxycycline QTc is 482. Follow sputum culture along with PJP Mucinex-DM [id number] Please note the above document was generated using voice recognition software. It may contain grammatical, syntax or spelling errors.Any formal questions or concerns about the content, text or information contained within the body of this dictation should be directly addressed to the provider for clarification. History of Present Illness Attending Physician: Lei Urrutia MD History of Present Illness 73-year-old male coming to the hospital with complaints of worsening shortness of breath Past medical history: UIP, metastatic colon cancer on chemotherapy, GERD, DAILEY Pulmonary consulted for abnormal chest CT At the time of examination patient was saturating 95% on 5 L oxygen, I went down to 3 L he and at the end of the visit he was still 91-92% RT was also in the room. As per the RT patient was trying to open the blinds when she came in and he was saturating 76-77% at that time. Patient says that he has been having issues with coughing going on for approximately 7-10 days. He was started on amoxicillin and azithromycin. He has not finished the course yet. As he was not feeling well that she ended up to the hospital He does complain of phlegm, is bringing it up easily. Had minimal blood-tinged phlegm couple of days prior but nothing since. No fever or chills Denies any abdominal pain No nausea vomiting No headache, no blurry vision Social history: Lifetime non-smoker. No pets at home. Allergies Allergy/AdvReac Type Severity Reaction Status Date / Time morphine Allergy Unknown ITCHING Verified 03/08/24 13:10 Home Medications Medication Instructions Recorded Confirmed Type cholecalciferol (vitamin D3) 50 2,000 unit PO QAM 10/24/18 03/08/24 History mcg (2,000 unit) capsule (Vitamin D3) melatonin 3 mg tablet 3 mg PO HS PRN Sleep 10/24/18 03/08/24 History pantoprazole 40 mg tablet,delayed 40 mg PO QAM 10/24/18 03/08/24 History release (Protonix) ibuprofen 200 mg tablet 200 mg PO Q4H PRN osteoarthritits 01/08/19 03/08/24 History nebulizers #1 ea 10/20/20 03/08/24 Rx Oxygen Home #2 L 03/29/22 03/08/24 Rx Portable Oxygen #1 ea 03/29/22 03/08/24 Rx acetaminophen 500 mg tablet 500 mg PO Q6H PRN Pain 08/12/22 03/08/24 History (Tylenol Extra Strength) acyclovir 400 mg tablet 400 mg PO BID PRN cold sore 08/12/22 03/08/24 History outbreak amoxicillin 500 mg capsule 2,000 mg PO DIRECTED PRN PRIOR 08/12/22 03/08/24 History TO DENTAL APPT. cyanocobalamin (vitamin B-12) 1,000 mcg PO QAM 08/12/22 03/08/24 History 1,000 mcg tablet (Vitamin B-12) hydrocortisone 2.5 % topical cream 1 applic topical DIRECTED PRN 08/12/22 03/08/24 History Skin Irritation lactobacillus combination no.4 3 3,000 mmu cells PO QAM 07/03/23 03/08/24 History billion cell capsule (Probiotic) amoxicillin 875 mg-potassium 1 tab PO BID 03/08/24 03/08/24 History clavulanate 125 mg tablet azithromycin 250 mg tablet 250 mg PO DIRECTED 03/08/24 03/08/24 History benzonatate 100 mg capsule 100 mg PO TID PRN Cough 03/08/24 03/08/24 History bevacizumab-bvzr 25 mg/mL 0 mg IV Q14D 03/08/24 03/08/24 History intravenous solution (Zirabev) budesonide 0.5 mg/2 mL suspension 0.5 mg irrigation BID 03/08/24 03/08/24 History for nebulization fluorouracil 2.5 gram/50 mL 0 g IV Q14D 03/08/24 03/08/24 History intravenous solution leucovorin calcium 10 mg/mL 0 mg IV Q14D 03/08/24 03/08/24 History injection solution lorazepam 1 mg tablet 1 mg PO HS PRN Sleep 03/08/24 03/08/24 History zinc acetate 50 mg (zinc) capsule 50 mg PO DAILY 03/08/24 03/08/24 History Patient History Medical History History of Helicobacter pylori infection 10 yr ago. Acid reflux Port-A-Cath in place power. Right chest. Colon carcinoma metastatic to multiple sites pt denies/recent ct scan May 2023 - no signs of colon cancer. Interstitial pulmonary disease, unspecified Colon cancer dx 2018 -- chemo and finished 07/2019 dx 2021 again--chemo finished 12/2022>current port in place DAILEY (nonalcoholic steatohepatitis) pt not sure if official dx. IPF (idiopathic pulmonary fibrosis) follows by [facility] Osteoarthritis GERD (gastroesophageal reflux disease) Surgical History History of vascular access device power port. History of cataract surgery rt/left S/P closed reduction of dislocated total hip prosthesis right History of arthroscopy left knee History of bowel resection History of esophagogastroduodenoscopy (EGD) History of colonoscopy Hx of LASIK History of tonsillectomy H/O bilateral hip replacements Family History Grandmother (Maternal) Family hx of colon cancer Father FHx: lung cancer Other No family history of adverse response to anesthesia Social History Smoking Status: Never smoker Second Hand Exposure: Yes (as a child); Do You Dip or Chew Tobacco: No; Hx Alcohol Use: Yes Alcohol type: beer Hx Substance Use: No Preferred Language: [place] Communication Ability: Effective Visual Impairment: No Limitations Hearing Ability: Normal Manager Presentation Required: No Beliefs That Will Affect Care: None Current Living Situation: Spouse Current Living Situation Comment: 2 story house; can live on first floor if needed Other Information That Helps Us Care for You: No Feels Safe at Home: Yes Safety Concerns: Feels Safe At This Time Assistive Devices: Oxygen - Continuous Review of Systems 2 Review of Systems: All systems reviewed & are unremarkable except as noted in HPI & below Physical Exam 2 Physical Exam: Constitutional: No acute distress HEENT: EOMI, PERRLA Respiratory system: Decreased air entry bilaterally, no wheeze, no rhonchi, positive Velcro-like crackles appreciated bilaterally more on the right side CVS: S1-S2 positive, no murmurs or gallops, right-sided Port-A-Cath Abdomen: Soft, nontender, nondistended, positive bowel sounds x4 Extremities: +2 pulses bilaterally radialis/ dorsalis pedis, no cyanosis, no edema Neuro: Awake alert oriented x3 Psych: Normal mood and affect G/U: No Hastings Skin: no rashes, warm and dry Lymphatic: no cervical or axillary lymphadenopathy Results & Data Results & Data Vital Signs (Past 12 Hours) Vital Signs Temp Pulse Pulse Resp BP Pulse Ox O2 Del Method 03/09/24 07:39 72 03/09/24 07:33 36.2 C L 90 18 169/90 H 91 Nasal Cannula 03/09/24 07:13 84 16 90 Nasal Cannula 03/09/24 03:55 36.8 C 80 20 134/76 95 Nasal Cannula 03/08/24 23:14 36.7 C 78 24 123/73 94 Nasal Cannula 03/08/24 22:03 75 03/08/24 20:05 76 17 95 Nasal Cannula O2 Flow Rate 03/09/24 07:39 03/09/24 07:33 4 03/09/24 07:13 4 03/09/24 03:55 3 03/08/24 23:14 3 03/08/24 22:03 03/08/24 20:05 3 Laboratory Results 03/09/24 03:33 03/09/24 03:33 PG Care Time/CCT Total # of Minutes Spent Total Time Spent with Patient: Total time spent is greater than 50% in coordination of care (as documented) at patient's floor/unit and/or counseling patient: Coding Level of Care Code 11230 INT INP/OBS CARE MIN Diagnoses Acute and chronic respiratory failure J96.21 Respiratory failure complication: hypoxia Metastatic colon cancer to liver C18.9; C78.7 Pneumonia J18.9 Laterality: bilateral Lung location: lower lobe of lung Pneumonia type: due to unspecified organism Bronchiectasis J47.9 UIP (usual interstitial pneumonitis) J84.112
[2024-03-09] MEDS: methylPREDNISolone 40 MG in SYRINGE 0 ML IV SCH (08:42)
--- NOTE | 2024-03-09 13:06 | Electrocardiogram Report ---
Test Reason : Blood Pressure : */* mmHG Vent. Rate : 71 BPM Atrial Rate : 71 BPM P-R Int : 224 ms QRS Dur : 100 ms QT Int : 444 ms P-R-T Axes : 29 -4 7 degrees QTcB Int : 482 ms Sinus rhythm with 1st degree A-V block Incomplete right bundle branch block Minimal voltage criteria for LVH, may be normal variant Prolonged QT Abnormal ECG When compared with ECG of 08-Mar-2024 10:37, QT has lengthened Confirmed by Eric Montero ([id number]) on 03/09/2024 1:06:22 PM Referred By: REFERRED SELF Confirmed By: Eric Montero
[2024-03-09] MEDS: guaiFENesin/DEXTROM SYRUP 200MG/20MG 10ML UDC PO SCH (15:10)
--- NOTE | 2024-03-09 15:55 | Hospitalist Progress Note ---
Date of Service March 09, 2024 Assessment & Plan (1) Pneumonia: (2) Interstitial pulmonary disease, unspecified: (3) Metastatic colon cancer to liver: (4) Metastatic disease: (5) DAILEY (nonalcoholic steatohepatitis): (6) GERD (gastroesophageal reflux disease): Plan Patient is a 73-year-old male with stage IV lung cancer with metastasis to liver, lung, idiopathic pulmonary fibrosis, GERD, Poe's esophagus and other medical problems presents with history of worsening shortness of breath, cough with hemoptysis and increased supplemental oxygen requirement. Patient was seen by his PCP 5 days ago and was prescribed Augmentin and azithromycin for possible developing pneumonia. Despite taking the antibiotic course, patient continued to have worsening cough, shortness of breath and has been using his rescue inhaler more frequently. Also reports having significant hemoptysis currently. He was hypoxic in 80s while in ED requiring 5 L supplemental oxygen to maintain saturation. Patient denies any chest pain, nausea, vomiting, abdominal pain, diarrhea but admits to have fever. Acute on chronic respiratory failure with hypoxia Acute Pneumonia, failure of outpatient treatment Suspected worsening of Interstitial pulmonary fibrosis vs flare Likely multifactorial: Worsening pulmonary metastatic disease, interstitial lung disease flare, multifocal pneumonia Hemoptysis Biofire negative Sputum cx pending Blood cx pending CT chest with acute findings of pneumonitis, stable nodule changes and chronic interstitial changes Continue Zosyn, Doxy Continue IV Solu-Medrol, [facility] Pulmonary hygiene Pulmonology consulted, appreciate recs Continue supplemental oxygen to maintain saturations Progressive metastatic colon cancer T3 N2 b, M0 stage IIIC at the time of diagnosis in 10/2018. Started current regimen 12/24/23 of 5-FU, leucovorin and bevacizumab every 2 weekly because disease progression was noted in the lungs. Last cycle was on 02/19/24, was due last Saturday(03/04/24) but missed due to ill sx as above. Follows with Dr. Vu Navarrete as outpatient Poor prognosis Mild troponin elevation Likely demand ischemia secondary to above Denies any chest pain Will consider resting echo if clinically warranted Monitor Hyperglycemia Hgba1c normal Continue other home meds as ordered Diet: regular DVT Px: SCDs Re:Hemoptysis Dispo: PT/OT for further recs once medically stable Admission and Anticipated Discharge Date Admission Date: March 08, 2024 Subjective Luis was seen laying in bed. and son at bedside. States he still felt the same, difficulty with breathing. Tired Review of Systems Review of Systems: All systems reviewed & are unremarkable except as noted in Subjective Physical Exam Physical Exam: General: Alert, oriented. No acute distress Psych: Appropriate mood and affect Neuro: No gross deficits HEENT: NC/AT CV: RRR Resp: Breath sounds clear bilaterally, no increased effort of breathing. Abdomen: Soft, tender Extremities: No edema in lower extremities bilaterally. Results & Data Results & Data Vital Signs (Past 12 Hours) Vital Signs Temp Pulse Pulse Resp BP BP Pulse Ox 03/09/24 15:54 36.3 C L 80 24 130/73 97 03/09/24 15:37 79 18 95 03/09/24 14:20 86 03/09/24 13:21 95 03/09/24 11:27 36.4 C L 84 18 129/73 93 03/09/24 11:02 89 20 93 03/09/24 09:55 03/09/24 07:39 72 03/09/24 07:33 36.2 C L 90 18 169/90 H 91 03/09/24 07:13 84 16 90 O2 Del Method O2 Flow Rate 03/09/24 15:54 Nasal Cannula 3 03/09/24 15:37 Nasal Cannula 6 03/09/24 14:20 03/09/24 13:21 High Flow Nasal Cannula 6 03/09/24 11:27 Nasal Cannula 2 03/09/24 11:02 Nasal Cannula 6 03/09/24 09:55 Nasal Cannula 3 03/09/24 07:39 03/09/24 07:33 Nasal Cannula 4 03/09/24 07:13 Nasal Cannula 4 Diagnostic Findings Chest X-Ray 03/08/24 10:35 XR chest 1V portable HISTORY: 73 years-old Male Chest pain, nonspecific COMPARISON: Chest radiograph 01/12/2019, chest CT 12/03/2023. TECHNIQUE: AP view chest FINDINGS: Cardiac silhouette is mildly enlarged. Right IJ Vpazbf-x-Orqg catheter. No pneumothorax. Small pleural effusions with pulmonary vascular congestion. Bilateral pulmonary nodules with mixed interstitial and alveolar opacities redemonstrated, similar in appearance to the prior chest CT. IMPRESSION: 1. Cardiomegaly with pulmonary vascular congestion. 2. Mixed interstitial and alveolar opacities with numerous pulmonary nodules are redemonstrated, similar in appearance to the chest CT from 12/03/2023. ACT 112: Negative or not required by law. The above report was generated using voice recognition software. It may contain grammatical, syntax or spelling errors. Electronically signed by: Bertrand Anderson M.D. 03/08/2024 11:49 AM Chest CTA 03/08/24 12:17 CT angio chest PE protocol CT DOSE: 801.52 mGy.cm HISTORY: 73 years-old Male with shortness of breath, lung ca, r/o PE. Acute shortness of breath in a patient with history of lung cancer TECHNIQUE: Multiple CTA images of the chest were obtained after the intravenous administration of 119 ml Optiray. Coronal and sagittal MIPS were obtained from the axial data set and were submitted for review. All measurements were obtained according to NASCET criteria. A dose lowering technique was utilized adhering to the principles of ALARA. COMPARISON: Chest radiograph of same day, CTA chest 12/03/2023 FINDINGS: CTA: Moderate cardiomegaly. No pericardial effusion. Moderate coronary artery calcifications. No thoracic aortic aneurysm or dissection. No pulmonary emboli identified. Segmental and subsegmental branches however are suboptimally evaluated secondary to contrast bolus timing. Right IJ Enpibd-b-Vnpt catheter distal tip terminates in the mid SVC. CT CHEST: Heterogeneous thyroid. Pathologically enlarged mediastinal and hilar lymph nodes redemonstrated.r index 1.8 x 2.9 cm AP window lymph node on image 126 previously measured 3.1 x 2.2 cm. 1.5 cm subcarinal lymph node previously measured 1.8 cm. Right hilar lymph node measuring up to 1.6 cm are similar to prior. No pneumothorax or pleural effusion. Chronic interstitial lung disease with traction bronchiectasis, honeycombing and subpleural fibrosis redemonstrated, most pronounced in the right lung. There is new/progressive multisegmental and multilobar distribution of bilateral groundglass densities with areas of intralobular septal thickening. Numerous bilateral solid pulmonary nodules redemonstrated. There is index 9 mm solid nodule within the left upper lobe on image 152 which is stable. 1.1 cm subpleural nodule in the lingula on image 75 is stable. No definite new or enlarging pulmonary nodules identified. Calcifications within the antoni hepatis. No acute upper abdominal abnormality. Fatty infiltration of the liver suggested. Degenerative changes of the shoulders and spine. No acute fracture or destructive bone lesion identified. IMPRESSION: 1. Numerous bilateral solid pulmonary nodules with pathologic lymphadenopathy of the chest appears generally stable compared to the study from 12/03/2023. 2. Chronic interstitial lung disease redemonstrated which includes right greater than left basilar predominant honeycombing, traction bronchiectasis with subpleural fibrosis. 3. There are new/progressive multisegmental multilobar distribution of bilateral groundglass densities with intralobular septal thickening. Findings are suggestive of a nonspecific infectious or inflammatory pneumonitis. 4. No pleural effusion. ACT 112: Negative or not required by law. The above report was generated using voice recognition software. It may contain grammatical, syntax or spelling errors. Electronically signed by: Bertrand Anderson M.D. 03/08/2024 1:07 PM (1) Pneumonia Laterality: bilateral Lung location: lower lobe of lung Pneumonia type: due to unspecified organism Qualified Code(s): J18.9 - Pneumonia, unspecified organism (4) Metastatic disease Area of secondary neoplastic involvement: unspecified site Qualified Code(s): C79.9 - Secondary malignant neoplasm of unspecified site
[2024-03-09] MEDS: MELATONIN 3 MG TAB PO PRN (21:34)
[2024-03-10 04:33] LABS: Hematocrit (blood only) 39.1 % (42.0-52.0); Hemoglobin 13.5 g/dl (14.0-18.0); Mean Corpuscular Hemoglobin 33.3 pg (25.0-34.0); Mean Corpuscular Hgb Conc 34.5 g/dL (32.0-36.0); Mean Corpuscular Volume 96.5 fL (80.0-100.0); Platelet Count 260 K/uL (130-400); RDW Coefficient of Variation 15.5 % (11.5-14.5); RDW Standard Deviation 54.7 fL (36.4-46.3); Red Blood Count 4.05 M/uL (4.70-6.10); White Blood Count 19.27 K/ul (4.8-10.8)
[2024-03-10 04:49] LABS: Albumin Globulin Ratio 0.9 (0.9-2); Albumin Level 3.8 gm/dl (3.4-5.0); Bilirubin,Total 1.1 mg/dl (0.2-1.0); Calcium 9.9 mg/dl (8.6-10.3); Creatinine Clr Calc Pharmacy 83.3 ml/min; Est GFR (African American) 93.4 ml/min; Est GFR (Non-African American) 80.6 ml/min; Globulin 4.2 gm/dl (2.5-4.0); Magnesium 2.3 mg/dl (1.7-2.4); Phosphorus 2.7 mg/dl (2.5-4.9); Potassium 5.1 mmol/L (3.5-5.1)
[2024-03-10 04:56] LABS: Basophils # (auto) 0.02 K/uL (0.00-0.20); Basophils % (auto) 0.1 %; Immature Granulocytes # (auto) 0.12 K/uL (0.01-0.20); Immature Granulocytes % (auto) 0.6 %; Lymphocytes # (auto) 0.38 K/uL (1.20-3.40); Monocytes # (auto) 0.61 K/uL (0.11-0.59); Monocytes % (auto) 3.2 %; Neutrophils # (auto) 18.14 K/uL (1.40-6.50); Neutrophils % (auto) 94.1 %; Polychromasia 1+
--- NOTE | 2024-03-10 08:11 | Pulmonology Progress Note ---
Date of Service March 10, 2024 Assessment & Plan (1) Acute and chronic respiratory failure: Respiratory failure complication: hypoxia Qualified Code(s): J 96.21 - Acute and chronic respiratory failure with hypoxia (2) Metastatic colon cancer to liver: (3) Pneumonia: Laterality: bilateral Lung location: lower lobe of lung P neumonia type: due to unspecified organism Qualified Code(s): J18.9 - Pneumonia, unspecified organism (4) Bronchiectasis: (5) UIP (usual interstitial pneumonitis): Plan CTA chest 03/08/2024 personally reviewed: Patchy groundglass opacities appreciated bilaterally upper and lower lobes Honeycombing appreciated bilaterally more pronounced in the right upper as well as right lower lobe Traction bronchiectasis Multiple pulmonary nodules bilaterally, largest being 11 mm left lower lobe There is mediastinal as well as hilar lymphadenopathy --Abnormal chest CT Multiple groundglass opacities appreciated bilaterally which are new compared to 11/2023 Respiratory bio fire was negative for everything on 03/08/2024 Procalcitonin 0.04, nasal MRSA negative BNP 94 Probability of being infectious etiology is high Noninfectious etiology includes acute flareup of UIP, unlikely. Diffuse alveolar hemorrhage, pulmonary edema -- UIP Following up with Dr. Zavala Unable to tolerate Ofev -- Metastatic colon cancer Completed FOLFOX 2 cycles 07/14/2019 Relapse October 2021 s/p FOLFIRI July 2022 5 FU was changed to leucovorin and Avastin Currently on 5 FU, leucovorin and bevacizumab Bevacizumab is usually not associated with pneumonitis. Patient is not on any other medication which I think could cause pneumonitis I am still giving him solumedrol 40 mg every 8 --DNI Plan: Continue with antipseudomonal coverage with Zosyn along with atypical coverage with doxycycline Sputum culture negative to date Follow sputum culture along with PJP Mucinex-DM [id number] Please note the above document was generated using voice recognition software. It may contain grammatical, syntax or spelling errors.Any formal questions or concerns about the content, text or information contained within the body of this dictation should be directly addressed to the provider for clarification. Admission and Anticipated Discharge Date Admission Date: March 08, 2024 Subjective Patient seen and examined at bedside. No acute distress, notable symptoms overnight He was on 7 L oxygen at rest. Saturating 90%. Still complaining of cough. Not bringing up any phlegm. Denies any chest pain Appetite is poor Denied any headache or blurry vision Review of Systems 2 Review of Systems: All systems reviewed & are unremarkable except as noted in Subjective Physical Exam 2 Physical Exam: Constitutional: No acute distress HEENT: EOMI, PERRLA Respiratory system: Decreased air entry bilaterally, no wheeze, no rhonchi, positive Velcro-like crackles appreciated bilaterally more on the right side CVS: S1-S2 positive, no murmurs or gallops, right-sided Port-A-Cath Abdomen: Soft, nontender, nondistended, positive bowel sounds x4 Extremities: +2 pulses bilaterally radialis/ dorsalis pedis, no cyanosis, no edema Neuro: Awake alert oriented x3 Psych: Normal mood and affect G/U: No Hastings Skin: no rashes, warm and dry Lymphatic: no cervical or axillary lymphadenopathy Results & Data Results & Data Vital Signs (Past 12 Hours) Vital Signs Temp Pulse Pulse Resp BP Pulse Ox O2 Del Method 03/10/24 07:59 76 20 138/79 94 Nasal Cannula, Nebulizer 03/10/24 07:30 75 03/10/24 07:12 89 18 90 Nasal Cannula 03/10/24 03:55 36.5 C 74 18 121/71 95 Nasal Cannula 03/10/24 00:26 36.3 C L 77 18 129/75 92 Nasal Cannula 03/09/24 21:47 83 03/09/24 20:30 Nasal Cannula 03/09/24 20:22 77 18 93 Nasal Cannula O2 Flow Rate 03/10/24 07:59 5 03/10/24 07:30 03/10/24 07:12 5 03/10/24 03:55 5 03/10/24 00:26 5 03/09/24 21:47 03/09/24 20:30 6 03/09/24 20:22 7 Laboratory Results 03/10/24 04:15 03/10/24 04:15 PG Care Time/CCT Total # of Minutes Spent Total Time Spent with Patient: Total time spent is greater than 50% in coordination of care (as documented) at patient's floor/unit and/or counseling patient: Coding Level of Care Code 08452 SUB INP/OBS CARE 3/50MIN Diagnoses Acute and chronic respiratory failure J96.21 Respiratory failure complication: hypoxia Metastatic colon cancer to liver C18.9; C78.7 Pneumonia J18.9 Laterality: bilateral Lung location: lower lobe of lung Pneumonia type: due to unspecified organism Bronchiectasis J47.9 UIP (usual interstitial pneumonitis) J84.112
--- NOTE | 2024-03-10 14:30 | Hospitalist Progress Note ---
Date of Service March 10, 2024 Assessment & Plan (1) Pneumonia: (2) Interstitial pulmonary disease, unspecified: (3) Metastatic colon cancer to liver: (4) Metastatic disease: (5) DAILEY (nonalcoholic steatohepatitis): (6) GERD (gastroesophageal reflux disease): Plan Patient is a 73-year-old male with stage IV lung cancer with metastasis to liver, lung, idiopathic pulmonary fibrosis, GERD, Poe's esophagus and other medical problems presents with history of worsening shortness of breath, cough with hemoptysis and increased supplemental oxygen requirement. Patient was seen by his PCP 5 days ago and was prescribed Augmentin and azithromycin for possible developing pneumonia. Despite taking the antibiotic course, patient continued to have worsening cough, shortness of breath and has been using his rescue inhaler more frequently. Also reports having significant hemoptysis currently. He was hypoxic in 80s while in ED requiring 5 L supplemental oxygen to maintain saturation. Patient denies any chest pain, nausea, vomiting, abdominal pain, diarrhea but admits to having fever. Acute on chronic respiratory failure with hypoxia Acute Pneumonia, failure of outpatient treatment Suspected worsening of Interstitial pulmonary fibrosis vs flare Likely multifactorial: Worsening pulmonary metastatic disease, interstitial lung disease flare, multifocal pneumonia Hemoptysis Biofire negative Sputum cx NGTD Blood cx NGTD CT chest with acute findings of pneumonitis, stable nodule changes and chronic interstitial changes Continue Zosyn, Doxy Continue IV Solu-Medrol, [facility] Pulmonary hygiene Pulmonology consulted, appreciate recs Continue supplemental oxygen to maintain saturations Progressive metastatic colon cancer T3 N2 b, M0 stage IIIC at the time of diagnosis in 10/2018. Started current regimen 12/24/23 of 5-FU, leucovorin and bevacizumab every 2 weekly because disease progression was noted in the lungs. Last cycle was on 02/19/24, was due last Saturday(03/04/24) but missed due to ill sx as above. Follows with Dr. Vu Navarrete as outpatient Poor prognosis Mild troponin elevation Likely demand ischemia secondary to above Denies any chest pain Will consider resting echo if clinically warranted Monitor Hyperglycemia Hgba1c normal Continue other home meds as ordered Diet: regular DVT Px: SCDs Re:Hemoptysis Dispo: PT/OT for further recs once medically stable Admission and Anticipated Discharge Date Admission Date: March 08, 2024 Subjective Luis was seen laying in bed. at bedside. States feels tired Review of Systems Review of Systems: All systems reviewed & are unremarkable except as noted in Subjective Physical Exam Physical Exam: General: Alert, oriented. No acute distress Psych: Appropriate mood and affect Neuro: No gross deficits HEENT: NC/AT CV: RRR Resp: Breath sounds clear bilaterally, no increased effort of breathing. Abdomen: Soft, tender Extremities: No edema in lower extremities bilaterally. Results & Data Results & Data Vital Signs (Past 12 Hours) Vital Signs Temp Pulse Pulse Resp BP Pulse Ox O2 Del Method 03/10/24 11:14 36.6 C 84 18 132/71 90 Nasal Cannula 03/10/24 10:56 83 18 91 Nasal Cannula 03/10/24 08:30 Nasal Cannula 03/10/24 07:59 76 20 138/79 94 Nasal Cannula, Nebulizer 03/10/24 07:30 75 03/10/24 07:12 89 18 90 Nasal Cannula 03/10/24 03:55 36.5 C 74 18 121/71 95 Nasal Cannula O2 Flow Rate 03/10/24 11:14 5 03/10/24 10:56 5 03/10/24 08:30 5 03/10/24 07:59 5 03/10/24 07:30 03/10/24 07:12 5 03/10/24 03:55 5 (1) Pneumonia Laterality: bilateral Lung location: lower lobe of lung Pneumonia type: due to unspecified organism Qualified Code(s): J18.9 - Pneumonia, unspecified organism (4) Metastatic disease Area of secondary neoplastic involvement: unspecified site Qualified Code(s): C79.9 - Secondary malignant neoplasm of unspecified site
[2024-03-10] MEDS: LOPERAMIDE HCL 2 MG CAP PO PRN (15:22)
[2024-03-11] MEDS: ALBUT/IPRATROP 3MG/0.5MG NEB 3 ML VIAL NEB STA (04:02)
[2024-03-11 04:19] LABS: Base Excess ABG 4.5 mEq/L (-9-1.8); HCO3 ABG 28 mmol/L (19-24); Oxygen Saturation ABG 93.6 % (90-95); PCO2 ABG 39 mmHg (35-46); PO2 ABG 64 mmHg (80-95); pH ABG 7.47 (7.35-7.45)
[2024-03-11 04:22] LABS: Allen Test Pos (Pos); Hematocrit (blood only) 40.1 % (42.0-52.0); Hemoglobin 13.6 g/dl (14.0-18.0); Mean Corpuscular Hemoglobin 32.6 pg (25.0-34.0); Mean Corpuscular Hgb Conc 33.9 g/dL (32.0-36.0); Mean Corpuscular Volume 96.2 fL (80.0-100.0); Mean Platelet Volume 9.6 fL (9.4-12.4); Nucleated RBC # (auto) 0.03 K/uL (0.00-0.12); Nucleated RBC % (auto) 0.1 %; Platelet Count 208 K/uL (130-400); RDW Standard Deviation 55.4 fL (36.4-46.3); Red Blood Count 4.17 M/uL (4.70-6.10)
[2024-03-11 04:41] LABS: Albumin Globulin Ratio 1.1 (0.9-2); Albumin Level 3.9 gm/dl (3.4-5.0); BUN Creatinine Ratio 24.7 (10-20); Bilirubin,Total 1.2 mg/dl (0.2-1.0); Calcium 9.6 mg/dl (8.6-10.3); Creatinine Clr Calc Pharmacy 83.3 ml/min; Est GFR (African American) 93.4 ml/min; Est GFR (Non-African American) 80.6 ml/min; Globulin 3.6 gm/dl (2.5-4.0); Magnesium 2.3 mg/dl (1.7-2.4); Phosphorus 2.8 mg/dl (2.5-4.9); Potassium 4.3 mmol/L (3.5-5.1); Total Protein 7.5 gm/dl (6.0-8.3)
[2024-03-11 04:42] LABS: Basophils # (auto) 0.04 K/uL (0.00-0.20); Basophils % (auto) 0.2 %; Immature Granulocytes # (auto) 0.39 K/uL (0.01-0.20); Immature Granulocytes % (auto) 1.7 %; Lymphocytes # (auto) 0.63 K/uL (1.20-3.40); Lymphocytes % (auto) 2.8 %; Monocytes # (auto) 1.09 K/uL (0.11-0.59); Monocytes % (auto) 4.8 %; Neutrophils # (auto) 20.65 K/uL (1.40-6.50); Neutrophils % (auto) 90.5 %
--- NOTE | 2024-03-11 07:03 | XRay Report ---
XR chest 1V portable CLINICAL HISTORY: hypoxia TECHNIQUE: Single frontal radiograph of the chest was obtained. Comparison: Comparison is made to chest radiograph from 03/08/2024 and CTA chest 02/18/2024 FINDINGS: A port catheter is seen. The cardiomediastinal silhouette is normal. Redemonstration of extensive int erstitial changes with likely superimposed alveolar opacities. No evidence of pleural effusion or pne umothorax. IMPRESSION: Redemonstration of interstitial thickening and airspace opacities in this patient who also has known pulmonary nodules. ACT 112: Negative or not required by law. Electronically signed by: Nagi Haney M.D. 03/11/2024 7:01 AM
--- NOTE | 2024-03-11 08:41 | XRay Report ---
XR chest 1V portable HISTORY: Shortness of breath. Follow-up. COMPARISON: Chest 03/10/2024. FINDINGS: Interstitial thickening with low lung volumes and patchy multifocal airspace opacities are again noted. This is similar to the prior study. No pneumothorax. No pleural effusions. The heart rem ains stable in size. No acute fractures. Right-sided Port-A-Cath terminates in the SVC. This remains unchanged. IMPRESSION: No significant change in the chronic interstitial thickening and multifocal bilateral airspace opacit ies. ACT 112: Negative or not required by law. Electronically signed by: Fran Merritt M.D. 03/11/2024 8:39 AM
--- NOTE | 2024-03-11 10:10 | Pulmonology Progress Note ---
Date of Service March 11, 2024 Assessment & Plan (1) Acute and chronic respiratory failure: Respiratory failure complication: hypoxia Qualified Code(s): J 96.21 - Acute and chronic respiratory failure with hypoxia (2) Metastatic colon cancer to liver: (3) Pneumonia: Laterality: bilateral Lung location: lower lobe of lung P neumonia type: due to unspecified organism Qualified Code(s): J18.9 - Pneumonia, unspecified organism (4) Bronchiectasis: (5) UIP (usual interstitial pneumonitis): Plan CTA chest 03/08/2024 personally reviewed: Patchy groundglass opacities appreciated bilaterally upper and lower lobes Honeycombing appreciated bilaterally more pronounced in the right upper as well as right lower lobe Traction bronchiectasis Multiple pulmonary nodules bilaterally, largest being 11 mm left lower lobe There is mediastinal as well as hilar lymphadenopathy --Abnormal chest CT Multiple groundglass opacities appreciated bilaterally which are new compared to 11/2023 Respiratory bio fire was negative for everything on 03/08/2024 Procalcitonin 0.04, nasal MRSA negative BNP 94 Probability of being infectious etiology is high Noninfectious etiology includes acute flareup of UIP, unlikely. Diffuse alveolar hemorrhage, pulmonary edema -- UIP Following up with Dr. Zavala Unable to tolerate Ofev -- Metastatic colon cancer Completed FOLFOX 2 cycles 07/14/2019 Relapse October 2021 s/p FOLFIRI July 2022 5 FU was changed to leucovorin and Avastin Currently on 5 FU, leucovorin and bevacizumab Bevacizumab is usually not associated with pneumonitis. Patient is not on any other medication which I think could cause pneumonitis --DNI Plan: His BNP is mildly elevated compared to the time of presentation Chest x-ray shows little bit worsening compared to yesterday. I am going to give him 20 mg of Lasix IV. Continue with incentive spirometry Follow sputum culture along with PJP Mucinex-DM [id number] Continue with antibiotics along with atypical coverage Overall prognosis is guarded. Will see if you are able to titrate off the oxygen in the near future. Please note the above document was generated using voice recognition software. It may contain grammatical, syntax or spelling errors.Any formal questions or concerns about the content, text or information contained within the body of this dictation should be directly addressed to the provider for clarification. Admission and Anticipated Discharge Date Admission Date: March 08, 2024 Subjective Patient seen and examined at bedside. No acute distress His oxygen requirement has significantly increased compared to yesterday He was on 30 L, 70% saturating 92-93% with heart rate in the 80s. He stated that he has been coughing more lately but is not bringing up any phlegm Denied any chest pain. Appetite is poor Review of Systems 2 Review of Systems: All systems reviewed & are unremarkable except as noted in Subjective Physical Exam 2 Physical Exam: Constitutional: No acute distress HEENT: EOMI, PERRLA Respiratory system: Decreased air entry bilaterally, no wheeze, no rhonchi, positive Velcro-like crackles appreciated bilaterally more on the right side CVS: S1-S2 positive, no murmurs or gallops, right-sided Port-A-Cath Abdomen: Soft, nontender, nondistended, positive bowel sounds x4 Extremities: +2 pulses bilaterally radialis/ dorsalis pedis, no cyanosis, no edema Neuro: Awake alert oriented x3 Psych: Normal mood and affect G/U: No [place] Skin: no rashes, warm and dry Lymphatic: no cervical or axillary lymphadenopathy Results & Data Results & Data Vital Signs (Past 12 Hours) Vital Signs Temp Pulse Pulse Resp BP Pulse Ox O2 Del Method 03/11/24 08:19 36.4 C L 81 22 151/90 H 97 High Flow Nasal Cannula 03/11/24 08:04 85 03/11/24 08:00 High Flow Nasal Cannula 03/11/24 07:21 81 27 H 91 High Flow Nasal Cannula 03/11/24 04:46 83 24 96 High Flow Nasal Cannula 03/11/24 04:03 86 24 92 Nasal Cannula 03/11/24 04:00 36.5 C 87 20 137/84 03/10/24 23:15 36.7 C 84 18 132/78 91 Nasal Cannula 03/10/24 22:52 82 03/10/24 22:23 Nasal Cannula O2 Flow Rate FiO2 03/11/24 08:19 30 80 03/11/24 08:04 03/11/24 08:00 30 80 03/11/24 07:21 30 80 03/11/24 04:46 30 70 03/11/24 04:03 9 03/11/24 04:00 03/10/24 23:15 8 03/10/24 22:52 03/10/24 22:23 6 Laboratory Results 03/11/24 04:03 03/11/24 04:03 PG Care Time/CCT Total # of Minutes Spent Total Time Spent with Patient: Total time spent is greater than 50% in coordination of care (as documented) at patient's floor/unit and/or counseling patient: Coding Level of Care Code 53768 SUB INP/OBS CARE 3/50MIN Diagnoses Acute and chronic respiratory failure J96.21 Respiratory failure complication: hypoxia Metastatic colon cancer to liver C18.9; C78.7 Pneumonia J18.9 Laterality: bilateral Lung location: lower lobe of lung Pneumonia type: due to unspecified organism Bronchiectasis J47.9 UIP (usual interstitial pneumonitis) J84.112
[2024-03-11] MEDS: SODIUM CHLORIDE 0.65% NA SOLN 45 ML (OCEAN) ONE (11:55)
[2024-03-11] MEDS: FUROSEMIDE INJ 20 MG/2 ML VIAL IV ONE (13:06)
[2024-03-11] MEDS: ACETAMINOPHEN 325 MG TAB PO PRN (17:14)
--- NOTE | 2024-03-11 18:32 | Hospitalist Progress Note ---
Date of Service March 11, 2024 Assessment & Plan (1) Pneumonia: (2) Interstitial pulmonary disease, unspecified: (3) Metastatic colon cancer to liver: (4) Metastatic disease: (5) DAILEY (nonalcoholic steatohepatitis): (6) GERD (gastroesophageal reflux disease): Plan Mr Weaver is a 73-year-old male with stage IV lung cancer with metastasis to liver, lung, idiopathic pulmonary fibrosis, GERD, Poe's esophagus and other medical problems presents with history of worsening shortness of breath, cough with hemoptysis and increased supplemental oxygen requirement. Patient was seen by pcp prior to admissiondays and started on augmentin and azithromycin for possible developing pneumonia. Despite taking the antibiotic course, patient continued to havening cough, shortness of breath and has been using his rescue inhaler more frequently. Patient remains with high o2 requirement. Patient is on IV abx and IV methylpred q 8 Pulmonary following. Trial of lasix to attempt to ween O2 given mild bnp elevation #Acute on chronic respiratory failure with hypoxia #Acute Pneumonia, failure of outpatient treatment #Suspected worsening of Interstitial pulmonary fibrosis vs flare Likely multifactorial: Worsening pulmonary metastatic disease, interstitial lung disease flare, multifocal pneumonia Hemoptysis Biofire negative Sputum cx NGTD Blood cx NGTD CT chest with acute findings of pneumonitis, stable nodule changes and chronic interstitial changes Continue Zosyn, Doxy Continue IV Solu-Medrol, [facility] Pulmonary hygiene Pulmonology consulted, appreciate recs Continue supplemental oxygen to maintain saturations #Progressive metastatic colon cancer T3 N2 b, M0 stage IIIC at the time of diagnosis in 10/2018. Started current regimen 12/24/23 of 5-FU, leucovorin and bevacizumab every 2 weekly because disease progression was noted in the lungs. Last cycle was on 02/19/24, was due last Saturday(03/04/24) but missed due to ill sx as above. Follows with Dr. Vu Navarrete as outpatient Poor prognosis #Mild troponin elevation Likely demand ischemia secondary to above Denies any chest pain Will consider resting echo if clinically warranted Monitor #Hyperglycemia Hgba1c normal Continue other home meds as ordered Diet: regular DVT Px: SCDs Re:Hemoptysis Dispo: PT/OT for further recs once medically stable Admission and Anticipated Discharge Date Admission Date: March 08, 2024 Subjective Patient examined at breakfast time Eating but desaturating considerably when coughing increased O2 requirement overnight, current DNI HFNC 30 L reports dry cough spells, denies any other new concerns just frustration with coughing Physical Exam Constitutional: some respiratory exertion noted, dry cough spell prior to wlaking in Respiratory: dimished, +Crackles Results & Data Results & Data Vital Signs (Past 12 Hours) Vital Signs Temp Pulse Pulse Resp BP Pulse Ox O2 Del Method 03/11/24 16:55 92 H 03/11/24 15:09 36.2 C L 98 H 24 154/98 H 91 High Flow Nasal Cannula 03/11/24 15:05 91 H 19 91 High Flow Nasal Cannula 03/11/24 11:36 36.9 C 90 22 137/82 91 High Flow Nasal Cannula 03/11/24 10:26 85 20 96 High Flow Nasal Cannula 03/11/24 08:19 36.4 C L 81 22 151/90 H 97 High Flow Nasal Cannula 03/11/24 08:04 85 03/11/24 08:00 High Flow Nasal Cannula 03/11/24 07:21 81 27 H 91 High Flow Nasal Cannula O2 Flow Rate FiO2 03/11/24 16:55 03/11/24 15:09 30 70 03/11/24 15:05 30 70 03/11/24 11:36 30 70 03/11/24 10:26 30 80 03/11/24 08:19 30 80 03/11/24 08:04 03/11/24 08:00 30 80 03/11/24 07:21 30 80 Laboratory Results Short CBC 03/11/24 Range/Units 04:03 WBC 22.80 H (4.8-10.8) K/ul Hgb 13.6 L (14.0-18.0) g/dl Hct 40.1 L (42.0-52.0) % Plt Count 208 (130-400) K/uL BMP 03/11/24 04:03 Sodium 137 Potassium 4.3 Chloride 102 Carbon Dioxide 29 BUN 23 Creatinine 0.93 Glucose 148 H Calcium 9.6 Liver Function 03/11/24 Range/Units 04:03 Total Bilirubin 1.2 H (0.2-1.0) mg/dl AST 38 (13-39) U/L ALT 32 (7-52) U/L Alkaline Phosphatase 113 H (34-104) U/L Albumin 3.9 (3.4-5.0) gm/dl Medications Administered Home Medications Medication Instructions Recorded Confirmed Last Taken cholecalciferol (vitamin D3) 50 2,000 unit PO QAM 10/24/18 03/08/24 07/10/23 mcg (2,000 unit) capsule (Vitamin D3) melatonin 3 mg tablet 3 mg PO HS PRN Sleep 10/24/18 03/08/24 04/01/23 pantoprazole 40 mg tablet,delayed 40 mg PO QAM 10/24/18 03/08/24 07/11/23 06:00 release (Protonix) ibuprofen 200 mg tablet 200 mg PO Q4H PRN osteoarthritits 01/08/19 03/08/24 03/27/23 nebulizers #1 ea 10/20/20 03/08/24 Unknown Oxygen Home #2 L 03/29/22 03/08/24 Unknown Portable Oxygen #1 ea 03/29/22 03/08/24 Unknown acetaminophen 500 mg tablet 500 mg PO Q6H PRN Pain 08/12/22 03/08/24 07/10/23 (Tylenol Extra Strength) acyclovir 400 mg tablet 400 mg PO BID PRN cold sore 08/12/22 03/08/24 08/12/22 08:00 outbreak amoxicillin 500 mg capsule 2,000 mg PO DIRECTED PRN PRIOR 08/12/22 03/08/24 Unknown TO DENTAL APPT. cyanocobalamin (vitamin B-12) 1,000 mcg PO QAM 08/12/22 03/08/24 07/10/23 1,000 mcg tablet (Vitamin B-12) hydrocortisone 2.5 % topical cream 1 applic topical DIRECTED PRN 08/12/22 03/08/24 Unknown Skin Irritation lactobacillus combination no.4 3 3,000 mmu cells PO QAM 07/03/23 03/08/24 07/10/23 billion cell capsule (Probiotic) amoxicillin 875 mg-potassium 1 tab PO BID 03/08/24 03/08/24 Unknown clavulanate 125 mg tablet azithromycin 250 mg tablet 250 mg PO DIRECTED 03/08/24 03/08/24 Unknown benzonatate 100 mg capsule 100 mg PO TID PRN Cough 03/08/24 03/08/24 Unknown bevacizumab-bvzr 25 mg/mL 0 mg IV Q14D 03/08/24 03/08/2402/19/24 intravenous solution (Zirabev) budesonide 0.5 mg/2 mL suspension 0.5 mg irrigation BID 03/08/24 03/08/24 Unknown for nebulization fluorouracil 2.5 gram/50 mL 0 g IV Q14D 03/08/24 03/08/24 02/20/24 intravenous solution leucovorin calcium 10 mg/mL 0 mg IV Q14D 03/08/24 03/08/24 02/20/24 injection solution lorazepam 1 mg tablet 1 mg PO HS PRN Sleep 03/08/24 03/08/24 03/07/24 zinc acetate 50 mg (zinc) capsule 50 mg PO DAILY 03/08/24 03/08/24 Unknown Active Medications Generic Name Dose Route Start Last Admin Trade Name Freq PRN Reason Stop Dose Admin Acetaminophen 650 mg 03/08/24 16:05 03/11/24 17:14 Acetaminophen 325 Mg Tab PO 04/07/24 16:04 650 mg Q4H PRN Administration Pain or Fever Albuterol 3 ml 03/08/24 16:05 03/11/24 15:05 Albut/Ipratrop 3mg/0.5mg Neb 3 Ml Vial NEB 04/07/24 16:04 3 ml QIDR BRITNEY Administration Protocol Benzonatate 100 mg 03/08/24 16:05 03/09/24 07:55 Benzonatate 100 Mg Capsule PO 04/07/24 16:04 100 mg TID PRN Administration Cough Budesonide 0.5 mg 03/08/24 19:00 03/11/24 07:21 Budesonide 0.5 Mg/2 Ml Vial (Pulmicort) NEB 04/07/24 18:59 0.5 mg BIDR BRITNEY Administration Cyanocobalamin 1,000 mcg 03/09/24 09:00 03/11/24 08:27 Cyanocobalamin (B-12) 500 Mcg Tablet PO 04/08/24 08:59 1,000 mcg QAM BRITNEY Administration Dextromethorphan Polymer Complex 30 mg 03/08/24 16:05 03/09/24 05:47 Dextromethorphan Polymr Complx 30 Mg/5 Ml Udp PO 04/07/24 16:04 30 mg Q12H PRN Administration Cough Doxycycline Hyclate 100 mg 03/08/24 21:00 03/11/24 08:27 Doxycycline Hyclate 100 Mg Cap PO 03/15/24 20:59 100 mg BID BRITNEY Administration Heparin Sodium (Porcine) 5 ml 03/08/24 17:17 03/11/24 17:07 Heparin 100 Unit/Ml 5ml Flush FLUSH 04/07/24 17:16 5 ml PRN PRN Administration Flush Piperacillin Sod/Tazobactam Sod 4.5 gm in 100 mls @ 25 mls/hr 03/08/24 19:15 03/11/24 16:54 Zosyn IV 03/15/24 19:14 Infused Q8H BRITNEY Infusion Methylprednisolone 40 mg/ 0.64 mls @ 1.5 mls/min 03/09/24 09:00 03/11/24 17:07 Syringe IV 04/08/24 08:59 1.5 mls/min Q8H BRITNEY Administration Loperamide HCl 2 mg 03/10/24 15:02 03/10/24 15:22 Loperamide Hcl 2 Mg Cap PO 04/09/24 15:01 2 mg TID PRN Administration Diarrhea Melatonin 3 mg 03/08/24 16:05 03/09/24 21:34 Melatonin 3 Mg Tab PO 04/07/24 16:04 3 mg HS PRN Administration Sleep Pantoprazole Sodium 40 mg 03/09/24 09:00 03/11/24 08:26 Pantoprazole 40 Mg Tab PO 04/08/24 08:59 40 mg QAM BRITNEY Administration Vitamin D 50 mcg 03/09/24 09:00 03/11/24 08:27 Cholecalciferol 25 Mcg (1000 Units) Tab PO 04/08/24 08:59 50 mcg QAM BRITNEY Administration (1) Pneumonia Laterality: bilateral Lung location: lower lobe of lung Pneumonia type: due to unspecified organism Qualified Code(s): J18.9 - Pneumonia, unspecified organism (4) Metastatic disease Area of secondary neoplastic involvement: unspecified site Qualified Code(s): C79.9 - Secondary malignant neoplasm of unspecified site
[2024-03-12 04:56] LABS: Hematocrit (blood only) 40.4 % (42.0-52.0); Hemoglobin 13.9 g/dl (14.0-18.0); Mean Corpuscular Hgb Conc 34.4 g/dL (32.0-36.0); Mean Platelet Volume 9.9 fL (9.4-12.4); Nucleated RBC # (auto) 0.06 K/uL (0.00-0.12); Nucleated RBC % (auto) 0.3 %; Platelet Count 169 K/uL (130-400); RDW Coefficient of Variation 15.6 % (11.5-14.5); RDW Standard Deviation 54.4 fL (36.4-46.3); Red Blood Count 4.21 M/uL (4.70-6.10); White Blood Count 22.31 K/ul (4.8-10.8)
[2024-03-12 05:13] LABS: Albumin Globulin Ratio 1.1 (0.9-2); Albumin Level 3.8 gm/dl (3.4-5.0); BUN Creatinine Ratio 29.8 (10-20); Bilirubin,Total 1.5 mg/dl (0.2-1.0); Calcium 9.6 mg/dl (8.6-10.3); Creatinine Clr Calc Pharmacy 82.4 ml/min; Est GFR (African American) 92.2 ml/min; Est GFR (Non-African American) 79.6 ml/min; Globulin 3.6 gm/dl (2.5-4.0); Magnesium 2.3 mg/dl (1.7-2.4); Phosphorus 3.1 mg/dl (2.5-4.9); Potassium 4.1 mmol/L (3.5-5.1); Total Protein 7.4 gm/dl (6.0-8.3)
[2024-03-12 05:46] LABS: Basophils # (auto) 0.04 K/uL (0.00-0.20); Basophils % (auto) 0.2 %; Eosinophils # (auto) 0.01 K/uL (0.00-0.50); Immature Granulocytes # (auto) 0.33 K/uL (0.01-0.20); Immature Granulocytes % (auto) 1.5 %; Lymphocytes # (auto) 0.59 K/uL (1.20-3.40); Lymphocytes % (auto) 2.6 %; Monocytes # (auto) 1.09 K/uL (0.11-0.59); Monocytes % (auto) 4.9 %; Neutrophils # (auto) 20.25 K/uL (1.40-6.50); Neutrophils % (auto) 90.8 %; RBC Morphology Unremarkable
[2024-03-12] MEDS: guaiFENesin 600 MG TABCR PO SCH (07:38)
--- NOTE | 2024-03-12 07:39 | XRay Report ---
XR chest 1V portable HISTORY: 73 years-old Male f/u acute shortness of breath COMPARISON: 03/11/2024 at 6:50 AM, CTA chest 03/08/2024 TECHNIQUE: AP view of the chest FINDINGS: Cardiomediastinal and hilar silhouettes are within normal limits. Right IJ Yblmwe-[id number] catheter dis rosa tip noted within the expected location of the inferior SVC. Bilateral mixed interstitial and alve olar opacities appear generally stable. No pneumothorax or pleural effusion. IMPRESSION: 1. Stable appearance of the chest with unchanged extensive mixed interstitial and alveolar opacities. 2. No pneumothorax. ACT 112: Negative or not required by law. The above report was generated using voice recognition software. It may contain grammatical, syntax o r spelling errors. Electronically signed by: Bertrand Anderson M.D. 03/12/2024 7:37 AM
--- NOTE | 2024-03-12 07:55 | Pulmonology Progress Note ---
Date of Service March 12, 2024 Assessment & Plan (1) Acute and chronic respiratory failure: Respiratory failure complication: hypoxia Qualified Code(s): J 96.21 - Acute and chronic respiratory failure with hypoxia (2) Metastatic colon cancer to liver: (3) Pneumonia: Laterality: bilateral Lung location: lower lobe of lung P neumonia type: due to unspecified organism Qualified Code(s): J18.9 - Pneumonia, unspecified organism (4) Bronchiectasis: (5) UIP (usual interstitial pneumonitis): Plan CTA chest 03/08/2024 personally reviewed: Patchy groundglass opacities appreciated bilaterally upper and lower lobes Honeycombing appreciated bilaterally more pronounced in the right upper as well as right lower lobe Traction bronchiectasis Multiple pulmonary nodules bilaterally, largest being 11 mm left lower lobe There is mediastinal as well as hilar lymphadenopathy --Abnormal chest CT Multiple groundglass opacities appreciated bilaterally which are new compared to 11/2023 Respiratory bio fire was negative for everything on 03/08/2024 Procalcitonin 0.04, nasal MRSA negative BNP 94 Probability of being infectious etiology is high Noninfectious etiology includes acute flareup of UIP, unlikely. Diffuse alveolar hemorrhage, pulmonary edema -- UIP Following up with Dr. Zavala Unable to tolerate Ofev -- Metastatic colon cancer Completed FOLFOX 2 cycles 07/14/2019 Relapse October 2021 s/p FOLFIRI July 2022 5 FU was changed to leucovorin and Avastin Currently on 5 FU, leucovorin and bevacizumab Bevacizumab is usually not associated with pneumonitis. Patient is not on any other medication which I think could cause pneumonitis --DNI Plan: In/out: -1.5 L, urine output 3400 mL, -2.6 L since coming to the hospital Chest x-ray from today does not show any significant change compared to yesterday if any there is mild improvement Will give another 20 mg of Lasix today Continue with incentive spirometry Follow sputum culture along with PJP Mucinex-DM [id number] Continue with antibiotics along with atypical coverage Overall prognosis is guarded. Will see if you are able to titrate off the oxygen in the near future. Please note the above document was generated using voice recognition software. It may contain grammatical, syntax or spelling errors.Any formal questions or concerns about the content, text or information contained within the body of this dictation should be directly addressed to the provider for clarification. Admission and Anticipated Discharge Date Admission Date: March 08, 2024 Subjective Patient seen and examined at bedside. No acute distress, no adverse events overnight He was saturating 95-96% on 30 L, 70% FiO2. I went down to 60% FiO2. He was still maintaining his saturation 93% at the end of examination He stated he is feeling little bit better compared to yesterday. Has been coughing not bringing up any phlegm Denies any chest pain Did diurese well with Lasix Review of Systems 2 Review of Systems: All systems reviewed & are unremarkable except as noted in Subjective Physical Exam 2 Physical Exam: Constitutional: No acute distress HEENT: EOMI, PERRLA Respiratory system: Decreased air entry bilaterally, no wheeze, no rhonchi, positive Velcro-like crackles appreciated bilaterally more on the right side CVS: S1-S2 positive, no murmurs or gallops, right-sided Port-A-Cath Abdomen: Soft, nontender, nondistended, positive bowel sounds x4 Extremities: +2 pulses bilaterally radialis/ dorsalis pedis, no cyanosis, no edema Neuro: Awake alert oriented x3 Psych: Normal mood and affect G/U: No Hastings Skin: no rashes, warm and dry Lymphatic: no cervical or axillary lymphadenopathy Results & Data Results & Data Vital Signs (Past 12 Hours) Vital Signs Temp Pulse Pulse Resp BP Pulse Ox O2 Del Method 03/12/24 07:02 84 18 91 High Flow Nasal Cannula 03/12/24 03:04 36.3 C L 85 19 158/97 H 93 High Flow Nasal Cannula 03/12/24 02:38 86 18 91 High Flow Nasal Cannula 03/12/24 00:53 93 H 03/11/24 23:40 36.5 C 80 16 146/83 H 91 High Flow Nasal Cannula 03/11/24 22:29 92 H 20 91 High Flow Nasal Cannula 03/11/24 21:03 High Flow Nasal Cannula O2 Flow Rate FiO2 03/12/24 07:02 30 70 03/12/24 03:04 30 03/12/24 02:38 30 70 03/12/24 00:53 03/11/24 23:40 30 03/11/24 22:29 30 70 03/11/24 21:03 30 70 Laboratory Results 03/12/24 04:18 03/12/24 04:18 PG Care Time/CCT Total # of Minutes Spent Total Time Spent with Patient: Total time spent is greater than 50% in coordination of care (as documented) at patient's floor/unit and/or counseling patient: Coding Level of Care Code 99882 SUB INP/OBS CARE 3/50MIN Diagnoses Acute and chronic respiratory failure J96.21 Respiratory failure complication: hypoxia Metastatic colon cancer to liver C18.9; C78.7 Pneumonia J18.9 Laterality: bilateral Lung location: lower lobe of lung Pneumonia type: due to unspecified organism Bronchiectasis J47.9 UIP (usual interstitial pneumonitis) J84.112
[2024-03-12] MEDS: FUROSEMIDE INJ 20 MG/2 ML VIAL IV ONE (08:24)
--- NOTE | 2024-03-12 11:37 | Hospitalist Progress Note ---
Date of Service March 12, 2024 Assessment & Plan (1) Pneumonia: (2) Interstitial pulmonary disease, unspecified: (3) Metastatic colon cancer to liver: (4) Metastatic disease: (5) DAILEY (nonalcoholic steatohepatitis): (6) GERD (gastroesophageal reflux disease): Plan Mr Weaver is a 73-year-old male with stage IV lung cancer with metastasis to liver, lung, idiopathic pulmonary fibrosis, GERD, Poe's esophagus and other medical problems presents with history of worsening shortness of breath, cough with hemoptysis and increased supplemental oxygen requirement. Patient was seen by pcp prior to admissiondays and started on augmentin and azithromycin for possible developing pneumonia. Despite taking the antibiotic course, patient continued to havening cough, shortness of breath and has been using his rescue inhaler more frequently. Patient remains with high o2 requirement. Patient is on IV abx and IV methylpred q 8 Pulmonary following. Trial of lasix to attempt to ween O2 given mild bnp elevation as of 03/11. Overnight, patient able to reduce FiO2, but remains of HFNC 30L #Acute on chronic respiratory failure with hypoxia #Acute Pneumonia, failure of outpatient treatment #Suspected worsening of Interstitial pulmonary fibrosis vs flare Likely multifactorial: Worsening pulmonary metastatic disease, interstitial lung disease flare, multifocal pneumonia Hemoptysis Biofire negative Sputum cx NGTD Blood cx NGTD CT chest with acute findings of pneumonitis, stable nodule changes and chronic interstitial changes Continue Zosyn, Doxy Continue IV Solu-Medrol, [facility] Pulmonary hygiene Pulmonology consulted, appreciate recs Continue supplemental oxygen to maintain saturations IV lasix x 1 per pulm (s/p lasix 03/11) #Progressive metastatic colon cancer T3 N2 b, M0 stage IIIC at the time of diagnosis in 10/2018. Started current regimen 12/24/23 of 5-FU, leucovorin and bevacizumab every 2 weekly because disease progression was noted in the lungs. Last cycle was on 02/19/24, was due last Saturday(03/04/24) but missed due to ill sx as above. Follows with Dr. Vu Navarrete as outpatient Poor prognosis #Mild troponin elevation Likely demand ischemia secondary to above Denies any chest pain Monitor #Hyperglycemia Hgba1c normal Continue other home meds as ordered Diet: regular DVT Px: SCDs Re:Hemoptysis Dispo: PT/OT for further recs once medically stable Admission and Anticipated Discharge Date Admission Date: March 08, 2024 Subjective afebrile, leukocytosis iso q8 steroids Patient reports marginal subjective improvement and feeling hopeful given reduction in FiO2 No distress, but mild work noted in resp status Patient denies chest pain and reports that he is able to tolerate eating/drinking with lesser degree of coughing/irritation Physical Exam Constitutional: layin in bed, head up 30 degrees, appears fatigued, but respiratory effort much improved than yesterday, with less subjective effort per patient report Respiratory: diminished with crackles scattered Cardiovascular: tachycardic Results & Data Results & Data Vital Signs (Past 12 Hours) Vital Signs Temp Pulse Pulse Resp BP Pulse Ox O2 Del Method 03/12/24 08:05 36.6 C 88 22 145/87 H 94 High Flow Nasal Cannula 03/12/24 07:30 Room Air 03/12/24 07:02 84 18 91 High Flow Nasal Cannula 03/12/24 07:00 102 H 03/12/24 03:04 36.3 C L 85 19 158/97 H 93 High Flow Nasal Cannula 03/12/24 02:38 86 18 91 High Flow Nasal Cannula 03/12/24 00:53 93 H 03/11/24 23:40 36.5 C 80 16 146/83 H 91 High Flow Nasal Cannula O2 Flow Rate FiO2 03/12/24 08:05 30 70 03/12/24 07:30 30 70 03/12/24 07:02 30 70 03/12/24 07:00 03/12/24 03:04 30 03/12/24 02:38 30 70 03/12/24 00:53 03/11/24 23:40 30 Laboratory Results Short CBC 03/12/24 Range/Units 04:18 WBC 22.31 H (4.8-10.8) K/ul Hgb 13.9 L (14.0-18.0) g/dl Hct 40.4 L (42.0-52.0) % Plt Count 169 (130-400) K/uL BMP 03/12/24 04:18 Sodium 136 Potassium 4.1 Chloride 99 Carbon Dioxide 29 BUN 28 H Creatinine 0.94 Glucose 162 H Calcium 9.6 Liver Function 03/12/24 Range/Units 04:18 Total Bilirubin 1.5 H (0.2-1.0) mg/dl AST 31 (13-39) U/L ALT 34 (7-52) U/L Alkaline Phosphatase 110 H (34-104) U/L Albumin 3.8 (3.4-5.0) gm/dl Medications Administered Home Medications Medication Instructions Recorded Confirmed Last Taken cholecalciferol (vitamin D3) 50 2,000 unit PO QAM 10/24/18 03/08/24 07/10/23 mcg (2,000 unit) capsule (Vitamin D3) melatonin 3 mg tablet 3 mg PO HS PRN Sleep 10/24/18 03/08/24 04/01/23 pantoprazole 40 mg tablet,delayed 40 mg PO QAM 10/24/18 03/08/24 07/11/23 06:00 release (Protonix) ibuprofen 200 mg tablet 200 mg PO Q4H PRN osteoarthritits 01/08/19 03/08/24 03/27/23 nebulizers #1 ea 10/20/20 03/08/24 Unknown Oxygen Home #2 L 03/29/22 03/08/24 Unknown Portable Oxygen #1 ea 03/29/22 03/08/24 Unknown acetaminophen 500 mg tablet 500 mg PO Q6H PRN Pain 08/12/22 03/08/24 07/10/23 (Tylenol Extra Strength) acyclovir 400 mg tablet 400 mg PO BID PRN cold sore 08/12/22 03/08/24 08/12/22 08:00 outbreak amoxicillin 500 mg capsule 2,000 mg PO DIRECTED PRN PRIOR 08/12/22 03/08/24 Unknown TO DENTAL APPT. cyanocobalamin (vitamin B-12) 1,000 mcg PO QAM 08/12/22 03/08/24 07/10/23 1,000 mcg tablet (Vitamin B-12) hydrocortisone 2.5 % topical cream 1 applic topical DIRECTED PRN 08/12/22 03/08/24 Unknown Skin Irritation lactobacillus combination no.4 3 3,000 mmu cells PO QAM 07/03/23 03/08/24 07/10/23 billion cell capsule (Probiotic) amoxicillin 875 mg-potassium 1 tab PO BID 03/08/24 03/08/24 Unknown clavulanate 125 mg tablet azithromycin 250 mg tablet 250 mg PO DIRECTED 03/08/24 03/08/24 Unknown benzonatate 100 mg capsule 100 mg PO TID PRN Cough 03/08/24 03/08/24 Unknown bevacizumab-bvzr 25 mg/mL 0 mg IV Q14D 03/08/24 03/08/24 02/20/24 intravenous solution (Zirabev) budesonide 0.5 mg/2 mL suspension 0.5 mg irrigation BID 03/08/24 03/08/24 Unknown for nebulization fluorouracil 2.5 gram/50 mL 0 g IV Q14D 03/08/24 03/08/24 02/20/24 intravenous solution leucovorin calcium 10 mg/mL 0 mg IV Q14D 03/08/24 03/08/24 02/20/24 injection solution lorazepam 1 mg tablet 1 mg PO HS PRN Sleep 03/08/24 03/08/24 03/07/24 zinc acetate 50 mg (zinc) capsule 50 mg PO DAILY 03/08/24 03/08/24 Unknown Active Medications Generic Name Dose Route Start Last Admin Trade Name Freq PRN Reason Stop Dose Admin Acetaminophen 650 mg 03/08/24 16:05 03/12/24 02:25 Acetaminophen 325 Mg Tab PO 04/07/24 16:04 650 mg Q4H PRN Administration Pain or Fever Albuterol 3 ml 03/08/24 16:05 03/12/24 11:32 Albut/Ipratrop 3mg/0.5mg Neb 3 Ml Vial NEB 04/07/24 16:04 3 ml QIDR BRITNEY Administration Protocol Benzonatate 100 mg 03/08/24 16:05 03/12/24 02:25 Benzonatate 100 Mg Capsule PO 04/07/24 16:04 100 mg TID PRN Administration Cough Budesonide 0.5 mg 03/08/24 19:00 03/12/24 07:01 Budesonide 0.5 Mg/2 Ml Vial (Pulmicort) NEB 04/07/24 18:59 0.5 mg BIDR BRITNEY Administration Cyanocobalamin 1,000 mcg 03/09/24 09:00 03/12/24 07:39 Cyanocobalamin (B-12) 500 Mcg Tablet PO 04/08/24 08:59 1,000 mcg QAM BRITNEY Administration Dextromethorphan Polymer Complex 30 mg 03/08/24 16:05 03/11/24 19:37 Dextromethorphan Polymr Complx 30 Mg/5 Ml Udp PO 04/07/24 16:04 30 mg Q12H PRN Administration Cough Doxycycline Hyclate 100 mg 03/08/24 21:00 03/12/24 07:39 Doxycycline Hyclate 100 Mg Cap PO 03/15/24 20:59 100 mg BID BRITNEY Administration Guaifenesin 1,200 mg 03/12/24 09:00 03/12/24 07:38 Guaifenesin 600 Mg Tabcr PO 04/11/24 08:59 1,200 mg Q12 BRITNEY Administration Heparin Sodium (Porcine) 5 ml 03/08/24 17:17 03/11/24 17:07 Heparin 100 Unit/Ml 5ml Flush FLUSH 04/07/24 17:16 5 ml PRN PRN Administration Flush Piperacillin Sod/Tazobactam Sod 4.5 gm in 100 mls @ 25 mls/hr 03/08/24 19:15 03/12/24 11:09 Zosyn IV 03/15/24 19:14 25 mls/hr Q8H BRITNEY Administration Methylprednisolone 40 mg/ 0.64 mls @ 1.5 mls/min 03/09/24 09:00 03/12/24 07:38 Syringe IV 04/08/24 08:59 1.5 mls/min Q8H BRITNEY Administration Loperamide HCl 2 mg 03/10/24 15:02 03/10/24 15:22 Loperamide Hcl 2 Mg Cap PO 04/09/24 15:01 2 mg TID PRN Administration Diarrhea Melatonin 3 mg 03/08/24 16:05 03/11/24 20:29 Melatonin 3 Mg Tab PO 04/07/24 16:04 3 mg HS PRN Administration Sleep Pantoprazole Sodium 40 mg 03/09/24 09:00 03/12/24 07:40 Pantoprazole 40 Mg Tab PO 04/08/24 08:59 40 mg QAM BRITNEY Administration Vitamin D 50 mcg 03/09/24 09:00 03/12/24 07:39 Cholecalciferol 25 Mcg (1000 Units) Tab PO 04/08/24 08:59 50 mcg QAM BRITNEY Administration (1) Pneumonia Laterality: bilateral Lung location: lower lobe of lung Pneumonia type: due to unspecified organism Qualified Code(s): J18.9 - Pneumonia, unspecified organism (4) Metastatic disease Area of secondary neoplastic involvement: unspecified site Qualified Code(s): C79.9 - Secondary malignant neoplasm of unspecified site
--- NOTE | 2024-03-13 08:25 | Pulmonology Progress Note ---
Date of Service March 13, 2024 Assessment & Plan (1) Acute and chronic respiratory failure: Respiratory failure complication: hypoxia Qualified Code(s): J 96.21 - Acute and chronic respiratory failure with hypoxia (2) Metastatic colon cancer to liver: (3) Pneumonia: Laterality: bilateral Lung location: lower lobe of lung P neumonia type: due to unspecified organism Qualified Code(s): J18.9 - Pneumonia, unspecified organism (4) Bronchiectasis: (5) UIP (usual interstitial pneumonitis): Plan CTA chest 03/08/2024 personally reviewed: Patchy groundglass opacities appreciated bilaterally upper and lower lobes Honeycombing appreciated bilaterally more pronounced in the right upper as well as right lower lobe Traction bronchiectasis Multiple pulmonary nodules bilaterally, largest being 11 mm left lower lobe There is mediastinal as well as hilar lymphadenopathy --Abnormal chest CT Multiple groundglass opacities appreciated bilaterally which are new compared to 11/2023 Respiratory bio fire was negative for everything on 03/08/2024 Procalcitonin 0.04, nasal MRSA negative BNP 94 Probability of being infectious etiology is high Noninfectious etiology includes acute flareup of UIP, unlikely. Diffuse alveolar hemorrhage, pulmonary edema -- UIP Following up with Dr. Zavala Unable to tolerate Ofev -- Metastatic colon cancer Completed FOLFOX 2 cycles 07/14/2019 Relapse October 2021 s/p FOLFIRI July 2022 5 FU was changed to leucovorin and Avastin Currently on 5 FU, leucovorin and bevacizumab Bevacizumab is usually not associated with pneumonitis. Patient is not on any other medication which I think could cause pneumonitis --DNI Plan: In/out: -3.2 L, urine output 4250, -5.8 L since coming to the hospital Decrease Solu-Medrol to 40 mg twice a day Will hold any additional dose of Lasix right now. Will look at the chest x-ray tomorrow and then decide whether another dose of Lasix to be considered tomorrow Continue with incentive spirometry Follow sputum culture along with PJP Mucinex-DM [id number] Continue with antibiotics along with atypical coverage Case discussed with primary team Overall prognosis is guarded. Will see if you are able to titrate off the oxygen in the near future. Please note the above document was generated using voice recognition software. It may contain grammatical, syntax or spelling errors.Any formal questions or concerns about the content, text or information contained within the body of this dictation should be directly addressed to the provider for clarification. Admission and Anticipated Discharge Date Admission Date: March 08, 2024 Subjective Patient seen and examined at bedside. No acute distress, no adverse events overnight He was saturating 98% with heart rate of 93 on 30 L, 60% FiO2. I went down to 50%. He said he had good night sleep. He is feeling the bit better compared to yesterday. Still coughing up and bringing up clear phlegm. Denies any hemoptysis No nausea vomiting Review of Systems 2 Review of Systems: All systems reviewed & are unremarkable except as noted in Subjective Physical Exam 2 Physical Exam: Constitutional: No acute distress HEENT: EOMI, PERRLA Respiratory system: Decreased air entry bilaterally, no wheeze, no rhonchi, positive Velcro-like crackles appreciated bilaterally more on the right side CVS: S1-S2 positive, no murmurs or gallops, right-sided Port-A-Cath Abdomen: Soft, nontender, nondistended, positive bowel sounds x4 Extremities: +2 pulses bilaterally radialis/ dorsalis pedis, no cyanosis, no edema Neuro: Awake alert oriented x3 Psych: Normal mood and affect G/U: No Hastings Skin: no rashes, warm and dry Lymphatic: no cervical or axillary lymphadenopathy Results & Data Results & Data Vital Signs (Past 12 Hours) Vital Signs Temp Pulse Pulse Resp BP Pulse Ox O2 Del Method 03/13/24 07:26 81 20 91 High Flow Nasal Cannula 03/13/24 03:00 36.5 C 83 18 123/82 94 High Flow Nasal Cannula 03/13/24 02:31 86 18 94 High Flow Nasal Cannula 03/12/24 23:37 84 18 94 High Flow Nasal Cannula 03/12/24 23:37 High Flow Nasal Cannula 03/12/24 23:00 91 H O2 Flow Rate FiO2 03/13/24 07:26 30 60 03/13/24 03:00 03/13/24 02:31 30 60 03/12/24 23:37 30 60 03/12/24 23:37 30 60 03/12/24 23:00 Laboratory Results 03/12/24 04:18 03/12/24 04:18 PG Care Time/CCT Total # of Minutes Spent Total Time Spent with Patient: Total time spent is greater than 50% in coordination of care (as documented) at patient's floor/unit and/or counseling patient: Coding Level of Care Code 76536 SUB INP/OBS CARE 3/50MIN Diagnoses Acute and chronic respiratory failure J96.21 Respiratory failure complication: hypoxia Metastatic colon cancer to liver C18.9; C78.7 Pneumonia J18.9 Laterality: bilateral Lung location: lower lobe of lung Pneumonia type: due to unspecified organism Bronchiectasis J47.9 UIP (usual interstitial pneumonitis) J84.112
--- NOTE | 2024-03-13 13:31 | Hospitalist Progress Note ---
Date of Service March 13, 2024 Assessment & Plan (1) Pneumonia: (2) Interstitial pulmonary disease, unspecified: (3) Metastatic colon cancer to liver: (4) Metastatic disease: (5) DAILEY (nonalcoholic steatohepatitis): (6) GERD (gastroesophageal reflux disease): Plan Mr Weaver is a 73-year-old male with stage IV lung cancer with metastasis to liver, lung, idiopathic pulmonary fibrosis, GERD, Poe's esophagus and other medical problems presents with history of worsening shortness of breath, cough with hemoptysis and increased supplemental oxygen requirement. Patient was seen by pcp prior to admission days and started on augmentin and azithromycin for possible developing pneumonia. Despite taking the antibiotic course, patient continued to havening cough, shortness of breath and has been using his rescue inhaler more frequently. Patient remains with high o2 requirement. Patient is on IV abx. Methylpred decreased to q12. Patient still with notable o2 requirement, but slowly decreasing. #Acute on chronic respiratory failure with hypoxia #Acute Pneumonia, failure of outpatient treatment #Suspected worsening of Interstitial pulmonary fibrosis vs flare Likely multifactorial: Worsening pulmonary metastatic disease, interstitial lung disease flare, multifocal pneumonia Hemoptysis Biofire negative Sputum cx NGTD Blood cx NGTD CT chest with acute findings of pneumonitis, stable nodule changes and chronic interstitial changes Continue Zosyn, Doxy Continue IV Solu-Medrol, [facility] Pulmonary hygiene Pulmonology consulted, reviewed recommendations -awaiting final pjp and sputum culture Continue supplemental oxygen to maintain saturations Lasix prn #Progressive metastatic colon cancer T3 N2 b, M0 stage IIIC at the time of diagnosis in 10/2018. Started current regimen 12/24/23 of 5-FU, leucovorin and bevacizumab every 2 weekly because disease progression was noted in the lungs. Last cycle was on 02/19/24, was due last Saturday(03/04/24) but missed due to ill sx as above. Follows with Dr. Vu Navarrete as outpatient Poor prognosis #Mild troponin elevation Likely demand ischemia secondary to above Denies any chest pain Monitor #Hyperglycemia Hgba1c normal Continue other home meds as ordered Diet: regular DVT Px: SCDs Re:Hemoptysis Dispo: PT/OT for further recs once medically stable Admission and Anticipated Discharge Date Admission Date: March 08, 2024 Subjective Excited about slow improvement over slight reduction in O2 states he is feeling better than day prior Reports some dry throat but no other acute concerns Physical Exam Constitutional: WD/WN, vitals as above Respiratory: diminished with scattered crackles Cardiovascular: RRR, no murmur, no edema Results & Data Results & Data Vital Signs (Past 12 Hours) Vital Signs Temp Pulse Pulse Resp BP Pulse Ox O2 Del Method 03/13/24 11:54 36.8 C 79 20 131/79 92 High Flow Nasal Cannula 03/13/24 11:20 90 20 92 High Flow Nasal Cannula 03/13/24 08:45 High Flow Nasal Cannula 03/13/24 08:24 37.0 C 79 20 137/90 92 High Flow Nasal Cannula 03/13/24 07:26 81 20 91 High Flow Nasal Cannula 03/13/24 07:00 80 03/13/24 03:00 36.5 C 83 18 123/82 94 High Flow Nasal Cannula 03/13/24 02:31 86 18 94 High Flow Nasal Cannula O2 Flow Rate FiO2 03/13/24 11:54 03/13/24 11:20 30 50 03/13/24 08:45 30 60 03/13/24 08:24 03/13/24 07:26 30 60 03/13/24 07:00 03/13/24 03:00 03/13/24 02:31 30 60 Medications Administered Home Medications Medication Instructions Recorded Confirmed Last Taken cholecalciferol (vitamin D3) 50 2,000 unit PO QAM 10/24/18 03/08/24 07/10/23 mcg (2,000 unit) capsule (Vitamin D3) melatonin 3 mg tablet 3 mg PO HS PRN Sleep 10/24/18 03/08/24 04/01/23 pantoprazole 40 mg tablet,delayed 40 mg PO QAM 10/24/18 03/08/24 07/11/23 06:00 release (Protonix) ibuprofen 200 mg tablet 200 mg PO Q4H PRN osteoarthritits 01/08/19 03/08/24 03/27/23 nebulizers #1 ea 10/20/20 03/08/24 Unknown Oxygen Home #2 L 03/29/22 03/08/24 Unknown Portable Oxygen #1 ea 03/29/22 03/08/24 Unknown acetaminophen 500 mg tablet 500 mg PO Q6H PRN Pain 08/12/22 03/08/24 07/10/23 (Tylenol Extra Strength) acyclovir 400 mg tablet 400 mg PO BID PRN cold sore 08/12/22 03/08/24 08/12/22 08:00 outbreak amoxicillin 500 mg capsule 2,000 mg PO DIRECTED PRN PRIOR 08/12/22 03/08/24 Unknown TO DENTAL APPT. cyanocobalamin (vitamin B-12) 1,000 mcg PO QAM 08/12/22 03/08/24 07/10/23 1,000 mcg tablet (Vitamin B-12) hydrocortisone 2.5 % topical cream 1 applic topical DIRECTED PRN 08/12/22 03/08/24 Unknown Skin Irritation lactobacillus combination no.4 3 3,000 mmu cells PO QAM 07/03/23 03/08/24 07/10/23 billion cell capsule (Probiotic) amoxicillin 875 mg-potassium 1 tab PO BID 03/08/24 03/08/24 Unknown clavulanate 125 mg tablet azithromycin 250 mg tablet 250 mg PO DIRECTED 03/08/24 03/08/24 Unknown benzonatate 100 mg capsule 100 mg PO TID PRN Cough 03/08/24 03/08/24 Unknown bevacizumab-bvzr 25 mg/mL 0 mg IV Q14D 03/08/24 03/08/24 02/20/24 intravenous solution (Zirabev) budesonide 0.5 mg/2 mL suspension 0.5 mg irrigation BID 03/08/24 03/08/24 Unknown for nebulization fluorouracil 2.5 gram/50 mL 0 g IV Q14D 03/08/24 03/08/24 02/20/24 intravenous solution leucovorin calcium 10 mg/mL 0 mg IV Q14D 03/08/24 03/08/24 02/20/24 injection solution lorazepam 1 mg tablet 1 mg PO HS PRN Sleep 03/08/24 03/08/24 03/07/24 zinc acetate 50 mg (zinc) capsule 50 mg PO DAILY 03/08/24 03/08/24 Unknown Active Medications Generic Name Dose Route Start Last Admin Trade Name Freq PRN Reason Stop Dose Admin Acetaminophen 650 mg 03/08/24 16:05 03/12/24 21:37 Acetaminophen 325 Mg Tab PO 04/07/24 16:04 650 mg Q4H PRN Administration Pain or Fever Albuterol 3 ml 03/08/24 16:05 03/13/24 11:20 Albut/Ipratrop 3mg/0.5mg Neb 3 Ml Vial NEB 04/07/24 16:04 3 ml QIDR BRITNEY Administration Protocol Benzonatate 100 mg 03/08/24 16:05 03/12/24 02:25 Benzonatate 100 Mg Capsule PO 04/07/24 16:04 100 mg TID PRN Administration Cough Budesonide 0.5 mg 03/08/24 19:00 03/13/24 07:26 Budesonide 0.5 Mg/2 Ml Vial (Pulmicort) NEB 04/07/24 18:59 0.5 mg BIDR BRITNEY Administration Cyanocobalamin 1,000 mcg 03/09/24 09:00 03/13/24 07:30 Cyanocobalamin (B-12) 500 Mcg Tablet PO 04/08/24 08:59 1,000 mcg QAM BRITNEY Administration Dextromethorphan Polymer Complex 30 mg 03/08/24 16:05 03/12/24 21:37 Dextromethorphan Polymr Complx 30 Mg/5 Ml Udp PO 04/07/24 16:04 30 mg Q12H PRN Administration Cough Doxycycline Hyclate 100 mg 03/08/24 21:00 03/13/24 07:30 Doxycycline Hyclate 100 Mg Cap PO 03/15/24 20:59 100 mg BID BRITNEY Administration Guaifenesin 1,200 mg 03/12/24 09:00 03/13/24 07:30 Guaifenesin 600 Mg Tabcr PO 04/11/24 08:59 1,200 mg Q12 BRITNEY Administration Heparin Sodium (Porcine) 5 ml 03/08/24 17:17 03/11/24 17:07 Heparin 100 Unit/Ml 5ml Flush FLUSH 04/07/24 17:16 5 ml PRN PRN Administration Flush Piperacillin Sod/Tazobactam Sod 4.5 gm in 100 mls @ 25 mls/hr 03/08/24 19:15 03/13/24 10:57 Zosyn IV 03/15/24 19:14 25 mls/hr Q8H BRITNEY Administration Loperamide HCl 2 mg 03/10/24 15:02 03/10/24 15:22 Loperamide Hcl 2 Mg Cap PO 04/09/24 15:01 2 mg TID PRN Administration Diarrhea Melatonin 3 mg 03/08/24 16:05 03/11/24 20:29 Melatonin 3 Mg Tab PO 04/07/24 16:04 3 mg HS PRN Administration Sleep Pantoprazole Sodium 40 mg 03/09/24 09:00 03/13/24 07:31 Pantoprazole 40 Mg Tab PO 04/08/24 08:59 40 mg QAM BRITNEY Administration Vitamin D 50 mcg 03/09/24 09:00 03/13/24 07:31 Cholecalciferol 25 Mcg (1000 Units) Tab PO 04/08/24 08:59 50 mcg QAM BRITNEY Administration (1) Pneumonia Laterality: bilateral Lung location: lower lobe of lung Pneumonia type: due to unspecified organism Qualified Code(s): J18.9 - Pneumonia, unspecified organism (4) Metastatic disease Area of secondary neoplastic involvement: unspecified site Qualified Code(s): C79.9 - Secondary malignant neoplasm of unspecified site
[2024-03-13] MEDS: methylPREDNISolone 40 MG in SYRINGE 0 ML IV SCH (21:15)
--- NOTE | 2024-03-14 08:02 | Pulmonology Progress Note ---
Date of Service March 14, 2024 Assessment & Plan (1) Acute and chronic respiratory failure: Respiratory failure complication: hypoxia Qualified Code(s): J 96.21 - Acute and chronic respiratory failure with hypoxia (2) Metastatic colon cancer to liver: (3) Pneumonia: Laterality: bilateral Lung location: lower lobe of lung P neumonia type: due to unspecified organism Qualified Code(s): J18.9 - Pneumonia, unspecified organism (4) Bronchiectasis: (5) UIP (usual interstitial pneumonitis): Plan CTA chest 03/08/2024 personally reviewed: Patchy groundglass opacities appreciated bilaterally upper and lower lobes Honeycombing appreciated bilaterally more pronounced in the right upper as well as right lower lobe Traction bronchiectasis Multiple pulmonary nodules bilaterally, largest being 11 mm left lower lobe There is mediastinal as well as hilar lymphadenopathy --Abnormal chest CT Multiple groundglass opacities appreciated bilaterally which are new compared to 11/2023 Respiratory bio fire was negative for everything on 03/08/2024 Procalcitonin 0.04, nasal MRSA negative BNP 94 Probability of being infectious etiology is high Noninfectious etiology includes acute flareup of UIP, unlikely. Diffuse alveolar hemorrhage, pulmonary edema -- UIP Following up with Dr. Zavala Unable to tolerate Ofev -- Metastatic colon cancer Completed FOLFOX 2 cycles 07/14/2019 Relapse October 2021 s/p FOLFIRI July 2022 5 FU was changed to leucovorin and Avastin Currently on 5 FU, leucovorin and bevacizumab Bevacizumab is usually not associated with pneumonitis. Patient is not on any other medication which I think could cause pneumonitis --DNI Plan: In/out: -245, urine output 1300, -6 L since coming to the hospital Chest x-ray from today shows mild improvement compared to before. Decrease Solu-Medrol to 40 mg daily as of tomorrow Continue with incentive spirometry Follow sputum culture along with PJP Mucinex-DM [id number] Continue with antibiotics along with atypical coverage Case discussed with primary team Overall prognosis is guarded. Will see if you are able to titrate off the oxygen in the near future. Please note the above document was generated using voice recognition software. It may contain grammatical, syntax or spelling errors.Any formal questions or concerns about the content, text or information contained within the body of this dictation should be directly addressed to the provider for clarification. Admission and Anticipated Discharge Date Admission Date: March 08, 2024 Subjective Patient seen and examined at bedside. No acute distress, however since overnight He was saturating 97% on 9 L oxygen. I went down to 7 L He stated overall he is feeling better. Coughing with clear phlegm Denies any chest congestion Appetite is fair No chest pain Review of Systems 2 Review of Systems: All systems reviewed & are unremarkable except as noted in Subjective Physical Exam 2 Physical Exam: Constitutional: No acute distress HEENT: EOMI, PERRLA Respiratory system: Decreased air entry bilaterally, no wheeze, no rhonchi, positive Velcro-like crackles appreciated bilaterally more on the right side CVS: S1-S2 positive, no murmurs or gallops, right-sided Port-A-Cath Abdomen: Soft, nontender, nondistended, positive bowel sounds x4 Extremities: +2 pulses bilaterally radialis/ dorsalis pedis, no cyanosis, no edema Neuro: Awake alert oriented x3 Psych: Normal mood and affect G/U: No [place] Skin: no rashes, warm and dry Lymphatic: no cervical or axillary lymphadenopathy Results & Data Results & Data Vital Signs (Past 12 Hours) Vital Signs Temp Pulse Pulse Resp BP Pulse Ox O2 Del Method 03/14/24 07:47 36.6 C 80 24 131/81 94 Nasal Cannula 03/14/24 07:25 68 20 96 Nasal Cannula 03/14/24 04:05 36.7 C 93 H 18 150/90 H 93 Room Air 03/13/24 23:33 36.8 C 86 18 135/87 95 High Flow Nasal Cannula 03/13/24 22:43 High Flow Nasal Cannula 03/13/24 21:56 83 03/13/24 20:03 36.3 C L 82 18 123/82 96 High Flow Nasal Cannula O2 Flow Rate 03/14/24 07:47 15 03/14/24 07:25 10 03/14/24 04:05 03/13/24 23:33 10 03/13/24 22:43 10 03/13/24 21:56 03/13/24 20:03 10 Laboratory Results 03/12/24 04:18 03/12/24 04:18 PG Care Time/CCT Total # of Minutes Spent Total Time Spent with Patient: Total time spent is greater than 50% in coordination of care (as documented) at patient's floor/unit and/or counseling patient: Coding Level of Care Code 29907 SUB INP/OBS CARE MIN Diagnoses Acute and chronic respiratory failure J96.21 Respiratory failure complication: hypoxia Metastatic colon cancer to liver C18.9; C78.7 Pneumonia J18.9 Laterality: bilateral Lung location: lower lobe of lung Pneumonia type: due to unspecified organism Bronchiectasis J47.9 UIP (usual interstitial pneumonitis) J84.112
[2024-03-14 08:15] LABS: Hematocrit (blood only) 42.2 % (42.0-52.0); Hemoglobin 14.9 g/dl (14.0-18.0); Mean Corpuscular Hgb Conc 35.3 g/dL (32.0-36.0); Mean Corpuscular Volume 93.6 fL (80.0-100.0); Mean Platelet Volume 10.3 fL (9.4-12.4); Platelet Count 167 K/uL (130-400); RDW Coefficient of Variation 15.8 % (11.5-14.5); RDW Standard Deviation 53.2 fL (36.4-46.3); Red Blood Count 4.51 M/uL (4.70-6.10); White Blood Count 22.45 K/ul (4.8-10.8)
[2024-03-14 08:31] LABS: Albumin Globulin Ratio 1.1 (0.9-2); Albumin Level 3.7 gm/dl (3.4-5.0); BUN Creatinine Ratio 36.6 (10-20); Bilirubin,Total 1.4 mg/dl (0.2-1.0); Calcium 9.1 mg/dl (8.6-10.3); Creatinine Clr Calc Pharmacy 83.3 ml/min; Est GFR (African American) 93.4 ml/min; Est GFR (Non-African American) 80.6 ml/min; Globulin 3.3 gm/dl (2.5-4.0); Magnesium 2.4 mg/dl (1.7-2.4); Phosphorus 3.7 mg/dl (2.5-4.9); Potassium 4.4 mmol/L (3.5-5.1)
--- NOTE | 2024-03-14 10:07 | Hospitalist Progress Note ---
Date of Service March 14, 2024 Assessment & Plan (1) Pneumonia: (2) Interstitial pulmonary disease, unspecified: (3) Metastatic colon cancer to liver: (4) Metastatic disease: (5) DAILEY (nonalcoholic steatohepatitis): (6) GERD (gastroesophageal reflux disease): Plan Mr Weaver is a 73-year-old male with stage IV lung cancer with metastasis to liver, lung, idiopathic pulmonary fibrosis, GERD, Poe's esophagus and other medical problems presents with history of worsening shortness of breath, cough with hemoptysis and increased supplemental oxygen requirement. Patient was seen by pcp prior to admission days and started on augmentin and azithromycin for possible developing pneumonia. Despite taking the antibiotic course, patient continued to havening cough, shortness of breath and has been using his rescue inhaler more frequently. Patient remains with high o2 requirement, but now off of HFNC. Patient is on IV abx. Methylpred to decrease tomorrow to 40mg daily IV. #Acute on chronic respiratory failure with hypoxia #Acute Pneumonia, failure of outpatient treatment #Suspected worsening of Interstitial pulmonary fibrosis vs flare Likely multifactorial: Worsening pulmonary metastatic disease, interstitial lung disease flare, multifocal pneumonia Hemoptysis Biofire negative Sputum cx NGTD Blood cx NGTD CT chest with acute findings of pneumonitis, stable nodule changes and chronic interstitial changes Continue Zosyn, Doxy Continue IV Solu-Medrol, [facility] Pulmonary hygiene Pulmonology consulted, reviewed recommendations -awaiting final pjp -sputum culture NGTD -Solumedrol to daily starting tomorrow Continue supplemental oxygen to maintain saturations Lasix prn #Progressive metastatic colon cancer T3 N2 b, M0 stage IIIC at the time of diagnosis in 10/2018. Started current regimen 12/24/23 of 5-FU, leucovorin and bevacizumab every 2 weekly because disease progression was noted in the lungs. Last cycle was on 02/19/24, was due last Saturday(03/04/24) but missed due to ill sx as above. Follows with Dr. Vu Navarrete as outpatient Poor prognosis #Mild troponin elevation Likely demand ischemia secondary to above Denies any chest pain Monitor #Hyperglycemia Hgba1c normal Continue other home meds as ordered Diet: regular DVT Px: SCDs Re:Hemoptysis Dispo: PT/OT for further recs once medically stable Admission and Anticipated Discharge Date Admission Date: March 08, 2024 Subjective Patient excited to be on NC this morning and off of HFNC Patient states he is feeling better, a little more each day States cough is improving Denies any other acute concerns, understands this is slow process 10LNC this am on exam Physical Exam Constitutional: WD/WN, vitals as above no distress, more relaxed breating compared to days prior Respiratory: normal respiratory effort, lungs clear to auscultation Cardiovascular: remains diminished, no audible crackles Results & Data Results & Data Vital Signs (Past 12 Hours) Vital Signs Temp Pulse Resp BP Pulse Ox O2 Del Method O2 Flow Rate 03/14/24 07:47 36.6 C 80 24 131/81 94 Nasal Cannula 15 03/14/24 07:25 68 20 96 Nasal Cannula 10 03/14/24 04:05 36.7 C 93 H 18 150/90 H 93 Room Air 03/13/24 23:33 36.8 C 86 18 135/87 95 High Flow Nasal Cannula 10 03/13/24 22:43 High Flow Nasal Cannula 10 Laboratory Results Short CBC 03/14/24 Range/Units 07:23 WBC 22.45 H (4.8-10.8) K/ul Hgb 14.9 (14.0-18.0) g/dl Hct 42.2 (42.0-52.0) % Plt Count 167 (130-400) K/uL BMP 03/14/24 07:23 Sodium 134 L Potassium 4.4 Chloride 98 Carbon Dioxide 29 BUN 34 H Creatinine 0.93 Glucose 145 H Calcium 9.1 Liver Function 03/14/24 Range/Units 07:23 Total Bilirubin 1.4 H (0.2-1.0) mg/dl AST 34 (13-39) U/L ALT 46 (7-52) U/L Alkaline Phosphatase 90 (34-104) U/L Albumin 3.7 (3.4-5.0) gm/dl Medications Administered Home Medications Medication Instructions Recorded Confirmed Last Taken cholecalciferol (vitamin D3) 50 2,000 unit PO QAM 10/24/18 03/08/24 07/10/23 mcg (2,000 unit) capsule (Vitamin D3) melatonin 3 mg tablet 3 mg PO HS PRN Sleep 10/24/18 03/08/24 04/01/23 pantoprazole 40 mg tablet,delayed 40 mg PO QAM 10/24/18 03/08/24 07/11/23 06:00 release (Protonix) ibuprofen 200 mg tablet 200 mg PO Q4H PRN osteoarthritits 01/08/19 03/08/24 03/27/23 nebulizers #1 ea 10/20/20 03/08/24 Unknown Oxygen Home #2 L 03/29/22 03/08/24 Unknown Portable Oxygen #1 ea 03/29/22 03/08/24 Unknown acetaminophen 500 mg tablet 500 mg PO Q6H PRN Pain 08/12/22 03/08/24 07/10/23 (Tylenol Extra Strength) acyclovir 400 mg tablet 400 mg PO BID PRN cold sore 08/12/22 03/08/24 08/12/22 08:00 outbreak amoxicillin 500 mg capsule 2,000 mg PO DIRECTED PRN PRIOR 08/12/22 03/08/24 Unknown TO DENTAL APPT. cyanocobalamin (vitamin B-12) 1,000 mcg PO QAM 08/12/22 03/08/24 07/10/23 1,000 mcg tablet (Vitamin B-12) hydrocortisone 2.5 % topical cream 1 applic topical DIRECTED PRN 08/12/22 03/08/24 Unknown Skin Irritation lactobacillus combination no.4 3 3,000 mmu cells PO QAM 07/03/23 03/08/24 07/10/23 billion cell capsule (Probiotic) amoxicillin 875 mg-potassium 1 tab PO BID 03/08/24 03/08/24 Unknown clavulanate 125 mg tablet azithromycin 250 mg tablet 250 mg PO DIRECTED 03/08/24 03/08/24 Unknown benzonatate 100 mg capsule 100 mg PO TID PRN Cough 03/08/24 03/08/24 Unknown bevacizumab-bvzr 25 mg/mL 0 mg IV Q14D 03/08/24 03/08/24 02/20/24 intravenous solution (Zirabev) budesonide 0.5 mg/2 mL suspension 0.5 mg irrigation BID 03/08/24 03/08/24 Unknown for nebulization fluorouracil 2.5 gram/50 mL 0 g IV Q14D 03/08/24 03/08/24 02/20/24 intravenous solution leucovorin calcium 10 mg/mL 0 mg IV Q14D 03/08/24 03/08/24 02/20/24 injection solution lorazepam 1 mg tablet 1 mg PO HS PRN Sleep 03/08/24 03/08/24 03/07/24 zinc acetate 50 mg (zinc) capsule 50 mg PO DAILY 03/08/24 03/08/24 Unknown Active Medications Generic Name Dose Route Start Last Admin Trade Name Freq PRN Reason Stop Dose Admin Acetaminophen 650 mg 03/08/24 16:05 03/14/24 04:46 Acetaminophen 325 Mg Tab PO 04/07/24 16:04 650 mg Q4H PRN Administration Pain or Fever Albuterol 3 ml 03/08/24 16:05 03/14/24 07:25 Albut/Ipratrop 3mg/0.5mg Neb 3 Ml Vial NEB 04/07/24 16:04 3 ml QIDR BRITNEY Administration Protocol Benzonatate 100 mg 03/08/24 16:05 03/13/24 17:41 Benzonatate 100 Mg Capsule PO 04/07/24 16:04 100 mg TID PRN Administration Cough Budesonide 0.5 mg 03/08/24 19:00 03/14/24 07:25 Budesonide 0.5 Mg/2 Ml Vial (Pulmicort) NEB 04/07/24 18:59 0.5 mg BIDR BRITNEY Administration Cyanocobalamin 1,000 mcg 03/09/24 09:00 03/14/24 07:33 Cyanocobalamin (B-12) 500 Mcg Tablet PO 04/08/24 08:59 1,000 mcg QAM BRITNEY Administration Dextromethorphan Polymer Complex 30 mg 03/08/24 16:05 03/12/24 21:37 Dextromethorphan Polymr Complx 30 Mg/5 Ml Udp PO 04/07/24 16:04 30 mg Q12H PRN Administration Cough Doxycycline Hyclate 100 mg 03/08/24 21:00 03/14/24 07:33 Doxycycline Hyclate 100 Mg Cap PO 03/15/24 20:59 100 mg BID BRITNEY Administration Guaifenesin 1,200 mg 03/12/24 09:00 03/14/24 07:33 Guaifenesin 600 Mg Tabcr PO 04/11/24 08:59 1,200 mg Q12 BRITNEY Administration Heparin Sodium (Porcine) 5 ml 03/08/24 17:17 03/13/24 15:06 Heparin 100 Unit/Ml 5ml Flush FLUSH 04/07/24 17:16 5 ml PRN PRN Administration Flush Piperacillin Sod/Tazobactam Sod 4.5 gm in 100 mls @ 25 mls/hr 03/08/24 19:15 03/14/24 07:28 Zosyn IV 03/15/24 19:14 Infused Q8H BRITNEY Infusion Methylprednisolone 40 mg/ 0.64 mls @ 1.5 mls/min 03/13/24 21:00 03/14/24 07:33 Syringe IV 03/14/24 21:00 1.5 mls/min Q12 BRITNEY Administration Loperamide HCl 2 mg 03/10/24 15:02 03/10/24 15:22 Loperamide Hcl 2 Mg Cap PO 04/09/24 15:01 2 mg TID PRN Administration Diarrhea Melatonin 3 mg 03/08/24 16:05 03/11/24 20:29 Melatonin 3 Mg Tab PO 04/07/24 16:04 3 mg HS PRN Administration Sleep Pantoprazole Sodium 40 mg 03/09/24 09:00 03/14/24 07:33 Pantoprazole 40 Mg Tab PO 04/08/24 08:59 40 mg QAM BRITNEY Administration Vitamin D 50 mcg 03/09/24 09:00 03/14/24 07:33 Cholecalciferol 25 Mcg (1000 Units) Tab PO 04/08/24 08:59 50 mcg QAM BRITNEY Administration (1) Pneumonia Laterality: bilateral Lung location: lower lobe of lung Pneumonia type: due to unspecified organism Qualified Code(s): J18.9 - Pneumonia, unspecified organism (4) Metastatic disease Area of secondary neoplastic involvement: unspecified site Qualified Code(s): C79.9 - Secondary malignant neoplasm of unspecified site
--- NOTE | 2024-03-14 10:37 | XRay Report ---
XR chest 1V portable CLINICAL HISTORY: f/u TECHNIQUE: Single frontal radiograph of the chest was obtained. Comparison: Comparison is made to chest radiograph 03/12/2024 FINDINGS: A port catheter is seen. The cardiomediastinal silhouette is normal. Extensive interstitial and alveo lar opacities are seen. No evidence of pleural effusion or pneumothorax. IMPRESSION: Stable interstitial and alveolar opacities. ACT 112: Negative or not required by law. Electronically signed by: Nagi Haney M.D. 03/14/2024 10:35 AM
[2024-03-14 23:07] LABS: Pneumocystis jirovecii PCRQual NOT DETECTED; Pneumocystis jirovecii Source SPUTUM
[2024-03-15 06:43] LABS: Hematocrit (blood only) 43.1 % (42.0-52.0); Hemoglobin 15.3 g/dl (14.0-18.0); Mean Corpuscular Hgb Conc 35.5 g/dL (32.0-36.0); Mean Corpuscular Volume 93.1 fL (80.0-100.0); Mean Platelet Volume 10.6 fL (9.4-12.4); Platelet Count 149 K/uL (130-400); RDW Coefficient of Variation 15.5 % (11.5-14.5); RDW Standard Deviation 52.4 fL (36.4-46.3); Red Blood Count 4.63 M/uL (4.70-6.10); White Blood Count 20.24 K/ul (4.8-10.8)
[2024-03-15 07:05] LABS: BUN Creatinine Ratio 31.8 (10-20); Calcium 9.3 mg/dl (8.6-10.3); Est GFR (African American) 98.1 ml/min; Est GFR (Non-African American) 84.6 ml/min; Magnesium 2.4 mg/dl (1.7-2.4); Phosphorus 3.5 mg/dl (2.5-4.9); Potassium 4.4 mmol/L (3.5-5.1)
--- NOTE | 2024-03-15 07:54 | Pulmonology Progress Note ---
Date of Service March 15, 2024 Assessment & Plan (1) Acute and chronic respiratory failure: Respiratory failure complication: hypoxia Qualified Code(s): J 96.21 - Acute and chronic respiratory failure with hypoxia (2) Metastatic colon cancer to liver: (3) Pneumonia: Laterality: bilateral Lung location: lower lobe of lung P neumonia type: due to unspecified organism Qualified Code(s): J18.9 - Pneumonia, unspecified organism (4) Bronchiectasis: (5) UIP (usual interstitial pneumonitis): Plan CTA chest 03/08/2024 personally reviewed: Patchy groundglass opacities appreciated bilaterally upper and lower lobes Honeycombing appreciated bilaterally more pronounced in the right upper as well as right lower lobe Traction bronchiectasis Multiple pulmonary nodules bilaterally, largest being 11 mm left lower lobe There is mediastinal as well as hilar lymphadenopathy --Abnormal chest CT Multiple groundglass opacities appreciated bilaterally which are new compared to 11/2023 Respiratory bio fire was negative for everything on 03/08/2024 Procalcitonin 0.04, nasal MRSA negative BNP 94 Probability of being infectious etiology is high Noninfectious etiology includes acute flareup of UIP, unlikely. Diffuse alveolar hemorrhage, pulmonary edema Sputum PJP negative -- UIP Following up with Dr. Zavala Unable to tolerate Ofev -- Metastatic colon cancer Completed FOLFOX 2 cycles 07/14/2019 Relapse October 2021 s/p FOLFIRI July 2022 5 FU was changed to leucovorin and Avastin Currently on 5 FU, leucovorin and bevacizumab Bevacizumab is usually not associated with pneumonitis. Patient is not on any other medication which I think could cause pneumonitis --DNI Plan: In/out: -1820, urine output 3600, -8 L since coming to the hospital Starting tomorrow would recommend to transition to prednisone 40 mg and taper it off gradually over the next 10-14 days Continue with incentive spirometry Sputum PJP negative Mucinex-DM [id number] Continue with antibiotics along with atypical coverage Case discussed with primary team No further recommendation from pulmonary perspective, will sign off Please call directly with any questions Please note the above document was generated using voice recognition software. It may contain grammatical, syntax or spelling errors.Any formal questions or concerns about the content, text or information contained within the body of this dictation should be directly addressed to the provider for clarification. Admission and Anticipated Discharge Date Admission Date: March 08, 2024 Subjective Patient seen and examined at bedside. No acute distress, no adverse events overnight He was saturating 96% on 7 L nasal cannula, I went down to 5 L Overall he says he is feeling better. He made good amount of urine yesterday. Appetite is fair, occasional cough. Does get some blood-tinged phlegm occasionally. No nausea vomiting Review of Systems 2 Review of Systems: All systems reviewed & are unremarkable except as noted in Subjective Physical Exam 2 Physical Exam: Constitutional: No acute distress HEENT: EOMI, PERRLA Respiratory system: Decreased air entry bilaterally, no wheeze, no rhonchi, positive Velcro-like crackles appreciated bilaterally more on the right side CVS: S1-S2 positive, no murmurs or gallops, right-sided Port-A-Cath Abdomen: Soft, nontender, nondistended, positive bowel sounds x4 Extremities: +2 pulses bilaterally radialis/ dorsalis pedis, no cyanosis, no edema Neuro: Awake alert oriented x3 Psych: Normal mood and affect G/U: No [place] Skin: no rashes, warm and dry Lymphatic: no cervical or axillary lymphadenopathy Results & Data Results & Data Vital Signs (Past 12 Hours) Vital Signs Temp Pulse Pulse Resp BP Pulse Ox O2 Del Method 03/15/24 07:04 71 18 97 Nasal Cannula 03/15/24 07:00 75 03/15/24 03:06 36.5 C 74 20 127/78 94 High Flow Nasal Cannula 03/14/24 23:18 High Flow Nasal Cannula 03/14/24 22:33 36.5 C 79 20 121/77 93 High Flow Nasal Cannula 03/14/24 22:02 90 O2 Flow Rate 03/15/24 07:04 7 03/15/24 07:00 03/15/24 03:06 7 03/14/24 23:18 10 03/14/24 22:33 7 03/14/24 22:02 Laboratory Results 03/15/24 05:57 03/15/24 05:57 PG Care Time/CCT Total # of Minutes Spent Total Time Spent with Patient: Total time spent is greater than 50% in coordination of care (as documented) at patient's floor/unit and/or counseling patient: Coding Level of Care Code 42544 SUB INP/OBS CARE 2/35MIN Diagnoses Acute and chronic respiratory failure J96.21 Respiratory failure complication: hypoxia Metastatic colon cancer to liver C18.9; C78.7 Pneumonia J18.9 Laterality: bilateral Lung location: lower lobe of lung Pneumonia type: due to unspecified organism Bronchiectasis J47.9 UIP (usual interstitial pneumonitis) J84.112
[2024-03-15] MEDS: methylPREDNISolone 40 MG in SYRINGE 0 ML IV SCH (08:23)
--- NOTE | 2024-03-15 10:42 | Hospitalist Progress Note ---
Date of Service March 15, 2024 Assessment & Plan (1) Pneumonia: (2) Interstitial pulmonary disease, unspecified: (3) Metastatic colon cancer to liver: (4) Metastatic disease: (5) DAILEY (nonalcoholic steatohepatitis): (6) GERD (gastroesophageal reflux disease): Plan Mr Weaver is a 73-year-old male with stage IV lung cancer with metastasis to liver, lung, idiopathic pulmonary fibrosis, GERD, Poe's esophagus and other medical problems presents with history of worsening shortness of breath, cough with hemoptysis and increased supplemental oxygen requirement. Patient was seen by pcp prior to admission days and started on augmentin and azithromycin for possible developing pneumonia. Despite taking the antibiotic course, patient continued to havening cough, shortness of breath and has been using his rescue inhaler more frequently. Patient remains with high o2 requirement, but now off of HFNC. Patient is on IV abx. Patient on methylpred daily. Oxygen requirements are slowly decreasing. Patient encouraged to mobilize as tolerated. #Acute on chronic respiratory failure with hypoxia #Acute Pneumonia, failure of outpatient treatment #Suspected worsening of Interstitial pulmonary fibrosis vs flare Likely multifactorial: Worsening pulmonary metastatic disease, interstitial lung disease flare, multifocal pneumonia Hemoptysis Biofire negative Sputum cx NGTD Blood cx NGTD CT chest with acute findings of pneumonitis, stable nodule changes and chronic interstitial changes Continue Zosyn, Doxy Completed 7 days so far of abx, will allow course to continue and follow fever curve/oxygenation there after Continue nebs Pulmonary hygiene Pulmonology consulted, reviewed recommendations -PJP negative -sputum culture NGTD -Solumedrol daily Continue supplemental oxygen to maintain saturations Lasix prn #Progressive metastatic colon cancer T3 N2 b, M0 stage IIIC at the time of diagnosis in 10/2018. Started current regimen 12/24/23 of 5-FU, leucovorin and bevacizumab every 2 w eekly because disease progression was noted in the lungs. Last cycle was on 02/19/24, was due last Saturday(03/04/24) but missed due to ill sx as above. Follows with Dr. Vu Navarrete as outpatient Poor prognosis #Mild troponin elevation Likely demand ischemia secondary to above Denies any chest pain Monitor #Hyperglycemia Hgba1c normal Continue other home meds as ordered Diet: regular DVT Px: SCDs Re:Hemoptysis Dispo: PT/OT for further recs once medically stable Admission and Anticipated Discharge Date Admission Date: March 08, 2024 Subjective Patient continues to report improvement and notes increased ability to mobilize a bit more to bedside chair. Still with cough though less frequent than prior Physical Exam Constitutional: WD/WN, vitals as above Respiratory: diminished, 7L NC, no distress Cardiovascular: RRR, no murmur, no edema Results & Data Results & Data Vital Signs (Past 12 Hours) Vital Signs Temp Pulse Pulse Pulse Resp BP Pulse Ox 03/15/24 08:37 36.6 C 75 20 124/80 93 03/15/24 07:04 71 18 97 03/15/24 07:00 75 03/15/24 03:06 36.5 C 74 20 127/78 94 03/14/24 23:18 O2 Del Method O2 Flow Rate 03/15/24 08:37 Nasal Cannula 7 03/15/24 07:04 Nasal Cannula 7 03/15/24 07:00 03/15/24 03:06 High Flow Nasal Cannula 7 03/14/24 23:18 High Flow Nasal Cannula 10 Laboratory Results Short CBC 03/15/24 Range/Units 05:57 WBC 20.24 H (4.8-10.8) K/ul Hgb 15.3 (14.0-18.0) g/dl Hct 43.1 (42.0-52.0) % Plt Count 149 (130-400) K/uL BMP 03/15/24 05:57 Sodium 135 L Potassium 4.4 Chloride 97 L Carbon Dioxide 32 BUN 28 H Creatinine 0.88 Glucose 138 H Calcium 9.3 Medications Administered Home Medications Medication Instructions Recorded Confirmed Last Taken cholecalciferol (vitamin D3) 50 2,000 unit PO QAM 10/24/18 03/08/24 07/10/23 mcg (2,000 unit) capsule (Vitamin D3) melatonin 3 mg tablet 3 mg PO HS PRN Sleep 10/24/18 03/08/24 04/01/23 pantoprazole 40 mg tablet,delayed 40 mg PO QAM 10/24/18 03/08/24 07/11/23 06:00 release (Protonix) ibuprofen 200 mg tablet 200 mg PO Q4H PRN osteoarthritits 01/08/19 03/08/24 03/27/23 nebulizers #1 ea 10/20/20 03/08/24 Unknown Oxygen Home #2 L 03/29/22 03/08/24 Unknown Portable Oxygen #1 ea 03/29/22 03/08/24 Unknown acetaminophen 500 mg tablet 500 mg PO Q6H PRN Pain 08/12/22 03/08/24 07/10/23 (Tylenol Extra Strength) acyclovir 400 mg tablet 400 mg PO BID PRN cold sore 08/12/22 03/08/24 08/12/22 08:00 outbreak amoxicillin 500 mg capsule 2,000 mg PO DIRECTED PRN PRIOR 08/12/22 03/08/24 Unknown TO DENTAL APPT. cyanocobalamin (vitamin B-12) 1,000 mcg PO QAM 08/12/22 03/08/24 07/10/23 1,000 mcg tablet (Vitamin B-12) hydrocortisone 2.5 % topical cream 1 applic topical DIRECTED PRN 08/12/22 03/08/24 Unknown Skin Irritation lactobacillus combination no.4 3 3,000 mmu cells PO QAM 07/03/23 03/08/24 07/10/23 billion cell capsule (Probiotic) amoxicillin 875 mg-potassium 1 tab PO BID 03/08/24 03/08/24 Unknown clavulanate 125 mg tablet azithromycin 250 mg tablet 250 mg PO DIRECTED 03/08/24 03/08/24 Unknown benzonatate 100 mg capsule 100 mg PO TID PRN Cough 03/08/24 03/08/24 Unknown bevacizumab-bvzr 25 mg/mL 0 mg IV Q14D 03/08/24 03/08/24 02/20/24 intravenous solution (Zirabev) budesonide 0.5 mg/2 mL suspension 0.5 mg irrigation BID 03/08/24 03/08/24 Unknown for nebulization fluorouracil 2.5 gram/50 mL 0 g IV Q14D 03/08/24 03/08/24 02/20/24 intravenous solution leucovorin calcium 10 mg/mL 0 mg IV Q14D 03/08/24 03/08/24 02/20/24 injection solution lorazepam 1 mg tablet 1 mg PO HS PRN Sleep 03/08/24 03/08/24 03/07/24 zinc acetate 50 mg (zinc) capsule 50 mg PO DAILY 03/08/24 03/08/24 Unknown Active Medications Generic Name Dose Route Start Last Admin Trade Name Freq PRN Reason Stop Dose Admin Acetaminophen 650 mg 03/08/24 16:05 03/14/24 20:38 Acetaminophen 325 Mg Tab PO 04/07/24 16:04 650 mg Q4H PRN Administration Pain or Fever Albuterol 3 ml 03/08/24 16:05 03/15/24 07:03 Albut/Ipratrop 3mg/0.5mg Neb 3 Ml Vial NEB 04/07/24 16:04 3 ml QIDR BRITNEY Administration Protocol Benzonatate 100 mg 03/08/24 16:05 03/14/24 20:38 Benzonatate 100 Mg Capsule PO 04/07/24 16:04 100 mg TID PRN Administration Cough Budesonide 0.5 mg 03/08/24 19:00 03/15/24 07:03 Budesonide 0.5 Mg/2 Ml Vial (Pulmicort) NEB 04/07/24 18:59 0.5 mg BIDR BRITNEY Administration Cyanocobalamin 1,000 mcg 03/09/24 09:00 03/15/24 08:23 Cyanocobalamin (B-12) 500 Mcg Tablet PO 04/08/24 08:59 1,000 mcg QAM BRITNEY Administration Dextromethorphan Polymer Complex 30 mg 03/08/24 16:05 03/14/24 14:54 Dextromethorphan Polymr Complx 30 Mg/5 Ml Udp PO 04/07/24 16:04 30 mg Q12H PRN Administration Cough Doxycycline Hyclate 100 mg 03/08/24 21:00 03/15/24 08:23 Doxycycline Hyclate 100 Mg Cap PO 03/15/24 20:59 100 mg BID BRITNEY Administration Guaifenesin 1,200 mg 03/12/24 09:00 03/15/24 08:23 Guaifenesin 600 Mg Tabcr PO 04/11/24 08:59 1,200 mg Q12 BRITNEY Administration Heparin Sodium (Porcine) 5 ml 03/08/24 17:17 03/13/24 15:06 Heparin 100 Unit/Ml 5ml Flush FLUSH 04/07/24 17:16 5 ml PRN PRN Administration Flush Piperacillin Sod/Tazobactam Sod 4.5 gm in 100 mls @ 25 mls/hr 03/08/24 19:15 03/15/24 08:24 Zosyn IV 03/15/24 19:14 Infused Q8H BRITNEY Infusion Methylprednisolone 40 mg/ 0.64 mls @ 1.5 mls/min 03/15/24 09:00 03/15/24 08:23 Syringe IV 04/14/24 08:59 1.5 mls/min DAILY BRITNEY Administration Loperamide HCl 2 mg 03/10/24 15:02 03/10/24 15:22 Loperamide Hcl 2 Mg Cap PO 04/09/24 15:01 2 mg TID PRN Administration Diarrhea Melatonin 3 mg 03/08/24 16:05 03/11/24 20:29 Melatonin 3 Mg Tab PO 04/07/24 16:04 3 mg HS PRN Administration Sleep Pantoprazole Sodium 40 mg 03/09/24 09:00 03/15/24 08:23 Pantoprazole 40 Mg Tab PO 04/08/24 08:59 40 mg QAM BRITNEY Administration Vitamin D 50 mcg 03/09/24 09:00 03/15/24 08:23 Cholecalciferol 25 Mcg (1000 Units) Tab PO 04/08/24 08:59 50 mcg QAM BRITNEY Administration (1) Pneumonia Laterality: bilateral Lung location: lower lobe of lung Pneumonia type: due to unspecified organism Qualified Code(s): J18.9 - Pneumonia, unspecified organism (4) Metastatic disease Area of secondary neoplastic involvement: unspecified site Qualified Code(s): C79.9 - Secondary malignant neoplasm of unspecified site
[2024-03-16 04:42] LABS: Hematocrit (blood only) 45.7 % (42.0-52.0); Hemoglobin 15.7 g/dl (14.0-18.0); Mean Corpuscular Hemoglobin 33.1 pg (25.0-34.0); Mean Corpuscular Hgb Conc 34.4 g/dL (32.0-36.0); Mean Corpuscular Volume 96.4 fL (80.0-100.0); Mean Platelet Volume 10.4 fL (9.4-12.4); Platelet Count 147 K/uL (130-400); RDW Coefficient of Variation 15.5 % (11.5-14.5); RDW Standard Deviation 54.7 fL (36.4-46.3); Red Blood Count 4.74 M/uL (4.70-6.10); White Blood Count 19.87 K/ul (4.8-10.8)
[2024-03-16 04:47] LABS: BUN Creatinine Ratio 28.2 (10-20); Calcium 9.1 mg/dl (8.6-10.3); Creatinine Clr Calc Pharmacy 75.2 ml/min; Est GFR (African American) 82.6 ml/min; Est GFR (Non-African American) 71.2 ml/min; Magnesium 2.3 mg/dl (1.7-2.4); Phosphorus 3.2 mg/dl (2.5-4.9); Potassium 4.4 mmol/L (3.5-5.1)
--- NOTE | 2024-03-16 12:16 | Hospitalist Progress Note ---
Date of Service March 16, 2024 Assessment & Plan (1) Pneumonia: (2) Interstitial pulmonary disease, unspecified: (3) Metastatic colon cancer to liver: (4) Metastatic disease: (5) DAILEY (nonalcoholic steatohepatitis): (6) GERD (gastroesophageal reflux disease): Plan Mr Weaver is a 73-year-old male with stage IV lung cancer with metastasis to liver, lung, idiopathic pulmonary fibrosis, GERD, Poe's esophagus and other medical problems presents with history of worsening shortness of breath, cough with hemoptysis and increased supplemental oxygen requirement. Patient was seen by pcp prior to admission days and started on augmentin and azithromycin for possible developing pneumonia. Despite taking the antibiotic course, patient continued to havening cough, shortness of breath and has been using his rescue inhaler more frequently. Patient remains with high o2 requirement, but now off of HFNC. Patient is on IV abx. Patient on methylpred daily. Oxygen requirements are slowly decreasing. Patient encouraged to mobilize as tolerated. #Acute on chronic respiratory failure with hypoxia 2L O2 baseline #Acute Pneumonia, failure of outpatient treatment #Suspected worsening of Interstitial pulmonary fibrosis vs flare Likely multifactorial: Worsening pulmonary metastatic disease, interstitial lung disease flare, multifocal pneumonia Hemoptysis Biofire negative Sputum cx NGTD Blood cx NGTD CT chest with acute findings of pneumonitis, stable nodule changes and chronic interstitial changes Completed Zosyn, Doxy Completed 7 days so far of abx, will allow course to continue and follow fever curve/oxygenation there after Continue nebs Pulmonary hygiene Pulmonology consulted, reviewed recommendations -PJP negative -sputum culture NGTD -Transition to PO prednisone 40mg daily x4 days, then 20 x 4 days, then 10 x4 days Continue supplemental oxygen to maintain saturations Lasix prn #Progressive metastatic colon cancer T3 N2 b, M0 stage IIIC at the time of diagnosis in 10/2018. Started current regimen 12/24/23 of 5-FU, leucovorin and bevacizumab every 2 weekly because disease progression was noted in the lungs. Last cycle was on 02/19/24, was due last Saturday(03/04/24) but missed due to ill sx as above. Follows with Dr. Vu Navarrete as outpatient Poor prognosis #Mild troponin elevation Likely demand ischemia secondary to above Denies any chest pain Monitor #Hyperglycemia Hgba1c normal Continue other home meds as ordered Diet: regular DVT Px: SCDs Re:Hemoptysis Dispo: PT/OT for further recs once medically stable Admission and Anticipated Discharge Date Admission Date: March 08, 2024 Subjective NAEO No distress cough intermittently but otherwise states he feels improved slightly again. 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 Cardiovascular: RRR, no murmur, no edema Results & Data Results & Data Vital Signs (Past 12 Hours) Vital Signs Temp Pulse Pulse Resp BP BP Pulse Ox 03/16/24 12:11 36.5 C 82 20 124/79 97 03/16/24 10:36 74 18 90 03/16/24 08:52 03/16/24 07:33 77 17 91 03/16/24 07:27 36.5 C 80 18 122/76 91 03/16/24 05:45 72 03/16/24 03:49 36.3 C L 85 16 122/78 95 O2 Del Method O2 Flow Rate 03/16/24 12:11 High Flow Nasal Cannula 6 03/16/24 10:36 Nasal Cannula 7 03/16/24 08:52 High Flow Nasal Cannula 7 03/16/24 07:33 Nasal Cannula 7 03/16/24 07:27 High Flow Nasal Cannula 7 03/16/24 05:45 03/16/24 03:49 High Flow Nasal Cannula 7 Laboratory Results Short CBC 03/16/24 Range/Units 04:06 WBC 19.87 H (4.8-10.8) K/ul Hgb 15.7 (14.0-18.0) g/dl Hct 45.7 (42.0-52.0) % Plt Count 147 (130-400) K/uL BMP 03/16/24 04:06 Sodium 134 L Potassium 4.4 Chloride 96 L Carbon Dioxide 34 H BUN 29 H Creatinine 1.03 Glucose 117 H Calcium 9.1 Medications Administered Home Medications Medication Instructions Recorded Confirmed Last Taken cholecalciferol (vitamin D3) 50 2,000 unit PO QAM 10/24/18 03/08/24 07/10/23 mcg (2,000 unit) capsule (Vitamin D3) melatonin 3 mg tablet 3 mg PO HS PRN Sleep 10/24/18 03/08/24 04/01/23 pantoprazole 40 mg tablet,delayed 40 mg PO QAM 10/24/18 03/08/24 07/11/23 06:00 release (Protonix) ibuprofen 200 mg tablet 200 mg PO Q4H PRN osteoarthritits 01/08/19 03/08/24 03/27/23 nebulizers #1 ea 10/20/20 03/08/24 Unknown Oxygen Home #2 L 03/29/22 03/08/24 Unknown Portable Oxygen #1 ea 03/29/22 03/08/24 Unknown acetaminophen 500 mg tablet 500 mg PO Q6H PRN Pain 08/12/22 03/08/24 07/10/23 (Tylenol Extra Strength) acyclovir 400 mg tablet 400 mg PO BID PRN cold sore 08/12/22 03/08/24 08/12/22 08:00 outbreak amoxicillin 500 mg capsule 2,000 mg PO DIRECTED PRN PRIOR 08/12/22 03/08/24 Unknown TO DENTAL APPT. cyanocobalamin (vitamin B-12) 1,000 mcg PO QAM 08/12/22 03/08/24 07/10/23 1,000 mcg tablet (Vitamin B-12) hydrocortisone 2.5 % topical cream 1 applic topical DIRECTED PRN 08/12/22 03/08/24 Unknown Skin Irritation lactobacillus combination no.4 3 3,000 mmu cells PO QAM 07/03/23 03/08/24 07/10/23 billion cell capsule (Probiotic) amoxicillin 875 mg-potassium 1 tab PO BID 03/08/24 03/08/24 Unknown clavulanate 125 mg tablet azithromycin 250 mg tablet 250 mg PO DIRECTED 03/08/24 03/08/24 Unknown benzonatate 100 mg capsule 100 mg PO TID PRN Cough 03/08/24 03/08/24 Unknown bevacizumab-bvzr 25 mg/mL 0 mg IV Q14D 03/08/24 03/08/24 02/20/24 intravenous solution (Zirabev) budesonide 0.5 mg/2 mL suspension 0.5 mg irrigation BID 03/08/24 03/08/24 Unknown for nebulization fluorouracil 2.5 gram/50 mL 0 g IV Q14D 03/08/24 03/08/24 02/20/24 intravenous solution leucovorin calcium 10 mg/mL 0 mg IV Q14D 03/08/24 03/08/24 02/20/24 injection solution lorazepam 1 mg tablet 1 mg PO HS PRN Sleep 03/08/24 03/08/24 03/07/24 zinc acetate 50 mg (zinc) capsule 50 mg PO DAILY 03/08/24 03/08/24 Unknown Active Medications Generic Name Dose Route Start Last Admin Trade Name Freq PRN Reason Stop Dose Admin Acetaminophen 650 mg 03/08/24 16:05 03/15/24 20:01 Acetaminophen 325 Mg Tab PO 04/07/24 16:04 650 mg Q4H PRN Administration Pain or Fever Albuterol 3 ml 03/08/24 16:05 03/16/24 10:35 Albut/Ipratrop 3mg/0.5mg Neb 3 Ml Vial NEB 04/07/24 16:04 3 ml QIDR BRITNEY Administration Protocol Benzonatate 100 mg 03/08/24 16:05 03/15/24 20:01 Benzonatate 100 Mg Capsule PO 04/07/24 16:04 100 mg TID PRN Administration Cough Budesonide 0.5 mg 03/08/24 19:00 03/16/24 07:33 Budesonide 0.5 Mg/2 Ml Vial (Pulmicort) NEB 04/07/24 18:59 0.5 mg BIDR BRITNEY Administration Cyanocobalamin 1,000 mcg 03/09/24 09:00 03/16/24 08:21 Cyanocobalamin (B-12) 500 Mcg Tablet PO 04/08/24 08:59 1,000 mcg QAM BRITNEY Administration Dextromethorphan Polymer Complex 30 mg 03/08/24 16:05 03/14/24 14:54 Dextromethorphan Polymr Complx 30 Mg/5 Ml Udp PO 04/07/24 16:04 30 mg Q12H PRN Administration Cough Guaifenesin 1,200 mg 03/12/24 09:00 03/16/24 08:21 Guaifenesin 600 Mg Tabcr PO 04/11/24 08:59 1,200 mg Q12 BRITNEY Administration Heparin Sodium (Porcine) 5 ml 03/08/24 17:17 03/16/24 08:24 Heparin 100 Unit/Ml 5ml Flush FLUSH 04/07/24 17:16 5 ml PRN PRN Administration Flush Methylprednisolone 40 mg/ 0.64 mls @ 1.5 mls/min 03/15/24 09:00 03/16/24 08:25 Syringe IV 04/14/24 08:59 1.5 mls/min DAILY BRITNEY Administration Loperamide HCl 2 mg 03/10/24 15:02 03/10/24 15:22 Loperamide Hcl 2 Mg Cap PO 04/09/24 15:01 2 mg TID PRN Administration Diarrhea Melatonin 3 mg 03/08/24 16:05 03/11/24 20:29 Melatonin 3 Mg Tab PO 04/07/24 16:04 3 mg HS PRN Administration Sleep Pantoprazole Sodium 40 mg 03/09/24 09:00 03/16/24 08:21 Pantoprazole 40 Mg Tab PO 04/08/24 08:59 40 mg QAM BRITNEY Administration Vitamin D 50 mcg 03/09/24 09:00 03/16/24 08:21 Cholecalciferol 25 Mcg (1000 Units) Tab PO 04/08/24 08:59 50 mcg QAM BRITNEY Administration (1) Pneumonia Laterality: bilateral Lung location: lower lobe of lung Pneumonia type: due to unspecified organism Qualified Code(s): J18.9 - Pneumonia, unspecified organism (4) Metastatic disease Area of secondary neoplastic involvement: unspecified site Qualified Code(s): C79.9 - Secondary malignant neoplasm of unspecified site
[2024-03-17 05:00] LABS: Hematocrit (blood only) 43.5 % (42.0-52.0); Hemoglobin 15.3 g/dl (14.0-18.0); Mean Corpuscular Hgb Conc 35.2 g/dL (32.0-36.0); Mean Platelet Volume 10.6 fL (9.4-12.4); Platelet Count 148 K/uL (130-400); RDW Coefficient of Variation 15.4 % (11.5-14.5); RDW Standard Deviation 52.8 fL (36.4-46.3); Red Blood Count 4.63 M/uL (4.70-6.10); White Blood Count 17.16 K/ul (4.8-10.8)
[2024-03-17 05:15] LABS: BUN Creatinine Ratio 37.3 (10-20); Calcium 9.1 mg/dl (8.6-10.3); Creatinine Clr Calc Pharmacy 103.3 ml/min; Est GFR (African American) 104.7 ml/min; Est GFR (Non-African American) 90.4 ml/min; Potassium 4.3 mmol/L (3.5-5.1)
[2024-03-17] MEDS: predniSONE 20 MG TAB PO SCH (08:03)
--- NOTE | 2024-03-17 12:29 | Hospitalist Progress Note ---
Date of Service March 17, 2024 Assessment & Plan (1) Pneumonia: (2) Interstitial pulmonary disease, unspecified: (3) Metastatic colon cancer to liver: (4) Metastatic disease: (5) DAILEY (nonalcoholic steatohepatitis): (6) GERD (gastroesophageal reflux disease): Plan Mr Weaver is a 73-year-old male with stage IV lung cancer with metastasis to liver, lung, idiopathic pulmonary fibrosis, GERD, Poe's esophagus and other medical problems presents with history of worsening shortness of breath, cough with hemoptysis and increased supplemental oxygen requirement. Patient was seen by pcp prior to admission days and started on augmentin and azithromycin for possible developing pneumonia. Despite taking the antibiotic course, patient continued to havening cough, shortness of breath and has been using his rescue inhaler more frequently. Patient remains with high o2 requirement, but now off of HFNC. Patient is on IV abx. Patient on methylpred daily. Oxygen requirements are slowly decreasing. Patient encouraged to mobilize as tolerated. Patient attempted to ambulate in [place], but noted significant drop in O2 therefore further PT was discontinued. Patient states he feels ok, but endorses some nasal congestion, reports flonase historically has helped #Nasal congestion Saline not helping, start flonase #Acute on chronic respiratory failure with hypoxia 2L O2 baseline #Acute Pneumonia, failure of outpatient treatment #Suspected worsening of Interstitial pulmonary fibrosis vs flare Likely multifactorial: Worsening pulmonary metastatic disease, interstitial lung disease flare, multifocal pneumonia Hemoptysis Biofire negative Sputum cx NGTD Blood cx NGTD CT chest with acute findings of pneumonitis, stable nodule changes and chronic interstitial changes Completed Zosyn, Doxy Completed 7 days so far of abx, will allow course to continue and follow fever curve/oxygenation there after Continue [facility] Pulmonary hygiene Pulmonology consulted, reviewed recommendations -PJP negative -sputum culture NGTD -Transition to PO prednisone 40mg daily x4 days, then 20 x 4 days, then 10 x4 days Continue supplemental oxygen to maintain saturations Lasix prn, 20mg IV today #Progressive metastatic colon cancer T3 N2 b, M0 stage IIIC at the time of diagnosis in 10/2018. Started current regimen 12/24/23 of 5-FU, leucovorin and bevacizumab every 2 weekly because disease progression was noted in the lungs. Last cycle was on 02/19/24, was due last Saturday(03/04/24) but missed due to ill sx as above. Follows with Dr. Vu Navarrete as outpatient Poor prognosis #Mild troponin elevation Likely demand ischemia secondary to above Denies any chest pain Monitor #Hyperglycemia Hgba1c normal Continue other home meds as ordered Diet: regular DVT Px: SCDs Re:Hemoptysis Dispo: PT/OT for further recs once medically stable Admission and Anticipated Discharge Date Admission Date: March 08, 2024 Subjective Attempted to walk with PT in hallway, but desaturated promptly Sitting in bedside chair and reports some nasal congestion but otherwise hopeful he will continue to improve. Denies any chest pain or other acute concerns Reports reduced frequency of cough Physical Exam Constitutional: WD/WN, vitals as above Respiratory: diminished, 6L on exam, no crackles Gastrointestinal (Abdomen): normal bowel sounds, soft, nontender, no hepatosplenomegaly Results & Data Results & Data Vital Signs (Past 12 Hours) Vital Signs Temp Pulse Pulse Pulse Resp BP BP 03/17/24 11:26 03/17/24 11:19 92 H 22 129/81 03/17/24 11:08 82 20 03/17/24 07:50 36.5 C 81 22 122/76 03/17/24 07:28 77 20 03/17/24 05:53 74 03/17/24 03:55 36.6 C 89 20 149/87 H Pulse Ox O2 Del Method O2 Flow Rate 03/17/24 11:26 High Flow Nasal Cannula 7 03/17/24 11:19 90 Nasal Cannula 90 03/17/24 11:08 90 Nasal Cannula 9 03/17/24 07:50 97 Nasal Cannula 6 03/17/24 07:28 94 Nasal Cannula 7 03/17/24 05:53 03/17/24 03:55 91 Room Air Laboratory Results Short CBC 03/17/24 Range/Units 04:23 WBC 17.16 H (4.8-10.8) K/ul Hgb 15.3 (14.0-18.0) g/dl Hct 43.5 (42.0-52.0) % Plt Count 148 (130-400) K/uL BMP 03/17/24 04:23 Sodium 133 L Potassium 4.3 Chloride 98 Carbon Dioxide 29 BUN 28 H Creatinine 0.75 Glucose 134 H Calcium 9.1 Medications Administered Home Medications Medication Instructions Recorded Confirmed Last Taken cholecalciferol (vitamin D3) 50 2,000 unit PO QAM 10/24/18 03/08/24 07/10/23 mcg (2,000 unit) capsule (Vitamin D3) melatonin 3 mg tablet 3 mg PO HS PRN Sleep 10/24/18 03/08/24 04/01/23 pantoprazole 40 mg tablet,delayed 40 mg PO QAM 10/24/18 03/08/24 07/11/23 06:00 release (Protonix) ibuprofen 200 mg tablet 200 mg PO Q4H PRN osteoarthritits 01/08/19 03/08/24 03/27/23 nebulizers #1 ea 10/20/20 03/08/24 Unknown Oxygen Home #2 L 03/29/22 03/08/24 Unknown Portable Oxygen #1 ea 03/29/22 03/08/24 Unknown acetaminophen 500 mg tablet 500 mg PO Q6H PRN Pain 08/12/22 03/08/24 07/10/23 (Tylenol Extra Strength) acyclovir 400 mg tablet 400 mg PO BID PRN cold sore 08/12/22 03/08/24 08/12/22 08:00 outbreak amoxicillin 500 mg capsule 2,000 mg PO DIRECTED PRN PRIOR 08/12/22 03/08/24 Unknown TO DENTAL APPT. cyanocobalamin (vitamin B-12) 1,000 mcg PO QAM 08/12/22 03/08/24 07/10/23 1,000 mcg tablet (Vitamin B-12) hydrocortisone 2.5 % topical cream 1 applic topical DIRECTED PRN 08/12/22 0 03/08/24 Unknown Skin Irritation lactobacillus combination no.4 3 3,000 mmu cells PO QAM 07/03/23 03/08/24 07/10/23 billion cell capsule (Probiotic) amoxicillin 875 mg-potassium 1 tab PO BID 03/08/24 03/08/24 Unknown clavulanate 125 mg tablet azithromycin 250 mg tablet 250 mg PO DIRECTED 03/08/24 03/08/24 Unknown benzonatate 100 mg capsule 100 mg PO TID PRN Cough 03/08/24 03/08/24 Unknown bevacizumab-bvzr 25 mg/mL 0 mg IV Q14D 03/08/24 03/08/24 02/20/24 intravenous solution (Zirabev) budesonide 0.5 mg/2 mL suspension 0.5 mg irrigation BID 03/08/24 03/08/24 Unk nown for nebulization fluorouracil 2.5 gram/50 mL 0 g IV Q14D 03/08/24 03/08/24 02/20/24 intravenous solution leucovorin calcium 10 mg/mL 0 mg IV Q14D 03/08/24 03/08/24 02/20/24 injection solution lorazepam 1 mg tablet 1 mg PO HS PRN Sleep 03/08/24 03/08/24 03/07/24 zinc acetate 50 mg (zinc) capsule 50 mg PO DAILY 03/08/24 03/08/24 Unknown Active Medications Generic Name Dose Route Start Last Admin Trade Name Freq PRN Reason Stop Dose Admin Acetaminophen 650 mg 03/08/24 16:05 03/16/24 23:05 Acetaminophen 325 Mg Tab PO 04/07/24 16:04 650 mg Q4H PRN Administration Pain or Fever Albuterol 3 ml 03/08/24 16:05 03/17/24 11:05 Albut/Ipratrop 3mg/0.5mg Neb 3 Ml Vial NEB 04/07/24 16:04 3 ml QIDR BRITNEY Administration Protocol Benzonatate 100 mg 03/08/24 16:05 03/15/24 20:01 Benzonatate 100 Mg Capsule PO 04/07/24 16:04 100 mg TID PRN Administration Cough Budesonide 0.5 mg 03/08/24 19:00 03/17/24 07:14 Budesonide 0.5 Mg/2 Ml Vial (Pulmicort) NEB 04/07/24 18:59 0.5 mg BIDR BRITNEY Administration Cyanocobalamin 1,000 mcg 03/09/24 09:00 03/17/24 08:03 Cyanocobalamin (B-12) 500 Mcg Tablet PO 04/08/24 08:59 1,000 mcg QAM BRITNEY Administration Dextromethorphan Polymer Complex 30 mg 03/08/24 16:05 03/14/24 14:54 Dextromethorphan Polymr Complx 30 Mg/5 Ml Udp PO 04/07/24 16:04 30 mg Q12H PRN Administration Cough Guaifenesin 1,200 mg 03/12/24 09:00 03/17/24 08:03 Guaifenesin 600 Mg Tabcr PO 04/11/24 08:59 1,200 mg Q12 BRITNEY Administration Heparin Sodium (Porcine) 5 ml 03/08/24 17:17 03/17/24 08:03 Heparin 100 Unit/Ml 5ml Flush FLUSH 04/07/24 17:16 5 ml PRN PRN Administration Flush Loperamide HCl 2 mg 03/10/24 15:02 03/10/24 15:22 Loperamide Hcl 2 Mg Cap PO 04/09/24 15:01 2 mg TID PRN Administration Diarrhea Melatonin 3 mg 03/08/24 16:05 03/11/24 20:29 Melatonin 3 Mg Tab PO 04/07/24 16:04 3 mg HS PRN Administration Sleep Pantoprazole Sodium 40 mg 03/09/24 09:00 03/17/24 08:03 Pantoprazole 40 Mg Tab PO 04/08/24 08:59 40 mg QAM BRITNEY Administration Prednisone 40 mg 03/17/24 09:00 03/17/24 08:03 Prednisone 20 Mg Tab PO 04/16/24 08:59 40 mg DAILY BRITNEY Administration Vitamin D 50 mcg 03/09/24 09:00 03/17/24 08:03 Cholecalciferol 25 Mcg (1000 Units) Tab PO 04/08/24 08:59 50 mcg QAM BRITNEY Administration (1) Pneumonia Laterality: bilateral Lung location: lower lobe of lung Pneumonia type: due to unspecified organism Qualified Code(s): J18.9 - Pneumonia, unspecified organism (4) Metastatic disease Area of secondary neoplastic involvement: unspecified site Qualified Code(s): C79.9 - Secondary malignant neoplasm of unspecified site
[2024-03-17] MEDS: FLUTICASONE PROPIONATE NA SPR 16 GM BTL SCH (13:45)
[2024-03-17] MEDS: FUROSEMIDE INJ 20 MG/2 ML VIAL IV ONE (13:45)
[2024-03-18 06:42] LABS: Hematocrit (blood only) 45.2 % (42.0-52.0); Hemoglobin 16.2 g/dl (14.0-18.0); Mean Corpuscular Hemoglobin 33.4 pg (25.0-34.0); Mean Corpuscular Hgb Conc 35.8 g/dL (32.0-36.0); Mean Corpuscular Volume 93.2 fL (80.0-100.0); Mean Platelet Volume 10.6 fL (9.4-12.4); Platelet Count 170 K/uL (130-400); RDW Coefficient of Variation 15.1 % (11.5-14.5); RDW Standard Deviation 52.2 fL (36.4-46.3); Red Blood Count 4.85 M/uL (4.70-6.10); White Blood Count 19.17 K/ul (4.8-10.8)
[2024-03-18 07:00] LABS: BUN Creatinine Ratio 28.7 (10-20); Calcium 9.2 mg/dl (8.6-10.3); Est GFR (African American) 98.5 ml/min; Magnesium 2.3 mg/dl (1.7-2.4); Phosphorus 2.7 mg/dl (2.5-4.9); Potassium 4.2 mmol/L (3.5-5.1)
--- NOTE | 2024-03-18 17:00 | Hospitalist Progress Note ---
Date of Service March 18, 2024 Assessment & Plan (1) Pneumonia: (2) Interstitial pulmonary disease, unspecified: (3) Metastatic colon cancer to liver: (4) Metastatic disease: (5) DAILEY (nonalcoholic steatohepatitis): (6) GERD (gastroesophageal reflux disease): Plan per previous hospitalist notes with addendum: Mr Weaver is a 73-year-old male with stage IV lung cancer with metastasis to liver, lung, idiopathic pulmonary fibrosis, GERD, Poe's esophagus and other medical problems presents with history of worsening shortness of breath, cough with hemoptysis and increased supplemental oxygen requirement. Patient was seen by pcp prior to admission days and started on augmentin and azithromycin for possible developing pneumonia. Despite taking the antibiotic course, patient continued to havening cough, shortness of breath and has been using his rescue inhaler more frequently. Patient remains with high o2 requirement, but now off of HFNC. Patient is on IV abx. Patient on methylpred daily. Oxygen requirements are slowly decreasing. Patient encouraged to mobilize as tolerated. Patient attempted to ambulate in [place], but noted significant drop in O2 therefore further PT was discontinued. Patient states he feels ok, but endorses some nasal congestion, reports flonase historically has helped #Nasal congestion Saline not helping, start flonase #Acute on chronic respiratory failure with hypoxia 2L O2 baseline #Acute Pneumonia, failure of outpatient treatment #Suspected worsening of Interstitial pulmonary fibrosis vs flare Likely multifactorial: Worsening pulmonary metastatic disease, interstitial lung disease flare, multifocal pneumonia Hemoptysis Biofire negative Sputum cx NGTD Blood cx NGTD CT chest with acute findings of pneumonitis, stable nodule changes and chronic interstitial changes Completed Zosyn, Doxy Completed 7 days so far of abx, will allow course to continue and follow fever curve/oxygenation there after Continue [facility] Pulmonary hygiene Pulmonology consulted, reviewed recommendations -PJP negative -sputum culture NGTD -Transition to PO prednisone 40mg daily x4 days, then 20 x 4 days, then 10 x4 days Continue supplemental oxygen to maintain saturations Lasix prn, 20mg IV today 03/18 Remains on 6 L Encouraged to use incentive spirometer and flutter valve regularly Continue prednisone 40 mg p.o. daily, Mucinex twice a day Continue to wean off O2 supplement Repeat chest x-ray tomorrow #Progressive metastatic colon cancer T3 N2 b, M0 stage IIIC at the time of diagnosis in 10/2018. Started current regimen 12/24/23 of 5-FU, leucovorin and bevacizumab every 2 weekly because disease progression was noted in the lungs. Last cycle was on 02/19/24, was due last Saturday(03/04/24) but missed due to ill sx as above. Follows with Dr. Vu Navarrete as outpatient Poor prognosis #Mild troponin elevation Likely demand ischemia secondary to above Denies any chest pain Monitor #Hyperglycemia Hgba1c normal Continue other home meds as ordered Diet: regular DVT Px: SCDs Re:Hemoptysis Dispo: PT/OT for further recs once medically stable Admission and Anticipated Discharge Date Admission Date: March 08, 2024 Subjective Follow-up for acute on chronic respiratory failure, pneumonia, pulmonary fibrosis flare, etc. Seen resting in bed, sitting up, on 6 L of O2 via nasal cannula States he feels a little bit better today compared to yesterday Breathing is okay, has intermittent productive cough Denies chest congestion No other new symptom Review of Systems Review of Systems: all noted and negative except for above Physical Exam Physical Exam: General- oriented x 3, not in distress, speaks in sentences with no effort or accessory muscle use Eyes- anicteric Neck- no JVD Lungs- Mild rhonchi at the bases, no wheezing, good air entry bilaterally Heart- normal rate, regular rhythm; no murmurs Abdomen- normal bowel sounds, nondistended, soft, nontender Extremities- no pretibial edema, no calf tenderness Neuro- alert, oriented x 3; no gross focal neurologic deficits Skin- warm & dry Results & Data Results & Data Vital Signs (Past 12 Hours) Vital Signs Temp Pulse Pulse Resp BP Pulse Ox O2 Del Method 03/18/24 15:44 88 18 95 Nasal Cannula 03/18/24 15:32 36.7 C 86 20 139/73 91 Nasal Cannula 03/18/24 14:00 101 H 03/18/24 11:26 36.3 C L 96 H 18 127/75 93 High Flow Nasal Cannula 03/18/24 10:33 98 H 22 91 Nasal Cannula 03/18/24 08:20 High Flow Nasal Cannula 03/18/24 07:52 36.4 C L 82 20 128/79 91 High Flow Nasal Cannula 03/18/24 07:09 81 20 95 Nasal Cannula 03/18/24 07:00 82 O2 Flow Rate 09/18/24 15:44 5 03/18/24 15:32 5 03/18/24 14:00 03/18/24 11:26 6 03/18/24 10:33 6 03/18/24 08:20 6 03/18/24 07:52 6 03/18/24 07:09 6 03/18/24 07:00 all noted and reviewed including below (1) Pneumonia Laterality: bilateral Lung location: lower lobe of lung Pneumonia type: due to unspecified organism Qualified Code(s): J18.9 - Pneumonia, unspecified organism (4) Metastatic disease Area of secondary neoplastic involvement: unspecified site Qualified Code(s): C79.9 - Secondary malignant neoplasm of unspecified site
[2024-03-19] MEDS: POLYETHYLENE (MIRALAX) 17 GM PACK PO PRN (08:01)
--- NOTE | 2024-03-19 09:47 | XRay Report ---
XR chest 1V portable HISTORY: 73 years-old Male ff up, pneumonia, hypoxia acute shortness of breath COMPARISON: 03/14/2024 TECHNIQUE: AP view of the chest FINDINGS: Cardiomediastinal and hilar silhouettes are within normal limits. Right IJ [id number] catheter dis rosa tip noted within the expected location of the inferior SVC. Bilateral mixed interstitial and alve olar opacities have mildly progressed. No pneumothorax or pleural effusion. IMPRESSION: Extensive mixed interstitial and alveolar opacities redemonstrated, mildly worsened compared to the study. ACT 112: Negative or not required by law. The above report was generated using voice recognition software. It may contain grammatical, syntax o r spelling errors. Electronically signed by: Bertrand Anderson M.D. 03/19/2024 9:46 AM
[2024-03-19 13:48] LABS: BUN Creatinine Ratio 32.2 (10-20); Calcium 9.4 mg/dl (8.6-10.3); Creatinine Clr Calc Pharmacy 86.1 ml/min; Est GFR (African American) 97.2 ml/min; Est GFR (Non-African American) 83.8 ml/min
--- NOTE | 2024-03-19 15:24 | CT Scan Report ---
CT OF THE CHEST WITHOUT IV CONTRAST CLINICAL HISTORY: ILD follow up. COMPARISON STUDY: Chest CT March 08, 2024. Chest radiograph performed earlier today. CT DOSE: 630.29 mGy.cm TECHNIQUE: Axial images of the chest were obtained without IV contrast. Images were reviewed in the axial, sagittal, and coronal planes. IV contrast was not administered for this examination. Automat ed exposure control was utilized for the study. A dose lowering technique was utilized adhering to t he principles of ALARA. FINDINGS: Right internal jugular [id number] remains in place. There has been interval development of moderate pneumomediastinum since CT of March 08, 2024. The gas extends into the right aspect o f the neck. There is no pleural effusion. There is no pneumothorax. The heart is mildly enlarged. Enl arged mediastinal and right hilar lymph nodes are similar to CT of March 08, 2024. Index prevascul ar node on image 108 of 249 measures 2.7 x 1.8 cm. Underlying interstitial lung disease with honeycom jet and traction bronchiectasis is again noted. Innumerable pulmonary nodules measuring up to 1.5 cm are unchanged and prior CT. Ground glass opacities within the lungs are noted. These have slightly i mproved. IMPRESSION: 1. Interval development of moderate pneumomediastinum since chest CT of March 08, 2024. No pneumot horax. 2. No significant change in mediastinal and right hilar lymphadenopathy since prior CT. No significan t change in numerous pulmonary nodules. The findings are suggestive of a neoplastic process. 3. Ground glass opacities throughout the lungs, slightly improved since prior exam. The findings favo r pneumonia superimposed upon a UIP pattern of pulmonary fibrosis. Alternatively, the groundglass opa cities could be treatment related. ACT 112: Negative or not required by law. Electronically signed by: Casimiro Rivas M.D. 03/19/2024 3:22 PM
--- NOTE | 2024-03-19 15:58 | Pulmonology Progress Note ---
Date of Service March 19, 2024 Assessment & Plan (1) Acute and chronic respiratory failure: Respiratory failure complication: hypoxia Qualified Code(s): J96.21 - Acute and chronic respiratory failure with hypoxia (2) Metastatic colon cancer to liver: (3) Pneumonia: Laterality: bilateral Lung location: lower lobe of lung Pneumonia type: due to unspecified organism Qualified Code(s): J18.9 - Pneumonia, unspecified organism (4) Bronchiectasis: (5) UIP (usual interstitial pneumonitis): Plan Impression: 73-year-old male with known interstitial lung disease and extensive fibrotic changes admitted now with shortness of breath and hypoxemia. Has been treated with steroids and antibiotics. He is unfortunately failing to improve. Recommendations: 1. Will proceed with noncontrast CT of the chest. Do not think we need to pursue additional evaluation for PE as his admission scan was negative. 2. Patient is currently on nebulized budesonide and 40 mg of prednisone. Depending on his CT scan, we will decide whether or not immune suppression needs to be continued or tapered. 3. Patient's oxygen requirement in the presence of his fibrotic lung disease makes him a poor candidate for bronchoscopy. 4. Will check BNP as well as repeat procalcitonin. The above recommendations and plan were discussed with the patient in detail. Questions were answered to the best my ability. He expressed understanding and is in agreement with plan as outlined. Will continue to follow with you Admission and Anticipated Discharge Date Admission Date: March 08, 2024 Subjective Asked by hospitalist to reevaluate this patient admitted with interstitial lung disease and progressive shortness of breath. He was seen by one of my colleagues earlier this hospitalization. Was asked by hospitalist to reevaluate the patient due to persistent oxygen requirement. The patient has known pulmonary fibrosis. He is been treated with steroids and antibiotics. His oxygen requirement remains persistent. He states that prior to this hospitalization he used oxygen only rarely and when he did use it he was about 2 to 2-1/2 L/min. He continues to cough and expectorate some clear phlegm. He is not had any hemoptysis. He denies chest pain or palpitations. No fevers chills or night sweats Review of Systems Review of Systems: All systems reviewed & are unremarkable except as noted in Subjective Physical Exam Constitutional: WD/WN, vitals as above Neck: trachea midline, no thyromegaly Respiratory: no respiratory distress, no labored breathing, no cough and not tachypneic Auscultation: + crackles; no wheezes Cardiovascular: RRR, no murmur, no edema Gastrointestinal (Abdomen): normal bowel sounds, soft, nontender, no hepatosplenomegaly Musculoskeletal: Extremities: extremities normal to inspection Skin: no rashes, warm and dry Neurologic: Nonfocal exam Lymphatic: no cervical lymphadenopathy Results & Data Results & Data Vital Signs (Past 12 Hours) Vital Signs Temp Pulse Pulse Resp BP Pulse Ox O2 Del Method 03/19/24 15:09 36.4 C L 88 20 131/79 96 Nasal Cannula 03/19/24 15:01 80 17 94 Nasal Cannula 03/19/24 14:25 97 H 03/19/24 11:19 95 H 19 94 Nasal Cannula 03/19/24 11:03 36.5 C 80 20 150/82 H 92 Nasal Cannula 03/19/24 08:44 36.6 C 85 20 133/77 91 Nasal Cannula 03/19/24 08:00 Nasal Cannula 03/19/24 07:00 77 03/19/24 06:58 85 22 83 L O2 Flow Rate 03/19/24 15:09 6 03/19/24 15:01 6 03/19/24 14:25 03/19/24 11:19 6 03/19/24 11:03 6 03/19/24 08:44 6 03/19/24 08:00 6 03/19/24 07:00 03/19/24 06:58 Critical Care Results & Data Vital Signs (Past 12 Hours) Vital Signs Temp Pulse Pulse Resp BP Pulse Ox O2 Del Method 03/19/24 15:09 36.4 C L 88 20 131/79 96 Nasal Cannula 03/19/24 15:01 80 17 94 Nasal Cannula 03/19/24 14:25 97 H 03/19/24 11:19 95 H 19 94 Nasal Cannula 03/19/24 11:03 36.5 C 80 20 150/82 H 92 Nasal Cannula 03/19/24 08:44 36.6 C 85 20 133/77 91 Nasal Cannula 03/19/24 08:00 Nasal Cannula 03/19/24 07:00 77 03/19/24 06:58 85 22 83 L O2 Flow Rate 03/19/24 15:09 6 03/19/24 15:01 6 03/19/24 14:25 03/19/24 11:19 6 03/19/24 11:03 6 03/19/24 08:44 6 03/19/24 08:00 6 03/19/24 07:00 03/19/24 06:58 Lab & Micro Results (Past 24 Hours) No Data to Display Na 130 mmol/L (136-145) L 03/19/24 K 5.0 mmol/L (3.5-5.1) 03/19/24 Cl 94 mmol/L (98-107) L 03/19/24 CO2 30 mmol/L (21-32) 03/19/24 Anion Gap 6 (3-11) 03/19/24 BUN 29 mg/dl (6-23) H 03/19/24 Creatinine 0.90 mg/dl (0.6-1.4) 03/19/24 Estimated GFR ( Amer) 97.2 ml/min 03/19/24 Estimated GFR (Non-Af Amer) 83.8 ml/min 03/19/24 BUN/Creatinine Ratio 32.2 (10-20) H 03/19/24 Glu 195 mg/dl (70-99(Fasting)) H 03/19/24 Ca 9.4 mg/dl (8.6-10.3) 03/19/24 Calcium Level 9.4 mg/dl (8.6-10.3) 03/19/24 13:16 Diagnostic Findings (Past 24 Hours) Chest X-Ray 03/19/24 09:03 XR chest 1V portable HISTORY: 73 years-old Male ff up, pneumonia, hypoxia acute shortness of breath COMPARISON: 03/14/2024 TECHNIQUE: AP view of the chest FINDINGS: Cardiomediastinal and hilar silhouettes are within normal limits. Right IJ [id number] catheter distal tip noted within the expected location of the inferior SVC. Bilateral mixed interstitial and alveolar opacities have mildly progressed. No pneumothorax or pleural effusion. IMPRESSION: Extensive mixed interstitial and alveolar opacities redemonstrated, mildly worsened compared to the 03/14/2024 study. ACT 112: Negative or not required by law. The above report was generated using voice recognition software. It may contain grammatical, syntax or spelling errors. Electronically signed by: Bertrand Anderson M.D. 03/19/2024 9:[address] 03/19/24 13:04 CT OF THE CHEST WITHOUT IV CONTRAST CLINICAL HISTORY: ILD follow up. COMPARISON STUDY: Chest CT March 08, 2024. Chest radiograph performed earlier today. CT DOSE: 630.29 mGy.cm TECHNIQUE: Axial images of the chest were obtained without IV contrast. Images were reviewed in the axial, sagittal, and coronal planes. IV contrast was not administered for this examination. Automated exposure control was utilized for the study. A dose lowering technique was utilized adhering to the principles of ALARA. FINDINGS: Right internal jugular [id number] remains in place. There has been interval development of moderate pneumomediastinum since CT of March 08, 2024. The gas extends into the right aspect of the neck. There is no pleural effusion. There is no pneumothorax. The heart is mildly enlarged. Enlarged mediastinal and right hilar lymph nodes are similar to CT of March 08, 2024. Index prevascular node on image 108 of 249 measures 2.7 x 1.8 cm. Underlying interstitial lung disease with honeycombing and traction bronchiectasis is again noted. Innumerable pulmonary nodules measuring up to 1.5 cm are unchanged and prior CT. Ground glass opacities within the lungs are noted. These have slightly improved. IMPRESSION: 1. Interval development of moderate pneumomediastinum since chest CT of March 08, 2024. No pneumothorax. 2. No significant change in mediastinal and right hilar lymphadenopathy since prior CT. No significant change in numerous pulmonary nodules. The findings are suggestive of a neoplastic process. 3. Ground glass opacities throughout the lungs, slightly improved since prior exam. The findings favor pneumonia superimposed upon a UIP pattern of pulmonary fibrosis. Alternatively, the groundglass opacities could be treatment related. ACT 112: Negative or not required by law. Electronically signed by: Casimiro Rivas M.D. 03/19/2024 3:22 PM I & O Totals 24 Hours 03/18/24 03/19/24 03/20/24 06:59 06:59 06:59 Intake Total 1840 / 1840 1670 / 1670 1000 / 1000 Output Total 2225 / 2225 2300 / 2300 600 / 600 Balance -385 / -385 -630 / -630 400 / 400 Cumulative 03/08/24 10:23 thru 03/19/24 14:35 Intake Total 93469 Output Total 99970 Balance -40254 RT Ventilator Mngmt (Last Documented) Ventilator Ordered Settings Respiratory Rate 20 03/19/24 15:09 Fraction of Inspired Oxygen 50 03/13/24 11:20 Ventilator - PT Measurements Respiratory Rate 20 PG Care Time/CCT Total # of Minutes Spent Total Time Spent with Patient: Total time spent is greater than 50% in coordination of care (as documented) at patient's floor/unit and/or counseling patient: Coding Level of Care Code 61457 SUB INP/OBS CARE 3/50MIN Diagnoses Acute and chronic respiratory failure J96.21 Respiratory failure complication: hypoxia Metastatic colon cancer to liver C18.9; C78.7 Pneumonia J18.9 Laterality: bilateral Lung location: lower lobe of lung Pneumonia type: due to unspecified organism Bronchiectasis J47.9 UIP (usual interstitial pneumonitis) J84.112
--- NOTE | 2024-03-19 17:28 | Hospitalist Progress Note ---
Date of Service March 19, 2024 Assessment & Plan (1) Pneumonia: (2) Interstitial pulmonary disease, unspecified: (3) Metastatic colon cancer to liver: (4) Metastatic disease: (5) DAILEY (nonalcoholic steatohepatitis): (6) GERD (gastroesophageal reflux disease): Plan per previous hospitalist notes with addendum: Mr Weaver is a 73-year-old male with stage IV lung cancer with metastasis to liver, lung, idiopathic pulmonary fibrosis, GERD, Poe's esophagus and other medical problems presents with history of worsening shortness of breath, cough with hemoptysis and increased supplemental oxygen requirement. Patient was seen by pcp prior to admission days and started on augmentin and azithromycin for possible developing pneumonia. Despite taking the antibiotic course, patient continued to havening cough, shortness of breath and has been using his rescue inhaler more frequently. Patient remains with high o2 requirement, but now off of HFNC. Patient is on IV abx. Patient on methylpred daily. Oxygen requirements are slowly decreasing. Patient encouraged to mobilize as tolerated. Patient attempted to ambulate in [place], but noted significant drop in O2 therefore further PT was discontinued. Patient states he feels ok, but endorses some nasal congestion, reports flonase historically has helped #Nasal congestion Saline not helping, start flonase #Acute on chronic respiratory failure with hypoxia 2L O2 baseline #Acute Pneumonia, failure of outpatient treatment #Suspected worsening of Interstitial pulmonary fibrosis vs flare Likely multifactorial: Worsening pulmonary metastatic disease, interstitial lung disease flare, multifocal pneumonia Hemoptysis Biofire negative Sputum cx NGTD Blood cx NGTD CT chest with acute findings of pneumonitis, stable nodule changes and chronic interstitial changes Completed Zosyn, Doxy Completed 7 days so far of abx, will allow course to continue and follow fever curve/oxygenation there after Continue [facility] Pulmonary hygiene Pulmonology consulted, reviewed recommendations -PJP negative -sputum culture NGTD -Transition to PO prednisone 40mg daily x4 days, then 20 x 4 days, then 10 x4 days Continue supplemental oxygen to maintain saturations Lasix prn, 20mg IV today 03/18 Remains on 6 L Encouraged to use incentive spirometer and flutter valve regularly Continue prednisone 40 mg p.o. daily, Mucinex twice a day Continue to wean off O2 supplement Repeat chest x-ray tomorrow 03/19 patient's status about the same will request Pulm service to re-evaluate patient #Progressive metastatic colon cancer T3 N2 b, M0 stage IIIC at the time of diagnosis in 10/2018. Started current regimen 12/24/23 of 5-FU, leucovorin and bevacizumab every 2 weekly because disease progression was noted in the lungs. Last cycle was on 02/19/24, was due last Saturday(03/04/24) but missed due to ill sx as above. Follows with Dr. Vu Navarrete as outpatient Poor prognosis #Mild troponin elevation Likely demand ischemia secondary to above Denies any chest pain Monitor #Hyperglycemia Hgba1c normal Continue other home meds as ordered Diet: regular DVT Px: SCDs Re:Hemoptysis Dispo: PT/OT for further recs once medically stable Admission and Anticipated Discharge Date Admission Date: March 08, 2024 Subjective ff up for pneumonia, etc seen resting in bed, comfortable states breathing is about the same has occasional dry cough dyspnea with mild exertion no other new symptoms Review of Systems Review of Systems: all noted and negative except for above Physical Exam Physical Exam: General- oriented x 3, not in distress, speaks in sentences with no effort or accessory muscle use Eyes- anicteric Neck- no JVD Lungs- mild rhonchi BL bases no wheezing Heart- normal rate, regular rhythm; no murmurs Abdomen- normal bowel sounds, nondistended, soft, nontender Extremities- no pretibial edema, no calf tenderness Neuro- alert, oriented x 3; no gross focal neurologic deficits Skin- warm & dry Results & Data Results & Data Vital Signs (Past 12 Hours) Vital Signs Temp Pulse Pulse Resp BP Pulse Ox O2 Del Method 03/19/24 15:09 36.4 C L 88 20 131/79 96 Nasal Cannula 03/19/24 15:01 80 17 94 Nasal Cannula 03/19/24 14:25 97 H 03/19/24 11:19 95 H 19 94 Nasal Cannula 03/19/24 11:03 36.5 C 80 20 150/82 H 92 Nasal Cannula 03/19/24 08:44 36.6 C 85 20 133/77 91 Nasal Cannula 03/19/24 08:00 Nasal Cannula 03/19/24 07:00 77 03/19/24 06:58 85 22 83 L O2 Flow Rate 03/19/24 15:09 6 03/19/24 15:01 6 03/19/24 14:25 03/19/24 11:19 6 03/19/24 11:03 6 03/19/24 08:44 6 03/19/24 08:00 6 03/19/24 07:00 03/19/24 06:58 all noted and reviewed including below (1) Pneumonia Laterality: bilateral Lung location: lower lobe of lung Pneumonia type: due to unspecified organism Qualified Code(s): J18.9 - Pneumonia, unspecified organism (4) Metastatic disease Area of secondary neoplastic involvement: unspecified site Qualified Code(s): C79.9 - Secondary malignant neoplasm of unspecified site
[2024-03-20 09:54] LABS: Basophils # (auto) 0.02 K/uL (0.00-0.20); Basophils % (auto) 0.1 %; Eosinophils # (auto) 0.31 K/uL (0.00-0.50); Eosinophils % (auto) 1.7 %; Hematocrit (blood only) 41.9 % (42.0-52.0); Hemoglobin 14.7 g/dl (14.0-18.0); Immature Granulocytes # (auto) 0.14 K/uL (0.01-0.20); Immature Granulocytes % (auto) 0.7 %; Lymphocytes % (auto) 4.8 %; Mean Corpuscular Hemoglobin 33.1 pg (25.0-34.0); Mean Corpuscular Hgb Conc 35.1 g/dL (32.0-36.0); Mean Corpuscular Volume 94.4 fL (80.0-100.0); Mean Platelet Volume 10.5 fL (9.4-12.4); Monocytes # (auto) 0.91 K/uL (0.11-0.59); Monocytes % (auto) 4.9 %; Neutrophils # (auto) 16.44 K/uL (1.40-6.50); Neutrophils % (auto) 87.8 %; Platelet Count 171 K/uL (130-400); Red Blood Count 4.44 M/uL (4.70-6.10); White Blood Count 18.72 K/ul (4.8-10.8)
[2024-03-20 10:01] LABS: BUN Creatinine Ratio 28.9 (10-20); Calcium 9.1 mg/dl (8.6-10.3); Creatinine Clr Calc Pharmacy 78.4 ml/min; Est GFR (African American) 88.8 ml/min; Est GFR (Non-African American) 76.6 ml/min; Magnesium 2.1 mg/dl (1.7-2.4); Potassium 3.8 mmol/L (3.5-5.1)
--- NOTE | 2024-03-20 15:54 | Pulmonology Progress Note ---
Date of Service March 20, 2024 Assessment & Plan (1) Acute and chronic respiratory failure: Respiratory failure complication: hypoxia Qualified Code(s): J96.21 - Acute and chronic respiratory failure with hypoxia (2) Metastatic colon cancer to liver: (3) Pneumonia: Laterality: bilateral Lung location: lower lobe of lung Pneumonia type: due to unspecified organism Qualified Code(s): J18.9 - Pneumonia, unspecified organism (4) Bronchiectasis: (5) UIP (usual interstitial pneumonitis): Plan Impression: 73-year-old male with known interstitial lung disease and extensive fibrotic changes admitted now with shortness of breath and hypoxemia. Has been treated with steroids and antibiotics. He is unfortunately failing to improve. He is CT scan shows persistent end-stage fibrotic disease without obvious progression of groundglass opacity. Recommendations: 1. End-stage fibrotic lung disease: Unfortunately the patient appears to be end-stage. He has not responded to steroids or antibiotics. He remains dyspneic with any significant physical activity. His age precludes lung transplant. Unfortunately I do not see significant reversible etiologies for him at this point in time. 2. At this point in time the patient is having adverse effects related to the prednisone so would favor tapering to off as I do not think he is having a clinical benefit. 3. Would recommend having respiratory therapy assess the patient for potential Oxymizer. Either pending or mustache might be appropriate. He will also need to get a high flow/high capacity concentrator at home. Will also obtain repeat blood gas to see whether or not hypercarbia could be contributing 4. Would recommend initiation of palliative care given the extensive nature of his fibrotic lung disease. The above recommendations and plan were discussed with the patient in detail. Questions were answered to the best my ability. He expressed understanding and is in agreement with plan as outlined. Will continue to follow with you Admission and Anticipated Discharge Date Admission Date: March 08, 2024 Subjective Patient seen and examined. EMR reviewed. The patient states that he feels about the same. He continues to be short of breath with any significant physical activity. He desaturates with significant movement. He is coughing but not expectorating any phlegm. He completed his CT scan with results noted below. Review of Systems Review of Systems: All systems reviewed & are unremarkable except as noted in Subjective Physical Exam Constitutional: WD/WN, vitals as above Neck: trachea midline, no thyromegaly Respiratory: no respiratory distress, no labored breathing, no cough and not tachypneic Auscultation: + crackles; no wheezes Cardiovascular: RRR, no murmur, no edema Gastrointestinal (Abdomen): normal bowel sounds, soft, nontender, no hepatosplenomegaly Musculoskeletal: Extremities: extremities normal to inspection Skin: no rashes, warm and dry Lymphatic: no cervical lymphadenopathy Results & Data Results & Data Vital Signs (Past 12 Hours) Vital Signs Temp Pulse Pulse Resp BP BP Pulse Ox 03/20/24 15:27 36.7 C 88 18 154/91 H 91 03/20/24 15:10 87 18 92 03/20/24 11:15 36.3 C L 88 18 138/78 95 03/20/24 11:00 03/20/24 10:59 76 03/20/24 10:42 88 18 91 03/20/24 07:26 36.3 C L 75 18 126/67 94 03/20/24 07:07 76 18 96 O2 Del Method O2 Flow Rate 03/20/24 15:27 High Flow Nasal Cannula 6 03/20/24 15:10 Nasal Cannula 5 03/20/24 11:15 High Flow Nasal Cannula 6 03/20/24 11:00 High Flow Nasal Cannula 6 03/20/24 10:59 03/20/24 10:42 Nasal Cannula 7 03/20/24 07:26 High Flow Nasal Cannula 6 03/20/24 07:07 Nasal Cannula 6 Critical Care Results & Data Vital Signs (Past 12 Hours) Vital Signs Temp Pulse Pulse Resp BP BP Pulse Ox 03/20/24 15:27 36.7 C 88 18 154/91 H 91 03/20/24 15:10 87 18 92 03/20/24 11:15 36.3 C L 88 18 138/78 95 03/20/24 11:00 03/20/24 10:59 76 03/20/24 10:42 88 18 91 03/20/24 07:26 36.3 C L 75 18 126/67 94 03/20/24 07:07 76 18 96 O2 Del Method O2 Flow Rate 03/20/24 15:27 High Flow Nasal Cannula 6 03/20/24 15:10 Nasal Cannula 5 03/20/24 11:15 High Flow Nasal Cannula 6 03/20/24 11:00 High Flow Nasal Cannula 6 03/20/24 10:59 03/20/24 10:42 Nasal Cannula 7 03/20/24 07:26 High Flow Nasal Cannula 6 03/20/24 07:07 Nasal Cannula 6 Lab & Micro Results (Past 24 Hours) RBC 4.44 M/uL (4.70-6.10) L 03/20/24 WBC 18.72 K/ul (4.8-10.8) H 03/20/24 Hgb 14.7 g/dl (14.0-18.0) 03/20/24 Hct 41.9 % (42.0-52.0) L 03/20/24 MCV 94.4 fL (80.0-100.0) 03/20/24 MCH 33.1 pg (25.0-34.0) 03/20/24 MCHC 35.1 g/dL (32.0-36.0) 03/20/24 RDW Standard Deviation 52.0 fL (36.4-46.3) H 03/20/24 RDW Coefficient of Variation 15.0 % (11.5-14.5) H 03/20/24 Plt Count 171 K/uL (130-400) 03/20/24 MPV 10.5 fL (9.4-12.4) 03/20/24 Neutrophils (%) (Auto) 87.8 % 03/20/24 Lymphocytes (%) (Auto) 4.8 % 03/20/24 Monocytes # (Auto) 0.91 K/uL (0.11-0.59) H 03/20/24 Eosinophils # (Auto) 0.31 K/uL (0.00-0.50) 03/20/24 Immature Granulocyte % (Auto) 0.7 % 03/20/24 Neutrophils # (Auto) 16.44 K/uL (1.40-6.50) H 03/20/24 Lymphocytes # (Auto) 0.90 K/uL (1.20-3.40) L 03/20/24 Monocytes # (Auto) 0.91 K/uL (0.11-0.59) H 03/20/24 Eosinophils # (Auto) 0.31 K/uL (0.00-0.50) 03/20/24 Basophils # (Auto) 0.02 K/uL (0.00-0.20) 03/20/24 Immature Granulocyte # (Auto) 0.14 K/uL (0.01-0.20) 4 Na 130 mmol/L (136-145) L 03/20/24 K 3.8 mmol/L (3.5-5.1) 03/20/24 Cl 92 mmol/L (98-107) L 03/20/24 CO2 34 mmol/L (21-32) H 03/20/24 Anion Gap 4 (3-11) 03/20/24 BUN 28 mg/dl (6-23) H 03/20/24 Creatinine 0.97 mg/dl (0.6-1.4) 03/20/24 Estimated GFR ( Amer) 88.8 ml/min 03/20/24 Estimated GFR (Non-Af Amer) 76.6 ml/min 03/20/24 BUN/Creatinine Ratio 28.9 (10-20) H 03/20/24 Glu 145 mg/dl (70-99(Fasting)) H 03/20/24 Ca 9.1 mg/dl (8.6-10.3) 03/20/24 Mg 2.1 mg/dl (1.7-2.4) 03/20/24 09:29 Calcium Level 9.1 mg/dl (8.6-10.3) 03/20/24 09:29 I & O Totals 24 Hours 03/19/24 03/20/24 03/21/24 06:59 06:59 06:59 Intake Total 1670 / 1670 1650 / 1650 390 / 390 Output Total 2300 / 2300 2375 / 2375 401 / 401 Balance -630 / -630 -725 / -725 -11 / -11 Cumulative 03/08/24 10:23 thru 03/20/24 14:32 Intake Total 00162 Output Total 60363 Balance -73326 RT Ventilator Mngmt (Last Documented) Ventilator Ordered Settings Respiratory Rate 18 03/20/24 15:27 Fraction of Inspired Oxygen 50 03/13/24 11:20 Ventilator - PT Measurements Respiratory Rate 18 PG Care Time/CCT Total # of Minutes Spent Total Time Spent with Patient: Total time spent is greater than 50% in coordination of care (as documented) at patient's floor/unit and/or counseling patient: Coding Level of Care Code 38768 SUB INP/OBS CARE 50MIN Diagnoses Acute and chronic respiratory failure J96.21 Respiratory failure complication: hypoxia Metastatic colon cancer to liver C18.9; C78.7 Pneumonia J18.9 Laterality: bilateral Lung location: lower lobe of lung Pneumonia type: due to unspecified organism Bronchiectasis J47.9 UIP (usual interstitial pneumonitis) J84.112
--- NOTE | 2024-03-20 16:09 | Hospitalist Progress Note ---
Date of Service March 20, 2024 Assessment & Plan (1) Pneumonia: (2) Interstitial pulmonary disease, unspecified: (3) Metastatic colon cancer to liver: (4) Metastatic disease: (5) DAILEY (nonalcoholic steatohepatitis): (6) GERD (gastroesophageal reflux disease): Plan per previous hospitalist notes with addendum: Mr Weaver is a 73-year-old male with stage IV lung cancer with metastasis to liver, lung, idiopathic pulmonary fibrosis, GERD, Poe's esophagus and other medical problems presents with history of worsening shortness of breath, cough with hemoptysis and increased supplemental oxygen requirement. Patient was seen by pcp prior to admission days and started on augmentin and azithromycin for possible developing pneumonia. Despite taking the antibiotic course, patient continued to havening cough, shortness of breath and has been using his rescue inhaler more frequently. Patient remains with high o2 requirement, but now off of HFNC. Patient is on IV abx. Patient on methylpred daily. Oxygen requirements are slowly decreasing. Patient encouraged to mobilize as tolerated. Patient attempted to ambulate in [place], but noted significant drop in O2 therefore further PT was discontinued. Patient states he feels ok, but endorses some nasal congestion, reports flonase historically has helped #Nasal congestion Saline not helping, start flonase #Acute on chronic respiratory failure with hypoxia 2L O2 baseline #Acute Pneumonia, failure of outpatient treatment #Suspected worsening of Interstitial pulmonary fibrosis vs flare Likely multifactorial: Worsening pulmonary metastatic disease, interstitial lung disease flare, multifocal pneumonia Hemoptysis Biofire negative Sputum cx NGTD Blood cx NGTD CT chest with acute findings of pneumonitis, stable nodule changes and chronic interstitial changes Completed Zosyn, Doxy Completed 7 days so far of abx, will allow course to continue and follow fever curve/oxygenation there after Continue [facility] Pulmonary hygiene Pulmonology consulted, reviewed recommendations -PJP negative -sputum culture NGTD -Transition to PO prednisone 40mg daily x4 days, then 20 x 4 days, then 10 x4 days Continue supplemental oxygen to maintain saturations Lasix prn, 20mg IV today 03/18 Remains on 6 L Encouraged to use incentive spirometer and flutter valve regularly Continue prednisone 40 mg p.o. daily, Mucinex twice a day Continue to wean off O2 supplement Repeat chest x-ray tomorrow 03/20 CT chest: Positive pneumomediastinum Dr. Brumfield recommending taper of prednisone, Oxymizer, home high flow/concentrator Palliative care service evaluation #Progressive metastatic colon cancer T3 N2 b, M0 stage IIIC at the time of diagnosis in 10/2018. Started current regimen 12/24/23 of 5-FU, leucovorin and bevacizumab every 2 weekly because disease progression was noted in the lungs. Last cycle was on 02/19/24, was due last Saturday(03/04/24) but missed due to ill sx as above. Follows with Dr. Vu Navarrete as outpatient #Mild troponin elevation Likely demand ischemia secondary to above Denies any chest pain Monitor #Hyperglycemia Hgba1c normal Continue other home meds as ordered Diet: regular DVT Px: SCDs Re:Hemoptysis Dispo: PT/OT for further recs once medically stable Admission and Anticipated Discharge Date Admission Date: March 08, 2024 Subjective Seen resting in bed, sitting up, not in distress, comfortable States he feels about the same as yesterday No active shortness of breath on exam, requiring 15 L when ambulating in the room as per RN Has intermittent dry cough Review of Systems Review of Systems: all noted and negative except for above Physical Exam Physical Exam: General- oriented x 3, not in distress, speaks in sentences with no effort or accessory muscle use Eyes- anicteric Neck- no JVD Mouth-positive for oral thrush Lungs- Mild rhonchi at the bases Heart- normal rate, regular rhythm; no murmurs Abdomen- normal bowel sounds, nondistended, soft, nontender Extremities- no pretibial edema, no calf tenderness Neuro- alert, oriented x 3; no gross focal neurologic deficits Skin- warm & dry Results & Data Results & Data Vital Signs (Past 12 Hours) Vital Signs Temp Pulse Pulse Resp BP BP Pulse Ox 03/20/24 15:59 100 H 03/20/24 15:27 36.7 C 88 18 154/91 H 91 03/20/24 15:10 87 18 92 03/20/24 11:15 36.3 C L 88 18 138/78 95 03/20/24 11:00 03/20/24 10:59 76 03/20/24 10:42 88 18 91 03/20/24 07:26 36.3 C L 75 18 126/67 94 03/20/24 07:07 76 18 96 O2 Del Method O2 Flow Rate 03/20/24 15:59 03/20/24 15:27 High Flow Nasal Cannula 6 03/20/24 15:10 Nasal Cannula 5 03/20/24 11:15 High Flow Nasal Cannula 6 03/20/24 11:00 High Flow Nasal Cannula 6 03/20/24 10:59 03/20/24 10:42 Nasal Cannula 7 03/20/24 07:26 High Flow Nasal Cannula 6 03/20/24 07:07 Nasal Cannula 6 all noted and reviewed including below (1) Pneumonia Laterality: bilateral Lung location: lower lobe of lung Pneumonia type: due to unspecified organism Qualified Code(s): J18.9 - Pneumonia, unspecified organism (4) Metastatic disease Area of secondary neoplastic involvement: unspecified site Qualified Code(s): C79.9 - Secondary malignant neoplasm of unspecified site
[2024-03-20 16:15] LABS: Base Excess ABG 6.2 mEq/L (-9-1.8); HCO3 ABG 31 mmol/L (19-24); Oxygen Saturation ABG 94.6 % (90-95); PCO2 ABG 42 mmHg (35-46); PO2 ABG 65 mmHg (80-95); pH ABG 7.47 (7.35-7.45)
[2024-03-20] MEDS: NYSTATIN SUSP 500,000 U/5 ML UDC PO SCH (17:53)
[2024-03-20 19:12] LABS: Allen Test Pos (Pos)
[2024-03-21] MEDS: FUROSEMIDE INJ 20 MG/2 ML VIAL IV ONE (07:51)
[2024-03-21] MEDS: predniSONE 20 MG TAB PO SCH (07:52)
--- NOTE | 2024-03-21 08:37 | Pulmonology Progress Note ---
Date of Service March 21, 2024 Assessment & Plan (1) Acute and chronic respiratory failure: Respiratory failure complication: hypoxia Qualified Code(s): J 96.21 - Acute and chronic respiratory failure with hypoxia (2) Metastatic colon cancer to liver: (3) Pneumonia: Laterality: bilateral Lung location: lower lobe of lung P neumonia type: due to unspecified organism Qualified Code(s): J18.9 - Pneumonia, unspecified organism (4) Bronchiectasis: (5) UIP (usual interstitial pneumonitis): (6) Pneumomediastinum: Plan Impression: 73-year-old male with known interstitial lung disease and extensive fibrotic changes admitted now with shortness of breath and hypoxemia. Has been treated with steroids and antibiotics. He is unfortunately failing to improve. He is CT scan shows persistent end-stage fibrotic disease without obvious progression of groundglass opacity. He did have evidence of pneumomediastinum without pneumothorax.. Recommendations: 1. End-stage fibrotic lung disease: Unfortunately the patient appears to be end-stage. He has not responded to steroids or antibiotics. He remains dyspneic with any significant physical activity. His age precludes lung transplant. Unclear if there is anything reversible. He was placed on a trial of diuretics to see if this offers him a benefit but unclear if this will be beneficial 2. Patient's completed course of steroids and antibiotics without significant improvement. Given his thrush, tapering steroids to off. Decrease prednisone down to 10 mg a day with plans to taper off over the next 4 to 5 days 3. Hypoxemic respiratory failure: Would recommend having respiratory therapy assess the patient for potential Oxymizer. Either pendant or mustache might be appropriate. He will also need to get a high flow/high capacity concentrator at home. Discussed with RT. Unfortunately we do not stock Oxymizer is here in the hospital. Would recommend case management reach out to the patient's DME company ([employer]) to see if they can deliver an Oxymizer to the hospital for use. 4. Pneumomediastinum: Secondary to coughing and fibrotic structural lung disease. No evidence of pneumothorax. Would continue to follow clinically at this point time and avoid positive airway pressure. 5. Would recommend initiation of palliative care given the extensive nature of his fibrotic lung disease. The above recommendations and plan were discussed with the patient in detail. Questions were answered to the best my ability. He expressed understanding and is in agreement with plan as outlined. Will continue to follow with you Admission and Anticipated Discharge Date Admission Date: March 08, 2024 Subjective patient seen and examined. EMR reviewed. He feels about the same. He is coughing a minimal amount of phlegm. His oxygen requirement is slightly less. He remains significantly debilitated. He denies any crepitus or chest discomfort Review of Systems 2 Review of Systems: All systems reviewed & are unremarkable except as noted in Subjective Physical Exam 2 Constitutional: WD/WN, vitals as above Neck: trachea midline, no thyromegaly Respiratory: no respiratory distress, no labored breathing, no cough and not tachypneic Auscultation: + crackles; no wheezes Cardiovascular: RRR, no murmur, no edema Gastrointestinal (Abdomen): normal bowel sounds, soft, nontender, no hepatosplenomegaly Musculoskeletal: Extremities: extremities normal to inspection Skin: no rashes, warm and dry Lymphatic: no cervical lymphadenopathy Results & Data Results & Data Vital Signs (Past 12 Hours) Vital Signs Temp Pulse Pulse Resp BP BP Pulse Ox 03/21/24 07:58 36.5 C 80 18 126/76 93 03/21/24 07:34 77 03/21/24 07:08 79 18 96 03/21/24 03:29 36.6 C 99 H 20 122/68 98 03/21/24 00:26 36.7 C 97 H 20 119/78 98 03/20/24 22:57 103 H 03/20/24 20:50 O2 Del Method O2 Flow Rate 03/21/24 07:58 High Flow Nasal Cannula 5 03/21/24 07:34 03/21/24 07:08 Nasal Cannula 6 03/21/24 03:29 High Flow Nasal Cannula 6 03/21/24 00:26 Nasal Cannula 6 03/20/24 22:57 03/20/24 20:50 High Flow Nasal Cannula, Other 6 Laboratory Results 03/20/24 09:29 03/20/24 09:29 Diagnostic Findings No new imaging PG Care Time/CCT Total # of Minutes Spent Total Time Spent with Patient: Total time spent is greater than 50% in coordination of care (as documented) at patient's floor/unit and/or counseling patient: Coding Level of Care Code 82942 SUB INP/OBS CARE 2/35MIN Diagnoses Acute and chronic respiratory failure J96.21 Respiratory failure complication: hypoxia Metastatic colon cancer to liver C18.9; C78.7 Pneumonia J18.9 Laterality: bilateral Lung location: lower lobe of lung Pneumonia type: due to unspecified organism Bronchiectasis J47.9 UIP (usual interstitial pneumonitis) J84.112 Pneumomediastinum J98.2
[2024-03-21] MEDS: predniSONE 10 MG TABLET PO SCH (10:55)
--- NOTE | 2024-03-21 18:00 | Hospitalist Progress Note ---
Date of Service March 21, 2024 Assessment & Plan (1) Pneumonia: (2) Interstitial pulmonary disease, unspecified: (3) Metastatic colon cancer to liver: (4) Metastatic disease: (5) DAILEY (nonalcoholic steatohepatitis): (6) GERD (gastroesophageal reflux disease): Plan per previous hospitalist notes with addendum: Mr Weaver is a 73-year-old male with stage IV lung cancer with metastasis to liver, lung, idiopathic pulmonary fibrosis, GERD, Poe's esophagus and other medical problems presents with history of worsening shortness of breath, cough with hemoptysis and increased supplemental oxygen requirement. Patient was seen by pcp prior to admission days and started on augmentin and azithromycin for possible developing pneumonia. Despite taking the antibiotic course, patient continued to havening cough, shortness of breath and has been using his rescue inhaler more frequently. Patient remains with high o2 requirement, but now off of HFNC. Patient is on IV abx. Patient on methylpred daily. Oxygen requirements are slowly decreasing. Patient encouraged to mobilize as tolerated. Patient attempted to ambulate in [place], but noted significant drop in O2 therefore further PT was discontinued. Patient states he feels ok, but endorses some nasal congestion, reports flonase historically has helped #Nasal congestion Saline not helping, start flonase #Acute on chronic respiratory failure with hypoxia 2L O2 baseline #Acute Pneumonia, failure of outpatient treatment #Suspected worsening of Interstitial pulmonary fibrosis vs flare Likely multifactorial: Worsening pulmonary metastatic disease, interstitial lung disease flare, multifocal pneumonia Hemoptysis Biofire negative Sputum cx NGTD Blood cx NGTD CT chest with acute findings of pneumonitis, stable nodule changes and chronic interstitial changes Completed Zosyn, Doxy Completed 7 days so far of abx, will allow course to continue and follow fever curve/oxygenation there after Continue [facility] Pulmonary hygiene Pulmonology consulted, reviewed recommendations -PJP negative -sputum culture NGTD -Transition to PO prednisone 40mg daily x4 days, then 20 x 4 days, then 10 x4 days Continue supplemental oxygen to maintain saturations Lasix prn, 20mg IV today 03/18 Remains on 6 L Encouraged to use incentive spirometer and flutter valve regularly Continue prednisone 40 mg p.o. daily, Mucinex twice a day Continue to wean off O2 supplement Repeat chest x-ray tomorrow 03/20 CT chest: Positive pneumomediastinum Dr. Brumfield recommending taper of prednisone, Oxymizer, home high flow/concentrator Palliative care service evaluation 03/21 Remains on 8 to 10 L of O2 Lasix IV given yesterday Will coordinate with case management director to obtain Oxymizer for the patient Prednisone being tapered down #Progressive metastatic colon cancer T3 N2 b, M0 stage IIIC at the time of diagnosis in 10/2018. Started current regimen 12/24/23 of 5-FU, leucovorin and bevacizumab every 2 weekly because disease progression was noted in the lungs. Last cycle was on 02/19/24, was due last Saturday(03/04/24) but missed due to ill sx as above. Follows with Dr. Vu Navarrete as outpatient #Mild troponin elevation Likely demand ischemia secondary to above Denies any chest pain Monitor #Hyperglycemia Hgba1c normal Continue other home meds as ordered Diet: regular DVT Px: SCDs Re:Hemoptysis Dispo: PT/OT for further recs once medically stable Admission and Anticipated Discharge Date Admission Date: March 08, 2024 Subjective Seen resting in bed, on 8 L of O2 via oxime mask States he feels about the same as yesterday Breathing is okay, easily short of breath with minimal exertion including transfer to bedside chair No other new symptoms Review of Systems Review of Systems: all noted and negative except for above Physical Exam Physical Exam: General- oriented x 3, not in distress, speaks in sentences with no effort or accessory muscle use Eyes- anicteric Neck- no JVD Lungs- somewhat diminished but clear breath sounds bilaterally, no crackles/wheezing Heart- normal rate, regular rhythm; no murmurs Abdomen- normal bowel sounds, nondistended, soft, no tenderness Extremities- no pretibial edema, no calf tenderness Neuro- alert, oriented x 3; no gross focal neurologic deficits Skin- warm & dry Results & Data Results & Data Vital Signs (Past 12 Hours) Vital Signs Temp Pulse Pulse Resp BP Pulse Ox O2 Del Method 03/21/24 15:45 36.4 C L 105 H 19 131/81 92 High Flow Nasal Cannula 03/21/24 14:35 94 H 18 98 Nasal Cannula 03/21/24 13:57 107 H 03/21/24 11:57 High Flow Nasal Cannula 03/21/24 11:08 36.7 C 89 18 118/74 95 High Flow Nasal Cannula 03/21/24 10:16 89 18 96 Nasal Cannula 03/21/24 07:58 36.5 C 80 18 126/76 93 High Flow Nasal Cannula 03/21/24 07:34 77 03/21/24 07:08 79 18 96 Nasal Cannula O2 Flow Rate 03/21/24 15:45 5 03/21/24 14:35 7 03/21/24 13:57 03/21/24 11:57 6 03/21/24 11:08 5 03/21/24 10:16 5 03/21/24 07:58 5 03/21/24 07:34 03/21/24 07:08 6 all noted and reviewed including below (1) Pneumonia Laterality: bilateral Lung location: lower lobe of lung Pneumonia type: due to unspecified organism Qualified Code(s): J18.9 - Pneumonia, unspecified organism (4) Metastatic disease Area of secondary neoplastic involvement: unspecified site Qualified Code(s): C79.9 - Secondary malignant neoplasm of unspecified site
--- NOTE | 2024-03-22 17:00 | Hospitalist Progress Note ---
Date of Service March 22, 2024 Assessment & Plan (1) Pneumonia: (2) Interstitial pulmonary disease, unspecified: (3) Metastatic colon cancer to liver: (4) Metastatic disease: (5) DAILEY (nonalcoholic steatohepatitis): (6) GERD (gastroesophageal reflux disease): Plan per previous hospitalist notes with addendum: Mr Weaver is a 73-year-old male with stage IV lung cancer with metastasis to liver, lung, idiopathic pulmonary fibrosis, GERD, Poe's esophagus and other medical problems presents with history of worsening shortness of breath, cough with hemoptysis and increased supplemental oxygen requirement. Patient was seen by pcp prior to admission days and started on augmentin and azithromycin for possible developing pneumonia. Despite taking the antibiotic course, patient continued to havening cough, shortness of breath and has been using his rescue inhaler more frequently. Patient remains with high o2 requirement, but now off of HFNC. Patient is on IV abx. Patient on methylpred daily. Oxygen requirements are slowly decreasing. Patient encouraged to mobilize as tolerated. Patient attempted to ambulate in [place], but noted significant drop in O2 therefore further PT was discontinued. Patient states he feels ok, but endorses some nasal congestion, reports flonase historically has helped #Nasal congestion Saline not helping, start flonase #Acute on chronic respiratory failure with hypoxia 2L O2 baseline #Acute Pneumonia, failure of outpatient treatment #Suspected worsening of Interstitial pulmonary fibrosis vs flare Likely multifactorial: Worsening pulmonary metastatic disease, interstitial lung disease flare, multifocal pneumonia Hemoptysis Biofire negative Sputum cx NGTD Blood cx NGTD CT chest with acute findings of pneumonitis, stable nodule changes and chronic interstitial changes Completed Zosyn, Doxy Completed 7 days so far of abx, will allow course to continue and follow fever curve/oxygenation there after Continue [facility] Pulmonary hygiene Pulmonology consulted, reviewed recommendations -PJP negative -sputum culture NGTD -Transition to PO prednisone 40mg daily x4 days, then 20 x 4 days, then 10 x4 days Continue supplemental oxygen to maintain saturations Lasix prn, 20mg IV today 03/18 Remains on 6 L Encouraged to use incentive spirometer and flutter valve regularly Continue prednisone 40 mg p.o. daily, Mucinex twice a day Continue to wean off O2 supplement Repeat chest x-ray tomorrow 03/20 CT chest: Positive pneumomediastinum Dr. Brumfield recommending taper of prednisone, Oxymizer, home high flow/concentrator Palliative care service evaluation 03/21 Remains on 8 to 10 L of O2 Lasix IV given yesterday Will coordinate with wrapper caser to obtain Oxymizer for the patient Prednisone being tapered down 03/22 still required 15L with minimal exertion today Lasix 20mg iV ordered will request Pulm to re-evaluate patient tomorrow #Progressive metastatic colon cancer T3 N2 b, M0 stage IIIC at the time of diagnosis in 10/2018. Started current regimen 12/24/23 of 5-FU, leucovorin and bevacizumab every 2 weekly because disease progression was noted in the lungs. Last cycle was on 02/19/24, was due last Saturday(03/04/24) but missed due to ill sx as above. Follows with Dr. Vu Navarrete as outpatient #Mild troponin elevation Likely demand ischemia secondary to above Denies any chest pain Monitor #Hyperglycemia Hgba1c normal Continue other home meds as ordered Diet: regular DVT Px: SCDs Re:Hemoptysis Dispo: PT/OT for further recs once medically stable Admission and Anticipated Discharge Date Admission Date: March 08, 2024 Subjective Seen resting in bed, comfortable, not in distress, on 5 L of O2 States he feels the same overall Breathing is about the same as yesterday Still having shortness of breath with minimal exertion No chest pain No other new symptoms Review of Systems Review of Systems: all noted and negative except for above Physical Exam Physical Exam: General- oriented x 3, not in distress, speaks in sentences with no effort or accessory muscle use Eyes- anicteric Neck- no JVD Lungs- diminished, mild rhonchi BL Heart- normal rate, regular rhythm; no murmurs Abdomen- normal bowel sounds, nondistended, soft, no tenderness Extremities- no pretibial edema, no calf tenderness Neuro- alert, oriented x 3; no gross focal neurologic deficits Skin- warm & dry Results & Data Results & Data Vital Signs (Past 12 Hours) Vital Signs Temp Pulse Pulse Resp BP Pulse Ox O2 Del Method 03/22/24 16:21 97 H 03/22/24 15:53 36.8 C 93 H 20 124/77 96 Nasal Cannula 03/22/24 15:03 86 19 90 Nasal Cannula 03/22/24 13:45 96 High Flow Nasal Cannula 03/22/24 12:08 36.7 C 100 H 24 130/80 79 L Nasal Cannula 03/22/24 10:42 86 18 92 Nasal Cannula 03/22/24 08:46 36.7 C 82 18 128/76 93 Room Air 03/22/24 08:08 High Flow Nasal Cannula 03/22/24 07:28 88 18 90 Nasal Cannula 03/22/24 07:19 74 O2 Flow Rate 03/22/24 16:21 03/22/24 15:53 5 03/22/24 15:03 5 03/22/24 13:45 5 03/22/24 12:08 10 03/22/24 10:42 5 03/22/24 08:46 03/22/24 08:08 5 03/22/24 07:28 5 03/22/24 07:19 all noted and reviewed including below (1) Pneumonia Laterality: bilateral Lung location: lower lobe of lung Pneumonia type: due to unspecified organism Qualified Code(s): J18.9 - Pneumonia, unspecified organism (4) Metastatic disease Area of secondary neoplastic involvement: unspecified site Qualified Code(s): C79.9 - Secondary malignant neoplasm of unspecified site
[2024-03-22] MEDS: FUROSEMIDE INJ 20 MG/2 ML VIAL IV ONE (18:28)
[2024-03-22] MEDS: SODIUM CHLORIDE 0.65% NA SOLN 45 ML (OCEAN) PRN (18:35)
[2024-03-22] MEDS: COUGH DROP (SUGAR FREE) LOZ 24 LOZ/1 BOX BUCCAL PRN (22:55)
--- NOTE | 2024-03-23 10:45 | Pulmonology Progress Note ---
Date of Service March 23, 2024 Assessment & Plan (1) Acute and chronic respiratory failure: Respiratory failure complication: hypoxia Qualified Code(s): J96.21 - Acute and chronic respiratory failure with hypoxia (2) Metastatic colon cancer to liver: (3) Pneumonia: Laterality: bilateral Lung location: lower lobe of lung Pneumonia type: due to unspecified organism Qualified Code(s): J18.9 - Pneumonia, unspecified organism (4) Bronchiectasis: (5) UIP (usual interstitial pneumonitis): (6) Pneumomediastinum: Plan Impression: 73-year-old male with known interstitial lung disease and extensive fibrotic changes admitted now with shortness of breath and hypoxemia. Has been treated with steroids and antibiotics. He is unfortunately failing to improve. He is CT scan shows persistent end-stage fibrotic disease without obvious progression of groundglass opacity. He did have evidence of pneumomediastinum without pneumothorax.. Patient is known to me with a history of end-stage IPF and metastatic colon cancer to the liver and lungs. He continues to respond poorly to treatments. Recommend that palliative care be engaged. I did discuss hospice options with the patient. He is going to think about this at this time. Recommend engaging with his oncologist as an outpatient to help direct his treatment plan. Maintain sats of 89 to 93%. No other recommendations at present. Please call with questions. Thank you for the consult. Admission and Anticipated Discharge Date Admission Date: March 08, 2024 Subjective Patient seen and examined. Remains on xygen 5 to 8 L. Short of breath with conversation. Denies any chest pain. No fevers, chills or night sweats. Review of Systems Review of Systems: All systems reviewed & are unremarkable except as noted in HPI & below Physical Exam Constitutional: WD/WN, vitals as above Neck: trachea midline, no thyromegaly Respiratory: no respiratory distress, no labored breathing, no cough and not tachypneic Auscultation: + crackles; no wheezes Cardiovascular: RRR, no murmur, no edema Gastrointestinal (Abdomen): normal bowel sounds, soft, nontender, no hepatosplenomegaly Musculoskeletal: Extremities: extremities normal to inspection Skin: no rashes, warm and dry Lymphatic: no cervical lymphadenopathy Results & Data Results & Data Vital Signs (Past 12 Hours) Vital Signs Temp Pulse Pulse Resp BP Pulse Ox O2 Del Method 03/23/24 08:00 High Flow Nasal Cannula 03/23/24 07:48 36.6 C 92 H 16 126/76 93 Nasal Cannula 03/23/24 07:30 89 03/23/24 07:05 89 18 91 Nasal Cannula 03/23/24 02:21 36.3 C L 94 H 22 167/96 H 94 High Flow Nasal Cannula 03/23/24 00:48 36.8 C 93 H 20 124/79 94 High Flow Nasal Cannula O2 Flow Rate 03/23/24 08:00 5 03/23/24 07:48 5 03/23/24 07:30 03/23/24 07:05 5 03/23/24 02:21 5 03/23/24 00:48 5 PG Care Time/CCT Total # of Minutes Spent Total Time Spent with Patient: Total time spent is greater than 50% in coordination of care (as documented) at patient's floor/unit and/or counseling patient: Coding Level of Care Code 02686 SUB INP/OBS CARE 2/35MIN Diagnoses Acute and chronic respiratory failure J96.21 Respiratory failure complication: hypoxia Metastatic colon cancer to liver C18.9; C78.7 Pneumonia J18.9 Laterality: bilateral Lung location: lower lobe of lung Pneumonia type: due to unspecified organism Bronchiectasis J47.9 UIP (usual interstitial pneumonitis) J84.112 Pneumomediastinum J98.2
--- NOTE | 2024-03-23 14:36 | Hospitalist Progress Note ---
Date of Service March 23, 2024 Assessment & Plan (1) Pneumonia: (2) Interstitial pulmonary disease, unspecified: (3) Metastatic colon cancer to liver: (4) Metastatic disease: (5) DAILEY (nonalcoholic steatohepatitis): (6) GERD (gastroesophageal reflux disease): Plan per previous hospitalist notes with addendum: Mr Weaver is a 73-year-old male with stage IV lung cancer with metastasis to liver, lung, idiopathic pulmonary fibrosis, GERD, Poe's esophagus and other medical problems presents with history of worsening shortness of breath, cough with hemoptysis and increased supplemental oxygen requirement. Patient was seen by pcp prior to admission days and started on augmentin and azithromycin for possible developing pneumonia. Despite taking the antibiotic course, patient continued to havening cough, shortness of breath and has been using his rescue inhaler more frequently. Patient remains with high o2 requirement, but now off of HFNC. Patient is on IV abx. Patient on methylpred daily. Oxygen requirements are slowly decreasing. Patient encouraged to mobilize as tolerated. Patient attempted to ambulate in [place], but noted significant drop in O2 therefore further PT was discontinued. Patient states he feels ok, but endorses some nasal congestion, reports flonase historically has helped #Nasal congestion Saline not helping, start flonase #Acute on chronic respiratory failure with hypoxia 2L O2 baseline #Acute Pneumonia, failure of outpatient treatment #Suspected worsening of Interstitial pulmonary fibrosis vs flare Likely multifactorial: Worsening pulmonary metastatic disease, interstitial lung disease flare, multifocal pneumonia Hemoptysis Biofire negative Sputum cx NGTD Blood cx NGTD CT chest with acute findings of pneumonitis, stable nodule changes and chronic interstitial changes Completed Zosyn, Doxy Completed 7 days so far of abx, will allow course to continue and follow fever curve/oxygenation there after Continue [facility] Pulmonary hygiene Pulmonology consulted, reviewed recommendations -PJP negative -sputum culture NGTD -Transition to PO prednisone 40mg daily x4 days, then 20 x 4 days, then 10 x4 days Continue supplemental oxygen to maintain saturations Lasix prn, 20mg IV today 03/18 Remains on 6 L Encouraged to use incentive spirometer and flutter valve regularly Continue prednisone 40 mg p.o. daily, Mucinex twice a day Continue to wean off O2 supplement Repeat chest x-ray tomorrow 03/20 CT chest: Positive pneumomediastinum Dr. Brumfield recommending taper of prednisone, Oxymizer, home high flow/concentrator Palliative care service evaluation 03/21 Remains on 8 to 10 L of O2 Lasix IV given yesterday Will coordinate with watch case polisher to obtain Oxymizer for the patient Prednisone being tapered down 03/22 still required 15L with minimal exertion today Lasix 20mg iV ordered will request Pulm to re-evaluate patient tomorrow 03/23 Pulm evaluated patient today "Patient is known to me with a history of end-stage IPF and metastatic colon cancer to the liver and lungs. He continues to respond poorly to treatments. Recommend that palliative care be engaged. I did discuss hospice options with the patient. He is going to think about this at this time. Recommend engaging with his oncologist as an outpatient to help direct his treatment plan." #Progressive metastatic colon cancer T3 N2 b, M0 stage IIIC at the time of diagnosis in 10/2018. Started current regimen 12/24/23 of 5-FU, leucovorin and bevacizumab every 2 weekly because disease progression was noted in the lungs. Last cycle was on 02/19/24, was due last Saturday(03/04/24) but missed due to ill sx as above. Follows with Dr. Vu Navarrete as outpatient #Mild troponin elevation Likely demand ischemia secondary to above Denies any chest pain Monitor #Hyperglycemia Hgba1c normal Continue other home meds as ordered Diet: regular DVT Px: SCDs Re:Hemoptysis Dispo: PT/OT for further recs once medically stable Admission and Anticipated Discharge Date Admission Date: March 08, 2024 Subjective Seen resting in bed, comfortable, not in distress On 5 L of O2 by nasal cannula Breathing is about the same as yesterday Intermittent dry cough No chest pain No other new symptoms Review of Systems Review of Systems: all noted and negative except for above Physical Exam Physical Exam: General- oriented x 3, not in distress, speaks in sentences with no effort or accessory muscle use Eyes- anicteric Neck- no JVD Lungs- Mild rales at the bases, no wheezing Heart- normal rate, regular rhythm; no murmurs Abdomen- normal bowel sounds, nondistended, soft, nontender Extremities- no pretibial edema, no calf tenderness Neuro- alert, oriented x 3; no gross focal neurologic deficits Skin- warm & dry Results & Data Results & Data Vital Signs (Past 12 Hours) Vital Signs Temp Pulse Pulse Resp BP Pulse Ox O2 Del Method 03/23/24 14:04 93 H 03/23/24 11:47 36.3 C L 85 24 131/87 98 Nasal Cannula 03/23/24 11:03 86 18 92 Nasal Cannula 03/23/24 08:00 High Flow Nasal Cannula 03/23/24 07:48 36.6 C 92 H 16 126/76 93 Nasal Cannula 03/23/24 07:30 89 03/23/24 07:05 89 18 91 Nasal Cannula O2 Flow Rate 03/23/24 14:04 03/23/24 11:47 5 03/23/24 11:03 5 03/23/24 08:00 5 03/23/24 07:48 5 03/23/24 07:30 03/23/24 07:05 5 all noted and reviewed including below (1) Pneumonia Laterality: bilateral Lung location: lower lobe of lung Pneumonia type: due to unspecified organism Qualified Code(s): J18.9 - Pneumonia, unspecified organism (4) Metastatic disease Area of secondary neoplastic involvement: unspecified site Qualified Code(s): C79.9 - Secondary malignant neoplasm of unspecified site
[2024-03-23 15:15] LABS: BUN Creatinine Ratio 21.7 (10-20); Creatinine Clr Calc Pharmacy 84.2 ml/min; Est GFR (African American) 94.6 ml/min; Est GFR (Non-African American) 81.6 ml/min; Magnesium 2.1 mg/dl (1.7-2.4); Potassium 4.1 mmol/L (3.5-5.1)
--- NOTE | 2024-03-24 16:01 | Hospitalist Progress Note ---
Date of Service March 24, 2024 Assessment & Plan (1) Pneumonia: (2) Interstitial pulmonary disease, unspecified: (3) Metastatic colon cancer to liver: (4) Metastatic disease: (5) DAILEY (nonalcoholic steatohepatitis): (6) GERD (gastroesophageal reflux disease): Plan per previous hospitalist notes with addendum: Mr Weaver is a 73-year-old male with stage IV lung cancer with metastasis to liver, lung, idiopathic pulmonary fibrosis, GERD, Poe's esophagus and other medical problems presents with history of worsening shortness of breath, cough with hemoptysis and increased supplemental oxygen requirement. Patient was seen by pcp prior to admission days and started on augmentin and azithromycin for possible developing pneumonia. Despite taking the antibiotic course, patient continued to havening cough, shortness of breath and has been using his rescue inhaler more frequently. #Acute on chronic respiratory failure with hypoxia 2L O2 baseline #Acute Pneumonia, failure of outpatient treatment #Suspected worsening of Interstitial pulmonary fibrosis vs flare Likely multifactorial: Worsening pulmonary metastatic disease, interstitial lung disease flare, multifocal pneumonia Hemoptysis Biofire negative Sputum cx NGTD Blood cx NGTD CT chest with acute findings of pneumonitis, stable nodule changes and chronic interstitial changes Completed Zosyn, Doxy Completed 7 days so far of abx, will allow course to continue and follow fev er curve/oxygenation there after Continue [facility] Pulmonary hygiene Pulmonology consulted, reviewed recommendations -PJP negative -sputum culture NGTD -Transition to PO prednisone 40mg daily x4 days, then 20 x 4 days, then 10 x4 days Continue supplemental oxygen to maintain saturations Lasix prn, 20mg IV today 03/18-03/24 Patient has completed course of IV antibiotics, IV Solu-Medrol but still requiring 15 L of oxygen via nasal cannula when ambulating Pulmonology service for reconsulted Repeat CT chest showing interval development of moderate pneumomediastinum, slight improvement of groundglass opacities cities throughout the lungs Recommended to taper prednisone as patient already developing oral thrush Recommend as needed IV Lasix Recommend palliative care service consult #Progressive metastatic colon cancer T3 N2 b, M0 stage IIIC at the time of diagnosis in 10/2018. Started current regimen 12/24/23 of 5-FU, leucovorin and bevacizumab every 2 weekly because disease progression was noted in the lungs. Last cycle was on 02/19/24, was due last Saturday(03/04/24) but missed due to ill sx as above. Follows with Dr. Vu Navarrete as outpatient- will inform Dr. Navarrete #Mild troponin elevation Likely demand ischemia secondary to above Denies any chest pain Monitor #Hyperglycemia Hgba1c normal Continue other home meds as ordered Diet: regular DVT Px: SCDs Re:Hemoptysis Dispo:pending awaiting acceptance to [facility] once o2 requirement <10L with ambulation Admission and Anticipated Discharge Date Admission Date: March 08, 2024 Subjective Follow-up for pulmonary fibrosis, pneumonia, metastatic colon cancer, etc. Seen resting in bed, sitting up, on 5 L of O2 by nasal cannula States breathing is okay, about the same as yesterday Still having dyspnea with minimal exertion No cough, chest pain, fever or chills No other new symptom Review of Systems Review of Systems: all noted and negative except for above Physical Exam Physical Exam: General- oriented x 3, not in distress, speaks in sentences with no effort or accessory muscle use Eyes- anicteric Neck- no JVD Lungs- mild rhonchi at the bases, no wheezing Heart- normal rate, regular rhythm; no murmurs Abdomen- normal bowel sounds, nondistended, soft, no tenderness Extremities- no pretibial edema, no calf tenderness Neuro- alert, oriented x 3; no gross focal neurologic deficits Skin- warm & dry Results & Data Results & Data Vital Signs (Past 12 Hours) Vital Signs Temp Pulse Pulse Resp BP Pulse Ox O2 Del Method 03/24/24 15:54 36.9 C 93 H 18 131/82 92 Nasal Cannula 03/24/24 15:03 83 18 94 Nasal Cannula 03/24/24 14:25 93 H 03/24/24 11:43 36.6 C 90 18 128/80 93 Nasal Cannula 03/24/24 10:45 86 20 91 Nasal Cannula 03/24/24 07:58 36.4 C L 92 H 18 121/81 91 Nasal Cannula 03/24/24 07:41 High Flow Nasal Cannula 03/24/24 07:10 86 14 94 Nasal Cannula 03/24/24 07:05 92 H O2 Flow Rate 03/24/24 15:54 5 03/24/24 15:03 5 03/24/24 14:25 03/24/24 11:43 5 03/24/24 10:45 5 03/24/24 07:58 5 03/24/24 07:41 5 03/24/24 07:10 5 03/24/24 07:05 all noted and reviewed including below (1) Pneumonia Laterality: bilateral Lung location: lower lobe of lung Pneumonia type: due to unspecified organism Qualified Code(s): J18.9 - Pneumonia, unspecified organism (4) Metastatic disease Area of secondary neoplastic involvement: unspecified site Qualified Code(s): C79.9 - Secondary malignant neoplasm of unspecified site
--- NOTE | 2024-03-25 09:48 | Hospitalist Progress Note ---
Date of Service March 25, 2024 Assessment & Plan (1) Pneumonia: (2) Interstitial pulmonary disease, unspecified: (3) Metastatic colon cancer to liver: (4) Metastatic disease: (5) DAILEY (nonalcoholic steatohepatitis): (6) GERD (gastroesophageal reflux disease): Plan 73-year-old male with stage IV lung cancer with metastasis to liver, lung, idiopathic pulmonary fibrosis, GERD, Poe's esophagus and other medical problems presents with history of worsening shortness of breath, cough with hemoptysis and increased supplemental oxygen requirement. Patient was seen by pcp prior to admission days and started on augmentin and azithromycin for possible developing pneumonia. Despite taking the antibiotic course, patient continued to havening cough, shortness of breath and has been using his rescue inhaler more frequently. #Acute on chronic respiratory failure with hypoxia 2L O2 baseline #Acute Pneumonia, failure of outpatient treatment #End stage Interstitial pulmonary fibrosis Biofire negative Sputum cx NGTD Blood cx NGTD CT chest with acute findings of pneumonitis, stable nodule changes and chronic interstitial changes Completed antibiotic therapy Continue [facility] Pulmonary hygiene Pulmonology eval and recs noted -PJP negative -Currently on PO prednisone taper. On 10mg to end tomorrow Continue supplemental oxygen to maintain saturations Repeat CT chest showing interval development of moderate pneumomediastinum, slight improvement of groundglass opacities cities throughout the lungs Oxygen at 5l at rest but increasing up to 15L with activity yesterday Reassess today Continue as needed IV Lasix Palliative consulted per pulm recs #Progressive metastatic colon cancer T3 N2 b, M0 stage IIIC at the time of diagnosis in 10/2018. Started current regimen 12/24/23 of 5-FU, leucovorin and bevacizumab every 2 weekly because disease progression was noted in the lungs. Last cycle was on 02/19/24, was due last Saturday(03/04/24) but missed due to ill sx as above. Follows with Dr. Vu Navarrete as outpatient #Mild troponin elevation Likely demand ischemia secondary to above Denies any chest pain Monitor #Hyperglycemia Hgba1c normal Continue other home meds as ordered Diet: regular DVT Px: SCDs Re:Hemoptysis Dispo:pending Awaiting acceptance to [facility] once o2 requirement <10L with ambulation I spent a total of 40 minutes coordinating, documenting and providing care for this patient excluding time spent in performance of separately billed services Admission and Anticipated Discharge Date Admission Date: March 08, 2024 Subjective Patient seen and examined Reports cough productive of clear sputum, SOB with activity Denied any chest pain, fever, chills, nausea, vomiting, abd pain, diarrhea Currently on 5L NC at rest Physical Exam Constitutional: + well hydrated; no acute distress Eyes: PERRL, conjunctivae normal, anicteric sclerae ENMT: external ear and nose normal, oropharynx normal Respiratory: normal respiratory effort; no respiratory distress On nasal cannula, +crackles Cardiovascular: Rate/Rhythm: regular rate and regular rhythm Gastrointestinal (Abdomen): normal bowel sounds, soft, nontender, no he patosplenomegaly Musculoskeletal: No pedal edema Neurologic: PERRL, EOMI, accommodation nl, no face palsy, no dysarthria Psychiatric: A+Ox3, euthymic affect Results & Data Results & Data Vital Signs (Past 12 Hours) Vital Signs Temp Pulse Pulse Resp BP Pulse Ox O2 Del Method 03/25/24 07:41 36.4 C L 64 18 128/76 93 High Flow Nasal Cannula 03/25/24 07:24 92 H 24 93 Nasal Cannula 03/25/24 02:35 36.8 C 95 H 20 128/82 92 High Flow Nasal Cannula 03/25/24 00:00 101 H 03/24/24 22:45 36.9 C 101 H 20 127/78 92 Nasal Cannula O2 Flow Rate 03/25/24 07:41 5 03/25/24 07:24 5 03/25/24 02:35 5 03/25/24 00:00 03/24/24 22:45 5 (1) Pneumonia Laterality: bilateral Lung location: lower lobe of lung Pneumonia type: due to unspecified organism Qualified Code(s): J18.9 - Pneumonia, unspecified organism (4) Metastatic disease Area of secondary neoplastic involvement: unspecified site Qualified Code(s): C79.9 - Secondary malignant neoplasm of unspecified site
[2024-03-26] MEDS: IPRATROPIUM BROMIDE NEB SOLN 0.02% 0.5MG/2.5ML VIAL INH STA (01:14)
[2024-03-26] MEDS: LEVALBUTEROL 1.25 MG/3 ML NEB NEB STA (01:14)
[2024-03-26] MEDS: methylPREDNISolone 20 MG in SYRINGE 0 ML IV ONE (01:56)
[2024-03-26 01:58] LABS: Basophils # (auto) 0.02 K/uL (0.00-0.20); Basophils % (auto) 0.2 %; Eosinophils # (auto) 0.45 K/uL (0.00-0.50); Eosinophils % (auto) 3.4 %; Hematocrit (blood only) 38.8 % (42.0-52.0); Hemoglobin 13.4 g/dl (14.0-18.0); Immature Granulocytes # (auto) 0.05 K/uL (0.01-0.20); Immature Granulocytes % (auto) 0.4 %; Lymphocytes # (auto) 0.88 K/uL (1.20-3.40); Lymphocytes % (auto) 6.6 %; Mean Corpuscular Hemoglobin 32.5 pg (25.0-34.0); Mean Corpuscular Hgb Conc 34.5 g/dL (32.0-36.0); Mean Corpuscular Volume 94.2 fL (80.0-100.0); Mean Platelet Volume 10.3 fL (9.4-12.4); Monocytes # (auto) 0.71 K/uL (0.11-0.59); Monocytes % (auto) 5.3 %; Neutrophils # (auto) 11.18 K/uL (1.40-6.50); Neutrophils % (auto) 84.1 %; Platelet Count 147 K/uL (130-400); RDW Coefficient of Variation 15.4 % (11.5-14.5); RDW Standard Deviation 52.7 fL (36.4-46.3); Red Blood Count 4.12 M/uL (4.70-6.10); White Blood Count 13.29 K/ul (4.8-10.8)
[2024-03-26 02:00] LABS: BUN Creatinine Ratio 24.1 (10-20); Calcium 8.8 mg/dl (8.6-10.3); Creatinine Clr Calc Pharmacy 93.3 ml/min; Est GFR (African American) 100.5 ml/min; Est GFR (Non-African American) 86.7 ml/min; Magnesium 1.9 mg/dl (1.7-2.4); Potassium 3.8 mmol/L (3.5-5.1)
[2024-03-26 02:34] LABS: Base Excess VBG 4.8 mEq/L; HCO3 VBG 30 mmol/L; Oxygen Saturation VBG 92.8 %; PCO2 VBG 45 mmHg (38-50); PO2 VBG 63 mmHg; pH VBG 7.43 (7.36-7.41)
--- NOTE | 2024-03-26 07:06 | XRay Report ---
XR chest 1V portable CLINICAL HISTORY: low o2 TECHNIQUE: Single frontal radiograph of the chest was obtained. Comparison: Comparison is made to chest radiograph 03/19/2024 FINDINGS: No lines and tubes are seen. The cardiomediastinal silhouette is normal. Interstitial and alveolar op acities are again seen. No evidence of pleural effusion or pneumothorax. IMPRESSION: Interstitial and alveolar opacities are again seen, similar to prior exam. ACT 112: Negative or not required by law. Electronically signed by: Nagi Haney M.D. 03/26/2024 7:04 AM
--- NOTE | 2024-03-26 11:38 | Hospitalist Progress Note ---
Date of Service March 26, 2024 Assessment & Plan (1) Pneumonia: (2) Interstitial pulmonary disease, unspecified: (3) Metastatic colon cancer to liver: (4) Metastatic disease: (5) DAILEY (nonalcoholic steatohepatitis): (6) GERD (gastroesophageal reflux disease): Plan 73-year-old male with stage IV lung cancer with metastasis to liver, lung, idiopathic pulmonary fibrosis, GERD, Poe's esophagus and other medical problems presents with history of worsening shortness of breath, cough with hemoptysis and increased supplemental oxygen requirement. Patient was seen by pcp prior to admission days and started on augmentin and azithromycin for possible developing pneumonia. Despite taking the antibiotic course, patient continued to havening cough, shortness of breath and has been using his rescue inhaler more frequently. #Acute on chronic respiratory failure with hypoxia 2L O2 baseline #Acute Pneumonia, failure of outpatient treatment #End stage Interstitial pulmonary fibrosis Biofire negative Sputum cx NGTD Blood cx NGTD CT chest with acute findings of pneumonitis, stable nodule changes and chronic interstitial changes Completed antibiotic therapy Continue [facility] Pulmonary hygiene Pulmonology eval and recs noted -PJP negative -Currently on PO prednisone taper. On 10mg to end tomorrow Continue supplemental oxygen to maintain saturations Repeat CT chest showing interval development of moderate pneumomediastinum, slight improvement of groundglass opacities cities throughout the lungs Oxygen at 5l at rest but increasing up to 12L with activity today Continue IS/Flutter Continue as needed IV Lasix Palliative consulted per pulm recs #Progressive metastatic colon cancer T3 N2 b, M0 stage IIIC at the time of diagnosis in 10/2018. Started current regimen 12/24/23 of 5-FU, leucovorin and bevacizumab every 2 weekly because disease progression was noted in the lungs. Last cycle was on 02/19/24, was due last Saturday(03/04/24) but missed due to ill sx as above. Follows with Dr. Vu Navarrete as outpatient #Mild troponin elevation Likely demand ischemia secondary to above Denies any chest pain Monitor Continue other home meds as ordered Diet: regular DVT Px: SCDs Re:Hemoptysis Dispo:pending Awaiting acceptance to [facility] once o2 requirement <10L with ambulation I spent a total of 40 minutes coordinating, documenting and providing care for this patient excluding time spent in performance of separately billed services Admission and Anticipated Discharge Date Admission Date: March 08, 2024 Subjective Patient seen and examined Reported he required increased oxygen overnight at 7L/min due to the way he laid Still has increased oxygen required with activity Required 12L NC when/after using commode this AM to maintain adequate oxygen Reports cough productive of clear sputum, SOB with activity Denied any chest pain, fever, chills, nausea, vomiting, abd pain, diarrhea Denied any new complaints Physical Exam Constitutional: + well hydrated; no acute distress Eyes: PERRL, conjunctivae normal, anicteric sclerae ENMT: external ear and nose normal, oropharynx normal Respiratory: normal respiratory effort; no respiratory distress On nasal cannula, +crackles Cardiovascular: Rate/Rhythm: regular rate and regular rhythm Gastrointestinal (Abdomen): normal bowel sounds, soft, nontender, no hepatosplenomegaly Musculoskeletal: No pedal edema Neurologic: PERRL, EOMI, accommodation nl, no face palsy, no dysarthria Psychiatric: A+Ox3, euthymic affect Results & Data Results & Data Vital Signs (Past 12 Hours) Vital Signs Temp Pulse Pulse Resp BP BP Pulse Ox 03/26/24 10:38 105 H 34 H 94 03/26/24 09:30 03/26/24 07:44 36.5 C 99 H 18 144/87 H 91 03/26/24 07:30 90 22 98 03/26/24 07:11 88 03/26/24 03:57 37.0 C 93 H 20 122/76 97 03/26/24 01:08 95 H 22 95 03/26/24 00:24 36.5 C 98 H 22 134/76 92 03/25/24 23:45 95 H O2 Del Method O2 Flow Rate 03/26/24 10:38 Nasal Cannula 7 03/26/24 09:30 High Flow Nasal Cannula 7 03/26/24 07:44 High Flow Nasal Cannula 5 03/26/24 07:30 Nasal Cannula 7 03/26/24 07:11 03/26/24 03:57 Nasal Cannula 7 03/26/24 01:08 Nasal Cannula 5 03/26/24 00:24 Nasal Cannula 7 03/25/24 23:45 Laboratory Results Abnormal lab results 03/26/24 03/26/24 Range/Units 01:29 01:34 WBC 13.29 H (4.8-10.8) K/ul RBC 4.12 L (4.70-6.10) M/uL Hgb 13.4 L (14.0-18.0) g/dl Hct 38.8 L (42.0-52.0) % RDW Std Deviation 52.7 H (36.4-46.3) fL RDW Coeff of Dwayne 15.4 H (11.5-14.5) % Neut # (Auto) 11.18 H (1.40-6.50) K/uL Lymph # (Auto) 0.88 L (1.20-3.40) K/uL [place] # (Auto) 0.71 H (0.11-0.59) K/uL VBG pH 7.43 H (7.36-7.41) Sodium 135 L (136-145) mmol/L BUN/Creatinine Ratio 24.1 H (10-20) Glucose 122 H (70-99(Fasting)) mg/dl (1) Pneumonia Laterality: bilateral Lung location: lower lobe of lung Pneumonia type: due to unspecified organism Qualified Code(s): J18.9 - Pneumonia, unspecified organism (4) Metastatic disease Area of secondary neoplastic involvement: unspecified site Qualified Code(s): C79.9 - Secondary malignant neoplasm of unspecified site
[2024-03-26] MEDS: FUROSEMIDE INJ 20 MG/2 ML VIAL IV ONE (15:42)
--- NOTE | 2024-03-27 09:36 | Hospitalist Progress Note ---
Date of Service March 27, 2024 Assessment & Plan (1) Pneumonia: (2) Interstitial pulmonary disease, unspecified: (3) Metastatic colon cancer to liver: (4) Metastatic disease: (5) DAILEY (nonalcoholic steatohepatitis): (6) GERD (gastroesophageal reflux disease): Plan 73-year-old male with stage IV lung cancer with metastasis to liver, lung, idiopathic pulmonary fibrosis, GERD, Poe's esophagus and other medical problems presents with history of worsening shortness of breath, cough with hemoptysis and increased supplemental oxygen requirement. Patient was seen by pcp prior to admission days and started on augmentin and azithromycin for possible developing pneumonia. Despite taking the antibiotic course, patient continued to havening cough, shortness of breath and has been using his rescue inhaler more frequently. #Acute on chronic respiratory failure with hypoxia 2L O2 baseline #Acute Pneumonia, failure of outpatient treatment #End stage Interstitial pulmonary fibrosis Biofire negative Sputum cx NGTD Blood cx NGTD CT chest with acute findings of pneumonitis, stable nodule changes and chronic interstitial changes Completed antibiotic therapy Continue [facility] Pulmonary hygiene Pulmonology eval and recs noted -PJP negative -Completed prednisone taper Continue supplemental oxygen to maintain saturation >88% Repeat CT chest showed interval development of moderate pneumomediastinum, slight improvement of groundglass opacities cities throughout the lungs Oxygen at 5l at rest but increasing up to 12L with activity as of yesterday Continue IS/Flutter Continue as needed IV Lasix Palliative consulted per pulm recs #Progressive metastatic colon cancer T3 N2 b, M0 stage IIIC at the time of diagnosis in 10/2018. Started current regimen 12/24/23 of 5-FU, leucovorin and bevacizumab every 2 weekly because disease progression was noted in the lungs. Last cycle was on 02/19/24, was due last Saturday(03/04/24) but missed due to ill sx as above. Follows with Dr. Vu Navarrete as outpatient #Mild troponin elevation Likely demand ischemia secondary to above Denies any chest pain Monitor Continue other home meds as ordered Diet: regular DVT Px: SCDs Re:Hemoptysis Dispo:pending Awaiting acceptance to [facility] once o2 requirement <10L with ambulation I spent a total of 35 minutes coordinating, documenting and providing care for this patient excluding time spent in performance of separately billed services Admission and Anticipated Discharge Date Admission Date: March 08, 2024 Subjective Patient seen and examined Reports cough, SOB with activity On 5L NC at rest and increased oxygen with minimal activity Denied any chest pain, fever, chills, nausea, vomiting, abd pain, diarrhea Denied any new complaints Physical Exam Constitutional: + well hydrated; no acute distress Eyes: PERRL, conjunctivae normal, anicteric sclerae ENMT: external ear and nose normal, oropharynx normal Respiratory: normal respiratory effort; no respiratory distress Diminished breath sounds, +crackles Cardiovascular: Rate/Rhythm: regular rate and regular rhythm Gastrointestinal (Abdomen): normal bowel sounds, soft, nontender, no hepatospl enomegaly Musculoskeletal: No pedal edema Neurologic: PERRL, EOMI, accommodation nl, no face palsy, no dysarthria Psychiatric: A+Ox3, euthymic affect Results & Data Results & Data Vital Signs (Past 12 Hours) Vital Signs Temp Pulse Pulse Resp BP BP Pulse Ox 03/27/24 08:12 36.5 C 87 20 123/80 96 03/27/24 07:28 86 22 96 03/27/24 06:15 93 03/27/24 05:42 81 03/27/24 03:50 36.9 C 77 18 115/75 100 03/27/24 01:32 03/26/24 23:33 36.9 C 89 16 123/85 98 03/26/24 22:21 99 H O2 Del Method O2 Flow Rate 03/27/24 08:12 High Flow Nasal Cannula 5 03/27/24 07:28 Nasal Cannula 5 03/27/24 06:15 High Flow Nasal Cannula 5 03/27/24 05:42 03/27/24 03:50 High Flow Nasal Cannula 7 03/27/24 01:32 High Flow Nasal Cannula 7 03/26/24 23:33 High Flow Nasal Cannula 7 03/26/24 22:21 (1) Pneumonia Laterality: bilateral Lung location: lower lobe of lung Pneumonia type: due to unspecified organism Qualified Code(s): J18.9 - Pneumonia, unspecified organism (4) Metastatic disease Area of secondary neoplastic involvement: unspecified site Qualified Code(s): C79.9 - Secondary malignant neoplasm of unspecified site
[2024-03-27] MEDS: FUROSEMIDE INJ 20 MG/2 ML VIAL IV ONE (10:38)
--- NOTE | 2024-03-28 00:48 | Palliative Care Consultation ---
Date of Consultation March 28, 2024 Assessment & Plan (1) Dyspnea and respiratory abnormalities: (2) Muscular deconditioning: Prior to this admission, patient had a baseline performance status of 0. He was independent with his ADLs. This exacerbation of his pulmonary fibrosis has been significant and unlike prior exacerbations. He has lost some muscle strength in this 2-week admission. (3) Anxiety associated with cancer diagnosis: (4) Advanced care planning/counseling discussion: 45-minute [id number] advance care planning discussion was held with patient, his and his son at the bedside. We discussed his overall worries and concerns in the context of the progression of his cancer and the exacerbation of his pulmonary fibrosis. It is noted that he had a very good performance status prior to this admission/ECOG 0. He did not require assistance with his ADLs. The strength he has lost during this 2 weeks is consistent with the deconditioning of an acute admission. His top 2 goals are to improve as much as he can to resume some cancer rx and to avoid burdening his with his medical needs. Given these goals and his [employer] ECOG 0, would be reasonable to hope that he may be able to recover some of this but he would need a stronger rehabilitation option than a standard long-term would be able to provide especially in the context of his pulmonary fibrosis, which would respond better to an acute rehab admission to optimize him for the best chance of recovery. Given that his prior history with his ILD was relatively stable with only 2 small exacerbations requiring steroid pulses and not a prolonged admission, it is reasonable to hope he could benefit more from acute inpatient rehab versus subacute rehab. Alternatively, if he is able to work with physical therapy and gain some ground through the next several days, then maybe a discharge home visiting nurse service and home physical therapy with a plan for referral to pulmonary outpatient rehab can be considered. I discussed with Dr. Zavala who is patient's primary entry level staff accountant, and we agreed pulmonary rehabilitation and acute inpatient rehab for this patient would provide more intensive, specialized respiratory care, including tailored exercises and therapies, which are crucial for managing pulmonary fibrosis. Both pt and family the intensity of acute rehab is higher and would require more hours/day of engagement, which pt states he is willing to do if offered the chance. With patient and family expressing a specific goal of wanting to optimize his chances to resume chemo and cancer directed therapies, his best chance will come with the best therapy option for rehabbing from this admission. Subacute rehab offers a less focused care and lower intensity, making them less effective for patients with more severe or complex respiratory needs. I will reach out to Dr. Andre at [facility]. Mr Weaver has elected conditional code. He wants to keep options open which would give him his best opportunity to resume chemo. I advised him and family that should he have an acute event with decline to where advanced life support interventions are needed, then the overall likelihood for recovery would be to a lower baseline and likely he would not be optimal candidate for aggressive cancer rx. I encouraged them to further discuss this as a family. We also explored the "what if" scenario of what care options are available if no further chemo is offered. Reviewed with pt that if he is not going to be offered further cancer rx including chemo, ICI, etc., then adding home hospice to his care would be very reasonable as this would provide him and his family with extra y of support and help reduce caregiver burden, which worries him significantly.We briefly discussed the hospice benefit - this created a lot fo anxiety for him and he did not want to spend too much time on it though he acknowledged it would be important to have as much help and support as he could have to be able to stay home but also reduce the burden intensity on his . He is open to following up in OP pall med clinic. We agreed to see how next few days go with resp management. He was encouraged to walk around his room and ask PT for in bed / in chair exercises to help improve conditioning. I am in OP clinic on Mondays and will return to inpatient on Saturday, plan to revisit with pt and family at that time but if any acute needs/acute decline occurs in the interim, please page me. (5) Palliative care by specialist: Introduced Palliative Medicine and explained our role in patient's care. Patient and/or family were receptive to palliative services for goals of care discussions. Reviewed we are different from hospice, a home health nurse visiting service. (6) Adenocarcinoma of colon metastatic to liver: (7) UIP (usual interstitial pneumonitis): Plan As above Discussed with pulm and primary team Consult sent to Dr Navarrete/[facility] and Dr Andre/[facility] Thank you for allowing us to participate in the ongoing care of this patient. Please page with any additional concerns. Keisha Leong DNP Director, Palliative Medicine History of Present Illness Reason for Consultation: Goals of care, advance care planning, idiopathic pulmonary fibrosis, metastatic colon cancer Attending Physician: Tiffany Scott MD History of Present Illness .Owen is a 73-year-old gentleman admitted with suspected IPF exacerbation/acute hypoc resp failure. PMH: colon adenocarcinoma diagnosed in October 2018, followed by transverse and descending colectomy 11/20/[address] Blue, completed adjuvant modified FOLFOX x 12 cycles, 07/14/2019. Mr Weaver had a recurrence in October 2021 with mets to liver + peritoneal nodule involving the outer surface of the liver. He was treated with FOLFIRI + avastin every 2 weeks, then in December 2021 discontinued 5-FU d/t low ANC. By May 2022, he chose to stop irinotecan as he has worsening ILD with 2 exacerbations requiring steroid bolus and he started oxygen therapy. Prior to this, he had a relatively stable course of pulmonary fibrosis. He follows with Dr Lam for his IPF - had treatment with Ofev but due to some growing weakness and the diarrhea related intolerance of Ofev, ultimately this medication was stopped. He feels that during this period of time he took the Ofev, testing did support that his disease was slowing down and he did not have significant flareups with his pulmonary fibrosis. By July 2022, chemotherapy regimen was changed to a every 3-week cycle from a prior every 2 weeks cycle for his 5 FU to leucovorin Avastin. He started current regimen 12/24/23 of 5-FU, leucovorin and bevacizumab every 2 weekly because disease progression was noted in the lungs. He failed a course of outpatient treatment for what was felt to be a respiratory exacerbation. He noted that during the course of treatment he did become weaker and had more struggles with breathing. Ultimately he chose to come to the emergency department for further evaluation with been admitted for send toxic respiratory failure and exacerbation of pulmonary fibrosis. Prior to this admission, he was independent at home and able to tolerate all his ADLs. His respiratory status was stable on 2 L of oxygen by nasal cannula. He would occasionally increase this to 4 or 5 L with exertion. Currently he is requiring up to 10 L with exertion and remains on 4 to 5 L at rest. He is currently rece iving oxygen by nasal cannula. He has a follow-up appointment with his oncologist, Dr. Navarrete at [facility], next week. Due to his current admission, there are plans for that appointment to be shifted to a telephone/TeleMed visit. He reports feeling a significant change in his performance status with this exacerbation and also notes that this has been the most significant flareup of his pulmonary fibrosis. He is walking around his room with the assistance of physical therapy. He notes that last week he was able to walk in the hallways but that seemed to shift for him and he has only been able to be allowed walks in his room. He is concerned about the progression of his cancer. He notes that this is changed his mood and created more anxiety for him. He perseverates and worries quite a bit about what the future holds. He worries for his especially and feels that at times his illness is a significant burden for her as she also has some respiratory issues with her asthma and has in the past required outpatient pulmonary rehab. He feels that he has good family support. He denies any cancer related pain at this time. His appetite has been fair and he is tolerating some supplements. He denies any heartburn, nausea, vomiting, constipation or diarrhea. Allergies Allergy/AdvReac Type Severity Reaction Status Date / Time morphine Allergy Unknown ITCHING Verified 03/08/24 13:10 Home Medications Medication Instructions Recorded Confirmed Type cholecalciferol (vitamin D3) 50 2,000 unit PO QAM 10/24/18 03/08/24 History mcg (2,000 unit) capsule (Vitamin D3) melatonin 3 mg tablet 3 mg PO HS PRN Sleep 10/24/18 03/08/24 History pantoprazole 40 mg tablet,delayed 40 mg PO QAM 10/24/18 03/08/24 History release (Protonix) ibuprofen 200 mg tablet 200 mg PO Q4H PRN osteoarthritits 01/08/19 03/08/24 History nebulizers #1 ea 10/20/20 03/08/24 Rx Oxygen Home #2 L 03/29/22 03/08/24 Rx Portable Oxygen #1 ea 03/29/22 03/08/24 Rx acetaminophen 500 mg tablet 500 mg PO Q6H PRN Pain 08/12/22 03/08/24 History (Tylenol Extra Strength) acyclovir 400 mg tablet 400 mg PO BID PRN cold sore 08/12/22 03/08/24 History outbreak amoxicillin 500 mg capsule 2,000 mg PO DIRECTED PRN PRIOR 08/12/22 03/08/24 History TO DENTAL APPT. cyanocobalamin (vitamin B-12) 1,000 mcg PO QAM 08/12/22 03/08/24 History 1,000 mcg tablet (Vitamin B-12) hydrocortisone 2.5 % topical cream 1 applic topical DIRECTED PRN 08/12/22 03/08/24 History Skin Irritation lactobacillus combination no.4 3 3,000 mmu cells PO QAM 07/03/23 03/08/24 History billion cell capsule (Probiotic) amoxicillin 875 mg-potassium 1 tab PO BID 03/08/24 03/08/24 History clavulanate 125 mg tablet azithromycin 250 mg tablet 250 mg PO DIRECTED 03/08/24 03/08/24 History benzonatate 100 mg capsule 100 mg PO TID PRN Cough 03/08/24 03/08/24 History bevacizumab-bvzr 25 mg/mL 0 mg IV Q14D 03/08/24 03/08/24 History intravenous solution (Zirabev) budesonide 0.5 mg/2 mL suspension 0.5 mg irrigation BID 03/08/24 03/08/24 History for nebulization fluorouracil 2.5 gram/50 mL 0 g IV Q14D 03/08/24 03/08/24 History intravenous solution leucovorin calcium 10 mg/mL 0 mg IV Q14D 03/08/24 03/08/24 History injection solution lorazepam 1 mg tablet 1 mg PO HS PRN Sleep 03/08/24 03/08/24 History zinc acetate 50 mg (zinc) capsule 50 mg PO DAILY 03/08/24 03/08/24 History Patient History Medical History History of Helicobacter pylori infection 10 yr ago. Acid reflux Port-A-Cath in place power. Right chest. Colon carcinoma metastatic to multiple sites pt denies/recent ct scan May 2023 - no signs of colon cancer. Interstitial pulmonary disease, unspecified Colon cancer dx 2018 -- chemo and finished 07/2019 dx 2021 again--chemo finished 12/2022>current port in place DAILEY (nonalcoholic steatohepatitis) pt not sure if official dx. IPF (idiopathic pulmonary fibrosis) follows by [facility] Osteoarthritis GERD (gastroesophageal reflux disease) Surgical History History of vascular access device power port. History of cataract surgery rt/left S/P closed reduction of dislocated total hip prosthesis right History of arthroscopy left knee History of bowel resection History of esophagogastroduodenoscopy (EGD) History of colonoscopy Hx of LASIK History of tonsillectomy H/O bilateral hip replacements Family History Grandmother (Maternal) Family hx of colon cancer Father FHx: lung cancer Other No family history of adverse response to anesthesia Social History Smoking Status: Never smoker Second Hand Exposure: Yes (as a child); Do You Dip or Chew Tobacco: No; Hx Alcohol Use: Yes Alcohol type: beer Hx Substance Use: No Preferred Language: Icelandic Communication Ability: Effective Visual Impairment: No Limitations Hearing Ability: Normal Quote Clerk Required: No Beliefs That Will Affect Care: None Current Living Situation: Spouse Current Living Situation Comment: 2 story house; can live on first floor if needed Other Information That Helps Us Care for You: No Feels Safe at Home: Yes Safety Concerns: Feels Safe At This Time Assistive Devices: Oxygen - Continuous Review of Systems Review of Systems: All systems reviewed & are unremarkable except as noted in Subjective Physical Exam Physical Exam: Semireclined in bed, resting comfortably, no acute distress. NCAT, PERRLA, EOMI's. Neck is supple, no stridor. No thyromegaly. Respiratory effort comfortable at rest. Mild conversational dyspnea noted. Intermittent dry cough, bilateral lung wang with some crackles, no wheezes. S1-S2 with no gross JVD. Abdomen soft, nontender, bowel sounds present. Strength is equal symmetrically. There is no significant edema to the lower extremities. Skin is pale but warm and dry. He is awake alert and oriented x 3. He is pleasant and cooperative through this visit. Delirium screen is negative. Results & Data Vital Signs (Past 12 Hours) Vital Signs Temp Pulse Pulse Resp BP Pulse Ox O2 Del Method 03/27/24 23:30 36.5 C 99 H 20 114/72 96 High Flow Nasal Cannula 03/27/24 23:21 High Flow Nasal Cannula 03/27/24 19:58 88 20 93 Nasal Cannula 03/27/24 19:25 36.6 C 98 H 20 112/71 92 High Flow Nasal Cannula 03/27/24 15:59 36.3 C L 99 H 18 119/77 96 High Flow Nasal Cannula 03/27/24 15:15 109 H 24 83 L Nasal Cannula 03/27/24 13:01 99 H O2 Flow Rate 03/27/24 23:30 5 03/27/24 23:21 5 03/27/24 19:58 5 03/27/24 19:25 5 03/27/24 15:59 5 03/27/24 15:15 5 03/27/24 13:01 Laboratory Results 03/26/24 03/26/24 03/23/24 Range/Units 01:34 01:29 14:40 WBC 13.29 H (4.8-10.8) K/ul RBC 4.12 L (4.70-6.10) M/uL Hgb 13.4 L (14.0-18.0) g/dl Hct 38.8 L (42.0-52.0) % MCV 94.2 (80.0-100.0) fL MCH 32.5 (25.0-34.0) pg MCHC 34.5 (32.0-36.0) g/dL RDW Std Deviation 52.7 H (36.4-46.3) fL RDW Coeff of Dwayne 15.4 H (11.5-14.5) % Plt Count 147 (130-400) K/uL MPV 10.3 (9.4-12.4) fL Immature Gran % (Auto) 0.4 % Neut % (Auto) 84.1 % Lymph % (Auto) 6.6 % Polk % (Auto) 5.3 % Eos % (Auto) 3.4 % Baso % (Auto) 0.2 % Neut # (Auto) 11.18 H (1.40-6.50) K/uL Lymph # (Auto) 0.88 L (1.20-3.40) K/uL Polk # (Auto) 0.71 H (0.11-0.59) K/uL Eos # (Auto) 0.45 (0.00-0.50) K/uL Baso # (Auto) 0.02 (0.00-0.20) K/uL Immature Gran # (Auto) 0.05 (0.01-0.20) K/uL VBG pH 7.43 H (7.36-7.41) VBG pCO2 45 (38-50) mmHg VBG pO2 63 mmHg VBG HCO3 30 mmol/L VBG O2 Saturation 92.8 % VBG Base Excess 4.8 mEq/L Sodium 135 L 133 L (136-145) mmol/L Potassium 3.8 4.1 (3.5-5.1) mmol/L Chloride 100 98 (98-107) mmol/L Carbon Dioxide 31 30 (21-32) mmol/L Anion Gap 4 5 (3-11) BUN 20 20 (6-23) mg/dl Creatinine 0.83 0.92 (0.6-1.4) mg/dl Est Cr Clr Drug Dosing 93.3 84.2 ml/min Est GFR ( Amer) 100.5 94.6 ml/min Est GFR (Non-Af Amer) 86.7 81.6 ml/min BUN/Creatinine Ratio 24.1 H 21.7 H (10-20) Glucose 122 H 154 H (70-99(Fasting)) mg/dl Calcium 8.8 9.0 (8.6-10.3) mg/dl Magnesium 1.9 2.1 (1.7-2.4) mg/dl B-Natriuretic Peptide (0-100) pg/ml 03/21/24 Range/Units 06:38 WBC (4.8-10.8) K/ul RBC (4.70-6.10) M/uL Hgb (14.0-18.0) g/dl Hct (42.0-52.0) % MCV (80.0-100.0) fL MCH (25.0-34.0) pg MCHC (32.0-36.0) g/dL RDW Std Deviation (36.4-46.3) fL RDW Coeff of Dwayne (11.5-14.5) % Plt Count (130-400) K/uL MPV (9.4-12.4) fL Immature Gran % (Auto) % Neut % (Auto) % Lymph % (Auto) % Polk % (Auto) % Eos % (Auto) % Baso % (Auto) % Neut # (Auto) (1.40-6.50) K/uL Lymph # (Auto) (1.20-3.40) K/uL Polk # (Auto) (0.11-0.59) K/uL Eos # (Auto) (0.00-0.50) K/uL Baso # (Auto) (0.00-0.20) K/uL Immature Gran # (Auto) (0.01-0.20) K/uL VBG pH (7.36-7.41) VBG pCO2 (38-50) mmHg VBG pO2 mmHg VBG HCO3 mmol/L VBG O2 Saturation % VBG Base Excess mEq/L Sodium (136-145) mmol/L Potassium (3.5-5.1) mmol/L Chloride (98-107) mmol/L Carbon Dioxide (21-32) mmol/L Anion Gap (3-11) BUN (6-23) mg/dl Creatinine (0.6-1.4) mg/dl Est Cr Clr Drug Dosing ml/min Est GFR ( Amer) ml/min Est GFR (Non-Af Amer) ml/min BUN/Creatinine Ratio (10-20) Glucose (70-99(Fasting)) mg/dl Calcium (8.6-10.3) mg/dl Magnesium (1.7-2.4) mg/dl B-Natriuretic Peptide 42 (0-100) pg/ml Diagnostic Findings Chest X-Ray 03/08/24 10:35 XR chest 1V portable HISTORY: 73 years-old Male Chest pain, nonspecific COMPARISON: Chest radiograph 01/12/2019, chest CT 12/03/2023. TECHNIQUE: AP view chest FINDINGS: Cardiac silhouette is mildly enlarged. Right IJ Giqwnp-i-Usqn catheter. No pneumothorax. Small pleural effusions with pulmonary vascular congestion. Bilateral pulmonary nodules with mixed interstitial and alveolar opacities redemonstrated, similar in appearance to the prior chest CT. IMPRESSION: 1. Cardiomegaly with pulmonary vascular congestion. 2. Mixed interstitial and alveolar opacities with numerous pulmonary nodules are redemonstrated, similar in appearance to the chest CT from 12/03/2023. ACT 112: Negative or not required by law. The above report was generated using voice recognition software. It may contain grammatical, syntax or spelling errors. Electronically signed by: Bertrand Anderson M.D. 03/08/2024 11:49 AM Chest CTA 03/08/24 12:17 CT angio chest PE protocol CT DOSE: 801.52 mGy.cm HISTORY: 73 years-old Male with shortness of breath, lung ca, r/o PE. Acute shortness of breath in a patient with history of lung cancer TECHNIQUE: Multiple CTA images of the chest were obtained after the intravenous administration of 119 ml Optiray. Coronal and sagittal MIPS were obtained from the axial data set and were submitted for review. All measurements were obtained according to NASCET criteria. A dose lowering technique was utilized adhering to the principles of ALARA. COMPARISON: Chest radiograph of same day, CTA chest 12/03/2023 FINDINGS: CTA: Moderate cardiomegaly. No pericardial effusion. Moderate coronary artery calcifications. No thoracic aortic aneurysm or dissection. No pulmonary emboli identified. Segmental and subsegmental branches however are suboptimally evaluated secondary to contrast bolus timing. Right IJ Tqwcij-z-Jrdz catheter distal tip terminates in the mid SVC. CT CHEST: Heterogeneous thyroid. Pathologically enlarged mediastinal and hilar lymph nodes redemonstrated.r index 1.8 x 2.9 cm AP window lymph node on image 126 previously measured 3.1 x 2.2 cm. 1.5 cm subcarinal lymph node previously measured 1.8 cm. Right hilar lymph node measuring up to 1.6 cm are similar to prior. No pneumothorax or pleural effusion. Chronic interstitial lung disease with traction bronchiectasis, honeycombing and subpleural fibrosis redemonstrated, most pronounced in the right lung. There is new/progressive multisegmental and multilobar distribution of bilateral groundglass densities with areas of intralobular septal thickening. Numerous bilateral solid pulmonary nodules redemonstrated. There is index 9 mm solid nodule within the left upper lobe on image 152 which is stable. 1.1 cm subpleural nodule in the lingula on image 75 is stable. No definite new or enlarging pulmonary nodules identified. Calcifications within the antoni hepatis. No acute upper abdominal abnormality. Fatty infiltration of the liver suggested. Degenerative changes of the shoulders and spine. No acute fracture or destructive bone lesion identified. IMPRESSION: 1. Numerous bilateral solid pulmonary nodules with pathologic lymphadenopathy of the chest appears generally stable compared to the study from 12/03/2023. 2. Chronic interstitial lung disease redemonstrated which includes right greater than left basilar predominant honeycombing, traction bronchiectasis with subpleural fibrosis. 3. There are new/progressive multisegmental multilobar distribution of bilateral groundglass densities with intralobular septal thickening. Findings are suggestive of a nonspecific infectious or inflammatory pneumonitis. 4. No pleural effusion. ACT 112: Negative or not required by law. The above report was generated using voice recognition software. It may contain grammatical, syntax or spelling errors. Electronically signed by: Bertrand Anderson M.D. 03/08/2024 1:07 PM Chest X-Ray 03/10/24 22:40 XR chest 1V portable CLINICAL HISTORY: hypoxia TECHNIQUE: Single frontal radiograph of the chest was obtained. Comparison: Comparison is made to chest radiograph from 03/08/2024 and CTA chest 02/18/2024 FINDINGS: A port catheter is seen. The cardiomediastinal silhouette is normal. Redemonstration of extensive interstitial changes with likely superimposed alveolar opacities. No evidence of pleural effusion or pneumothorax. IMPRESSION: Redemonstration of interstitial thickening and airspace opacities in this patient who also has known pulmonary nodules. ACT 112: Negative or not required by law. Electronically signed by: Nagi Haney M.D. 03/11/2024 7:01 AM Chest X-Ray 03/11/24 07:00 XR chest 1V portable HISTORY: Shortness of breath. Follow-up. COMPARISON: Chest 03/10/2024. FINDINGS: Interstitial thickening with low lung volumes and patchy multifocal airspace opacities are again noted. This is similar to the prior study. No pneumothorax. No pleural effusions. The heart remains stable in size. No acute fractures. Right-sided Port-A-Cath terminates in the SVC. This remains unchanged. IMPRESSION: No significant change in the chronic interstitial thickening and multifocal bilateral airspace opacities. ACT 112: Negative or not required by law. Electronically signed by: Fran Merritt M.D. 03/11/2024 8:39 AM Chest X-Ray 03/12/24 07:00 XR chest 1V portable HISTORY: 73 years-old Male f/u acute shortness of breath COMPARISON: 03/11/2024 at 6:50 AM, CTA chest 03/08/2024 TECHNIQUE: AP view of the chest FINDINGS: Cardiomediastinal and hilar silhouettes are within normal limits. Right IJ Gfwxiz-j-Gpqw catheter distal tip noted within the expected location of the inferior SVC. Bilateral mixed interstitial and alveolar opacities appear generally stable. No pneumothorax or pleural effusion. IMPRESSION: 1. Stable appearance of the chest with unchanged extensive mixed interstitial and alveolar opacities. 2. No pneumothorax. ACT 112: Negative or not required by law. The above report was generated using voice recognition software. It may contain grammatical, syntax or spelling errors. Electronically signed by: Bertrand Anderson M.D. 03/12/2024 7:37 AM Chest X-Ray 03/14/24 07:00 XR chest 1V portable CLINICAL HISTORY: f/u TECHNIQUE: Single frontal radiograph of the chest was obtained. Comparison: Comparison is made to chest radiograph 03/12/2024 FINDINGS: A port catheter is seen. The cardiomediastinal silhouette is normal. Extensive interstitial and alveolar opacities are seen. No evidence of pleural effusion or pneumothorax. IMPRESSION: Stable interstitial and alveolar opacities. ACT 112: Negative or not required by law. Electronically signed by: Nagi Haney M.D. 03/14/2024 10:35 AM Chest X-Ray 03/19/24 09:03 XR chest 1V portable HISTORY: 73 years-old Male ff up, pneumonia, hypoxia acute shortness of breath COMPARISON: 03/14/2024 TECHNIQUE: AP view of the chest FINDINGS: Cardiomediastinal and hilar silhouettes are within normal limits. Right IJ Njequd-y-Bgxs catheter distal tip noted within the expected location of the inferior SVC. Bilateral mixed interstitial and alveolar opacities have mildly progressed. No pneumothorax or pleural effusion. IMPRESSION: Extensive mixed interstitial and alveolar opacities redemonstrated, mildly worsened compared to the 03/14/2024 study. ACT 112: Negative or not required by law. The above report was generated using voice recognition software. It may contain grammatical, syntax or spelling errors. Electronically signed by: Bertrand Anderson M.D. 03/19/2024 9:[address] 03/19/24 13:04 CT OF THE CHEST WITHOUT IV CONTRAST CLINICAL HISTORY: ILD follow up. COMPARISON STUDY: Chest CT March 08, 2024. Chest radiograph performed earlier today. CT DOSE: 630.29 mGy.cm TECHNIQUE: Axial images of the chest were obtained without IV contrast. Images were reviewed in the axial, sagittal, and coronal planes. IV contrast was not administered for this examination. Automated exposure control was utilized for the study. A dose lowering technique was utilized adhering to the principles of ALARA. FINDINGS: Right internal jugular [id number] remains in place. There has been interval development of moderate pneumomediastinum since CT of March 08, 2024. The gas extends into the right aspect of the neck. There is no pleural effusion. There is no pneumothorax. The heart is mildly enlarged. Enlarged mediastinal and right hilar lymph nodes are similar to CT of March 08, 2024. Index prevascular node on image 108 of 249 measures 2.7 x 1.8 cm. Underlying interstitial lung disease with honeycombing and traction bronchiectasis is again noted. Innumerable pulmonary nodules measuring up to 1.5 cm are unchanged and prior CT. Ground glass opacities within the lungs are noted. These have slightly improved. IMPRESSION: 1. Interval development of moderate pneumomediastinum since chest CT of March 08, 2024. No pneumothorax. 2. No significant change in mediastinal and right hilar lymphadenopathy since prior CT. No significant change in numerous pulmonary nodules. The findings are suggestive of a neoplastic process. 3. Ground glass opacities throughout the lungs, slightly improved since prior exam. The findings favor pneumonia superimposed upon a UIP pattern of pulmonary fibrosis. Alternatively, the groundglass opacities could be treatment related. ACT 112: Negative or not required by law. Electronically signed by: Casimiro Rivas M.D. 03/19/2024 3:22 PM Chest X-Ray 03/26/24 00:56 XR chest 1V portable CLINICAL HISTORY: low o2 TECHNIQUE: Single frontal radiograph of the chest was obtained. Comparison: Comparison is made to chest radiograph 03/19/2024 FINDINGS: No lines and tubes are seen. The cardiomediastinal silhouette is normal. Interstitial and alveolar opacities are again seen. No evidence of pleural effusion or pneumothorax. IMPRESSION: Interstitial and alveolar opacities are again seen, similar to prior exam. ACT 112: Negative or not required by law. Electronically signed by: Nagi Haney M.D. 03/26/2024 7:04 AM PG Care Time/CCT Total # of Minutes Spent Total Time Spent with Patient: Total time spent is greater than 50% in coordination of care (as documented) at patient's floor/unit and/or counseling patient: I spent 115 minutes overall addressing this very complex case: 20 min in medical data review/discussion with referring provider(s) and/or preparation for the visit 15 min in direct interaction with the patient/exam 45 min in Advance Care Planning/Goals of Care discussions as detailed above in note (must be >16min) 15 min in subsequent review and synthesis of assessment and plan 20 min communicating with other providers regarding the patient's case: pulm, primary team Advanced Care Planning [id number] Advanced Care Planning 30 Min [id number] Advanced Care Planning Additional 30 [place] [address] IN/OBS CONSULT LVL 5,80M (25 - SIGNIFICANT, SEPARATELY IDENTIFIABLE ) Patient Type New Medical Decision Making High Complexity Diagnoses Dyspnea and respiratory abnormalities R06.00; R06.89 Muscular deconditioning R29.898 Anxiety associated with cancer diagnosis F41.1; C80.1 Advanced care planning/counseling discussion Z71.89 Palliative care by specialist Z51.5 Adenocarcinoma of colon metastatic to liver C18.9; C78.7 UIP (usual interstitial pneumonitis) J84.112 Additional Codes Advanced Care Planning - 55572 Advanced Care Planning 30 Min: 52154 Advanced Care Planning 30 Min ([id number]) Advanced Care Planning - 15933 Advanced Care Planning Additional 30 Min: 04688 Advanced Care Planning Additional 30 Min ([id number])
[2024-03-28 07:30] LABS: Hematocrit (blood only) 40.6 % (42.0-52.0); Hemoglobin 13.9 g/dl (14.0-18.0); Mean Corpuscular Hemoglobin 32.9 pg (25.0-34.0); Mean Corpuscular Hgb Conc 34.2 g/dL (32.0-36.0); Mean Corpuscular Volume 96.2 fL (80.0-100.0); Mean Platelet Volume 10.1 fL (9.4-12.4); Platelet Count 136 K/uL (130-400); RDW Coefficient of Variation 15.5 % (11.5-14.5); Red Blood Count 4.22 M/uL (4.70-6.10); White Blood Count 12.88 K/ul (4.8-10.8)
[2024-03-28 07:49] LABS: Calcium 8.8 mg/dl (8.6-10.3); Creatinine Clr Calc Pharmacy 95.6 ml/min; Est GFR (African American) 103.6 ml/min; Est GFR (Non-African American) 89.4 ml/min; Potassium 3.7 mmol/L (3.5-5.1)
--- NOTE | 2024-03-28 10:16 | Hospitalist Progress Note ---
Date of Service March 28, 2024 Assessment & Plan (1) Pneumonia: (2) Interstitial pulmonary disease, unspecified: (3) Metastatic colon cancer to liver: (4) Metastatic disease: (5) DAILEY (nonalcoholic steatohepatitis): (6) GERD (gastroesophageal reflux disease): Plan 73-year-old male with stage IV lung cancer with metastasis to liver, lung, idiopathic pulmonary fibrosis, GERD, Poe's esophagus and other medical problems presents with history of worsening shortness of breath, cough with hemoptysis and increased supplemental oxygen requirement. Patient was seen by pcp prior to admission days and started on augmentin and azithromycin for possible developing pneumonia. Despite taking the antibiotic course, patient continued to havening cough, shortness of breath and has been using his rescue inhaler more frequently. #Acute on chronic respiratory failure with hypoxia 2L O2 baseline #Acute Pneumonia, failure of outpatient treatment #End stage Interstitial pulmonary fibrosis Biofire negative Sputum cx NGTD Blood cx NGTD CT chest with acute findings of pneumonitis, stable nodule changes and chronic interstitial changes Completed antibiotic therapy Continue nebs Pulmonary hygiene Pulmonology eval and recs noted -PJP negative -Completed prednisone taper Continue supplemental oxygen to maintain saturation >88% Repeat CT chest showed interval development of moderate pneumomediastinum, slight improvement of groundglass opacities cities throughout the lungs Oxygen at 5l at rest but increasing up to 15L with activity Continue IS/Flutter Continue as needed IV Lasix #Progressive metastatic colon cancer T3 N2 b, M0 stage IIIC at the time of diagnosis in 10/2018. Started current regimen 12/24/23 of 5-FU, leucovorin and bevacizumab every 2 weekly because disease progression was noted in the lungs. Last cycle was on 02/19/24, was due last Saturday(03/04/24) but missed due to ill sx as above. Follows with Dr. Vu Navarrete as outpatient #Mild troponin elevation Likely demand ischemia secondary to above Denies any chest pain Monitor Continue other home meds as ordered Diet: regular DVT Px: SCDs Re:Hemoptysis #Goals of Care Palliative care eval/GOC/recs noted. CM notified to make referral to [facility] for rehab if possible per GOC discussion He is already awaiting acceptance to [facility] once o2 requirement <10L with ambulation Patient will follow up with Palliative outpatient as well I spent a total of 45 minutes coordinating, documenting and providing care for this patient excluding time spent in performance of separately billed services Admission and Anticipated Discharge Date Admission Date: March 08, 2024 Subjective Patient seen and examined Reports cough, SOB with activity On 5L NC at rest and increased oxygen to 15L today to maintain ox sats above 88% when using urinal Denied any chest pain, fever, chills, nausea, vomiting, abd pain, diarrhea Denied any new complaints Physical Exam Constitutional: + well hydrated; no acute distress Eyes: PERRL, conjunctivae normal, anicteric sclerae ENMT: external ear and nose normal, oropharynx normal Respiratory: normal respiratory effort; no respiratory distress Diminished breath sounds, +crackles Cardiovascular: Rate/Rhythm: regular rate and regular rhythm Gastrointestinal (Abdomen): normal bowel sounds, soft, nontender, no hepatosplenomegaly Musculoskeletal: No pedal edema Neurologic: PERRL, EOMI, accommodation nl, no face palsy, no dysarthria Psychiatric: A+Ox3, euthymic affect Results & Data Results & Data Vital Signs (Past 12 Hours) Vital Signs Temp Pulse Pulse Resp BP BP Pulse Ox 03/28/24 07:42 98 H 20 97 03/28/24 07:36 97 H 03/28/24 07:28 36.6 C 97 H 20 109/72 94 03/28/24 03:12 36.6 C 96 H 16 131/84 92 03/27/24 23:30 36.5 C 99 H 20 114/72 96 03/27/24 23:21 O2 Del Method O2 Flow Rate 03/28/24 07:42 Nasal Cannula 5 03/28/24 07:36 03/28/24 07:28 Nasal Cannula 5 03/28/24 03:12 High Flow Nasal Cannula 5 03/27/24 23:30 High Flow Nasal Cannula 5 03/27/24 23:21 High Flow Nasal Cannula 5 Laboratory Results Abnormal lab results 03/28/24 Range/Units 06:54 WBC 12.88 H (4.8-10.8) K/ul RBC 4.22 L (4.70-6.10) M/uL Hgb 13.9 L (14.0-18.0) g/dl Hct 40.6 L (42.0-52.0) % RDW Std Deviation 54.0 H (36.4-46.3) fL RDW Coeff of Dwayne 15.5 H (11.5-14.5) % Sodium 135 L (136-145) mmol/L Chloride 96 L (98-107) mmol/L Carbon Dioxide 34 H (21-32) mmol/L BUN/Creatinine Ratio 26.0 H (10-20) Glucose 148 H (70-99(Fasting)) mg/dl (1) Pneumonia Laterality: bilateral Lung location: lower lobe of lung Pneumonia type: due to unspecified organism Qualified Code(s): J18.9 - Pneumonia, unspecified organism (4) Metastatic disease Area of secondary neoplastic involvement: unspecified site Qualified Code(s): C79.9 - Secondary malignant neoplasm of unspecified site
--- NOTE | 2024-03-29 11:47 | Hospitalist Progress Note ---
Date of Service March 29, 2024 Assessment & Plan (1) Pneumonia: (2) Interstitial pulmonary disease, unspecified: (3) Metastatic colon cancer to liver: (4) Metastatic disease: (5) DAILEY (nonalcoholic steatohepatitis): (6) GERD (gastroesophageal reflux disease): Plan 73-year-old male with stage IV lung cancer with metastasis to liver, lung, idiopathic pulmonary fibrosis, GERD, Poe's esophagus and other medical problems presents with history of worsening shortness of breath, cough with hemoptysis and increased supplemental oxygen requirement. Patient was seen by pcp prior to admission days and started on augmentin and azithromycin for possible developing pneumonia. Despite taking the antibiotic course, patient continued to havening cough, shortness of breath and has been using his rescue inhaler more frequently. #Acute on chronic respiratory failure with hypoxia 2L O2 baseline #Acute Pneumonia, failure of outpatient treatment #End stage Interstitial pulmonary fibrosis Biofire negative Sputum cx NGTD Blood cx NGTD CT chest with acute findings of pneumonitis, stable nodule changes and chronic interstitial changes Completed antibiotic therapy Continue nebs Pulmonary hygiene Pulmonology eval and recs noted -PJP negative -Completed prednisone taper Continue supplemental oxygen to maintain saturation >88% Repeat CT chest showed interval development of moderate pneumomediastinum, slight improvement of groundglass opacities cities throughout the lungs Oxygen at 5l at rest but increasing up to 15L with activity Continue IS/Flutter Continue as needed IV Lasix #Progressive metastatic colon cancer T3 N2 b, M0 stage IIIC at the time of diagnosis in 10/2018. Started current regimen 12/24/23 of 5-FU, leucovorin and bevacizumab every 2 weekly because disease progression was noted in the lungs. Last cycle was on 02/19/24, was due last Saturday(03/04/24) but missed due to ill sx as above. Follows with Dr. Vu Navarrete as outpatient #Mild troponin elevation Likely demand ischemia secondary to above Denies any chest pain Monitor Continue other home meds as ordered Diet: regular DVT Px: SCDs Re:Hemoptysis #Goals of Care Palliative care eval/GOC/recs noted. Will follow up CM tomorrow about possible [facility] referral He is already awaiting acceptance to [facility] once o2 requirement <10L with ambulation Patient will follow up with Palliative outpatient as well I spent a total of 35 minutes coordinating, documenting and providing care for this patient excluding time spent in performance of separately billed services Admission and Anticipated Discharge Date Admission Date: March 08, 2024 Subjective Patient seen and examined Reports cough, SOB with activity No new complaints Still requiring about 5L NC at rest and 15L with activity Physical Exam Constitutional: + well hydrated; no acute distress Eyes: PERRL, conjunctivae normal, anicteric sclerae ENMT: external ear and nose normal, oropharynx normal Respiratory: normal respiratory effort; no respiratory distress Diminished breath sounds, +crackles Cardiovascular: Rate/Rhythm: regular rate and regular rhythm Gastrointestinal (Abdomen): normal bowel sounds, soft, nontender, no hepatosplenomegaly Musculoskeletal: No pedal edema Neurologic: PERRL, EOMI, accommodation nl, no face palsy, no dysarthria Psychiatric: A+Ox3, euthymic affect Results & Data Results & Data Vital Signs (Past 12 Hours) Vital Signs Temp Pulse Pulse Pulse Resp BP BP 03/29/24 11:45 94 H 03/29/24 11:24 03/29/24 11:10 101 H 22 03/29/24 08:07 36.8 C 96 H 24 124/76 03/29/24 07:07 98 H 20 03/29/24 03:03 36.5 C 92 H 18 111/72 Pulse Ox O2 Del Method O2 Flow Rate 03/29/24 11:45 03/29/24 11:24 High Flow Nasal Cannula 5 03/29/24 11:10 92 Nasal Cannula 15 03/29/24 08:07 91 High Flow Nasal Cannula 7 03/29/24 07:07 82 L Nasal Cannula 6 03/29/24 03:03 92 High Flow Nasal Cannula 7 (1) Pneumonia Laterality: bilateral Lung location: lower lobe of lung Pneumonia type: due to unspecified organism Qualified Code(s): J18.9 - Pneumonia, unspecified organism (4) Metastatic disease Area of secondary neoplastic involvement: unspecified site Qualified Code(s): C79.9 - Secondary malignant neoplasm of unspecified site
[2024-03-29] MEDS: IPRATROPIUM BROMIDE NEB SOLN 0.02% 0.5MG/2.5ML VIAL INH STA (23:12)
[2024-03-29] MEDS: LEVALBUTEROL 1.25 MG/3 ML NEB NEB STA (23:12)
[2024-03-29] MEDS: MAGNESIUM SULFATE / D5W 1 GM/100 ML BAG IV ONE (23:18)
[2024-03-29 23:23] LABS: Base Excess ABG 5.6 mEq/L (-9-1.8); HCO3 ABG 30 mmol/L (19-24); PCO2 ABG 41 mmHg (35-46); PO2 ABG 79 mmHg (80-95); pH ABG 7.47 (7.35-7.45)
[2024-03-29 23:28] LABS: Allen Test Pos (Pos)
[2024-03-29 23:41] LABS: Basophils # (auto) 0.02 K/uL (0.00-0.20); Basophils % (auto) 0.2 %; Eosinophils % (auto) 3.1 %; Hematocrit (blood only) 37.5 % (42.0-52.0); Hemoglobin 12.5 g/dl (14.0-18.0); Immature Granulocytes # (auto) 0.08 K/uL (0.01-0.20); Immature Granulocytes % (auto) 0.6 %; Lymphocytes # (auto) 0.46 K/uL (1.20-3.40); Lymphocytes % (auto) 3.5 %; Mean Corpuscular Hemoglobin 32.1 pg (25.0-34.0); Mean Corpuscular Hgb Conc 33.3 g/dL (32.0-36.0); Mean Corpuscular Volume 96.4 fL (80.0-100.0); Mean Platelet Volume 10.1 fL (9.4-12.4); Monocytes # (auto) 0.66 K/uL (0.11-0.59); Monocytes % (auto) 5.1 %; Neutrophils # (auto) 11.42 K/uL (1.40-6.50); Neutrophils % (auto) 87.5 %; Platelet Count 129 K/uL (130-400); RDW Coefficient of Variation 15.6 % (11.5-14.5); RDW Standard Deviation 54.8 fL (36.4-46.3); Red Blood Count 3.89 M/uL (4.70-6.10); White Blood Count 13.04 K/ul (4.8-10.8)
[2024-03-29 23:55] LABS: BUN Creatinine Ratio 26.4 (10-20); Calcium 8.6 mg/dl (8.6-10.3); Creatinine Clr Calc Pharmacy 84.6 ml/min; Est GFR (African American) 98.5 ml/min; Magnesium 1.7 mg/dl (1.7-2.4); Potassium 3.9 mmol/L (3.5-5.1)
[2024-03-30] MEDS: POTASSIUM CHLORIDE PWD 20 MEQ PACK PO STA (00:06)
[2024-03-30] MEDS: methylPREDNISolone 20 MG in SYRINGE 0 ML IV ONE (00:41)
[2024-03-30 00:47] LABS: Partial Thromboplastin Ratio > 4.9
[2024-03-30 00:48] LABS: Partial Thromboplastin Time 136 Seconds (21-31)
[2024-03-30] MEDS: MAGNESIUM SULFATE / D5W 1 GM/100 ML BAG IV ONE (01:18)
[2024-03-30] MEDS: FUROSEMIDE INJ 20 MG/2 ML VIAL IV ONE (03:21)
--- NOTE | 2024-03-30 06:54 | XRay Report ---
XR chest 1V portable CLINICAL HISTORY: sob TECHNIQUE: Single frontal radiograph of the chest was obtained. Comparison: Comparison is made to chest radiograph 03/26/2024 FINDINGS: A port catheter is seen. The cardiomediastinal silhouette is stable. Reticular interstitial opacities are seen with possible superimposed airspace opacities. No evidence of pleural effusion or pneumotho rax. IMPRESSION: Extensive interstitial and airspace opacities are unchanged from prior exams. ACT 112: Negative or not required by law. Electronically signed by: Nagi Haney M.D. 03/30/2024 6:53 AM
--- NOTE | 2024-03-30 12:21 | Pulmonology Progress Note ---
Date of Service March 30, 2024 Assessment & Plan (1) Acute and chronic respiratory failure: Respiratory failure complication: hypoxia Qualified Code(s): J 96.21 - Acute and chronic respiratory failure with hypoxia (2) Metastatic colon cancer to liver: (3) Pneumonia: Laterality: bilateral Lung location: lower lobe of lung P neumonia type: due to unspecified organism Qualified Code(s): J18.9 - Pneumonia, unspecified organism (4) Bronchiectasis: (5) UIP (usual interstitial pneumonitis): (6) Pneumomediastinum: Plan CT chest 03/19/2024 personally reviewed: Groundglass opacities appreciated on 03/08/2024 seems to have improved Honeycombing appreciated bilaterally more pronounced in the right upper as well as right lower lobe Traction bronchiectasis Multiple pulmonary nodules bilaterally, largest being 11 mm left lower lobe There is mediastinal as well as hilar lymphadenopathy 2D echo 03/30/2024: EF greater than 60%, moderate concentric LVH, flattened septum, RV moderately dilated, RVSP 40-50 mmHg --Acute on chronic hypoxic respiratory failure Multiple groundglass opacities appreciated bilaterally which are new compared to 11/2023 --> improved on repeat CT chest on 03/19/2024 Respiratory bio fire was negative for everything on 03/08/2024 Procalcitonin 0.04, nasal MRSA negative BNP 94 --> 43 --> 111 Probability of being infectious etiology is high Noninfectious etiology includes acute flareup of UIP, unlikely. Diffuse alveolar hemorrhage, pulmonary edema Sputum PJP negative --Pneumomediastinum Spontaneous likely from coughing Avoid positive pressure ventilation Technically high flow is also mildly positive pressure but given the degree of hypoxia I think it is reasonable to continue with -- UIP Following up with Dr. Zavala Unable to tolerate Ofev -- Metastatic colon cancer Completed FOLFOX 2 cycles 07/14/2019 Relapse October 2021 s/p FOLFIRI July 2022 5 FU was changed to leucovorin and Avastin Currently on 5 FU, leucovorin and bevacizumab Bevacizumab is usually not associated with pneumonitis. Patient is not on any other medication which I think could cause pneumonitis --DNI Plan: In/out: -17 L since coming to the hospital Patient has completed the course of antibiotics as well as Solu-Medrol which was tapered to prednisone Follow BNP and troponin from today. Avoid positive pressure ventilation, avoid flutter valve for pneumomediastinum. Antitussive medication [id number] New onset thrombocytopenia, I will order Doppler bilateral lower extremity --> it did show acute DVT in the tibial vein 2D echo was ordered which showed elevated right-sided pressure which is new compared to echo which was done 05/2023 Possibility of patient having pulmonary emboli is high, he has history of active metastatic cancer. Given the degree of Hypoxia that the patient has, we will order a CTA with PE protocol and if there is significant clot burden then it would be better for patient to have EKOS. Recent history of hemoptysis precludes using tPA systematically Overall prognosis is guarded Case was discussed with patient's as well as Dr Scott I have personally spent 42 minutes of critical care time in the direct management of this patient. This is a life/limb threatening event. This includes time spent evaluating patient, direct bedside care, chart review, placing orders, interpretation of diagnostic studies, discussion with consultants, patient, and family members, as well as other required patient management activities. This time is exclusive of all separately billable procedures, and teaching time and separate from and in addition to any other critical care service time. Please note the above document was generated using voice recognition software. It may contain grammatical, syntax or spelling errors. Admission and Anticipated Discharge Date Admission Date: March 08, 2024 Subjective Patient seen and examined at bedside. Patient was on 35 L high flow, 80% saturating 89-90% He was in respiratory distress Patient's was also in the room. He says that he has been coughing bringing up clear phlegm. Occasionally days blood-tinged but he has not had hemoptysis for at least 2 days Denied any headache Has been urinating well Review of Systems 2 Review of Systems: All systems reviewed & are unremarkable except as noted in Subjective Physical Exam 2 Physical Exam: Constitutional: In respiratory distress HEENT: EOMI, PERRLA Respiratory system: Decreased air entry bilaterally, no wheeze, no rhonchi, positive Velcro-like crackles appreciated bilaterally more on the right side CVS: S1-S2 positive, no murmurs or gallops, right-sided Port-A-Cath Abdomen: Soft, nontender, nondistended, positive bowel sounds x4 Extremities: +2 pulses bilaterally radialis/ dorsalis pedis, no cyanosis, no edema Neuro: Awake alert oriented x3 Psych: Normal mood and affect G/U: No [place] Skin: no rashes, warm and dry Lymphatic: no cervical or axillary lymphadenopathy Results & Data Results & Data Vital Signs (Past 12 Hours) Vital Signs Temp Pulse Pulse Pulse Resp BP BP 03/30/24 11:18 94 H 32 H 03/30/24 11:10 36.8 C 96 H 20 124/73 03/30/24 10:56 03/30/24 10:55 94 H 03/30/24 07:42 36.6 C 103 H 18 111/74 03/30/24 07:30 94 H 30 H 03/30/24 04:33 03/30/24 03:24 89 22 03/30/24 02:51 36.4 C L 97 H 28 H 123/78 Pulse Ox O2 Del Method O2 Flow Rate FiO2 03/30/24 11:18 91 High Flow Nasal Cannula 30 80 03/30/24 11:10 91 High Flow Nasal Cannula 30 03/30/24 10:56 High Flow Nasal Cannula 30 03/30/24 10:55 03/30/24 07:42 92 High Flow Nasal Cannula 30 03/30/24 07:30 92 High Flow Nasal Cannula 30 80 03/30/24 04:33 93 High Flow Nasal Cannula 30 80 03/30/24 03:24 95 High Flow Nasal Cannula 30 70 03/30/24 02:51 93 High Flow Nasal Cannula 15 Laboratory Results 03/29/24 23:04 03/29/24 23:04 PG Care Time/CCT Total # of Minutes Spent Total Time Spent with Patient: Total time spent is greater than 50% in coordination of care (as documented) at patient's floor/unit and/or counseling patient: Coding Level of Care Code 22594 CRITICAL CARE 1ST 30-74M Diagnoses Acute and chronic respiratory failure J96.21 Respiratory failure complication: hypoxia Metastatic colon cancer to liver C18.9; C78.7 Pneumonia J18.9 Laterality: bilateral Lung location: lower lobe of lung Pneumonia type: due to unspecified organism Bronchiectasis J47.9 UIP (usual interstitial pneumonitis) J84.112 Pneumomediastinum J98.2 Time Spent (min) 42
--- NOTE | 2024-03-30 12:36 | Hospitalist Progress Note ---
Date of Service March 30, 2024 Assessment & Plan (1) Pneumonia: (2) Interstitial pulmonary disease, unspecified: (3) Metastatic colon cancer to liver: (4) Metastatic disease: (5) DAILEY (nonalcoholic steatohepatitis): (6) GERD (gastroesophageal reflux disease): Plan 73-year-old male with stage IV lung cancer with metastasis to liver, lung, idiopathic pulmonary fibrosis, GERD, Poe's esophagus and other medical problems presents with history of worsening shortness of breath, cough with hemoptysis and increased supplemental oxygen requirement. Patient was seen by pcp prior to admission days and started on augmentin and azithromycin for possible developing pneumonia. Despite taking the antibiotic course, patient continued to havening cough, shortness of breath and has been using his rescue inhaler more frequently. #Nasal congestion #Acute on chronic respiratory failure with hypoxia 2L O2 baseline #Acute Pneumonia, failure of outpatient treatment #Suspected worsening of Interstitial pulmonary fibrosis vs flare #Pulmonary Embolism Biofire negative Sputum cx NGTD Blood cx NGTD CT chest on 03/08/24 with acute findings of pneumonitis, stable nodule changes and chronic interstitial changes CT chest on 03/19/24 noted interval development of mod pneumomediastinum, GGO throughout lungs. Completed Zosyn, Doxy Completed steroid taper Continue nebs Had been on 5-7L NC at rest and upto 15L with activity over the past few days However, hypoxia worsened last night. CXR noted extensive interstitial and airspace opacities unchanged from prior exams LE DVT noted b/l posterior tibial DVT and minimal chronic thrombus in left femoral vein TTE showed LV cavity is small, mod conc LVH, flattened septum consistent with RV vol overload, LV is hyperdynamic, EF >70%, mod dil RV, RVSF mod reduced, RVSP 40-50mmHg Start on hep gtt Clinical findings suggest Acute PE. Right heart findings may be related to pulm fibrosis. However when compared to TTE from 05/2023 (EF 55-59%, RV normal size, RVSF is normal, No tricuspid stenosis or regurgitation), will need to rule out right heart strain from a massive/submassive PE Discussed with hat presser. Avoid lasix for now Patient is not a candidate for systemic TPA due to hemoptysis he had Get CT PE to assess clot location/burden and determine if he is a candidate for IR guided local thrombolysis Will give IVF NSS 500cc #Progressive metastatic colon cancer T3 N2 b, M0 stage IIIC at the time of diagnosis in 10/2018. Started current regimen 12/24/23 of 5-FU, leucovorin and bevacizumab every 2 weekly because disease progression was noted in the lungs. Last cycle was on 02/19/24, was due last Saturday(03/04/24) but missed due to ill sx as above. Follows with Dr. Vu Navarrete as outpatient Poor prognosis #Mild troponin elevation Likely demand ischemia secondary to above Denies any chest pain Monitor #Hyperglycemia Hgba1c normal Diet: regular DVT Px: was initially on SCD due to hemoptysis. Now on hep gtt I spent a total of 60 minutes coordinating, documenting and providing care for this patient excluding time spent in performance of separately billed services Admission and Anticipated Discharge Date Admission Date: March 08, 2024 Subjective Patient seen and examined Reports cough, SOB with activity Significantly increased oxygen requirement since last night XR last night showed extensive interstitial and airspace opacities unchanged from prior exams Physical Exam Constitutional: + well hydrated; no acute distress Eyes: PERRL, conjunctivae normal, anicteric sclerae ENMT: external ear and nose normal, oropharynx normal Respiratory: On HFNC 30L/min, Diminished breath sounds, +crackles Cardiovascular: Rate/Rhythm: regular rate and regular rhythm Gastrointestinal (Abdomen): normal bowel sounds, soft, nontender, no hepatosplenomegaly Musculoskeletal: No pedal edema Neurologic: PERRL, EOMI, accommodation nl, no face palsy, no dysarthria Psychiatric: A+Ox3, euthymic affect Results & Data Results & Data Vital Signs (Past 12 Hours) Vital Signs Temp Pulse Pulse Pulse Resp BP BP 03/30/24 11:18 94 H 32 H 03/30/24 11:10 36.8 C 96 H 20 124/73 03/30/24 10:56 03/30/24 10:55 94 H 03/30/24 07:42 36.6 C 103 H 18 111/74 03/30/24 07:30 94 H 30 H 03/30/24 04:33 03/30/24 03:24 89 22 03/30/24 02:51 36.4 C L 97 H 28 H 123/78 Pulse Ox O2 Del Method O2 Flow Rate FiO2 03/30/24 11:18 91 High Flow Nasal Cannula 30 80 03/30/24 11:10 91 High Flow Nasal Cannula 30 03/30/24 10:56 High Flow Nasal Cannula 30 03/30/24 10:55 03/30/24 07:42 92 High Flow Nasal Cannula 30 03/30/24 07:30 92 High Flow Nasal Cannula 30 80 03/30/24 04:33 93 High Flow Nasal Cannula 30 80 03/30/24 03:24 95 High Flow Nasal Cannula 30 70 03/30/24 02:51 93 High Flow Nasal Cannula 15 Laboratory Results Abnormal lab results 03/29/24 03/30/24 03/30/24 Range/Units 23:04 12:53 15:31 WBC 13.04 H 13.26 H (4.8-10.8) K/ul RBC 3.89 L 3.96 L (4.70-6.10) M/uL Hgb 12.5 L 13.3 L (14.0-18.0) g/dl Hct 37.5 L 36.9 L (42.0-52.0) % RDW Std Deviation 54.8 H 52.6 H (36.4-46.3) fL RDW Coeff of Dwayne 15.6 H 15.3 H (11.5-14.5) % Plt Count 129 L (130-400) K/uL Neut # (Auto) 11.42 H 12.09 H (1.40-6.50) K/uL Lymph # (Auto) 0.46 L 0.40 L (1.20-3.40) K/uL [place] # (Auto) 0.66 H 0.64 H (0.11-0.59) K/uL APTT 136 H* (21-31) Seconds ABG pH 7.47 H (7.35-7.45) ABG pO2 79 L (80-95) mmHg ABG HCO3 30 H (19-24) mmol/L ABG O2 Saturation 97.0 H (90-95) % ABG Base Excess 5.6 H (-9-1.8) mEq/L Sodium 133 L (136-145) mmol/L BUN/Creatinine Ratio 26.4 H (10-20) Glucose 139 H (70-99(Fasting)) mg/dl B-Natriuretic Peptide 111 H (0-100) pg/ml (1) Pneumonia Laterality: bilateral Lung location: lower lobe of lung Pneumonia type: due to unspecified organism Qualified Code(s): J18.9 - Pneumonia, unspecified organism (4) Metastatic disease Area of secondary neoplastic involvement: unspecified site Qualified Code(s): C79.9 - Secondary malignant neoplasm of unspecified site
[2024-03-30] MEDS: ALBUT/IPRATROP 3MG/0.5MG NEB 3 ML VIAL NEB PRN (12:54)
--- NOTE | 2024-03-30 14:45 | Ultrasound Report ---
BILATERAL LOWER EXTREMITY VENOUS DOPPLER CLINICAL HISTORY: Rule out DVT COMPARISON STUDY: No previous studies for comparison. TECHNIQUE: Sonography of the deep venous system of the bilateral lower extremities was performed. Co mpression and augmentation were evaluated. FINDINGS: The right common femoral, superficial femoral and popliteal veins are patent. One of 2 alfredo red right posterior tibial veins is noncompressible. This represents deep venous thrombus. Echogenic foci within the periphery of the left femoral vein suggests minimal chronic thrombus. One of 2 paired left posterior tibial veins is noncompressible. This represents deep venous thrombus. IMPRESSION: 1. Deep venous thrombus within the bilateral posterior tibial veins, as described above. No above the knee acute deep venous thrombus. 2. Minimal chronic thrombus within the left femoral vein. ACT 112: Negative or not required by law. Electronically signed by: Casimiro Rivas M.D. 03/30/2024 2:44 PM
[2024-03-30] MEDS ORDERED: Heparin IV Adult Wt-Based Standard w/ INITIAL Bolus Protocol IV STA (15:06)
[2024-03-30] MEDS ORDERED: ENOXAPARIN 1 MG/KG SQ SCH (15:15)
[2024-03-30] MEDS: HEPARIN SOD (PORCINE) 1000 UNIT/ML IV ONE (15:59)
[2024-03-30] MEDS: HEPARIN SODIUM/DEXTROSE 25,000 UNITS/500 ML BAG IV SCH (15:59)
[2024-03-30 16:10] LABS: Basophils # (auto) 0.01 K/uL (0.00-0.20); Basophils % (auto) 0.1 %; Eosinophils # (auto) 0.06 K/uL (0.00-0.50); Eosinophils % (auto) 0.5 %; Hematocrit (blood only) 36.9 % (42.0-52.0); Hemoglobin 13.3 g/dl (14.0-18.0); Immature Granulocytes # (auto) 0.06 K/uL (0.01-0.20); Immature Granulocytes % (auto) 0.5 %; Mean Corpuscular Hemoglobin 33.6 pg (25.0-34.0); Mean Corpuscular Volume 93.2 fL (80.0-100.0); Monocytes # (auto) 0.64 K/uL (0.11-0.59); Monocytes % (auto) 4.8 %; Neutrophils # (auto) 12.09 K/uL (1.40-6.50); Neutrophils % (auto) 91.1 %; Platelet Count 142 K/uL (130-400); RDW Coefficient of Variation 15.3 % (11.5-14.5); RDW Standard Deviation 52.6 fL (36.4-46.3); Red Blood Count 3.96 M/uL (4.70-6.10); White Blood Count 13.26 K/ul (4.8-10.8)
[2024-03-30] MEDS: SODIUM CHLORIDE 0.9% 500 ML IV SCH (17:20)
[2024-03-30] MEDS: OPTIRAY 320 125ml IV ONE (17:57)
[2024-03-30 18:23] LABS: INR 1.1 (0.9-1.1); Prothrombin Time 11.6 Seconds (9.0-12.0)
[2024-03-30 18:36] LABS: Partial Thromboplastin Time 81 Seconds (21-31)
--- NOTE | 2024-03-30 18:36 | CT Scan Report ---
CT ANGIOGRAPHY OF THE CHEST, PULMONARY EMBOLUS PROTOCOL CLINICAL HISTORY: Shortness of breath. COMPARISON STUDY: Chest CT March 19, 2024. Chest radiograph March 29, 2024. TECHNIQUE: Following IV administration of 119 mL of Optiray, helical axial images of the chest were o btained utilizing the pulmonary embolus protocol. Maximal intensity projections and sagittal and cor onal reformats were viewed on an independent 3D workstation. IV contrast was administered without co mplication. Automated exposure control was utilized for the study. A dose lowering technique was ut ilized adhering to the principles of ALARA. CT DOSE: 1182. mGy.cm FINDINGS: No central pulmonary emboli are identified. This exam is compromised given motion artifact . A few small pulmonary emboli are noted, including a right middle lobe subsegmental pulmonary embolu s on image 111 and a left upper lobe subsegmental pulmonary embolus on image 148. There is no pericar dial effusion. Mediastinal and bilateral hilar lymphadenopathy has mildly progressed. A prevascular n ode on image 134 measures 2.9 x 2 cm, previously 2.7 x 1.8 cm. Pneumomediastinum shown on prior exam has resolved. There is no pneumothorax. There is a trace left pleural effusion. Interstitial lung dis ease with traction bronchiectasis is again noted. Multifocal consolidation and groundglass opacities have progressed. Numerous pulmonary nodules are obscured by the airspace opacity but have slightly in creased in size since prior exam. IMPRESSION: 1. A few small subsegmental pulmonary emboli, as described above. 2. Progression of multifocal consolidation and groundglass opacity since prior exam. The findings fav or pneumonia superimposed upon pulmonary fibrosis. Alternatively, the airspace opacities could be loal atment related. 3. Slight increase in thoracic lymphadenopathy and stable to slight increase in size of multiple smal l pulmonary nodules. The findings are likely neoplastic. 4. Trace left pleural effusion. ACT 112: Negative or not required by law. Electronically signed by: Casimiro Rivas M.D. 03/30/2024 6:33 PM
[2024-03-30] MEDS: guaiFENesin/DEXTROM SYRUP 200MG/20MG 10ML UDC PO SCH (21:18)
[2024-03-31 00:16] LABS: ANTI-Xa, UFH(UnfractionatedHep 0.52 IU/ml (0.3-0.7)
[2024-03-31] MEDS ORDERED: hydrOXYzine HCl 10 MG TAB PO PRN (01:18)
[2024-03-31] MEDS ORDERED: hydrOXYzine HCl 10 MG TAB PO STA (01:18)
[2024-03-31] MEDS: FUROSEMIDE INJ 20 MG/2 ML VIAL IV ONE (01:49)
[2024-03-31] MEDS: hydrOXYzine HCl 25 MG TAB PO STA (01:51)
[2024-03-31] MEDS ORDERED: MICONAZOLE NITRATE POWDER 85 GM EXT PRN (04:09)
--- NOTE | 2024-03-31 04:18 | Communication Note ---
Date of Service: March 31, 2024 Patient with worsening hypoxemia overnight. Hypoxemia from last night improved after Lasix administration. Patient woke up around 4 AM with increased SOB. O2 sat 70s on high flow nasal cannula and mid 80s on NRBM. Chest x-ray as per my interpretation worsening infiltrates, congestion PPE Respiratory distress AP Worsening hypoxemic respiratory failure Multifactorial Progressive ILD Pulmonary congestion Supplemental O2 (No BiPAP given pneumomediastinum history as per pulmonology.) Solu-Medrol [address] De La Cruz (webbing weaver) updated over the phone. He recommends Lasix 40 mg IV 1 dose. Discussed comfort measures with patient if no improvement. Plan of care discussed with patient. CODE STATUS de-escalated from conditional CODE STATUS to DNR.
[2024-03-31] MEDS: methylPREDNISolone 20 MG in SYRINGE 0 ML IV ONE (04:21)
[2024-03-31] MEDS: FUROSEMIDE 40 MG/4 ML VIAL IV ONE (04:37)
[2024-03-31] MEDS: MAGNESIUM SULFATE / D5W 1 GM/100 ML BAG IV ONE (04:41)
[2024-03-31 06:06] LABS: Hematocrit (blood only) 38.1 % (42.0-52.0); Mean Corpuscular Hemoglobin 33.7 pg (25.0-34.0); Mean Corpuscular Hgb Conc 36.7 g/dL (32.0-36.0); Mean Corpuscular Volume 91.6 fL (80.0-100.0); Mean Platelet Volume 9.8 fL (9.4-12.4); Platelet Count 144 K/uL (130-400); RDW Coefficient of Variation 15.2 % (11.5-14.5); RDW Standard Deviation 50.7 fL (36.4-46.3); Red Blood Count 4.16 M/uL (4.70-6.10); White Blood Count 13.76 K/ul (4.8-10.8)
[2024-03-31 06:25] LABS: BUN Creatinine Ratio 26.5 (10-20); Calcium 8.8 mg/dl (8.6-10.3); Creatinine Clr Calc Pharmacy 113.9 ml/min; Est GFR (Non-African American) 94.1 ml/min; Magnesium 2.1 mg/dl (1.7-2.4); Phosphorus 2.3 mg/dl (2.5-4.9); Potassium 3.9 mmol/L (3.5-5.1)
--- NOTE | 2024-03-31 07:09 | XRay Report ---
XR chest 1V portable HISTORY: 73 years-old Male low o2 acute hypoxia COMPARISON: CT chest 03/30/2024, chest radiograph 03/29/2024. TECHNIQUE: AP view of the chest FINDINGS: Cardiac silhouette is enlarged. Stable position of the right pectoral [id number] catheter. Extensi ve mixed interstitial and alveolar opacities with bronchiectasis redemonstrated. Bones appear grossly intact. No pneumothorax. Trace pleural effusions. IMPRESSION: 1. Cardiomegaly with extensive mixed interstitial and alveolar opacities redemonstrated, mildly progr essed from prior. Findings are suggestive of multifocal pneumonia superimposed upon pulmonary fibrosi s. 2. Trace pleural effusions. ACT 112: Negative or not required by law. The above report was generated using voice recognition software. It may contain grammatical, syntax o r spelling errors. Electronically signed by: Bertrand Anderson M.D. 03/31/2024 7:08 AM
[2024-03-31 08:28] VITALS: BP 114/72; TEMP 97.3
--- NOTE | 2024-03-31 08:57 | Pulmonology Progress Note ---
Date of Service March 31, 2024 Assessment & Plan (1) Acute and chronic respiratory failure: Respiratory failure complication: hypoxia Qualified Code(s): J 96.21 - Acute and chronic respiratory failure with hypoxia (2) Metastatic colon cancer to liver: (3) Pneumonia: Laterality: bilateral Lung location: lower lobe of lung P neumonia type: due to unspecified organism Qualified Code(s): J18.9 - Pneumonia, unspecified organism (4) Bronchiectasis: (5) UIP (usual interstitial pneumonitis): (6) Pneumomediastinum: Plan CT chest 03/19/2024 personally reviewed: Groundglass opacities appreciated on 03/08/2024 seems to have improved Honeycombing appreciated bilaterally more pronounced in the right upper as well as right lower lobe Traction bronchiectasis Multiple pulmonary nodules bilaterally, largest being 11 mm left lower lobe There is mediastinal as well as hilar lymphadenopathy 2D echo 03/30/2024: EF greater than 60%, moderate concentric LVH, flattened septum, RV moderately dilated, RVSP 40-50 mmHg --Acute on chronic hypoxic respiratory failure Multiple groundglass opacities appreciated bilaterally which are new compared to 11/2023 --> improved on repeat CT chest on 03/19/2024 Acute DVT with acute pulmonary emboli on 03/30/2024 --> started on heparin drip His troponin was elevated along with mildly elevated BNP, he does follow into intermediate high risk of pulmonary emboli but because of the history of hemoptysis I do not think systemic tPA would be appropriate and high risk of bleed Respiratory bio fire was negative for everything on 03/08/2024 Procalcitonin 0.04, nasal MRSA negative BNP 94 --> 43 --> 111 Probability of being infectious etiology is high Noninfectious etiology includes acute flareup of UIP, unlikely. Diffuse alveolar hemorrhage, pulmonary edema Sputum PJP negative --Pneumomediastinum Spontaneous likely from coughing Avoid positive pressure ventilation Technically high flow is also mildly positive pressure but given the degree of hypoxia I think it is reasonable to continue with -- UIP Following up with Dr. Zavala Unable to tolerate Ofev -- Metastatic colon cancer Completed FOLFOX 2 cycles 07/14/2019 Relapse October 2021 s/p FOLFIRI July 2022 5 FU was changed to leucovorin and Avastin Currently on 5 FU, leucovorin and bevacizumab Bevacizumab is usually not associated with pneumonitis. Patient is not on any other medication which I think could cause pneumonitis --DNI Plan: In/out: -17 L since coming to the hospital Avoid positive pressure ventilation, avoid flutter valve for pneumomediastinum. Antitussive medication [id number] Overall prognosis is guarded. If there is any decline in patient's respiratory status then inpatient hospice should be considered Case was discussed with patient's as well as Dr Scott Please note the above document was generated using voice recognition software. It may contain grammatical, syntax or spelling errors.Any formal questions or concerns about the content, text or information contained within the body of this dictation should be directly addressed to the provider for clarification. Admission and Anticipated Discharge Date Admission Date: March 08, 2024 Subjective Patient seen and examined at bedside. In respiratory distress He was saturating 97% on 60 L, 100% FiO2, I was able to go down to 80% Overnight he was complaining of more shortness of breath, his high flow was changed to nonrebreather. I was given a call from Dr. Schafer. I suggested him to get the patient back on high flow 60 L 100% Not to put him on BiPAP for the history of pneumomediastinum. No nausea or vomiting Patient was asking whether he should consider hospice Review of Systems 2 Review of Systems: All systems reviewed & are unremarkable except as noted in Subjective Physical Exam 2 Physical Exam: Constitutional: In respiratory distress HEENT: EOMI, PERRLA Respiratory system: Decreased air entry bilaterally, no wheeze, no rhonchi, positive Velcro-like crackles appreciated bilaterally more on the right side CVS: S1-S2 positive, no murmurs or gallops, right-sided Port-A-Cath Abdomen: Soft, nontender, nondistended, positive bowel sounds x4 Extremities: +2 pulses bilaterally radialis/ dorsalis pedis, no cyanosis, minimal pitting edema bilateral lower extremity Neuro: Awake alert oriented x3 Psych: Normal mood and affect G/U: No [place] Skin: no rashes, warm and dry Lymphatic: no cervical or axillary lymphadenopathy Results & Data Results & Data Vital Signs (Past 12 Hours) Vital Signs Temp Pulse Pulse Pulse Resp BP Pulse Ox 03/31/24 08:27 36.3 C L 95 H 18 114/72 96 03/31/24 07:00 94 H 28 H 94 03/31/24 04:40 93 03/31/24 04:34 94 03/31/24 04:14 93 03/31/24 03:57 77 L 03/31/24 03:29 36.6 C 98 H 20 119/71 90 03/31/24 03:13 104 H 32 H 90 03/31/24 00:06 36.8 C 102 H 20 124/72 90 03/30/24 23:05 102 H 32 H 92 03/30/24 21:56 107 H O2 Del Method O2 Flow Rate FiO2 03/31/24 08:27 High Flow Nasal Cannula 40 03/31/24 07:00 High Flow Nasal Cannula 60 100 03/31/24 04:40 High Flow Nasal Cannula 60 100 03/31/24 04:34 High Flow Nasal Cannula 60 100 03/31/24 04:14 High Flow Nasal Cannula, Non-rebreather 60 100 03/31/24 03:57 High Flow Nasal Cannula 40 100 03/31/24 03:29 High Flow Nasal Cannula 40 03/31/24 03:13 High Flow Nasal Cannula 40 100 03/31/24 00:06 High Flow Nasal Cannula 40 03/30/24 23:05 High Flow Nasal Cannula 40 90 03/30/24 21:56 Laboratory Results 03/31/24 05:42 03/31/24 05:42 PG Care Time/CCT Total # of Minutes Spent Total Time Spent with Patient: Total time spent is greater than 50% in coordination of care (as documented) at patient's floor/unit and/or counseling patient: Coding Level of Care Code 48901 SUB INP/OBS CARE 3/50MIN Diagnoses Acute and chronic respiratory failure J96.21 Respiratory failure complication: hypoxia Metastatic colon cancer to liver C18.9; C78.7 Pneumonia J18.9 Laterality: bilateral Lung location: lower lobe of lung Pneumonia type: due to unspecified organism Bronchiectasis J47.9 UIP (usual interstitial pneumonitis) J84.112 Pneumomediastinum J98.2
[2024-03-31] MEDS ORDERED: GLYCOPYRROLATE 0.2 MG/ML VIAL IV PRN (11:14)
--- NOTE | 2024-03-31 11:37 | Hospitalist Progress Note ---
Date of Service March 31, 2024 Assessment & Plan (1) Pneumonia: (2) Interstitial pulmonary disease, unspecified: (3) Metastatic colon cancer to liver: (4) Metastatic disease: (5) DAILEY (nonalcoholic steatohepatitis): (6) GERD (gastroesophageal reflux disease): Plan 73-year-old male with stage IV lung cancer with metastasis to liver, lung, idiopathic pulmonary fibrosis, GERD, Poe's esophagus and other medical problems presents with history of worsening shortness of breath, cough with hemoptysis and increased supplemental oxygen requirement. Patient was seen by pcp prior to admission days and started on augmentin and azithromycin for possible developing pneumonia. Despite taking the antibiotic course, patient continued to havening cough, shortness of breath and has been using his rescue inhaler more frequently. #Acute on chronic respiratory failure with hypoxia 2L O2 baseline #Acute Pneumonia, failure of outpatient treatment #Interstitial pulmonary fibrosis #Pulmonary Embolism #Bilateral DVT #Goals of Care Discussion #Comfort Measures Only Biofire negative Sputum cx NGTD Blood cx NGTD CT chest on 03/08/24 with acute findings of pneumonitis, stable nodule changes and chronic interstitial changes CT chest on 03/19/24 noted interval development of mod pneumomediastinum, GGO throughout lungs. Completed Zosyn, Doxy Completed steroid taper Had been on 5-7L NC at rest and upto 15L with activity over the past few days However, hypoxia 2 nights ago to requiring HFNC CXR noted extensive interstitial and airspace opacities unchanged from prior exams LE DVT noted b/l posterior tibial DVT and minimal chronic thrombus in left femoral vein TTE showed LV cavity is small, mod conc LVH, flattened septum consistent with RV vol overload, LV is hyperdynamic, EF >70%, mod dil RV, RVSF mod reduced, RVSP 40-50mmHg CT PE showed few small subsegmental PE, progression of multifocal consolidation Patient was started on hep gtt Considering new VTE and worsened resp status, I and slot service specialist Cristina Leong had a Goals of care meeting with patient, and daughter. Patient and family opted to proceed with comfort measures only. They will like to keep hep gtt ongoing for now and reassess later. LEGAL ADVISER orders placed #Progressive metastatic colon cancer T3 N2 b, M0 stage IIIC at the time of diagnosis in 10/2018. Started current regimen on 12/24/23 of 5-FU, leucovorin and bevacizumab every 2 weekly because disease progression was noted in the lungs. Last cycle was on 02/19/[address] Vu Navarrete as outpatient Poor prognosis #Mild troponin elevation Likely demand ischemia secondary to above #Hyperglycemia Hgba1c normal I spent a total of 60 minutes coordinating, documenting and providing care for this patient excluding time spent in performance of separately billed services Admission and Anticipated Discharge Date Admission Date: March 08, 2024 Subjective Patient seen and examined He is in respiratory distress with tachypnea and use of accessory muscles His oxygen requirement has worsened dramatically in the past 48h Currently on HFNC at 60L/min with conversational dyspnea and daughter at bedside Physical Exam Constitutional: + acute distress Eyes: PERRL, conjunctivae normal, anicteric sclerae ENMT: external ear and nose normal, oropharynx normal Respiratory: + respiratory distress, + labored breath ing and + tachypneic Auscultation: + crackles On HFNC Cardiovascular: Rate/Rhythm: regular rate and regular rhythm Gastrointestinal (Abdomen): normal bowel sounds, soft, nontender, no hepatosplenomegaly Musculoskeletal: No pedal edema Neurologic: PERRL, EOMI, accommodation nl, no face palsy, no dysarthria Psychiatric: A+Ox3, euthymic affect Results & Data Results & Data Vital Signs (Past 12 Hours) Vital Signs Temp Pulse Pulse Resp BP Pulse Ox O2 Del Method 03/31/24 11:26 96 H 24 92 High Flow Nasal Cannula 03/31/24 08:27 36.3 C L 95 H 18 114/72 96 High Flow Nasal Cannula 03/31/24 07:00 94 H 28 H 94 High Flow Nasal Cannula 03/31/24 04:40 93 High Flow Nasal Cannula 03/31/24 04:34 94 High Flow Nasal Cannula 03/31/24 04:14 93 High Flow Nasal Cannula, Non-rebreather 03/31/24 03:57 77 L High Flow Nasal Cannula 03/31/24 03:29 36.6 C 98 H 20 119/71 90 High Flow Nasal Cannula 03/31/24 03:13 104 H 32 H 90 High Flow Nasal Cannula 03/31/24 00:06 36.8 C 102 H 20 124/72 90 High Flow Nasal Cannula O2 Flow Rate FiO2 03/31/24 11:26 60 80 03/31/24 08:27 40 03/31/24 07:00 60 100 03/31/24 04:40 60 100 03/31/24 04:34 60 100 03/31/24 04:14 60 100 03/31/24 03:57 40 100 03/31/24 03:29 40 03/31/24 03:13 40 100 03/31/24 00:06 40 Laboratory Results Abnormal lab results 03/30/24 03/30/24 03/31/24 Range/Units 15:31 17:37 05:42 WBC 13.26 H 13.76 H (4.8-10.8) K/ul RBC 3.96 L 4.16 L (4.70-6.10) M/uL Hgb 13.3 L (14.0-18.0) g/dl Hct 36.9 L 38.1 L (42.0-52.0) % MCHC 36.7 H (32.0-36.0) g/dL RDW Std Deviation 52.6 H 50.7 H (36.4-46.3) fL RDW Coeff of Dwayne 15.3 H 15.2 H (11.5-14.5) % Neut # (Auto) 12.09 H (1.40-6.50) K/uL Lymph # (Auto) 0.40 L (1.20-3.40) K/uL [place] # (Auto) 0.64 H (0.11-0.59) K/uL APTT 81 H* (21-31) Seconds Sodium 130 L (136-145) mmol/L Chloride 93 L (98-107) mmol/L BUN/Creatinine Ratio 26.5 H (10-20) Glucose 196 H (70-99(Fasting)) mg/dl Phosphorus 2.3 L (2.5-4.9) mg/dl Troponin I High Sens 93.4 H* (0-20) pg/ml (1) Pneumonia Laterality: bilateral Lung location: lower lobe of lung Pneumonia type: due to unspecified organism Qualified Code(s): J18.9 - Pneumonia, unspecified organism (4) Metastatic disease Area of secondary neoplastic involvement: unspecified site Qualified Code(s): C79.9 - Secondary malignant neoplasm of unspecified site
[2024-03-31] MEDS: HYDROmorphone INJ 1 MG/ML SYRINGE IV PRN (11:43)
--- NOTE | 2024-03-31 19:12 | Palliative Care Progress Note ---
Date of Service March 31, 2024 Assessment & Plan (1) Dyspnea and respiratory abnormalities: Plan: progressive resp failure, now with new PEs and DVTs with superimposed PNA and IPF + lung mets (2) Anxiety associated with cancer diagnosis: (3) Advanced care planning/counseling discussion: Plan: An urgent 45min face to face ACP meeting was held at bedside with pt, his , his daughter, Dr Scott and myself. Reviewed the events to date and overall decline, Regretfully acknowledged this acute decline effectively rules out resuming chemo or pursuing acute rehab at [facility]. We acknowledged while this was not a known event to happen it is a risk that comes with progressive cancer. He is on heparin gtt Dtr states they are contacting family, they are all en route Shalini is clear he feels he is suffering. He states he cannot exist with this symptom burden. We agreed to transition to Comfort plan of care. asked about continuing some meds such as heparin hoping it will help buy some time for additional family to arrive. Agreed to continue heparin and daily INRs. Will also continue HFNC but can wean as tolerated when dyspnea mgt is improving. 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 NO continuous rate for now butt if he is needing frequent doses we can add a low dose basal rate. Shalini is in agreement with this plan. He reiterates he does not want to suffer and does not want to prolong suffering. and dtr supportive. 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 (4) Palliative care by specialist: (5) Adenocarcinoma of colon metastatic to liver: (6) IPF (idiopathic pulmonary fibrosis): (7) Pulmonary embolism: Plan As above Thank you for allowing us to participate in the ongoing care of this patient. Please page with any additional concerns. Keisha Leong DNP Director, Palliative Medicine Admission and Anticipated Discharge Date Admission Date: March 08, 2024 Subjective urgently seen this am acute decline overnight with hypoxia found to have acute PE and DVT profoundly weak signif resp distress, air hunger, conversational dyspnea tells me he does not believe he has more than a few days and "I can't live like this, I can't" and dtr at bedside Review of Systems Review of Systems: All systems reviewed & are unremarkable except as noted in Subjective Physical Exam Physical Exam: Acute respiratory distress, use of accessory muscles, tachypnea, RR 34, +conversational dyspnea bitemp wasting, PERRLA +HFNC on FiO2 100% Neck supple, no stridor Inc WOB, velcro-like crackles R>L, 2/3 up tachy s1s2, +right mediport/accessed Abdomen soft, NTP, BS+ BLE +1 edema AAOx3, CAMICU neg Anxious mood and affect, intermittently tearful Skin pale, cool, mild cyanotic changes to nailbeds Results & Data Vital Signs (Past 12 Hours) Vital Signs Temp Pulse Pulse Resp BP Pulse Ox O2 Del Method 03/31/24 15:46 93 H 22 92 High Flow Nasal Cannula 03/31/24 11:26 96 H 24 92 High Flow Nasal Cannula 03/31/24 09:00 Other 03/31/24 08:27 36.3 C L 95 H 18 114/72 96 High Flow Nasal Cannula O2 Flow Rate FiO2 03/31/24 15:46 60 100 03/31/24 11:26 60 80 03/31/24 09:00 60 100 03/31/24 08:27 40 Laboratory Results Abnormal lab results 03/31/24 Range/Units 05:42 WBC 13.76 H (4.8-10.8) K/ul RBC 4.16 L (4.70-6.10) M/uL Hct 38.1 L (42.0-52.0) % MCHC 36.7 H (32.0-36.0) g/dL RDW Std Deviation 50.7 H (36.4-46.3) fL RDW Coeff of Dwayne 15.2 H (11.5-14.5) % Sodium 130 L (136-145) mmol/L Chloride 93 L (98-107) mmol/L BUN/Creatinine Ratio 26.5 H (10-20) Glucose 196 H (70-99(Fasting)) mg/dl Phosphorus 2.3 L (2.5-4.9) mg/dl Diagnostic Findings Chest CT 03/19/24 13:04 CT OF THE CHEST WITHOUT IV CONTRAST CLINICAL HISTORY: ILD follow up. COMPARISON STUDY: Chest CT March 08, 2024. Chest radiograph performed earlier today. CT DOSE: 630.29 mGy.cm TECHNIQUE: Axial images of the chest were obtained without IV contrast. Images were reviewed in the axial, sagittal, and coronal planes. IV contrast was not administered for this examination. Automated exposure control was utilized for the study. A dose lowering technique was utilized adhering to the principles of ALARA. FINDINGS: Right internal jugular [id number] remains in place. There has been interval development of moderate pneumomediastinum since CT of March 08, 2024. The gas extends into the right aspect of the neck. There is no pleural effusion. There is no pneumothorax. The heart is mildly enlarged. Enlarged mediastinal and right hilar lymph nodes are similar to CT of March 08, 2024. Index prevascular node on image 108 of 249 measures 2.7 x 1.8 cm. Underlying interstitial lung disease with honeycombing and traction bronchiectasis is again noted. Innumerable pulmonary nodules measuring up to 1.5 cm are unchanged and prior CT. Ground glass opacities within the lungs are noted. These have slightly improved. IMPRESSION: 1. Interval development of moderate pneumomediastinum since chest CT of March 08, 2024. No pneumothorax. 2. No significant change in mediastinal and right hilar lymphadenopathy since prior CT. No significant change in numerous pulmonary nodules. The findings are suggestive of a neoplastic process. 3. Ground glass opacities throughout the lungs, slightly improved since prior exam. The findings favor pneumonia superimposed upon a UIP pattern of pulmonary fibrosis. Alternatively, the groundglass opacities could be treatment related. ACT 112: Negative or not required by law. Electronically signed by: Casimiro Rivas M.D. 03/19/2024 3:22 PM Venous Doppler Study 03/30/24 12:20 BILATERAL LOWER EXTREMITY VENOUS DOPPLER CLINICAL HISTORY: Rule out DVT COMPARISON STUDY: No previous studies for comparison. TECHNIQUE: Sonography of the deep venous system of the bilateral lower extremities was performed. Compression and augmentation were evaluated. FINDINGS: The right common femoral, superficial femoral and popliteal veins are patent. One of 2 paired right posterior tibial veins is noncompressible. This represents deep venous thrombus. Echogenic foci within the periphery of the left femoral vein suggests minimal chronic thrombus. One of 2 paired left posterior tibial veins is noncompressible. This represents deep venous thrombus. IMPRESSION: 1. Deep venous thrombus within the bilateral posterior tibial veins, as described above. No above the knee acute deep venous thrombus. 2. Minimal chronic thrombus within the left femoral vein. ACT 112: Negative or not required by law. Electronically signed by: Casimiro Rivas M.D. 03/30/2024 2:44 PM Chest CTA 03/30/24 16:39 CT ANGIOGRAPHY OF THE CHEST, PULMONARY EMBOLUS PROTOCOL CLINICAL HISTORY: Shortness of breath. COMPARISON STUDY: Chest CT March 19, 2024. Chest radiograph March 29, 2024. TECHNIQUE: Following IV administration of 119 mL of Optiray, helical axial images of the chest were obtained utilizing the pulmonary embolus protocol. Maximal intensity projections and sagittal and coronal reformats were viewed on an independent 3D workstation. IV contrast was administered without complication. Automated exposure control was utilized for the study. A dose lowering technique was utilized adhering to the principles of ALARA. CT DOSE: 1182. mGy.cm FINDINGS: No central pulmonary emboli are identified. This exam is compromised given motion artifact. A few small pulmonary emboli are noted, including a right middle lobe subsegmental pulmonary embolus on image 111 and a left upper lobe subsegmental pulmonary embolus on image 148. There is no pericardial effusion. Mediastinal and bilateral hilar lymphadenopathy has mildly progressed. A prevascular node on image 134 measures 2.9 x 2 cm, previously 2.7 x 1.8 cm. Pneumomediastinum shown on prior exam has resolved. There is no pneumothorax. There is a trace left pleural effusion. Interstitial lung disease with traction bronchiectasis is again noted. Multifocal consolidation and groundglass opacities have progressed. Numerous pulmonary nodules are obscured by the airspace opacity but have slightly increased in size since prior exam. IMPRESSION: 1. A few small subsegmental pulmonary emboli, as described above. 2. Progression of multifocal consolidation and groundglass opacity since prior exam. The findings favor pneumonia superimposed upon pulmonary fibrosis. Alternatively, the airspace opacities could be treatment related. 3. Slight increase in thoracic lymphadenopathy and stable to slight increase in size of multiple small pulmonary nodules. The findings are likely neoplastic. 4. Trace left pleural effusion. ACT 112: Negative or not required by law. Electronically signed by: Casimiro Rivas M.D. 03/30/2024 6:33 PM Chest X-Ray 03/31/24 04:01 XR chest 1V portable HISTORY: 73 years-old Male low o2 acute hypoxia COMPARISON: CT chest 03/30/2024, chest radiograph 03/29/2024. TECHNIQUE: AP view of the chest FINDINGS: Cardiac silhouette is enlarged. Stable position of the right pectoral [id number]-Qqbc catheter. Extensive mixed interstitial and alveolar opacities with bronchiectasis redemonstrated. Bones appear grossly intact. No pneumothorax. Trace pleural effusions. IMPRESSION: 1. Cardiomegaly with extensive mixed interstitial and alveolar opacities redemonstrated, mildly progressed from prior. Findings are suggestive of multifocal pneumonia superimposed upon pulmonary fibrosis. 2. Trace pleural effusions. ACT 112: Negative or not required by law. The above report was generated using voice recognition software. It may contain grammatical, syntax or spelling errors. Electronically signed by: Bertrand Anderson M.D. 03/31/2024 7:08 AM PG Care Time/CCT Total # of Minutes Spent Total Time Spent with Patient: Total time spent is greater than 50% in coordination of care (as documented) at patient's floor/unit and/or counseling patient: I spent 115 minutes overall addressing this case: 15 min in medical data review/discussion with referring pro vider(s) and/or preparation for the visit 15 min in direct interaction with the patient/exam 45 min in Advance Care Planning/Goals of Care discussions as detailed above in note (must be >16min) 15 min in subsequent review and synthesis of assessment and plan 25 min communicating with other providers regarding the patient's case: care mgt, nursing, primary team, pharmacy, Dr Navarrete/onc Advanced Care Planning 10370 Advanced Care Planning 30 Min 27725 Advanced Care Planning Additional 30 Min [place] [address] SUB INP/OBS CARE 3/50MIN (25 - SIGNIFICANT, SEPARATELY ID ENTIFIABLE ) Patient Type Established Medical Decision Making High Complexity Diagnoses Dyspnea and respiratory abnormalities R06.00; R06.89 Anxiety associated with cancer diagnosis F41.1; C80.1 Advanced care planning/counseling discussion Z71.89 Palliative care by specialist Z51.5 Adenocarcinoma of colon metastatic to liver C18.9; C78.7 IPF (idiopathic pulmonary fibrosis) J84.112 Pulmonary embolism I26.99 Additional Codes Advanced Care Planning - 06102 Advanced Care Planning 30 Min: 71040 Advanced Care Planning 30 Min ([id number]) Advanced Care Planning - 22025 Advanced Care Planning Additional 30 Min: 56839 Advanced Care Planning Additional 30 Min ([id number]) Comment additional time needs to be added to billing
[2024-04-01] MEDS ORDERED: HYDROmorphone BOLUS from BAG IV PRN (03:56)
--- NOTE | 2024-04-01 04:01 | Communication Note ---
Date of Service: April 01, 2024 Shortness of breath and discomfort unrelieved by as needed Dilaudid dosing as per RN. Initiate low basal rate Dilaudid infusion as per palliative care note recommendations.
[2024-04-01] MEDS: LORazepam 2 MG/1 ML VIAL IV PRN (04:08)
[2024-04-01] MEDS: HYDROmorphone/NSS 100 MG/100 ML BAG IV SCH (04:54)
[2024-04-01 06:53] LABS: ANTI-Xa, UFH(UnfractionatedHep 0.33 IU/ml (0.3-0.7)
--- NOTE | 2024-04-01 08:52 | Pulmonology Progress Note ---
Date of Service April 01, 2024 Assessment & Plan (1) Acute and chronic respiratory failure: Respiratory failure complication: hypoxia Qualified Code(s): J 96.21 - Acute and chronic respiratory failure with hypoxia (2) Metastatic colon cancer to liver: (3) Pneumonia: Laterality: bilateral Lung location: lower lobe of lung P neumonia type: due to unspecified organism Qualified Code(s): J18.9 - Pneumonia, unspecified organism (4) Bronchiectasis: (5) UIP (usual interstitial pneumonitis): (6) Pneumomediastinum: Plan CT chest 03/19/2024 personally reviewed: Groundglass opacities appreciated on 03/08/2024 seems to have improved Honeycombing appreciated bilaterally more pronounced in the right upper as well as right lower lobe Traction bronchiectasis Multiple pulmonary nodules bilaterally, largest being 11 mm left lower lobe There is mediastinal as well as hilar lymphadenopathy 2D echo 03/30/2024: EF greater than 60%, moderate concentric LVH, flattened septum, RV moderately dilated, RVSP 40-50 mmHg --Acute on chronic hypoxic respiratory failure Multiple groundglass opacities appreciated bilaterally which are new compared to 11/2023 --> improved on repeat CT chest on 03/19/2024 Acute DVT with acute pulmonary emboli on 03/30/2024 --> started on heparin drip His troponin was elevated along with mildly elevated BNP, he does follow into intermediate high risk of pulmonary emboli but because of the history of hemoptysis I do not think systemic tPA would be appropriate and high risk of bleed Respiratory bio fire was negative for everything on 03/08/2024 Procalcitonin 0.04, nasal MRSA negative BNP 94 --> 43 --> 111 Probability of being infectious etiology is high Noninfectious etiology includes acute flareup of UIP, unlikely. Diffuse alveolar hemorrhage, pulmonary edema Sputum PJP negative --Pneumomediastinum Spontaneous likely from coughing Avoid positive pressure ventilation Technically high flow is also mildly positive pressure but given the degree of hypoxia I think it is reasonable to continue with -- UIP Following up with Dr. Zavala Unable to tolerate Ofev -- Metastatic colon cancer Completed FOLFOX 2 cycles 07/14/2019 Relapse October 2021 s/p FOLFIRI July 2022 5 FU was changed to leucovorin and Avastin Currently on 5 FU, leucovorin and bevacizumab Bevacizumab is usually not associated with pneumonitis. Patient is not on any other medication which I think could cause pneumonitis --DNI Plan: Patient has transition to comfort measures. I did have in-depth discussion with patient's family yesterday afternoon I think this is the appropriate thing to do Please keep the patient and family comfortable Case was discussed with RN at bedside No further recommendation from pulmonary perspective, will sign off Please call directly with any questions Please note the above document was generated using voice recognition software. It may contain grammatical, syntax or spelling errors.Any formal questions or concerns about the content, text or information contained within the body of this dictation should be directly addressed to the provider for clarification. Admission and Anticipated Discharge Date Admission Date: March 08, 2024 Subjective Patient seen and examined at bedside. No acute distress He was on high flow 60 L, 100%, also on Dilaudid 0.4. He was still on heparin drip which will be discontinued Review of Systems 2 Review of Systems: Unobtainable due to cognitive status Physical Exam 2 Physical Exam: Constitutional: Comfortable, no acute distress HEENT: EOMI, PERRLA Respiratory system: Decreased air entry bilaterally, no wheeze, no rhonchi, positive Velcro-like crackles appreciated bilaterally more on the right side CVS: S1-S2 positive, no murmurs or gallops, right-sided Port-A-Cath Abdomen: Soft, nontender, nondistended, positive bowel sounds x4 Extremities: +2 pulses bilaterally radialis/ dorsalis pedis, no cyanosis, minimal pitting edema bilateral lower extremity Neuro: Somnolent, comfortable Psych: Unable to assess G/U: No [place] Skin: no rashes, warm and dry Lymphatic: no cervical or axillary lymphadenopathy Results & Data Results & Data Vital Signs (Past 12 Hours) Vital Signs Pulse Resp Pulse Ox O2 Del Method O2 Flow Rate FiO2 04/01/24 07:21 115 H 31 H 82 L High Flow Nasal Cannula 60 100 04/01/24 01:33 78 L High Flow Nasal Cannula 60 100 04/01/24 01:32 113 H 30 H 78 L High Flow Nasal Cannula 60 100 04/01/24 00:14 Other 60 100 03/31/24 22:21 99 H 22 87 L High Flow Nasal Cannula 60 100 Laboratory Results 03/31/24 05:42 03/31/24 05:42 PG Care Time/CCT Total # of Minutes Spent Total Time Spent with Patient: Total time spent is greater than 50% in coordination of care (as documented) at patient's floor/unit and/or counseling patient: Coding Level of Care Code 94479 SUB INP/OBS CARE 2/35MIN Diagnoses Acute and chronic respiratory failure J96.21 Respiratory failure complication: hypoxia Metastatic colon cancer to liver C18.9; C78.7 Pneumonia J18.9 Laterality: bilateral Lung location: lower lobe of lung Pneumonia type: due to unspecified organism Bronchiectasis J47.9 UIP (usual interstitial pneumonitis) J84.112 Pneumomediastinum J98.2
[2024-04-01 12:12] VITALS: PULSE 117; RESP 32; O2SAT 80
--- NOTE | 2024-04-01 12:44 | Palliative Care Progress Note ---
Date of Service April 01, 2024 Assessment & Plan (1) Dyspnea and respiratory abnormalities: Plan: Signif decline since yesterday with progressive resp failure from new PEs and DVTs +superimposed PNA + IPF + lung mets Signif increase to work of breathing and tachypnea noted Will increase Dilaudid infusion to 0.6 mg per hour with 0.4mg bolus q15min prn Ativan 1mg IV q4h prn - asked nursing to give a dose now and increase dilaudid infusion as ordered I have stopped heparin and oral meds - there is no signif benefit to continuing these, is in agreement. Pt was very clear he does not want the dying process prolonged and he wants his comfort and dignity to remain the priority and focus for all the care he is given. HFNC de escalation Recommended Protocol: * Provider, RN, and RT discuss plan * engage additional MDT as needed: social work, car ferry captain, etc. * Stop monitors, ensure working IV * Pre-wean medications: Begin hydromorphone infusion, prn dose and Lorazepam 1mg IV * Consider Hydromorphone 0.5-1mg per hour infusion * Consider Hydromorphone 1mg IV Q10min prn air hunger * Four Down Titrations: Approximately 25% Reduction every 10 minutes (reduce FiO2 and liter flow) - Medicate - Wait for 10 min for peak effect, decrease liter flow and FiO2 by 25% followed by immediate repeat bolusing - Wait 10 min then decrease liter flow and FiO2 by 25%, followed by immediate repeat bolusing - Give another Lorazepam 1mg IV bolus - Wait another 10 min then decrease liter flow and FiO2 by 25% followed by immediate repeat bolusing - Wait another 10 min then decrease liter flow and FiO2 by the final 25% followed by immediate repeat bolusing - Give another 1mg Lorazepam 1mg IV if needed * Observe for and treat symptoms * Provide anticipatory guidance (2) Advanced care planning/counseling discussion: Plan: I met facve to face x 30min with Mrs Weaver and her 3 children. We discussed the changes since yesterday and continued rapid decline. There is a grandson from [place] en route but Mrs Weaver shares that everyone else Shalini wanted to see is here and present at bedside. We discussed medication changes to improve his distress and I advised it is time to dc heparin - she and family are in agreement and she reaffirmed the goal for comfort and freedom from distress. I advised he needs more sedation to achieve comfort, so we will give a dose of prn IV Ativan now and adjust the infusion. Once he is more comfortable, RT will assist transitioning him over to NC and get him off the HFNC but we will do this is a controlled manner and it will be driven by Shalini's response to the medication and his comfort level assessed by nursing and RT. Their sped teacher has been in to visit. They do not have additional spiritual concerns. Mrs Weaver has a strong katerin that she and Shalini sahred, she tells me "he knows where he is going and we know I will meet him there one day." Extensive psychosocial support provided to family.I (3) Palliative care by specialist: (4) Adenocarcinoma of colon metastatic to liver: (5) IPF (idiopathic pulmonary fibrosis): (6) Pulmonary embolism: Plan As above HFNC de-escalation protocol outline above for reference. extensive psychosocial support provided to family. Thank you for allowing us to participate in the ongoing care of this patient. Please page with any additional concerns. Keisha Leong DNP Director, Palliative Medicine Admission and Anticipated Discharge Date Admission Date: March 08, 2024 Subjective Shalini is no longer awake/alert extended family at bedside shares that he has not been responsive since last night and dtr notes he has been having increased WOB since early this morning He remains on heparin infusion and HFNC Review of Systems Review of Systems: Unobtainable due to reduced consciousness Physical Exam Physical Exam: Acute respiratory distress, use of accessory muscles, tachypnea, RR 45, heaving respiratory effort bitemp wasting +HFNC on FiO2 100% Neck supple, no stridor +[employer] WOB, velcro-like crackles R>L, 2/3 up tachy s1s2, +right mediport/accessed; ++RV Heave Abdomen soft, no grimacing with palpation, +abdominal breathing BLE ++mottling to above the ankles, trace edema, no pitting; BLE cool to tough to pre tibial region unrepsonsive, mild withdrawal to noxious Skin +pallor, +cool, +cyanotic changes to nailbeds Results & Data Vital Signs (Past 12 Hours) Vital Signs Pulse Pulse Resp Pulse Ox O2 Del Method O2 Flow Rate FiO2 04/01/24 11:10 117 H 32 H 80 L High Flow Nasal Cannula 60 100 10/02/24 07:21 115 H 31 H 82 L High Flow Nasal Cannula 60 100 04/01/24 01:33 78 L High Flow Nasal Cannula 60 100 04/01/24 01:32 113 H 30 H 78 L High Flow Nasal Cannula 60 100 Laboratory Results POWER SYSTEM OPERATOR Diagnostic Findings POWER SYSTEM OPERATOR PG Care Time/CCT Total # of Minutes Spent Total Time Spent with Patient: Total time spent is greater than 50% in coordination of care (as documented) at patient's floor/unit and/or counseling patient: I spent 90 minutes overall addressing this case: 15 min in medical data review/discussion with referring provider(s) and/or preparation for the visit incl discussion with nursing 15 min in direct interaction with the patient/exam 30 min in Advance Care Planning/Goals of Care discussions as detailed above in note (must be >16min) 15 min in subsequent review and synthesis of assessment and plan 15 min communicating with other providers regarding the patient's case: Advanced Care Planning 66838 Advanced Care Planning 30 Min [place] [address] SUB INP/OBS CARE 3/50MIN (25 - SIGNIFICANT, SEPARATELY IDENTIFIABLE ) Patient Type Established Medical Decision Making High Complexity Diagnoses Dyspnea and respiratory abnormalities R06.00; R06.89 Advanced care planning/counseling discussion Z71.89 Palliative care by specialist Z51.5 Adenocarcinoma of colon metastatic to liver C18.9; C78.7 IPF (idiopathic pulmonary fibrosis) J84.112 Pulmonary embolism I26.99 Additional Codes Advanced Care Planning - 56397 Advanced Care Planning 30 Min: 56293 Advanced Care Planning 30 Min ([id number])
[2024-04-01] MEDS: HYDROmorphone BOLUS from BAG IV PRN (13:38)
--- NOTE | 2024-04-01 14:39 | Discharge Summary ---
Discharge Summary Date of Service April 01, 2024 Principal Dx & Hospital Course #1 = Principal Diagnosis (1) Cancer, metastatic to lung: (2) Adenocarcinoma of colon metastatic to liver: (3) Acute and chronic respiratory failure: (4) Pneumonia: (5) Pulmonary embolism: (6) IPF (idiopathic pulmonary fibrosis): (7) Dyspnea and respiratory abnormalities: (8) Advanced care planning/counseling discussion: (9) Palliative care by specialist: Plan Mr. Weaver was a 73-year-old male with stage IV colon cancer with metastasis to the lung and liver, idiopathic pulmonary fibrosis, GERD, Poe's esophagus and other medical problems who presented with a history of worsening shortness of breath, cough with hemoptysis and increased supplemental oxygen requirement. Patient was seen by pcp a few days prior to admission and started on augmentin and azithromycin for possible developing pneumonia. Despite taking the antibiotic course, patient continued to have worsening cough and shortness of breath. Acute on chronic respiratory failure with hypoxia 2L O2 baseline Acute Pneumonia, failure of outpatient treatment Interstitial pulmonary fibrosis Pulmonary Embolism Bilateral DVT Goals of Care Discussion Comfort Measures Only Biofire negative, Sputum cx NGTD, Blood cx NGTD CT chest on 03/08/24 with acute findings of pneumonitis, stable nodule changes and chronic interstitial changes CT chest on 03/19/24 noted interval development of moderate pneumomediastinum, Ground Glass Opacities throughout lungs. Completed Zosyn, Doxy Completed steroid taper Pulmonology has been following throughout the course Had been on 5-7L NC at rest and upto 15L with activity However, hypoxia a few nights ago requiring HiFloNC CXR noted extensive interstitial and airspace opacities unchanged from prior exams LE DVT noted b/l posterior tibial DVT and minimal chronic thrombus in left femoral vein TTE showed LV cavity is small, mod conc LVH, flattened septum consistent with RV vol overload, LV is hyperdynamic, EF >70%, mod dil RV, RVSF mod reduced, RVSP 40-50mmHg CT PE showed few small subsegmental PE, progression of multifocal consolidation Patient was started on hep gtt Given new VTE and worsened resp status, aircraft electrical systems specialist Cristina Loeng and previous provider Dr Scott had a Goals of care meeting with patient, and daughter. Patient and family opted to proceed with comfort measures only. They initially opted for hep gtt continuation and to continue with oxygen until other family members arrived. Comfort Measures only orders were otherwise placed. Pt required increased Dilaudid dosing overnight to remain comfortable. He passed on 04/01/24 at 14:10 with family members at bedside. Progressive metastatic colon cancer T3 N2 b, M0 stage IIIC at the time of diagnosis in 10/2018. Started current regimen on 12/24/23 of 5-FU, leucovorin and bevacizumab every 2 weekly because disease progression was noted in the lungs. Last cycle was on 02/19/[address] Vu Navarrete as outpatient Poor prognosis He passed on 04/01/24 at 14:10 with family members at bedside. Mild troponin elevation Likely demand ischemia secondary to above Hyperglycemia Hgba1c normal Notes For Next Care Provider Pt Medication Changes From Visit Pt Admission HPI Per Admitting Provider This is a 73 yo male with a past medical history of splenic flexure of the colon adenocarcinoma diagnosed in October 2018, followed by transcerse and descending colectomy 11/20/[address] Blue, Completed adjuvant modified FOLFOX x 12 cycles, 07/14/2019. Then in October 2021 had recurrent disease involving the liver as well as peritoneal nodule involving the outer surface of the liver. At that time he was treated with FOLFIRI and avastin every 2 weeks, then in December 2021 discontinued 5-FU bolus because of low ANC. In May 2022 decided discontinue irinotecan as he has worsening ILD, required steroid x 2, oxygen treatment briefly. Then in Jul 2022 decided to change 5 FU to levucovin Avastin to every 3 weeks instead of every 2 weeks. He started current regimen 12/24/23 of 5-FU, leucovorin and bevacizumab every 2 weekly because disease progression was noted in the lungs. Other PMHx includes Interstitial pulmonary fibrosis, bronchiectasis for which he follows with Dr. Zavala with pulmonology, as well as mild diastolic dysfunctio n, mild aortic stenosis, and GERD. Pt was supposed to have his last cycle of chemo last Saturday but missed it due to not feeling well at that time. Pt was seen at PCP office on 03/04/24 for acute worsening cough at that time was 2-3 days, with sputum production, and fever of 101 F. Denies sick contacts, no wheezing at that time. He was started on azithromycin x 5d course and augmentin x 7d course on 03/04/24. He still has worse cough, with sputum production. Last night he started having blood in sputum. He denies blood thinners or aspirin therapy. Pt wears 2 L O2 at all times. He has been using albuterol inhaler more at home, as well as increased albuterol inhaler at home in the past few days. Here he was hypoxic with O2 sats of 83% om 2 L, and is now on 5 L. Admission Exam Per Admitting Provider Vitals signs as noted above General Appearance:Moderately built and nourished, chronic ill-appearing, no apparent distress Head: normocephalic, Atraumatic Eyes: normal inspection, EOMI Neck: supple, Trachea midline Respiratory/Chest: Decreased breath sounds, bilateral rhonchi, scattered wheezes, basal crackles, No accessory muscle use Cardiovascular: S1, S2, No murmur Abdomen/GI:Soft, Non tender, Bowel sounds present Extremities/Musculoskeletal:normal inspection, no edema Neurologic/Psych:AAOX3, grossly no focal neurological deficits Skin: normal color, warm Discharge Exam General: Pt laying in bed Neuro: unresponsive HEENT: NC/AT CV: no heart sounds auscultated Resp: no breath sounds present Updated Medication List Medication Instructions Recorded Confirmed Type cholecalciferol (vitamin D3) 50 2,000 unit PO QAM 10/24/18 03/08/24 History mcg (2,000 unit) capsule (Vitamin D3) melatonin 3 mg tablet 3 mg PO HS PRN Sleep 10/24/18 03/08/24 History pantoprazole 40 mg tablet,delayed 40 mg PO QAM 10/24/18 03/08/24 History release (Protonix) ibuprofen 200 mg tablet 200 mg PO Q4H PRN osteoarthritits 01/08/19 03/08/24 History nebulizers #1 ea 10/20/20 03/08/24 Rx Oxygen Home #2 L 03/29/22 03/08/24 Rx Portable Oxygen #1 ea 03/29/22 03/08/24 Rx acetaminophen 500 mg tablet 500 mg PO Q6H PRN Pain 08/12/22 03/08/24 History (Tylenol Extra Strength) acyclovir 400 mg tablet 400 mg PO BID PRN cold sore 08/12/22 03/08/24 History outbreak amoxicillin 500 mg capsule 2,000 mg PO DIRECTED PRN PRIOR 08/12/22 03/08/24 History TO DENTAL APPT. cyanocobalamin (vitamin B-12) 1,000 mcg PO QAM 08/12/22 03/08/24 History 1,000 mcg tablet (Vitamin B-12) hydrocortisone 2.5 % topical cream 1 applic topical DIRECTED PRN 08/12/22 03/08/24 History Skin Irritation lactobacillus combination no.4 3 3,000 mmu cells PO QAM 07/03/23 03/08/24 History billion cell capsule (Probiotic) amoxicillin 875 mg-potassium 1 tab PO BID 03/08/24 03/08/24 History clavulanate 125 mg tablet azithromycin 250 mg tablet 250 mg PO DIRECTED 03/08/24 03/08/24 History benzonatate 100 mg capsule 100 mg PO TID PRN Cough 03/08/24 03/08/24 History bevacizumab-bvzr 25 mg/mL 0 mg IV Q14D 03/08/24 03/08/24 History intravenous solution (Zirabev) budesonide 0.5 mg/2 mL suspension 0.5 mg irrigation BID 03/08/24 03/08/24 History for nebulization fluorouracil 2.5 gram/50 mL 0 g IV Q14D 03/08/24 03/08/24 History intravenous solution leucovorin calcium 10 mg/mL 0 mg IV Q14D 03/08/24 03/08/24 History injection solution lorazepam 1 mg tablet 1 mg PO HS PRN Sleep 03/08/24 03/08/24 History zinc acetate 50 mg (zinc) capsule 50 mg PO DAILY 03/08/24 03/08/24 History Hospital Stay Data Consultations 03/08/24 13:39 ED Decision to Admit Stat 03/08/24 16:05 Consult Pulmonology Routine 03/24/24 07:47 Consult Palliative Care Routine Diagnostic Imagining Performed 03/08/24 12:17 CT angio chest PE protocol Stat 03/19/24 13:04 CT chest diagnostic wo con Routine 03/30/24 12:20 US venous doppler LE BI Routine 03/30/24 16:39 CT angio chest PE protocol Stat Chest X-Ray 03/08/24 10:35 XR chest 1V portable HISTORY: 73 years-old Male Chest pain, nonspecific COMPARISON: Chest radiograph 01/12/2019, chest CT 12/03/2023. TECHNIQUE: AP view chest FINDINGS: Cardiac silhouette is mildly enlarged. Right IJ Onfozh-m-Djnf catheter. No pneumothorax. Small pleural effusions with pulmonary vascular congestion. Bilateral pulmonary nodules with mixed interstitial and alveolar opacities redemonstrated, similar in appearance to the prior chest CT. IMPRESSION: 1. Cardiomegaly with pulmonary vascular congestion. 2. Mixed interstitial and alveolar opacities with numerous pulmonary nodules are redemonstrated, similar in appearance to the chest CT from 12/03/2023. ACT 112: Negative or not required by law. The above report was generated using voice recognition software. It may contain grammatical, syntax or spelling errors. Electronically signed by: Bertrand Anderson M.D. 03/08/2024 11:49 AM Chest CTA 03/08/24 12:17 CT angio chest PE protocol CT DOSE: 801.52 mGy.cm HISTORY: 73 years-old Male with shortness of breath, lung ca, r/o PE. Acute shortness of breath in a patient with history of lung cancer TECHNIQUE: Multiple CTA images of the chest were obtained after the intravenous administration of 119 ml Optiray. Coronal and sagittal MIPS were obtained from the axial data set and were submitted for review. All measurements were obtained according to NASCET criteria. A dose lowering technique was utilized adhering to the principles of ALARA. COMPARISON: Chest radiograph of same day, CTA chest 12/03/2023 FINDINGS: CTA: Moderate cardiomegaly. No pericardial effusion. Moderate coronary artery calcifications. No thoracic aortic aneurysm or dissection. No pulmonary emboli identified. Segmental and subsegmental branches however are suboptimally evaluated secondary to contrast bolus timing. Right IJ Yqbche-n-Gjbt catheter distal tip terminates in the mid SVC. CT CHEST: Heterogeneous thyroid. Pathologically enlarged mediastinal and hilar lymph nodes redemonstrated.r index 1.8 x 2.9 cm AP window lymph node on image 126 previously measured 3.1 x 2.2 cm. 1.5 cm subcarinal lymph node previously measured 1.8 cm. Right hilar lymph node measuring up to 1.6 cm are similar to prior. No pneumothorax or pleural effusion. Chronic interstitial lung disease with traction bronchiectasis, honeycombing and subpleural fibrosis redemonstrated, most pronounced in the right lung. There is new/progressive multisegmental and multilobar distribution of bilateral groundglass densities with areas of intralobular septal thickening. Numerous bilateral solid pulmonary nodules redemonstrated. There is index 9 mm solid nodule within the left upper lobe on image 152 which is stable. 1.1 cm subpleural nodule in the lingula on image 75 is stable. No definite new or enlarging pulmonary nodules identified. Calcifications within the antoni hepatis. No acute upper abdominal abnormality. Fatty infiltration of the liver suggested. Degenerative changes of the shoulders and spine. No acute fracture or destructive bone lesion identified. IMPRESSION: 1. Numerous bilateral solid pulmonary nodules with pathologic lymphadenopathy of the chest appears generally stable compared to the study from 12/03/2023. 2. Chronic interstitial lung disease redemonstrated which includes right greater than left basilar predominant honeycombing, traction bronchiectasis with subpleural fibrosis. 3. There are new/progressive multisegmental multilobar distribution of bilateral groundglass densities with intralobular septal thickening. Findings are suggestive of a nonspecific infectious or inflammatory pneumonitis. 4. No pleural effusion. ACT 112: Negative or not required by law. The above report was generated using voice recognition software. It may contain grammatical, syntax or spelling errors. Electronically signed by: Bertrand Anderson M.D. 03/08/2024 1:07 PM Chest X-Ray 03/10/24 22:40 XR chest 1V portable CLINICAL HISTORY: hypoxia TECHNIQUE: Single frontal radiograph of the chest was obtained. Comparison: Comparison is made to chest radiograph from 03/08/2024 and CTA chest 02/18/2024 FINDINGS: A port catheter is seen. The cardiomediastinal silhouette is normal. Redemonstration of extensive interstitial changes with likely superimposed alveolar opacities. No evidence of pleural effusion or pneumothorax. IMPRESSION: Redemonstration of interstitial thickening and airspace opacities in this patient who also has known pulmonary nodules. ACT 112: Negative or not required by law. Electronically signed by: Nagi Haney M.D. 03/11/2024 7:01 AM Chest X-Ray 03/11/24 07:00 XR chest 1V portable HISTORY: Shortness of breath. Follow-up. COMPARISON: Chest 03/10/2024. FINDINGS: Interstitial thickening with low lung volumes and patchy multifocal airspace opacities are again noted. This is similar to the prior study. No pneumothorax. No pleural effusions. The heart remains stable in size. No acute fractures. Right-sided Port-A-Cath terminates in the SVC. This remains unchanged. IMPRESSION: No significant change in the chronic interstitial thickening and multifocal bilateral airspace opacities. ACT 112: Negative or not required by law. Electronically signed by: Fran Merritt M.D. 03/11/2024 8:39 AM Chest X-Ray 03/12/24 07:00 XR chest 1V portable HISTORY: 73 years-old Male f/u acute shortness of breath COMPARISON: 03/11/2024 at 6:50 AM, CTA chest 03/08/2024 TECHNIQUE: AP view of the chest FINDINGS: Cardiomediastinal and hilar silhouettes are within normal limits. Right IJ Nwsgsx-d-Rpkx catheter distal tip noted within the expected location of the inferior SVC. Bilateral mixed interstitial and alveolar opacities appear generally stable. No pneumothorax or pleural effusion. IMPRESSION: 1. Stable appearance of the chest with unchanged extensive mixed interstitial and alveolar opacities. 2. No pneumothorax. ACT 112: Negative or not required by law. The above report was generated using voice recognition software. It may contain grammatical, syntax or spelling errors. Electronically signed by: Bertrand Anderson M.D. 03/12/2024 7:37 AM Chest X-Ray 03/14/24 07:00 XR chest 1V portable CLINICAL HISTORY: f/u TECHNIQUE: Single frontal radiograph of the chest was obtained. Comparison: Comparison is made to chest radiograph 03/12/2024 FINDINGS: A port catheter is seen. The cardiomediastinal silhouette is normal. Extensive interstitial and alveolar opacities are seen. No evidence of pleural effusion or pneumothorax. IMPRESSION: Stable interstitial and alveolar opacities. ACT 112: Negative or not required by law. Electronically signed by: Nagi Haney M.D. 03/14/2024 10:35 AM Chest X-Ray 03/19/24 09:03 XR chest 1V portable HISTORY: 73 years-old Male ff up, pneumonia, hypoxia acute shortness of breath COMPARISON: 03/14/2024 TECHNIQUE: AP view of the chest FINDINGS: Cardiomediastinal and hilar silhouettes are within normal limits. Right IJ Iqwetw-c-Jqvd catheter distal tip noted within the expected location of the inferior SVC. Bilateral mixed interstitial and alveolar opacities have mildly progressed. No pneumothorax or pleural effusion. IMPRESSION: Extensive mixed interstitial and alveolar opacities redemonstrated, mildly worsened compared to the 03/14/2024 study. ACT 112: Negative or not required by law. The above report was generated using voice recognition software. It may contain grammatical, syntax or spelling errors. Electronically signed by: Bertrand Anderson M.D. 03/19/2024 9:[address] 03/19/24 13:04 CT OF THE CHEST WITHOUT IV CONTRAST CLINICAL HISTORY: ILD follow up. COMPARISON STUDY: Chest CT March 08, 2024. Chest radiograph performed earlier today. CT DOSE: 630.29 mGy.cm TECHNIQUE: Axial images of the chest were obtained without IV contrast. Images were reviewed in the axial, sagittal, and coronal planes. IV contrast was not administered for this examination. Automated exposure control was utilized for the study. A dose lowering technique was utilized adhering to the principles of ALARA. FINDINGS: Right internal jugular Gldexi-c-Ypay remains in place. There has been interval development of moderate pneumomediastinum since CT of March 08, 2024. The gas extends into the right aspect of the neck. There is no pleural effusion. There is no pneumothorax. The heart is mildly enlarged. Enlarged mediastinal and right hilar lymph nodes are similar to CT of March 08, 2024. Index prevascular node on image 108 of 249 measures 2.7 x 1.8 cm. Underlying interstitial lung disease with honeycombing and traction bronchiectasis is again noted. Innumerable pulmonary nodules measuring up to 1.5 cm are unchanged and prior CT. Ground glass opacities within the lungs are noted. These have slightly improved. IMPRESSION: 1. Interval development of moderate pneumomediastinum since chest CT of March 08, 2024. No pneumothorax. 2. No significant change in mediastinal and right hilar lymphadenopathy since prior CT. No significant change in numerous pulmonary nodules. The findings are suggestive of a neoplastic process. 3. Ground glass opacities throughout the lungs, slightly improved since prior exam. The findings favor pneumonia superimposed upon a UIP pattern of pulmonary fibrosis. Alternatively, the groundglass opacities could be treatment related. ACT 112: Negative or not required by law. Electronically signed by: Casimiro Rivas M.D. 03/19/2024 3:22 PM Chest X-Ray 03/26/24 00:56 XR chest 1V portable CLINICAL HISTORY: low o2 TECHNIQUE: Single frontal radiograph of the chest was obtained. Comparison: Comparison is made to chest radiograph 03/19/2024 FINDINGS: No lines and tubes are seen. The cardiomediastinal silhouette is normal. Interstitial and alveolar opacities are again seen. No evidence of pleural effusion or pneumothorax. IMPRESSION: Interstitial and alveolar opacities are again seen, similar to prior exam. ACT 112: Negative or not required by law. Electronically signed by: Nagi Haney M.D. 03/26/2024 7:04 AM Chest X-Ray 03/29/24 22:52 XR chest 1V portable CLINICAL HISTORY: sob TECHNIQUE: Single frontal radiograph of the chest was obtained. Comparison: Comparison is made to chest radiograph 03/26/2024 FINDINGS: A port catheter is seen. The cardiomediastinal silhouette is stable. Reticular interstitial opacities are seen with possible superimposed airspace opacities. No evidence of pleural effusion or pneumothorax. IMPRESSION: Extensive interstitial and airspace opacities are unchanged from prior exams. ACT 112: Negative or not required by law. Electronically signed by: Nagi Haney M.D. 03/30/2024 6:53 AM Venous Doppler Study 03/30/24 12:20 BILATERAL LOWER EXTREMITY VENOUS DOPPLER CLINICAL HISTORY: Rule out DVT COMPARISON STUDY: No previous studies for comparison. TECHNIQUE: Sonography of the deep venous system of the bilateral lower extremities was performed. Compression and augmentation were evaluated. FINDINGS: The right common femoral, superficial femoral and popliteal veins are patent. One of 2 paired right posterior tibial veins is noncompressible. This represents deep venous thrombus. Echogenic foci within the periphery of the left femoral vein suggests minimal chronic thrombus. One of 2 paired left posterior tibial veins is noncompressible. This represents deep venous thrombus. IMPRESSION: 1. Deep venous thrombus within the bilateral posterior tibial veins, as described above. No above the knee acute deep venous thrombus. 2. Minimal chronic thrombus within the left femoral vein. ACT 112: Negative or not required by law. Electronically signed by: Casimiro Rivas M.D. 03/30/2024 2:44 PM Chest CTA 03/30/24 16:39 CT ANGIOGRAPHY OF THE CHEST, PULMONARY EMBOLUS PROTOCOL CLINICAL HISTORY: Shortness of breath. COMPARISON STUDY: Chest CT March 19, 2024. Chest radiograph March 29, 2024. TECHNIQUE: Following IV administration of 119 mL of Optiray, helical axial images of the chest were obtained utilizing the pulmonary embolus protocol. Maximal intensity projections and sagittal and coronal reformats were viewed on an independent 3D workstation. IV contrast was administered without complication. Automated exposure control was utilized for the study. A dose lowering technique was utilized adhering to the principles of ALARA. CT DOSE: 1182. mGy.cm FINDINGS: No central pulmonary emboli are identified. This exam is compromised given motion artifact. A few small pulmonary emboli are noted, including a right middle lobe subsegmental pulmonary embolus on image 111 and a left upper lobe subsegmental pulmonary embolus on image 148. There is no pericardial effusion. Mediastinal and bilateral hilar lymphadenopathy has mildly progressed. A prevascular node on image 134 measures 2.9 x 2 cm, previously 2.7 x 1.8 cm. Pneumomediastinum shown on prior exam has resolved. There is no pneumothorax. There is a trace left pleural effusion. Interstitial lung disease with traction bronchiectasis is again noted. Multifocal consolidation and groundglass opacities have progressed. Numerous pulmonary nodules are obscured by the airspace opacity but have slightly increased in size since prior exam. IMPRESSION: 1. A few small subsegmental pulmonary emboli, as described above. 2. Progression of multifocal consolidation and groundglass opacity since prior exam. The findings favor pneumonia superimposed upon pulmonary fibrosis. Alternatively, the airspace opacities could be treatment related. 3. Slight increase in thoracic lymphadenopathy and stable to slight increase in size of multiple small pulmonary nodules. The findings are likely neoplastic. 4. Trace left pleural effusion. ACT 112: Negative or not required by law. Electronically signed by: Casimiro Rivas M.D. 03/30/2024 6:33 PM Chest X-Ray 03/31/24 04:01 XR chest 1V portable HISTORY: 73 years-old Male low o2 acute hypoxia COMPARISON: CT chest 03/30/2024, chest radiograph 03/29/2024. TECHNIQUE: AP view of the chest FINDINGS: Cardiac silhouette is enlarged. Stable position of the right pectoral Xzbmgl-q-Ztrq catheter. Extensive mixed interstitial and alveolar opacities with bronchiectasis redemonstrated. Bones appear grossly intact. No pneumothorax. Trace pleural effusions. IMPRESSION: 1. Cardiomegaly with extensive mixed interstitial and alveolar opacities redemonstrated, mildly progressed from prior. Findings are suggestive of multifocal pneumonia superimposed upon pulmonary fibrosis. 2. Trace pleural effusions. ACT 112: Negative or not required by law. The above report was generated using voice recognition software. It may contain grammatical, syntax or spelling errors. Electronically signed by: Bertrand Anderson M.D. 03/31/2024 7:08 AM Discharge Instructions Given to Patient (Per Discharging Provider) Pt Total Time Total Time Spent Total Time Spent (In Minutes): 65
== END 2024-04-01 15:24 | disposition expired | DRG 193 ==
LOC: ED 10:23 → 2W 14:16 → SUATTDRO 14:16 → 2W 15:09